=== PATIENT | male | born 1960 | race Caucasian/White ===

== ENCOUNTER → 2017-09-24 08:35 | Outpatient (CLI) | payer MEDICAID, SELFPAY ==
[2017-09-24 10:19] LABS: Cholesterol 121 mg/dL (200); High Density Lipoprotein 32 mg/dL; Triglycerides 304 mg/dL; Very Low Density Lipoprotein 61 mg/dL (5-40)
[2017-09-24 11:44] LABS: ALB/GLOB Ratio 1.4 RATIO (0.9-2.4); AST(SGOT) 22 U/L (15-37); Alanine Aminotransfer ALT/SGPT 34 U/L (12-78); Albumin, Serum 4.3 g/dL (3.4-5.0); Alkaline Phosphatase 63 U/L (45-117); Anion Gap 12 (5-15); BUN 17 mg/dL (7-18); BUN/Creat Ratio 15.6 RATIO (10-20); Calcium,Total 9.4 mg/dL (8.5-10.1); Chloride 105 mmol/L (98-107); Creatinine, Serum 1.09 mg/dL (0.70-1.30); EST Glomerular Filtration Rate 75 mL/min (>60); Est Glom Filt Rate - Afr Amer 90 mL/min (>60); Globulin 3.1 g/dL (2.2-4.2); Glucose 104 mg/dL (70-110); Potassium 4.3 mmol/L (3.5-5.1); Protein, Total 7.4 g/dL (6.4-8.2); Sodium Level 141 mmol/L (136-145)
== END ==
PROVIDERS: Family Provider Internal Medicine; PCP Internal Medicine; Visit Provider Nurse Practitioner Family
DX: E78.5 Hyperlipidemia, unspecified (principal); I10 Essential (primary) hypertension
CPT/HCPCS: 36415; 80053; 80061

== ENCOUNTER 2017-10-28 15:00 | Outpatient (RCR) | payer MEDICAID, SELFPAY ==
--- NOTE | 2017-10-11 15:58 | HP.PTEVAL_ITS ---
Patient's Visit Information HELEN RUDD is a 57 year old M referred to Physical Therapy by DO MADELINE Griffith with a diagnosis of Neck and LBP. Date of Evaluation: 10/11/17 Physical Therapist: Sidney Estevez PT, - Visit Plan Frequency: 1-2x /Week Duration: 4-6 Weeks Plan: Aquatic therapy consisting of core stab, scap stab, UE stretching and strengthening, and HEP - Subjective Subjective: Pt reports a chronic Hx of neck and LBP for several years. Pt reports his back is worse than his neck. Pt reports he has come to PT for several years for this and it has always made him feel better. Pt reports he recently had C/S xrays which revealed bone spurs. Pt also notes he has had injections in his LB which has helped with the pain. Pt reports he has radiculopathy in L LE which extends to below his knee. No UE T or N. Pt reports he has sleep diff secondary to pain. Able to sleep 4-5 hours at most. Pt reports he is able to do house chores, but must take several breaks due to his pain. Pt is disabled at this time. - Pain neck Pain Intensity (Out of 10): 6 Pain Intensity Range: 6 LBP Pain Intensity (Out of 10): 6 Pain Intensity Range: 10 - Objective Neuro: B LE sensation is WNL to light touch. B achilles and biceps reflex=1/3. AROM: Pt is moderately limited in all ROM with neck and LB. MMT: B UE and LE are grossly rated at 4+/5 throughout. Gait: Pt is able to ambulate 680' I with no limitation until experiencing increased L LE radiculopathy - Goals Goal 1:: Decrease neck and LBP x 25 % to aid with sleep Goal Time Frame: 4-6 Weeks Goal 2:: Pt will be able to ambulate greater than 1000 feet to aid with community ambulation Goal Time Frame: 4-6 Weeks Goal 3:: I with HEP Goal Time Frame: 4-6 Weeks - Rehabilitation Potential Physical Therapy Diagnosis: Pt has neck and LBP secondary to deg changes throughout his spine Rehabilitation Potential: Good - Anticipated Interventions Patient/Client Instruction: Educate patient on: Condition, Plan of Care For the Purpose of:: To improve self management Therapeutic Exercise to Include: Strength training, Endurance training, Postural training, In an aquatic setting, Active ROM, Dynamic Lumbar Stabilization, Scapular Strength/Stabilization For the Purpose of:: To decrease pain, To increase ROM, To improve muscle performance and motor function Thank you for the opportunity to evaluate your patient. For Medicare and Medicare HMO plans, please review the plan of care and approve it. It will need to be FAXED BACK to us at [phone] for Medicare purposes. Please let me know if there are questions or concerns regarding this plan of care. Physician Signature: Date:
--- NOTE | 2017-11-15 09:39 | HP.PT.NRP ---
HP - Discharge Summary (1) - Patient Information HELEN RUDD was seen in my office for initial evaluation on 10/11/17. The following Plan of Care was established for this patient: Initial Frequency: 1-2x /Week Initial Duration: 4-6 Weeks - Anticipated Interventions Patient/Client Instruction: Educate patient on: Condition, Plan of Care For the Purpose of:: To improve self management Therapeutic Exercise to Include: Strength training, Endurance training, Postural training, In an aquatic setting, Active ROM, Dynamic Lumbar Stabilization, Scapular Strength/Stabilization For the Purpose of:: To decrease pain, To increase ROM, To improve muscle performance and motor function This patient was last seen in our office . Pertinent comments regarding their Physical therapy will appear below: Pt phoned the clinic on the date of 11/12/17 to report he is going to have hernia surgery soon and wanted to cancel remaining appointments. At this point I will be discontinuing this patient from physical therapy. I would be happy to see this patient again in the future if found appropriate by the physician. Thank you! Sidney Estevez, PT,
== END 2017-10-28 19:00 | disposition home or self-care (01) ==
LOC: PT 15:00
PROVIDERS: Family Provider Internal Medicine; PCP Internal Medicine; Visit Provider Anesthesiology Pain Medicine
DX: M50.30 Other cervical disc degeneration, unspecified cervical region (principal); M15.9 Polyosteoarthritis, unspecified; F11.20 Opioid dependence, uncomplicated; M53.3 Sacrococcygeal disorders, not elsewhere classified; M79.1 Myalgia; M46.96 Unspecified inflammatory spondylopathy, lumbar region; M54.16 Radiculopathy, lumbar region; M51.36 Other intervertebral disc degeneration, lumbar region; G89.29 Other chronic pain
CPT/HCPCS: 97113; 97162

== ENCOUNTER → 2017-11-12 14:15 | Outpatient (CLI) | payer MEDICAID, SELFPAY ==
[2017-11-12 16:35] LABS: T4 Free Direct 0.95 ng/dL (0.76-1.46); Thyroid Stim Hormone (TSH) 2.25 uIU/mL (0.358-3.74)
== END ==
PROVIDERS: Family Provider Internal Medicine; PCP Internal Medicine; Visit Provider Internal Medicine
DX: E03.9 Hypothyroidism, unspecified (principal)
CPT/HCPCS: 36415; 84439; 84443

== ENCOUNTER 2017-11-22 11:11 | Day surgery (SDC) | payer MEDICAID, SELFPAY ==
[2017-11-22] VITALS (8 sets, daily range): BP systolic 99–135; BP diastolic 76–97; PULSE 69–96; RESP 16–18; TEMP 36.6–37.2; O2SAT 93–96; BMI 35.4
--- NOTE | 2017-11-22 11:20 | EKG12_ITS ---
Test Reason : PRE-OP Blood Pressure : / mmHG Vent. Rate : 081 BPM Atrial Rate : 081 BPM P-R Int : 176 ms QRS Dur : 086 ms QT Int : 364 ms P-R-T Axes : 018 -73 062 degrees QTc Int : 422 ms Normal sinus rhythm Left axis deviation Abnormal ECG When compared with ECG of 06-NOV-2012 13:55, No significant change was found Confirmed by MARIA VICTORIA SANDOVAL, AUSTEN ([id number]), make up editor DELON PETERS ([id number]) on 11/25/2017 4:03:52 PM Referred By: Preston Bryant Confirmed By:AUSTEN IRENE MD
[2017-11-22 12:09] LABS: Hematocrit 41.4 % (40-54); Hemoglobin 13.8 g/dl (13.0-16.5); Mean Corp Hgb Conc 33.3 g/gl (32-36); Mean Corpuscular Hgb 31.7 pg (27.0-32.0); Mean Corpuscular Volume 95.2 fL (80-94); Mean Platelet Vol. 10.9 fl (6.2-12.0); Platelet Count 242 K/mm3 (150-450); RBC Distribution Width CV 12.5 % (11.6-14.6); RBC Distribution Width SD 42.6 fl (35.1-43.9); Red Blood Count 4.35 M/mm3 (4.6-6.2); White Blood Count 5.5 K/mm3 (4.4-11.0)
[2017-11-22 12:12] LABS: Scan Indicated on CBC? Y/N NO
[2017-11-22] MEDS: Ipratropium/Albuterol Sulfate 3 ML AMPUL.NEB INHALATION (12:15)
--- NOTE | 2017-11-22 12:33 | RAD_ITS ---
STUDY: X-RAY CHEST REASON FOR EXAM: Male, 57 years old. Preop for hernia repair TECHNIQUE: PA and lateral views of the chest. COMPARISON: 2013 FINDINGS: The lungs are clear and expanded. There is no demonstrated pleural abnormality. Normal size heart. Normal mediastinum and gris. Normal visualized pulmonary arteries. Normal visualized aortic arch and descending thoracic aorta. Normal visualized thoracic spine. Normal visualized ribs, clavicles, and shoulders. There is no demonstrated abnormality of the visualized soft tissue structures of the upper abdomen. RAD/Chest PA and Lateral IMPRESSION: No acute pulmonary process Electronically Signed: Harinder Figueroa MD at 13:02 EDT , Service support ,
[2017-11-22] MEDS: Cefazolin 2 GM in 0.9% Normal Saline 100 ML IV (13:24)
[2017-11-22] MEDS: Bupiv/Epi 0.5% Mpf 30 ML Vial (13:50)
--- NOTE | 2017-11-22 14:11 | PCM.DC.HER ---
Discharge Diet: Light diet - advance as tolerated Discharge Activity: Return to Normal Activity, May Not Drive - for 2-3 days or while taking narcotic pain meds., May Shower - with the bandage in place 1-2 days after surgery. Lifting Restrictions: 20 pounds for 6 weeks. Additional Activity Instructions:: Climbing stairs is fine, walking is encouraged. Sitting in bed may be uncomfortable. Sitting up using your lateral muscles (sitting up sideways) is usually more comfortable. Do not drive, work heavy equipment of sign legal documents for 24 hours. Pain medications may cause nausea, you should typically eat light foods as you take your pain medications. Pain medications may also cause constipation. If you have difficulty with this, discuss with your doctor. Call your doctor if your incision/area has: Continuous Slow Oozing, Sudden Increased Bleeding, Increased Pain/ Swelling, Increased Redness, Foul Smelling Discharge Call your doctor if you observe: Fever of 101 or Higher Suture Line Care: Avoid Pulling/Pushing, Avoid Pinching/Bending Change Dressing in (Days):: 2 - Leave steri-strips for 1 week. May protect with a guaze bandaid. Cleanse incision/area with: Keep Dressing Clean & Dry Allergies/Adverse Reactions: Allergies venom-honey bee [bee venom (honey bee)] Allergy (Verified 11/18/17 08:43) Unknown Medications to take at Discharge Carvedilol [Coreg] 3.125 mg PO BID 06/02/13 Diazepam [Valium] 10 mg PO TID PRN PRN 06/02/13 Gabapentin [Neurontin] 400 mg PO TIDCM 06/02/13 buPROPion XL [Wellbutrin Xl] 300 mg PO DAILY 06/02/13 hydrocortisone 0.5 % topical cream 1 applic TOPICAL BID-QID PRN 08/05/17 levothyroxine 150 mcg capsule 150 mcg PO QDAY cap 08/05/17 nitroglycerin 0.4 mg sublingual tablet 0.4 mg SUBLINGUAL Q5M PRN 08/05/17 pravastatin 40 mg tablet 40 mg PO QHS 08/05/17 multivitamin,rt-xmjw-gvlgbyyw tablet 1 tab PO QDAY #100 ea 08/06/17 aspirin 81 mg tablet,delayed release 81 mg PO QDAY 09/06/17 lisinopril 20 mg tablet 20 mg PO QDAY 09/06/17 naproxen 500 mg tablet 500 mg PO BID PRN tab 09/06/17 oxycodone ER 15 mg tablet,crush resistant,extended release 12 hr 15 mg PO Q6H PRN tab 09/06/17 coal tar 0.5 % shampoo 1 applic TOPICAL QDAY #250 ml 09/28/17 Fenofibrate,Micronized [Fenofibrate] 67 mg PO QHS 11/18/17 Oxycodone HCl/Acetaminophen [Percocet 5/325] 1 - 2 tablet PO Q4H PRN PRN 7 Days #20 tablet 11/22/17 The following prescriptions were given: Oxycodone HCl/Acetaminophen [Percocet 5/325] 1 - 2 tablet PO Q4H PRN PRN 7 Days #20 tablet PRN Reason: Pain Primary Care Physician: Britni Hutchinson MD [Primary Care Provider] - Please Follow Up With: Preston Bryant MD When: call tomorrow to make 2 week follow up appt [phone]
--- NOTE | 2017-11-22 14:17 | OP.PCM_ITS ---
Problem List (1) Umbilical hernia without mention of obstruction or gangrene Status: Acute Qualifiers: Obstruction and gangrene presence: without obstruction or gangrene Report of Operation Date of Procedure: 11/22/17 Pre-Operative Diagnosis: Umbilical hernia Post-Operative Diagnosis: Umbilical hernia without gangrene or obstruction 1 cm Surgery/Procedure Performed:: Umbilical hernia repair Description of Surgical Findings:: Patient had a hernia which is approximately 1 cm possibly a little bit smaller. Hernia was closed with 3 interrupted Prolene sutures no mesh was used. Specimen's removed: None Description of Procedure: Patient was brought back to the operating room and general LMA anesthesia was induced. Next the umbilical area was prepped and draped in usual sterile fashion. A curvilinear incision was marked superior to the umbilicus and anesthetized with Marcaine. Next a scalpel was used to make an incision at the proposed incision site and this was deepened to the umbilicus. The umbilicus was dissected free circumferential and then elevated and dissected off of the abdominal wall using electrocautery. The hernia defect was identified and circumferentially dissected free. It was measured to be about 8 mm. This was dissected free above and below the hernia defect and then closed with 3 interrupted 0 Prolene sutures. Next the incision was copiously irrigated and suctioned dry. Next 2 interrupted 3-0 Vicryl sutures were used to tack down the umbilicus. Interrupted 3-0 Vicryl sutures were used to approximate the incision. Next a running 4-0 Monocryl suture was used to close the skin. Steri -Strips were then applied and a cottonball was placed into the abdomen and a pressure dressing was placed over this. Patient tolerated the procedure well and was brought to PACU in stable condition. - Admit VTE Documentation VTE Mechan Device Prophylaxis: SCD's
--- NOTE | 2017-11-22 14:22 | EKG12_ITS ---
Test Reason : CP IN PACU Blood Pressure : / mmHG Vent. Rate : 092 BPM Atrial Rate : 092 BPM P-R Int : 178 ms QRS Dur : 094 ms QT Int : 362 ms P-R-T Axes : 038 -61 040 degrees QTc Int : 447 ms Normal sinus rhythm Left axis deviation Abnormal ECG When compared with ECG of 22-NOV-2017 11:58, MANUAL COMPARISON REQUIRED, DATA IS UNCONFIRMED Confirmed by MARIA VICTORIA SANDOVAL, AUSTEN ([id number]), associate editor DELON PETERS ([id number]) on 11/25/2017 4:03:42 PM Referred By: Preston Bryant Confirmed By:AUSTEN IRENE MD
--- NOTE | 2017-11-22 15:57 | SUR.PHASEII ---
pt could not get prescription filled because he is with pain management and has used up the medicine he could have. pt is aware. instructed to take OTC pain med.
== END 2017-11-22 15:58 | disposition home or self-care (01) ==
LOC: SDC 11:11 → AC 11:12
PROVIDERS: Anesthesiology; Family Provider Internal Medicine; PCP Internal Medicine; Visit Provider Surgery
PROC: (CPT 49585; principal; 2017-11-22 12:45)
DX: K42.9 Umbilical hernia without obstruction or gangrene (principal); I25.10 Atherosclerotic heart disease of native coronary artery without angina pectoris; E78.00 Pure hypercholesterolemia, unspecified; E03.9 Hypothyroidism, unspecified; I10 Essential (primary) hypertension; M19.90 Unspecified osteoarthritis, unspecified site; F32.9 Major depressive disorder, single episode, unspecified; I25.2 Old myocardial infarction; F17.200 Nicotine dependence, unspecified, uncomplicated; Z98.61 Coronary angioplasty status; Z79.82 Long term (current) use of aspirin; Z79.899 Other long term (current) drug therapy
CPT/HCPCS: 49585; 71046; 84484; 85027; 93005; 94640; J7120

== ENCOUNTER → 2018-02-07 12:00 | Outpatient (CLI) | payer MEDICAID, SELFPAY ==
--- NOTE | 2018-02-07 12:00 | DT_ITS ---
This patient was seen during an EMR downtime January 31, 2018 - February 07, 2018. This patient may have a combination of paper and electronic documentation or all paper documentation. All documentation is viewable within the e-chart portion of [employer] for each patient visit.
[2018-02-07 13:57] LABS: ALB/GLOB Ratio 0.9 RATIO (0.9-2.4); AST(SGOT) 21 U/L (15-37); Alanine Aminotransfer ALT/SGPT 26 U/L (16-61); Albumin, Serum 3.5 g/dL (3.2-5.0); Alkaline Phosphatase 66 U/L (45-117); Anion Gap 6 (5-15); BUN 13 mg/dL (7-18); BUN/Creat Ratio 10.7 RATIO (10-20); Calcium,Total 9.5 mg/dL (8.5-10.1); Chloride 105 mmol/L (98-107); Creatinine, Serum 1.22 mg/dL (0.70-1.30); EST Glomerular Filtration Rate 65 mL/min (>60); Est Glom Filt Rate - Afr Amer 79 mL/min (>60); Globulin 3.8 g/dL (2.2-4.2); Glucose 110 mg/dL (74-106); Protein, Total 7.3 g/dL (6.4-8.2); Sodium Level 140 mmol/L (136-145)
[2018-02-09 12:07] LABS: Cholesterol 147 mg/dL (200); High Density Lipoprotein 22 mg/dL; Triglycerides 538 mg/dL
== END ==
PROVIDERS: Visit Provider Nurse Practitioner Family
DX: E78.5 Hyperlipidemia, unspecified (principal); I10 Essential (primary) hypertension
CPT/HCPCS: 36415; 80053; 80061

== ENCOUNTER 2018-04-05 14:30 | Outpatient (RCR) | payer MEDICAID, SELFPAY ==
--- NOTE | 2018-03-25 13:30 | HP.PTEVAL_ITS ---
Patient's Visit Information HELEN RUDD Jr. is a 57 year old M referred to Physical Therapy by Violeta Antunez DO with a diagnosis of Neck and LBP. Date of Evaluation: 03/25/18 Physical Therapist: Sidney Estevez PT, - Visit Plan Frequency: 2x /Week Duration: 4-6 Weeks Plan: Aquatic therapy consisting of UE and LE strenghtening, core stab ex's, scap stab ex's, and HEP - Subjective Subjective: Pt reports a chronic Hx of neck and LBP. Pt reports he has had PT in the past. Pt reports aquatic therapy always seemed to help the most. Pt reports he is taking pain meds and has receivved several injestions which did temporarily help. Pt reports he has numbness which extends from his LB to his R knee. Pt reports sig sleep difficulty secondary to pain. 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 Pt reports he has had multiple xrays which revealed sig degenerative changes in his spine. 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 7/10 pain in spine at rest , 10/10 at worst (trying to sleep) - Pain Neck and LBP Pain Intensity (Out of 10): 7 Pain Intensity Range: 10 - Objective Neuro: R LE is hyposensitive to light touch. All other UE and LE sensation is WNL to light touch. B patellar and bicepital reflex= 1/3. ROM: B UE/LE are WFL. MMT: B UE and LE are grossly 4/5 throughout and painful with all testing. Gait: Pt is able to ambulate 850' until feeling fatigued and needing to sit down to rest - Goals Goal 1:: Decrease neck and LBP x 50% to aid with sleep Goal Time Frame: 4-6 Weeks Goal 2:: Increase B UE and LE strength x 1 grade to aid with IADL's Goal Time Frame: 4-6 Weeks Goal 3:: Pt will be able to ambulate greater than 1000' to aid with community ambulation Goal Time Frame: 4-6 Weeks Goal 4:: I with HEP Goal Time Frame: 4-6 Weeks - Rehabilitation Potential Physical Therapy Diagnosis: Pt has neck and LBP secondary to degenerative changes in the L/S Rehabilitation Potential: Good - Anticipated Interventions Patient/Client Instruction: Educate patient on: Condition, Plan of Care For the Purpose of:: To improve self management Therapeutic Exercise to Include: Strength training, Endurance training, Body mechanics, Postural training, In an aquatic setting, Dynamic Lumbar Stabilization, Scapular Strength/Stabilization For the Purpose of:: To decrease pain, To improve muscle performance and motor function, To increase tolerance to activity/condition/position Thank you for the opportunity to evaluate your patient. For Medicare and Medicare HMO plans, please review the plan of care and approve it. It will need to be FAXED BACK to us at [phone] for Medicare purposes. Please let me know if there are questions or concerns regarding this plan of care. Physician Signature: Date:
--- NOTE | 2018-05-20 08:06 | HP.PT.NRP ---
HP - Discharge Summary (1) - Patient Information HELEN RUDD Jr. was seen in my office for initial evaluation on 03/25/18. The following Plan of Care was established for this patient: Initial Frequency: 2x /Week Initial Duration: 4-6 Weeks - Anticipated Interventions Patient/Client Instruction: Educate patient on: Condition, Plan of Care For the Purpose of:: To improve self management Therapeutic Exercise to Include: Strength training, Endurance training, Body mechanics, Postural training, In an aquatic setting, Dynamic Lumbar Stabilization, Scapular Strength/Stabilization For the Purpose of:: To decrease pain, To improve muscle performance and motor function, To increase tolerance to activity/condition/position This patient was last seen in our office . Pertinent comments regarding their Physical therapy will appear below: Pt was last treated on the date of 04/05/18 for his neck and LBP. Pt has not returned through todays date, and is therefore discontinued at this time. At this point I will be discontinuing this patient from physical therapy. I would be happy to see this patient again in the future if found appropriate by the physician. Thank you! Sidney Estevez, PT,
== END 2018-04-05 19:00 | disposition home or self-care (01) ==
LOC: PT 14:30
PROVIDERS: Family Provider Internal Medicine; PCP Internal Medicine; Visit Provider Anesthesiology Pain Medicine
DX: M50.30 Other cervical disc degeneration, unspecified cervical region (principal); M15.9 Polyosteoarthritis, unspecified; F11.20 Opioid dependence, uncomplicated; M53.3 Sacrococcygeal disorders, not elsewhere classified; M79.1 Myalgia; M46.96 Unspecified inflammatory spondylopathy, lumbar region; M54.16 Radiculopathy, lumbar region; M51.36 Other intervertebral disc degeneration, lumbar region
CPT/HCPCS: 97113; 97162

== ENCOUNTER → 2018-06-08 09:03 | Outpatient (CLI) | payer MEDICAID, SELFPAY ==
[2018-06-08 10:44] LABS: Hemoglobin A1c 5.8 % (4.2-6.3)
[2018-06-08 10:58] LABS: Cholesterol 131 mg/dL (200); High Density Lipoprotein 31 mg/dL; Triglycerides 339 mg/dL; Very Low Density Lipoprotein 68 mg/dL (5-40)
== END ==
PROVIDERS: Family Provider Internal Medicine; PCP Internal Medicine; Referring Provider Internal Medicine; Visit Provider Internal Medicine
DX: E78.5 Hyperlipidemia, unspecified (principal); E78.1 Pure hyperglyceridemia; R73.9 Hyperglycemia, unspecified
CPT/HCPCS: 36415; 80061; 83036

== ENCOUNTER → 2018-07-27 07:42 | Outpatient (CLI) | payer MEDICAID, SELFPAY ==
[2018-05-10 13:52] VITALS: BMI 31.1
--- NOTE | 2018-07-27 10:39 | NEURO ---
NCS and/or EMG Patient Report Ordering Doctor: Cynthia Swift DATE OF SERVICE: 07/27/18 This is a bilateral lower extremity nerve conduction study and a right lower extremity EMG performed on this 58-year-old male with bone spurs in his feet. He says on several occasions he has had steroid injections in his feet which has temporarily improved his symptoms significantly however the symptoms recur once the steroids wear off. So has back pain. Bilateral lower extremity sensory and motor nerve conduction studies are performed. H reflex latencies from the tibial nerves bilaterally are reduced. F-wave responses from the tibial and peroneal nerves bilaterally are symmetrically within the normal range. Sural sensory, medial plantar responses bilaterally and peroneal motor and tibial motor responses bilaterally demonstrate normal distal latencies amplitudes and conduction velocities. Right lower extremity needle electromyography is performed. Muscles evaluated included the extensor digitorum brevis, abductor hallucis, medial gastrocnemius, anterior tibialis, vastus medialis and vastus lateralis muscles. All muscles demonstrated normal insertional activity with absence of pathologic spontaneous activity area and motor unit potential recruitment pattern and amplitude was normal in all muscles tested. Impression this is a normal elective his like study of the lower extremities.
--- OUTSIDE RECORDS SUMMARY | 2018-09-21 12:06 | XMS RPT_ITS ---
:1960 Author Organization OHIP Support Name Relationship Address Phone D Unavailable Unavailable Unavailable POHALSKI, ISAC Unavailable . + [place] [address] POHALSKI, TAMELA Unavailable . + [place] [address] D Unavailable Unavailable Unavailable POHALSKI, ISAC Unavailable Unavailable + [place] [address] POHALSKI, TAMELA Unavailable Unavailable + [place] [address] ELIZAHALSKI, HELEN SR Unavailable Unavailable + D Unavailable Unavailable Unavailable POHALSKI, ISAC Unavailable Unavailable + [place] [address] POHALSKI, TAMELA Unavailable Unavailable + [place] [address] D Unavailable Unavailable Unavailable POHALSKI, ISAC Unavailable . + [place] [address] POHALSKI, TAMELA Unavailable . + [place] [address] D Unavailable Unavailable Unavailable POHALSKI, ISAC Unavailable . + [place] [address] POHALSKI, TAMELA Unavailable . + [place] [address] D Unavailable Unavailable Unavailable POHALSKI, ISAC Unavailable . + [place] [address] POHALSKI, TAMELA Unavailable . + [place] [address] POHALSKI, HELEN SR Unavailable Unavailable + D Unavailable Unavailable Unavailable POHALSKI, ISAC Unavailable Unavailable + [place] [address] POHALSKI, TAMELA Unavailable Unavailable + [place] [address] D Unavailable Unavailable Unavailable POHALSKI, ISAC Unavailable Unavailable + [place] [address] POHALSKI, TAMELA Unavailable . + [place] [address] D Unavailable Unavailable Unavailable POHALSKI, ISAC Unavailable . + [place] [address] POHALSKI, TAMELA Unavailable . + [place] [address] POHALSKI, HELEN SR Unavailable Unavailable + D Unavailable Unavailable Unavailable POHALSKI, ISAC Unavailable . + [place] [address] POHALSKI, TAMELA Unavailable . + [place] [address] D Unavailable Unavailable Unavailable POHALSKI, ISAC Unavailable . + [place] [address] POHALSKI, TAMELA Unavailable . + [place] [address] D Unavailable Unavailable Unavailable POHALSKI, ISAC Unavailable . + [place] [address] POHALSKI, TAMELA Unavailable . + [place] [address] D Unavailable Unavailable Unavailable POHALSKI, ISAC Unavailable . + [place] [address] POHALSKI, TAMELA Unavailable . + [place] [address] D Unavailable Unavailable Unavailable POHALSKI, ISAC Unavailable Unavailable + [place] [address] POHALSKI, TAMELA Unavailable Unavailable + [place] [address] D Unavailable Unavailable Unavailable POHALSKI, ISAC Unavailable . + [place] [address] POHALSKI, TAMELA Unavailable . + [place] [address] POHALSKI, HELEN SR Unavailable Unavailable + D Unavailable Unavailable Unavailable POHALSKI, ISAC Unavailable Unavailable + [place] [address] POHALSKI, TAMELA Unavailable Unavailable + [place] [address] D Unavailable Unavailable Unavailable POHALSKI, ISAC Unavailable NA + [place] [address] POHALSKI, TAMELA Unavailable NA + [place] [address] D Unavailable Unavailable Unavailable POHALSKI, ISAC Unavailable NA + [place] [address] POHALSKI, TAMELA Unavailable NA + [place] [address] D Unavailable Unavailable Unavailable POHALSKI, ISAC Unavailable NA + [place] [address] POHALSKI, TAMELA Unavailable NA + [place] [address] D Unavailable Unavailable Unavailable POHALSKI, ISAC Unavailable NA + [place], [place] POHALSKI, TAMELA Unavailable NA + [place], [place] D Unavailable Unavailable Unavailable POHALSKI, ISAC Unavailable Unavailable + [place] [address] POHALSKI, TAMELA Unavailable Unavailable + [place] [address] D Unavailable Unavailable Unavailable POHALSKI, ISAC Unavailable NA + [place], [place] POHALSKI, TAMELA Unavailable NA + [place], [place] D Unavailable Unavailable Unavailable POHALSKI, ISAC Unavailable NA + [place], [place] POHALSKI, TAMELA Unavailable NA + [place], [place] POHALSKI, HELEN SR Unavailable Unavailable + Care Team Providers Name Role Phone Oleghe, Efewongbe Attending Unavailable Oleghe, Efewongbe Referring Unavailable Steven Kwon Attending Unavailable Oleghe, Efewongbe Referring Unavailable Oleghe, Efewongbe Primary Care Unavailable Dariel KelleyC Attending Unavailable Oleghe, Efewongbe Primary Care Unavailable Violeta Fernandez Attending Unavailable Violeta Fernandez Referring Unavailable Oleghe, Efewongbe Primary Care Unavailable Dariel Kelley NP-C Attending Unavailable Oleghe, Efewongbe Referring Unavailable Oleghe, Efewongbe Primary Care Unavailable Dariel Kelley [employer]-C Attending Unavailable Dariel Kelley [employer]-C Referring Unavailable Oleghe, Efewongbe Primary Care Unavailable Preston Bryant Attending Unavailable Oleghe, Efewongbe Referring Unavailable Oleghe, Efewongbe Primary Care Unavailable Oleghe, Efewongbe Attending Unavailable Oleghe, Efewongbe Referring Unavailable Oleghe, Efewongbe Primary Care Unavailable Oleghe, Efewongbe Attending Unavailable Oleghe, Efewongbe Referring Unavailable Oleghe, Efewongbe Primary Care Unavailable Preston Bryant Attending Unavailable Preston Bryant Referring Unavailable Oleghe, Efewongbe Primary Care Unavailable Preston Bryant Attending Unavailable Preston Bryant Referring Unavailable Oleghe, Efewongbe Primary Care Unavailable Preston Bryant Consulting Unavailable Preston Bryant Attending Unavailable Oleghe, Efewongbe Referring Unavailable Oleghe, Efewongbe Primary Care Unavailable Rich Lopez Attending Unavailable Preston Bryant Referring Unavailable Darile Kelley [employer]-C Attending Unavailable Dariel Kelley [employer]-C Attending Unavailable Oleghe, Efewongbe Referring Unavailable Oleghe, Efewongbe Primary Care Unavailable Monique Tang PA-C Attending Unavailable Oleghe, Efewongbe Referring Unavailable Oleghe, Efewongbe Primary Care Unavailable Violeta Fernandez Attending Unavailable Oleghe, Efewongbe Primary Care Unavailable Violeta Fernandez Referring Unavailable Kaila Krishna Attending Unavailable Oleghe, Efewongbe Attending Unavailable Oleghe, Efewongbe Referring Unavailable Oleghe, Efewongbe Primary Care Unavailable Yu Johnson Attending Unavailable Mone Aguilar Attending Unavailable Oleghe, Efewongbe Attending Unavailable Oleghe, Efewongbe Referring Unavailable Oleghe, Efewongbe Primary Care Unavailable Cynthia Swift Attending Unavailable Cynthia Swift Referring Unavailable Oleghe, Efewongbe Primary Care Unavailable Kiersten Garcia Attending Unavailable Kiersten Garcia Attending Unavailable FakalynsKiersten L Attending Unavailable Oleghe, Efewongbe Primary Care Unavailable KarosKiersten L Attending Unavailable Oleghe, Efewongbe Primary Care Unavailable Kiersten Garcia Attending Unavailable Britni Hutchinson Primary Care Unavailable PROBLEMS PROBLEMS DATE TYPE CONDITION / CODE ATTENDING STATUS SOURCE Unknown E78.5 - Oleghe, Active [place] 8 Hyperlipidemia, Efongbe [facility] unspecified / Hospital E78.5(ICD-10) Repository Unknown R73.9 - Hyperglycemia, Oleghe, Active [place] 8 unspecified / [facility] R73.9(ICD-10) Hospital Repository Unknown E78.1 - Pure Oleghe, Active [place] 8 hyperglyceridemia / [facility] E78.1(ICD-10) Hospital Repository Unknown M50.30 - Other [place]io, Active [place] 8 [facility] / M50.30(ICD-10) Unknown K42.9 - Umbilical [place], Active [place] 8 hernia without Preston [facility] obstruction or Hospital gangrene / Repository K42.9(ICD-10) Unknown I25.10 - Jessica, Rich Active [place] 8 Atherosclerotic heart [facility] disease [facility] coronary artery Repository without angina pectoris / I25.10(ICD-10) Unknown I10 - Essential Jessica, Rose Active [place] 8 (primary) hypertension Community / I10(ICD-10) Hospital Repository Unknown I25.2 - Old myocardial Jessica, Rose Active [place] 8 infarction / Community I25.2(ICD-10) Hospital Repository Unknown R94.31 - Abnormal Jessica, Rich Active [place] 8 electrocardiogram Community [ECG] [EKG] / Hospital R94.31(ICD-10) Repository Unknown E03.9 - Oleghe, Active [place] 8 Hypothyroidism, Efewongbe Community unspecified / Hospital E03.9(ICD-10) Repository Admitting Unknown / UNK(Unknown) Maria De Jesus Garcia [facility] [place] 7 diagnosis Kiersten Wagoner [facility] Repository PROCEDURES PROCEDURES No Procedure Records FoundRESULTS RESULTS NCS AND/OR EMG Observed: 07/27/2018 Status: F Source: [place] [facility]/Neurology [address] [place] [address] MR#: [id number] Acct: [id number] Name: HELEN RUDD Jr. Rep #: [id number] : 1960 58 From: Ba Salmon MD Referring Dr: Cynthia Swift DPM Status: REG CLI Ordering Dr: Date: Location: PSN Sex: M C NCS and/or EMG Patient Report Ordering Doctor: Cynthia Swift DATE OF SERVICE: 07/27/18 This is a bilateral lower extremity nerve conduction study and a right lower extremity EMG performed on this 58-year-old male with bone spurs in his feet. He says on several occasions he has had steroid injections in his feet which has temporarily improved his symptoms significantly however the symptoms recur once the steroids wear off. So has back pain. Bilateral lower extremity sensory and motor nerve conduction studies are performed. H reflex latencies from the tibial nerves bilaterally are reduced. F-wave responses from the tibial and peroneal nerves bilaterally are symmetrically within the normal range. Sural sensory, medial plantar responses bilaterally and peroneal motor and tibial motor responses bilaterally demonstrate normal distal latencies amplitudes and conduction velocities. Right lower extremity needle electromyography is performed. Muscles evaluated included the extensor digitorum brevis, abductor hallucis, medial gastrocnemius, anterior tibialis, vastus medialis and vastus lateralis muscles. All muscles demonstrated normal insertional activity with absence of pathologic spontaneous activity area and motor unit potential recruitment pattern and amplitude was normal in all muscles tested. Impression this is a normal elective his like study of the lower extremities. 07/27/18 1637 <Electronically signed by Ba Salmon MD> Date Ba Salmon MD CC: Britni Hutchinson MD; Cynthia Swift DPM; Ba Salmon MD Date Dictated: 07/27/181038 Date Transcribed: 07/27/181038 Vp Purchasing: NF Signed HEMOGLOBIN A1C Collected: 06/08/2018 Status: F Source: [place] 9:15 AM [facility] REPOSITORY TYPE CODE TESTS RESULT OUT OF RANGE REFERENCE UNITS LAB L501.9985 4.2-6.3 % Normal HGB A1C 5.8 Performed By: #### L501.9985 #### [facility] [address] [place], [address] LIPID PROFILE Collected: 06/08/2018 Status: F Source: [place] 9:15 AM [facility] REPOSITORY TYPE CODE TESTS RESULT OUT OF RANGE REFERENCE UNITS LAB L501.4900 200 mg/dL Normal CHOL 131 Result Comment: <200 mg/dL Desirable 200-240 mg/dL Borderline >240 mg/dL High Risk LAB L501.5000 mg/dL High TRIG 339 Result Comment: The drugs N-Acetylcysteine and Metamizole may falsely depress this assay. Serum Triglycerides Reference Interval Normal <150 mg/dL Borderline high 150 - 199 mg/dL High 200 - 499 mg/dL Very High > or = 500 mg/dL LAB L501.6400 mg/dL Low HDL 31 Result Comment: The drugs N-Acetylcysteine and Metamizole may falsely depress this assay. Reference Range HDL <40 mg/dL Low HDL Cholesterol HDL >or= 60 mg/dL High HDL Cholesterol LAB L501.6500 0-130 mg/dL Normal LDL 32 LAB L501.6600 5-40 mg/dL High VLDL 68 Performed By: #### L500.4100 #### [facility] [address] [place], [address] INTERNAL MEDICINE Observed: 05/10/2018 Status: F Source: [place] OFFICE VISIT 3:57 PM [facility] REPOSITORY [facility] [address] [place] [address] [place] [address] OFFICE VISIT Date of Service: 05/10/18 MR#: [id number] Acct: [id number] Name: HELEN RUDD Jr. Rep #: [id number] : 1960 Provider: Britni Hutchinson MD Age/Sex: 57/M Location: [facility] Status: Signed Intake Vital Signs05/10/18 Height 5 ft 8 in 05/10/18 Weight: 205 lb 05/10/18 Body Mass Index (BMI) 31.1 09/11/18 Blood Pressure 105/71 Intake Visit Reasons: 3 MO FU Chief Complaint: 3 mo fu. Is patient in pain?: Yes (back ) Pain scale (1-10): 6 Allergies venom-honey bee [bee venom (honey bee)] Allergy (Verified 05/10/18 13:54) Unknown Medications Diazepam [Valium] 10 mg PO TID PRN PRN 06/02/13 [History Confirmed 05/10/18] Gabapentin [Neurontin] 400 mg PO TIDCM 06/02/13 [History Confirmed 05/10/18] buPROPion XL [Wellbutrin Xl] 300 mg PO DAILY 06/02/13 [History Confirmed 05/10/18] hydrocortisone 0.5 % topical cream 1 applic TOPICAL BID-QID PRN 08/05/17 [History Confirmed 05/10/18] levothyroxine 150 mcg capsule 150 mcg PO QDAY cap 08/05/17 [History Confirmed 05/10/18] multivitamin,ov-abqn-lgkyyhcr tablet 1 tab PO QDAY #100 ea 08/06/17 [Rx Confirmed 05/10/18] naproxen 500 mg tablet 500 mg PO BID PRN tab 09/06/17 [History Confirmed 05/10/18] oxycodone ER 15 mg tablet,crush resistant,extended release 12 hr 15 mg PO Q6H PRN tab 09/06/17 [History Confirmed 05/10/18] coal tar 0.5 % shampoo 1 applic TOPICAL QDAY #250 ml 09/28/17 [Rx Confirmed 05/10/18] Oxycodone HCl/Acetaminophen [Percocet 5/325] 1 - 2 tab PO Q4H PRN PRN 7 Days #20 tab 11/22/17 [Rx Confirmed 05/10/18] rosuvastatin 40 mg tablet 40 mg PO QDAY #90 tab 01/25/18 [Rx Confirmed 05/10/18] carvedilol 3.125 mg tablet 3.125 mg PO BID #180 tab 01/26/18 [Rx Confirmed 05/10/18] lisinopril 20 mg tablet 20 mg PO QDAY #90 tab 01/26/18 [Rx Confirmed 05/10/18] epinephrine 0.3 mg/0.3 mL injection, auto-injector 0.3 mg IM ONCE 03/23/18 [History Confirmed 05/10/18] nitroglycerin 0.4 mg sublingual tablet 0.4 mg SUBLINGUAL Q5M PRN #25 tab 04/22/18 [Rx Confirmed 05/10/18] albuterol sulfate HFA 90 mcg/actuation aerosol inhaler 2 puff INHALATION Q6H PRN #8.5 g 05/10/18 [Rx Confirmed 05/10/18] fenofibrate micronized 67 mg capsule 134 mg PO QHS cap 05/10/18 [History Confirmed 05/10/18] PFSH Medical History Degenerative disc disease (Chronic) Chronic back pain (Chronic) Arthritis (Chronic) Gout (Acute) Heel spur (Acute) Spontaneous ecchymosis (Acute) Bloody ejaculation (Acute) Tobacco abuse (Chronic) Atherosclerotic heart disease of [place] coronary artery without angina pectoris (Chronic) Old myocardial infarction (Chronic) HLD (hyperlipidemia) (Chronic) Hypertriglyceridemia (Chronic) History of coronary artery stent placement (Chronic) Hypothyroidism (Chronic) Hypertension (Chronic) Surgical History History of umbilical hernia repair (Acute) radiofrequency abation S1, S2, L6 (Chronic 02/2014) Normal colonoscopy (Chronic 2014) History of left heart catheterization (LHC) (Chronic 11/06/12) History of PTCA (Chronic 11/06/12) Family History Father Hypertension Hyperlipidemia Social History Smoking Status: Current every day smoker how long ago did patient quit smokin alcohol intake: never substance use type: does not use caffeine: No what type of physical activity do you participate in: weight training frequency: 3-4 times per week seatbelt use: always do you feel safe at home: Yes HPI HPI Chief Complaint: 3 mo fu. Details: HELEN RUDD, is a 57yo M who presents to the office today for follow-up of his chronic medical conditions. He was recently managed for an upper respiratory tract infection. He reports improvement in symptoms at this time. No fever or chills. Cough is lingering however, improving compared to prior. Lipid profile done in January with still elevated triglycerides despite being on fenofibrate. Patient reports compliance with his medications. ROS Const Constitutional: No chills, fatigue, fever(s), frequent falls, malaise, weakness, sleep problems or change in appetite Eyes Eyes: No blurry vision, change in vision, double vision, discharge or visual disturbances ENT ENT: Positive for hoarseness; no abnormal hearing, ear pain, ear pressure, tinnitus or dizziness/vertigo Resp Respiratory: Positive for cough Cough: Yes productive, shortness of breath, wheezing and chest congestion Cardio Cardiology: No chest pain at rest, chest pain with exertion, shortness of breath, dyspnea on exertion, generalized swelling, irregular heart rhythm, lightheadedness, orthopnea, fast heart rate or palpitations Gastro GI: No abdominal pain, change in bowel habits, constipation, diarrhea, nausea/dyspepsia or vomiting Genitourinary Male: No difficulty urinating, burning urination, painful urination, urinary incontinence, urinary frequency, urinary urgency, urinary hesitancy, urinary retention, blood in urine, Frequent nighttime urination/ nocturia, sexual problems, testicle lump or testicle pain Musc Musculoskeletal: Positive for back pain; no joint pain, joint swelling, limited range of motion, muscle weakness, numbness or tingling Skin Skin: No change in skin color, itching, rash or wounds Breast Breast: No breast lump or breast pain Neuro Neurology: No frequent falls, weakness, abnormal hearing, numbness, tingling, unsteady gait/balance, dizziness, loss of vision, memory loss or visual disturbances Psych Psychiatric: No memory loss, No anxiety, No change in appetite, No depression, No Thoughts of harming yourself/Others Endo Endocrine: No fatigue, heat intolerance, increased thirst/drinking, increased hunger or increased urination Aller/Imm Allergy/Immunologic: Positive for wheezing; no itchy eyes or seasonal allergy symptoms Eduin/Lymp Hematologic/Lymphatic: No easy bleeding, easy bruising or enlarged lymph nodes Exam Const General: cooperative, no acute distress Orientation: alert, awake, oriented x3 HENMT Head: atraumatic, normocephalic Ears: hearing grossly normal bilaterally Resp Effort AND Inspection: normal respiratory effort, able to speak in complete sentences Auscultation: Bilateral: Rhonchi (Bases predominantly.) Cardio Rate: regular rate Rhythm: regular rhythm Heart Sounds: S1 normal, S2 normal GI Inspection: obesity Palpation: soft, no hepatosplenomegaly Musc Musculoskeletal: No muscle weakness Neuro General: alert, awake, oriented x3, moves all extremities, CN's II-XI intact bilaterally Extrem General: pedal edema on the right Location: of the leg Severity: pitting and 1+ Psych Appearance: grossly normal Mental Status: mental status grossly normal Affect: normal affect Assessment AND Plan 1. URI (upper respiratory infection) J06.9 Plan Improving however, still lingering cough and rhonchi. He just completed a steroid taper and antibiotics. ? COPD due to chronic history of smoking however patient states that he quit in December. Albuterol inhaler as needed. Advised to call with any concerns or worsening symptoms. 2. Hypertriglyceridemia E78.1 Plan Still not well controlled. Extensive discussion on lifestyle and dietary modifications had today. Patient stated understanding. Dose of fenofibrate adjusted. Repeat lipid profile in 3 months. Orders Orders: 3. Hyperglycemia R73.9 Plan Noted during previous blood work. A1c ordered. Lifestyle and dietary modifications as above. Orders Orders: 4. Essential hypertension I10 Plan Optimally controlled. Continue current medication and lifestyle and dietary modifications. 5. Hypothyroidism E03.9 Plan Stable. Continue current medications. 6. CAD (coronary artery disease) I25.10 Plan Status post stenting. Patient is stable. Denies any history of chest pain. Also follows up with the heart group. Continue statins and daily aspirin. This note was generated with Voice[employer]em dictation software. It may contain incorrect words, spelling, and punctuation that were not noted in checking the note before signing. Plan Detail Other Orders Orders: Other Medications New: albuterol sulfate HFA 90 mcg/actuation 2 puffs Inhalation Q6H PRN shortness of breath or wheezing Changed: Coding Level of Care Code Off vis,est,level 4 Diagnoses URI (upper respiratory infection) J06.9 Hypertriglyceridemia E78.1 Hyperglycemia R73.9 Essential hypertension I10 Hypertension type: essential hypertension Hypothyroidism E03.9 CAD (coronary artery disease) I25.10 05/10/18 1367 <Electronically signed by Britni Hutchinson MD> Date Britni Hutchinson MD Cosigner Signature: Date (if applicable) CC: PROGRESS Observed: 04/08/2018 Status: COMPLETED Source: [place] 2:26 PM [facility] REPOSITORY HNO ID: [id number] Author: Vivek Lizama (Branch Mechanic) [place] Service: (none) Author Type: Nurse Practitioner Type: Progress Notes Filed: 04/08/2018 2:37 PM Note Text: Subjective HPI Patient presents with: Chest Congestion: chest congestion, cough, wheezing, sweats X 2 days HX of pneumonia, smoking, and COPD ROS All other reviewed and negative other than HPI. PAST MEDICAL HISTORY Diagnosis Date - CAD (coronary artery disease) 10/03/2014 - Cellulitis and abscess of buttock 2004 staphylococcal - Chronic low back pain - Depression 02/19/2012 - Diverticulitis - Heel spur left - HTN (hypertension) - Hyperlipemia - Hypothyroid - Lumbago 2002 recurrent musculo-tendinous sprain - IL (myocardial infarction) (HCC) CARDIAC STENT - Opioid dependence (HCC) chronic - Osteoarthritis PAST SURGICAL HISTORY Procedure Laterality Date - PAST SURGICAL HISTORY OF Surgical debridement forearm - PAST SURGICAL HISTORY OF Abscess buttock - PAST SURGICAL HISTORY OF 02/2014 lumbar injections - PERC TRANSL COR ANGIO 11/07/2012 Promus stent to R circumflex - REMOVAL OF TONSILS,<12 Y/O Tonsillectomy - REPAIR ING HERNIA,5+Y/O,REDUCIBL Hernia repair, inguinal ALLERGIES Bee Sting MEDICATIONS levothyroxine (SYNTHROID) 200 mcg tablet Take 1 tablet by mouth once daily. Take on empty stomach. For thyroid clopidogrel (PLAVIX) 75 mg tablet Take 1 tablet by mouth once daily. atorvastatin (LIPITOR) 40 mg tablet Take 1 tablet by mouth once daily. carvedilol (COREG) 3.125 mg tablet Take 1 tablet by mouth twice daily with meals. fenofibrate nanocrystallized (TRICOR) 145 mg tablet Take 1 tablet by mouth once daily. lisinopril (ZESTRIL, PRINIVIL) 20 mg tablet Take 1 tablet by mouth once daily. EPINEPHrine (EPIPEN) 0.3 mg/0.3 mL auto-injector Inject 0.3 mL subcutaneously. Give 1 injection into side of thigh. Repeat dose in 5-15 min if not improving. oxyCODONE-acetaminophen (PERCOCET) 10-325 mg tablet Take 1 tablet by mouth every 6 hours as needed for Pain. buPROPion SR (ZYBAN SR; WELLBUTRIN SR) 150 mg 12 hr tablet Take 1 tablet by mouth twice daily. Take one daily for 3 days, then one twice a day. To quit smoking. clobetasol (TEMOVATE) 0.05 % ointment Apply 1 application to affected area twice daily. No longer than 5 days in a row per week. Sparingly morphine immediate release 15 mg tablet Take 15 mg by mouth every 4 hours as needed. multivitamin tablet Take 1 tablet by mouth once daily. diazepam (VALIUM) 10 mg tablet Take 10 mg by mouth every 6 hours as needed. Take one(1) tablet two(2) times daily. ketoconazole (NIZORAL) 2 % shampoo Shampoo scalp Psoriasis area(s) qoday to qday (every other day to every day) X 2-4 weeks, and then can taper toward qwk (once per week) as able when rash is better, as tolerated and can alternate with various OTC antipsoriasis shampoos as needed (as able) for maintenance control. Clobetasol Propionate 0.05 % external solution Apply to active spots of psoriasis or seborrheic dermatitis on scalp selectively once to twice per dayuntil clear and then taper off or stop as able. AVOID face, eyes, eyelids, and deep fold areas. hydrocortisone valerate (WESTCORT) 0.2 % cream Apply selectively to Psoriasis rash on face at sides nose and around/on ears until clear and then try to taper off as able to CeraVe cream (or lotion) once per day to twice per day. AVOID direct applications to eyelids or eyes as much as possible. ZOHYDRO ER 15 mg CR12 azithromycin (ZITHROMAX Z-RODY) 250 mg tablet Take 2 tablets day one, then, 1 tablet daily until gone. predniSONE (DELTASONE) 10 mg tablet Take 4 tabs daily for 3 days, then 2 tabs daily for 3 days, then 1 tab daily for 3 days with food. benzonatate (TESSALON PERLES) 100 mg capsule Take 2 capsules by mouth three times daily as needed for up to 7 days. albuterol HFA (VENTOLIN HFA) 90 mcg/actuation inhaler Inhale 2 Puffs as instructed every 4 hours as needed for Wheezing/Shortness of Breath. HYDROcodone-Acetaminophen (NORCO) 10-325 mg per tablet Take 1 tablet by mouth every [address] Otoniel Fernandez FAMILY HISTORY Problem Relation Age of Onset - Seizures Mother epilepsy - colon polyps [OTHER] Mother - Hypertension Father - Lipids Father - colon polyps [OTHER] Father - Other [OTHER] Sister lupus Social History Substance Use Topics - Smoking status: Former Smoker Packs/day: 1.00 Years: 20.00 Types: Cigarettes - Smokeless tobacco: Never Used Comment: e cig use - Alcohol use 36.0 oz/week Comment: occasional Objective Physical Exam Constitutional: He is well-developed, well-nourished, and in no distress. HENT: Head: Normocephalic and atraumatic. Right Ear: Tympanic membrane, external ear and ear canal normal. Tympanic membrane is not injected, not erythematous, not retracted and not bulging. No middle ear effusion. Left Ear: Tympanic membrane, external ear and ear canal normal. Tympanic membrane is not injected, not erythematous, not retracted and not bulging. No middle ear effusion. Nose: Mucosal edema and rhinorrhea present. Right sinus exhibits no maxillary sinus tenderness and no frontal sinus tenderness. Left sinus exhibits no maxillary sinus tenderness and no frontal sinus tenderness. Mouth/Throat: Uvula is midline and mucous membranes are normal. Posterior oropharyngeal erythema present. No oropharyngeal exudate, posterior oropharyngeal edema or tonsillar abscesses. Eyes: Conjunctivae and EOM are normal. Pupils are equal, round, and reactive to light. Neck: Normal range of motion. Cardiovascular: Normal rate, regular rhythm and normal heart sounds. Pulmonary/Chest: Effort normal. No respiratory distress. He has wheezes. He has rhonchi in the right upper field and the left upper field. He has no rales. A rattling cough was noted during this encounter. Talking in full sentences. Handling secretions without drooling. Lips and nailbeds are pink without cyanosis. Lymphadenopathy: Head (right side): No submental, no submandibular, no tonsillar, no preauricular and no posterior auricular adenopathy present. Head (left side): No submental, no submandibular, no tonsillar, no preauricular and no posterior auricular adenopathy present. He has no cervical adenopathy. Right cervical: No posterior cervical adenopathy present. Left cervical: No posterior cervical adenopathy present. Right: No supraclavicular adenopathy present. Left: No supraclavicular adenopathy present. Skin: Skin is warm and dry. Psychiatric: Affect normal. Nursing note and vitals reviewed. ASSESSMENT/PLAN: 1. Acute bronchitis with chronic obstructive pulmonary disease (COPD) ([facility]) - ICD9: 491.22, ICD10: J44.0, J20.9 -Zpak -Prednisone -Tessalon Perles -supportive care, rest, fluids, analgesics PRN -F/u with pcp in 3-5 days or sooner if symptoms are not improving or worsening Prescription instructions reviewed with patient as applicable. Patient advised if symptoms do not improve or if symptoms worsen sooner, to contact their primary care physician. Potential red flag symptoms discussed with the patient. Reviewed appropriate action plan to take if red flag symptoms occur. Patient agreeable to treatment plan. Vivek Fernandez APRN.CNP CNOV Observed: 04/08/2018 Status: COMPLETED Source: [place] 1:45 PM [facility] REPOSITORY Office Visit ([facility]) HELEN RUDD ([id number]) 1960 M Date Time Provider Department 04/08/18 1:45 PM VIVEK FERNANDEZ ([facility]) [facility] During your visit today, we recorded the following information about you: Temperature Pulse Blood pressure Weight 98.1 degrees 80/minute 130/80 91.2 kg Vivek Fernandez APRN.CNP 04/08/2018 2:37 PM Signed Subjective HPI Patient presents with: Chest Congestion: chest congestion, cough, wheezing, sweats X 2 days HX of pneumonia, smoking, and COPD ROS All other reviewed and negative other than HPI. PAST MEDICAL HISTORY Diagnosis Date - CAD (coronary artery disease) 10/03/2014 - Cellulitis and abscess of buttock 2003 staphylococcal - Chronic low back pain - Depression 02/19/2012 - Diverticulitis - Heel spur left - HTN (hypertension) - Hyperlipemia - Hypothyroid - Lumbago 2002 recurrent musculo-tendinous sprain - IL (myocardial infarction) (HCC) CARDIAC STENT - Opioid dependence (HCC) chronic - Osteoarthritis PAST SURGICAL HISTORY Procedure Laterality Date - PAST SURGICAL HISTORY OF Surgical debridement forearm - PAST SURGICAL HISTORY OF Abscess buttock - PAST SURGICAL HISTORY OF 02/2014 lumbar injections - PERC TRANSL COR ANGIO 11/07/2012 Promus stent to R circumflex - REMOVAL OF TONSILS,<12 Y/O Tonsillectomy - REPAIR ING HERNIA,5+Y/O,REDUCIBL Hernia repair, inguinal ALLERGIES Bee Sting MEDICATIONS levothyroxine (SYNTHROID) 200 mcg tablet Take 1 tablet by mouth once daily. Take on empty stomach. For thyroid clopidogrel (PLAVIX) 75 mg tablet Take 1 tablet by mouth once daily. atorvastatin (LIPITOR) 40 mg tablet Take 1 tablet by mouth once daily. carvedilol (COREG) 3.125 mg tablet Take 1 tablet by mouth twice daily with meals. fenofibrate nanocrystallized (TRICOR) 145 mg tablet Take 1 tablet by mouth once daily. lisinopril (ZESTRIL, PRINIVIL) 20 mg tablet Take 1 tablet by mouth once daily. EPINEPHrine (EPIPEN) 0.3 mg/0.3 mL auto-injector Inject 0.3 mL subcutaneously. Give 1 injection into side of thigh. Repeat dose in 5-15 min if not improving. oxyCODONE-acetaminophen (PERCOCET) 10-325 mg tablet Take 1 tablet by mouth every 6 hours as needed for Pain. buPROPion SR (ZYBAN SR; WELLBUTRIN SR) 150 mg 12 hr tablet Take 1 tablet by mouth twice daily. Take one daily for 3 days, then one twice a day. To quit smoking. clobetasol (TEMOVATE) 0.05 % ointment Apply 1 application to affected area twice daily. No longer than 5 days in a row per week. Sparingly morphine immediate release 15 mg tablet Take 15 mg by mouth every 4 hours as needed. multivitamin tablet Take 1 tablet by mouth once daily. diazepam (VALIUM) 10 mg tablet Take 10 mg by mouth every 6 hours as needed. Take one(1) tablet two(2) times daily. ketoconazole (NIZORAL) 2 % shampoo Shampoo scalp Psoriasis area(s) qoday to qday (every other day to every day) X 2-4 weeks, and then can taper toward qwk (once per week) as able when rash is better, as tolerated and can alternate with various OTC antipsoriasis shampoos as needed (as able) for maintenance control. Clobetasol Propionate 0.05 % external solution Apply to active spots of psoriasis or seborrheic dermatitis on scalp selectively once to twice per dayuntil clear and then taper off or stop as able. AVOID face, eyes, eyelids, and deep fold areas. hydrocortisone valerate (WESTCORT) 0.2 % cream Apply selectively to Psoriasis rash on face at sides nose and around/on ears until clear and then try to taper off as able to CeraVe cream (or lotion) once per day to twice per day. AVOID direct applications to eyelids or eyes as much as possible. ZOHYDRO ER 15 mg CR12 azithromycin (ZITHROMAX Z-RODY) 250 mg tablet Take 2 tablets day one, then, 1 tablet daily until gone. predniSONE (DELTASONE) 10 mg tablet Take 4 tabs daily for 3 days, then 2 tabs daily for 3 days, then 1 tab daily for 3 days with food. benzonatate (TESSALON PERLES) 100 mg capsule Take 2 capsules by mouth three times daily as needed for up to 7 days. albuterol HFA (VENTOLIN HFA) 90 mcg/actuation inhaler Inhale 2 Puffs as instructed every 4 hours as needed for Wheezing/Shortness of Breath. HYDROcodone-Acetaminophen (NORCO) 10-325 mg per tablet Take 1 tablet by mouth every [address] Otoniel Fernandez FAMILY HISTORY Problem Relation Age of Onset - Seizures Mother epilepsy - colon polyps [OTHER] Mother - Hypertension Father - Lipids Father - colon polyps [OTHER] Father - Other [OTHER] Sister lupus Social History Substance Use Topics - Smoking status: Former Smoker Packs/day: 1.00 Years: 20.00 Types: Cigarettes - Smokeless tobacco: Never Used Comment: e cig use - Alcohol use 36.0 oz/week Comment: occasional Objective Physical Exam Constitutional: He is well-developed, well-nourished, and in no distress. HENT: Head: Normocephalic and atraumatic. Right Ear: Tympanic membrane, external ear and ear canal normal. Tympanic membrane is not injected, not erythematous, not retracted and not bulging. No middle ear effusion. Left Ear: Tympanic membrane, external ear and ear canal normal. Tympanic membrane is not injected, not erythematous, not retracted and not bulging. No middle ear effusion. Nose: Mucosal edema and rhinorrhea present. Right sinus exhibits no maxillary sinus tenderness and no frontal sinus tenderness. Left sinus exhibits no maxillary sinus tenderness and no frontal sinus tenderness. Mouth/Throat: Uvula is midline and mucous membranes are normal. Posterior oropharyngeal erythema present. No oropharyngeal exudate, posterior oropharyngeal edema or tonsillar abscesses. Eyes: Conjunctivae and EOM are normal. Pupils are equal, round, and reactive to light. Neck: Normal range of motion. Cardiovascular: Normal rate, regular rhythm and normal heart sounds. Pulmonary/Chest: Effort normal. No respiratory distress. He has wheezes. He has rhonchi in the right upper field and the left upper field. He has no rales. A rattling cough was noted during this encounter. Talking in full sentences. Handling secretions without drooling. Lips and nailbeds are pink without cyanosis. Lymphadenopathy: Head (right side): No submental, no submandibular, no tonsillar, no preauricular and no posterior auricular adenopathy present. Head (left side): No submental, no submandibular, no tonsillar, no preauricular and no posterior auricular adenopathy present. He has no cervical adenopathy. Right cervical: No posterior cervical adenopathy present. Left cervical: No posterior cervical adenopathy present. Right: No supraclavicular adenopathy present. Left: No supraclavicular adenopathy present. Skin: Skin is warm and dry. Psychiatric: Affect normal. Nursing note and vitals reviewed. ASSESSMENT/PLAN: 1. Acute bronchitis with chronic obstructive pulmonary disease (COPD) ([facility]) - ICD9: 491.22, ICD10: J44.0, J20.9 -Zpak -Prednisone -Tessalon Perles -supportive care, rest, fluids, analgesics PRN -F/u with pcp in 3-5 days or sooner if symptoms are not improving or worsening Prescription instructions reviewed with patient as applicable. Patient advised if symptoms do not improve or if symptoms worsen sooner, to contact their primary care physician. Potential red flag symptoms discussed with the patient. Reviewed appropriate action plan to take if red flag symptoms occur. Patient agreeable to treatment plan. Vivek Fernandez APRN.NURSING PROGRAM DIRECTOR Referring Provider: SELF [200] Allergies As of Date: 04/08/2018 Noted Allergy Reaction BEE STING 12/28/2011 7 - Swelling Date Reviewed: 04/08/2018 Reviewed by: Meredith Kim Ma - Fully Assessed Reason for Visit: Chest Congestion [236] Cmt: chest congestion, cough, wheezing, sweats X 2 days Primary Visit Diagnosis:Acute bronchitis with chronic obstructive pulmonary disease (COPD) ([facility]) [J44.0, J20.9] Order(s):azithromycin (ZITHROMAX Z-RODY) 250 mg tabletTake 2 tablets day one, then, 1 tablet daily until gone.Disp: 1 PackageRfl: 0 predniSONE (DELTASONE) 10 mg tabletTake 4 tabs daily for 3 days, then 2 tabs daily for 3 days, then 1 tab daily for 3 days with food.Disp: 21 tabletRfl: 0 benzonatate (TESSALON PERLES) 100 mg capsuleTake 2 capsules by mouth three times daily as needed for up to 7 days.Disp: 42 capsuleRfl: 0 Prescriptions as of 04/08/2018 Sig: LEVOTHYROXINE 200 MCG TABLET Take 1 tablet by mouth once d* CLOPIDOGREL 75 MG TABLET Take 1 tablet by mouth once d* ATORVASTATIN 40 MG TABLET Take 1 tablet by mouth once d* CARVEDILOL 3.125 MG TABLET Take 1 tablet by mouth twice * FENOFIBRATE NANOCRYSTALLIZED * Take 1 tablet by mouth once d* LISINOPRIL 20 MG TABLET Take 1 tablet by mouth once d* EPINEPHRINE 0.3 MG/0.3 ML INJ* Inject 0.3 mL subcutaneously.* OXYCODONE-ACETAMINOPHEN 10 MG* Take 1 tablet by mouth every * BUPROPION HCL SR 150 MG TABLE* Take 1 tablet by mouth twice * CLOBETASOL 0.05 % TOPICAL OIN* Apply 1 application to affect* MORPHINE 15 MG IMMEDIATE RELE* Take 15 mg by mouth every 4 h* MULTIVITAMIN TABLET Take 1 tablet by mouth once d* DIAZEPAM 10 MG TABLET Take 10 mg by mouth every 6 h* KETOCONAZOLE 2 % SHAMPOO Shampoo scalp Psoriasis area(* CLOBETASOL 0.05 % SCALP SOLUT* Apply to active spots of psor* HYDROCORTISONE VALERATE 0.2 %* Apply selectively to Psoriasi* ZOHYDRO ER 15 MG CAPSULE, ORA* AZITHROMYCIN 250 MG TABLET Take 2 tablets day one, then,* PREDNISONE 10 MG TABLET Take 4 tabs daily for 3 days,* BENZONATATE 100 MG CAPSULE Take 2 capsules by mouth thre* ALBUTEROL SULFATE HFA 90 MCG/* Inhale 2 Puffs as instructed * Patient not taking: Reported on 04/08/2018 HYDROCODONE 10 MG-ACETAMINOPH* Take 1 tablet by mouth every * Medication notes this encounter HYDROCODONE 10 MG-ACETAMINOPHEN 325 MG TABLET >> Meredith Kim Ma 04/08/2018 1:41 PM >> MEREDITH KIM MA Apr 08, 2018 1:41 PM Problem List As Of Date 04/08/2018 Noted Resolved Lumbosacral neuritis [M54.17] INVALID FOR* More... More... Hypertension [I10] INVALID FOR* More... Hypothyroid [E03.9] INVALID FOR* More... Hyperlipidemia [E78.5] INVALID FOR* More... More... Heel spur [M77.30] More... Closed fracture of metatarsal bone(s) [S92.309A]INVALID FOR* Dermatophytosis of nail [B35.1] INVALID FOR* Depression [F32.9] INVALID FOR* More... Xerosis cutis [L85.3] INVALID FOR* Pruritus [L29.9] INVALID FOR* Partial lipoatrophy: L mid forearm from brown r*INVALID FOR* Scar condition and fibrosis of skin: L mid fore*INVALID FOR*10/03/2014 Thoracic or lumbosacral neuritis or radiculitis*INVALID FOR* Bee sting-induced anaphylaxis [T63.441A] INVALID FOR* Myalgia and myositis, unspecified [[id number]] INVALID FOR* Abscess [L02.91] INVALID FOR*09/10/2015 Degeneration of lumbar or lumbosacral intervert*INVALID FOR* More... Hypertriglyceridemia [E78.1] INVALID FOR* More... CAD (coronary artery disease) [I25.10] INVALID FOR* More... Psoriasis [L40.9] INVALID FOR* More... Obesity (BMI 30-39.9) [E66.9] INVALID FOR* More... Prescriptions ordered this encounter Disp Refills Start End AZITHROMYCIN 250 MG TABLET 1 Pa* 0 04/08/2018 04/13/2018 Sig: Take 2 tablets day one, then, 1 tablet daily until gone. PREDNISONE 10 MG TABLET 21 t* 0 04/08/2018 04/17/2018 Sig: Take 4 tabs daily for 3 days, then 2 tabs daily for 3 days, then 1 tab daily for 3 days with food. BENZONATATE 100 MG CAPSULE 42 c* 0 04/08/2018 04/15/2018 Route: ORAL Sig: Take 2 capsules by mouth three times daily as needed for up to 7 days. Medications Discontinued During This Encounter benzonatate (TESSALON PERLE) 100 mg * 30 c* 0 06/13/2017 04/08/2018 Route: ORAL Sig: Take 1 capsule by mouth three times daily as needed. Patient not taking: Reported on 04/08/2018 Disc: Reason for discontinue is not on file. predniSONE (DELTASONE) 20 mg tablet 10 t* 0 06/13/2017 04/08/2018 Sig: Prednisone 40 mg (2-20mg tablets) po QD for 5 days Patient not taking: Reported on 04/08/2018 Disc: Reason for discontinue is not on file. Disposition: Return if symptoms worsen or fail to improve. Follow-up and Disposition History Recorded Encounter Status:Closed by VIVEK FERNANDEZ on 04/08/18 INITAL EVALUATION (1) Observed: 03/25/2018 Status: F Source: RU - PT 1:30 PM [facility] REPOSITORY [facility] Physical Therapy [facility] [facility] [place], [place] [address] Fax REHABILITATION SERVICES INITIAL EVALUATION MR#: [id number] Acct: [id number] Name: JONESDARNELLJamesHELENMAI Wagoner Jr. Rep #: [id number] : 1960 57 From: Sidney Estevez PT, ATC Referring Dr.: Violeta Fernandez Status: REG R Insurance: [facility] SELF PAY INSURANCE Patient's Visit Information HELEN RUDD Jr. is a 57 year old M referred to Physical Therapy by Violeta Fernandez DO with a diagnosis of Neck and LBP. Date of Evaluation: 03/25/18 Physical Therapist: Sidney Estevez PT, - Visit Plan Frequency: 2x /Week Duration: 4-6 Weeks Plan: Aquatic therapy consisting of UE and LE strenghtening, core stab ex's, scap stab ex's, and HEP - Subjective Subjective: Pt reports a chronic Hx of neck and LBP. Pt reports he has had PT in the past. Pt reports aquatic therapy always seemed to help the most. Pt reports he is taking pain meds and has receivved several injestions which did temporarily help. Pt reports he has numbness which extends from his LB to his R knee. Pt reports sig sleep difficulty secondary to pain. 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 Pt reports he has had multiple xrays which revealed sig degenerative changes in his spine. Pt reports he is able to pick and shovel worker sticks and wash dishes but pays a great garza for it by the end of the day. 7/10 pain in spine at rest, 10/10 at worst (trying to sleep) - Pain Neck and LBP Pain Intensity (Out of 10): 7 Pain Intensity Range: 10 - Objective Neuro: R LE is hyposensitive to light touch. All other UE and LE sensation is WNL to light touch. B patellar and bicepital reflex= 1/3. ROM: B UE/LE are WFL. MMT: B UE and LE are grossly 4/5 throughout and painful with all testing. Gait: Pt is able to ambulate 850' until feeling fatigued and needing to sit down to rest - Goals Goal 1:: Decrease neck and LBP x 50% to aid with sleep Goal Time Frame: 4-6 Weeks Goal 2:: Increase B UE and LE strength x 1 grade to aid with IADL's Goal Time Frame: 4-6 Weeks Goal 3:: Pt will be able to ambulate greater than 1000' to aid with community ambulation Goal Time Frame: 4-6 Weeks Goal 4:: I with HEP Goal Time Frame: 4-6 Weeks - Rehabilitation Potential Physical Therapy Diagnosis: Pt has neck and LBP secondary to degenerative changes in the L/S Rehabilitation Potential: Good - Anticipated Interventions Patient/Client Instruction: Educate patient on: Condition, Plan of Care For the Purpose of:: To improve self management Therapeutic Exercise to Include: Strength training, Endurance training, Body mechanics, Postural training, In an aquatic setting, Dynamic Lumbar Stabilization, Scapular Strength/Stabilization For the Purpose of:: To decrease pain, To improve muscle performance and motor function, To increase tolerance to activity/condition/position Thank you for the opportunity to evaluate your patient. For Medicare and Medicare HMO plans, please review the plan of care and approve it. It will need to be FAXED BACK to us at [phone] for Medicare purposes. Please let me know if there are questions or concerns regarding this plan of care. Physician Signature: Date: <Electronically signed by Sidney Estevez PT, ATC> 03/25/18 1330 CC: Violeta Fernandez; Britni Hutchinson MD [facility] Signed For Medicare only, by signing this I certify the plan of care. Physicians Signature Date DOWNTIME REPORT Observed: 02/17/2018 Status: F Source: RU 2:26 PM [facility] REPOSITORY [facility] Medical Records Department [address] [facility] [place] [address] Downtime Report MR#: [id number] Acct: [id number] Name: HELEN RUDD Jr. Rep #: [id number] : 1960 57 From: Fernando Peters PCP: Status: REG CLI This patient was seen during an EMR downtime January 31, 2018 - February 07, 2018. This patient may have a combination of paper and electronic documentation or all paper documentation. All documentation is viewable within the e-chart portion of [employer] for each patient visit. SURGERY VISIT REPORT Observed: 02/10/2018 Status: F Source: RU 3:30 PM [facility] REPOSITORY [facility] [address] [place] [address] OFFICE VISIT Date of Service: 02/10/18 MR#: [id number] Acct: [id number] Name: HELEN RUDD JrAlex Rep #: [id number] : 1960 Provider: Monique Tang PA-C Age/Sex: 57/M Location: [facility] Status: Signed Intake Intake Visit Reasons: F/U UMBILICAL SURGERY 11/22/17 AC, HAVING PAIN Chief Complaint: abdominal pain Emergency Veterinary Assistant Required: No Is patient in pain?: No Allergies venom-honey bee [bee venom (honey bee)] Allergy (Verified 02/10/18 10:04) Unknown Medications Diazepam [Valium] 10 mg PO TID PRN PRN 06/02/13 [History Confirmed 02/10/18] Gabapentin [Neurontin] 400 mg PO TIDCM 06/02/13 [History Confirmed 02/10/18] buPROPion XL [Wellbutrin Xl] 300 mg PO DAILY 06/02/13 [History Confirmed 02/10/18] hydrocortisone 0.5 % topical cream 1 applic TOPICAL BID-QID PRN 08/05/17 [History Confirmed 02/10/18] levothyroxine 150 mcg capsule 150 mcg PO QDAY cap 08/05/17 [History Confirmed 02/10/18] nitroglycerin 0.4 mg sublingual tablet 0.4 mg SUBLINGUAL Q5M PRN 08/05/17 [History Confirmed 02/10/18] multivitamin,kv-znma-htyeiobx tablet 1 tab PO QDAY #100 ea 08/06/17 [Rx Confirmed 02/10/18] naproxen 500 mg tablet 500 mg PO BID PRN tab 09/06/17 [History Confirmed 02/10/18] oxycodone ER 15 mg tablet,crush resistant,extended release 12 hr 15 mg PO Q6H PRN tab 09/06/17 [History Confirmed 02/10/18] coal tar 0.5 % shampoo 1 applic TOPICAL QDAY #250 ml 09/28/17 [Rx Confirmed 02/10/18] Fenofibrate,Micronized [Fenofibrate] 67 mg PO QHS 11/18/17 [History Confirmed 02/10/18] Oxycodone HCl/Acetaminophen [Percocet 5/325] 1 - 2 tab PO Q4H PRN PRN 7 Days #20 tab 11/22/17 [Rx Confirmed 02/10/18] rosuvastatin 40 mg tablet 40 mg PO QDAY #90 tab 01/25/18 [Rx Confirmed 02/10/18] carvedilol 3.125 mg tablet 3.125 mg PO BID #180 tab 01/26/18 [Rx Confirmed 02/10/18] lisinopril 20 mg tablet 20 mg PO QDAY #90 tab 01/26/18 [Rx Confirmed 02/10/18] PFSH Medical History Degenerative disc disease (Chronic) Chronic back pain (Chronic) Arthritis (Chronic) Gout (Acute) Heel spur (Acute) Spontaneous ecchymosis (Acute) Bloody ejaculation (Acute) Tobacco abuse (Chronic) Atherosclerotic heart disease of [place] coronary artery without angina pectoris (Chronic) Old myocardial infarction (Chronic) HLD (hyperlipidemia) (Chronic) Hypertriglyceridemia (Chronic) History of coronary artery stent placement (Chronic) Hypothyroidism (Chronic) Hypertension (Chronic) Surgical History History of umbilical hernia repair (Acute) radiofrequency abation S1, S2, L6 (Chronic 02/2014) Normal colonoscopy (Chronic 2014) History of left heart catheterization (LHC) (Chronic 11/06/12) History of PTCA (Chronic 11/06/12) Family History Father Hypertension Hyperlipidemia Social History Smoking Status: Current every day smoker how long ago did patient quit smokin alcohol intake: never substance use type: does not use caffeine: No what type of physical activity do you participate in: weight training frequency: 3-4 times per week seatbelt use: always do you feel safe at home: Yes HPI HPI HPI: HELEN RUDD, is a 57 M I am following s/p umbilical hernia repair. Dr. Bryant performed an open umbilical hernia repair with sutures on 11/22/17. Patient tolerated the procedure well. He noted more recently he had been picking up sticks and performing physical therapy exercises at home for his back. He noted a pulling sensation in the RLQ adjacent to the umbilicus one day. He stopped his exercise and then restarted without any discomfort. the following day he noted soreness in the RLQ with exercises and coughing. Patient noted he had also went fishing with his dad and helped him pull up a fish on the end of the line and noted a pulling sensation at that time also. Exam GI Inspection: normal to inspection, incision (very nicely healed. ), large pannus, obesity Palpation: soft, tender (RLQ; with deep palpation), no hernias Auscultation: normal bowel sounds Assessment AND Plan Problems 1. History of umbilical hernia repair Z98.890; Z87.19 11/22/2017 2. Strain of abdominal muscle, initial encounter S39.011A Plan - Recommend rest and no strenuous activities with the abdomen for at least 1 week - Continue to do water exercises - Recommend asking physical therapy recommendations of exercises. - Umbilical hernia site with no recurrent hernia noted - Numbness of right lateral leg. recommend follow-up with pain management or back surgeon. - Follow-up as needed Coding Level of Care Code Global Post Op Diagnoses History of umbilical hernia repair Z98.890; Z87.19 Strain of abdominal muscle, initial encounter S39.011A Encounter type: initial encounter 02/10/18 1530 <Electronically signed by Monique Tang PA-C> Date Monique Tang PA-C Cosigner Signature: Date (if applicable) CC: Britni Hutchinson MD; Dariel Kelley NP INTERNAL MEDICINE Observed: 02/09/2018 Status: F Source: RU OFFICE VISIT 3:24 PM [facility] Internal Medicine [address] [place] [address] [address] [place] [address] OFFICE VISIT Date of Service: 02/09/18 MR#: [id number] Acct: [id number] Name: HELEN RUDD Jr. Rep #: [id number] : 1960 Provider: Dariel Kelley NP Age/Sex: 57/M Location: [facility] Status: Signed Intake Vital Signs02/09/18 Height 5 ft 8 in Intake Visit Reasons: 3 MO F/U Chief Complaint: abdominal pain Is patient in pain?: No Allergies venom-honey bee [bee venom (honey bee)] Allergy (Verified 12/07/17 12:59) Unknown Medications Diazepam [Valium] 10 mg PO TID PRN PRN 06/02/13 [History Confirmed 02/09/18] Gabapentin [Neurontin] 400 mg PO TIDCM 06/02/13 [History Confirmed 02/09/18] buPROPion XL [Wellbutrin Xl] 300 mg PO DAILY 06/02/13 [History Confirmed 02/09/18] hydrocortisone 0.5 % topical cream 1 applic TOPICAL BID-QID PRN 08/05/17 [History Confirmed 02/09/18] levothyroxine 150 mcg capsule 150 mcg PO QDAY cap 08/05/17 [History Confirmed 02/09/18] nitroglycerin 0.4 mg sublingual tablet 0.4 mg SUBLINGUAL Q5M PRN 08/05/17 [History Confirmed 02/09/18] multivitamin,vo-hcgx-cvzpysqp tablet 1 tab PO QDAY #100 ea 08/06/17 [Rx Confirmed 02/09/18] naproxen 500 mg tablet 500 mg PO BID PRN tab 09/06/17 [History Confirmed 02/09/18] oxycodone ER 15 mg tablet,crush resistant,extended release 12 hr 15 mg PO Q6H PRN tab 09/06/17 [History Confirmed 02/09/18] coal tar 0.5 % shampoo 1 applic TOPICAL QDAY #250 ml 09/28/17 [Rx Confirmed 02/09/18] Fenofibrate,Micronized [Fenofibrate] 67 mg PO QHS 11/18/17 [History Confirmed 02/09/18] Oxycodone HCl/Acetaminophen [Percocet 5/325] 1 - 2 tab PO Q4H PRN PRN 7 Days #20 tab 11/22/17 [Rx Confirmed 02/09/18] rosuvastatin 40 mg tablet 40 mg PO QDAY #90 tab 01/25/18 [Rx Confirmed 02/09/18] carvedilol 3.125 mg tablet 3.125 mg PO BID #180 tab 01/26/18 [Rx Confirmed 02/09/18] lisinopril 20 mg tablet 20 mg PO QDAY #90 tab 01/26/18 [Rx Confirmed 02/09/18] PFSH Medical History Degenerative disc disease (Chronic) Chronic back pain (Chronic) Arthritis (Chronic) Gout (Acute) Heel spur (Acute) Spontaneous ecchymosis (Acute) Bloody ejaculation (Acute) Tobacco abuse (Chronic) Atherosclerotic heart disease of [place] coronary artery without angina pectoris (Chronic) Old myocardial infarction (Chronic) HLD (hyperlipidemia) (Chronic) Hypertriglyceridemia (Chronic) History of coronary artery stent placement (Chronic) Hypothyroidism (Chronic) Hypertension (Chronic) Surgical History History of umbilical hernia repair (Acute) radiofrequency abation S1, S2, L6 (Chronic 02/2014) Normal colonoscopy (Chronic 2014) History of left heart catheterization (LHC) (Chronic 11/06/12) History of PTCA (Chronic 11/06/12) Family History Father Hypertension Hyperlipidemia Social History Smoking Status: Current every day smoker how long ago did patient quit smokin alcohol intake: never substance use type: does not use caffeine: No what type of physical activity do you participate in: weight training frequency: 3-4 times per week seatbelt use: always do you feel safe at home: Yes HPI HPI Chief Complaint: abdominal pain Details: HELEN RUDD, is a 57 M who presents to the office today for complaints of abdominal pain. Patient has a past medical history of umbilical hernia with repair, degenerative disc disease, arthritis and chronic back pain. Patient states the pain began shortly after hernia repair surgery on November 22, [address] Yanez. The patient notes that he was picking up sticks outside and felt a pulling sensation in his abdomen and this is what initially started the pain. Pain is in the right lower quadrant and near the umbilicus and is described as a pulling aching feeling, occurring 2-3 times a day, lasting about 10 minutes at times. Activity and stretching aggravate the pain. Rest relieves the pain. Patient also notes numbness to lateral right thigh, denies weakness to right leg. He is routinely seen pain management for his chronic low back pain and does have a history of degenerative disc disease. He denies problems with bowel or bladder. Denies numbness, tingling or weakness anywhere else. The patient otherwise denies any fever, chills, nausea, vomiting, shortness of breath, chest pain or pressure, palpitations, orthopnea, lower extremity edema, syncope or presyncopal episodes. ROS Const Constitutional: No weight change, body ache, chills, fatigue, sleep problems, fever(s), change in appetite, snoring, weakness, frequent falls, headache(s) or excessive sweating Eyes Eyes: No change in vision, eye pain, light sensitivity or blurry vision ENT ENT: No headache(s), abnormal hearing, ear pain, tinnitus, nasal congestion, sore throat or neck pain Resp Respiratory: No snoring, cough, shortness of breath or wheezing Cardio Cardiology: No excessive sweating, chest pain at rest, chest pain with exertion, shortness of breath, dyspnea on exertion, palpitations, orthopnea or lightheadedness Gastro GI: Positive for abdominal pain (Rt side by naval, when he stretches. ); no change in bowel habits, constipation, diarrhea, vomiting, nausea/dyspepsia or cramping Genitourinary Male: No painful urination, urinary incontinence, urinary frequency, urinary urgency, blood in urine, testicle pain or other Musc Musculoskeletal: Positive for numbness and tingling (right thigh); no neck pain, abnormal walking, joint pain, back pain, limited range of motion or muscle weakness Skin Skin: No redness, dry skin, itching, lesions, wounds or rash Neuro Neurology: Positive for numbness and tingling (right thigh); no weakness, frequent falls, headache(s), abnormal hearing, abnormal walking, abnormal speech, dizziness or memory loss Psych Psychiatric: No change in appetite, No memory loss, No anxiety, No depression, No Thoughts of harming yourself/Others Endo Endocrine: No fatigue, excessive sweating, cold intolerance, increased thirst/drinking, heat intolerance, flushing or increased hunger Aller/Imm Allergy/Immunologic: Positive for seasonal allergy symptoms; no wheezing, itchy eyes or hives Eduin/Lymp Hematologic/Lymphatic: No easy bleeding, easy bruising or enlarged lymph nodes Exam Const General: cooperative, comfortable, no acute distress Nutritional Appearance: average body habitus, well nourished Orientation: alert, oriented x3 Limitations: mental status not altered Resp Effort AND Inspection: normal respiratory effort, able to speak in complete sentences, normal respiratory pattern, symmetric chest movement, no audible wheezes, no cough Auscultation: Bilateral: Clear to Auscultation Cardio Palpation: normal PMI Rate: regular rate Heart Sounds: S1 normal, S2 normal, normal S1 and S2, no click, no gallops, no murmurs, no rubs GI Inspection: normal to inspection Auscultation: normal bowel sounds, no hyperactive bowel sounds, no hypoactive bowel sounds Palpation: soft, no hepatosplenomegaly, tender in the RLQ and periumbilically Musc Musculoskeletal: No joint tenderness, decreased ROM or muscle weakness Skin General: no rashes or lesions noted, elasticity normal, turgor normal Lesions: no lesions Rashes: no rashes Neuro General: alert, awake, oriented x3, CN's II-XI intact bilaterally Speech: speech normal Gait: normal gait Motor: muscle tone normal throughout Extrem General: normal to inspection, normal gait, no edema, no pedal edema Psych Appearance: grossly normal Mental Status: mental status grossly normal Affect: normal affect Attitude: cooperative Thought Process: normal Assessment AND Plan Problems 1. Abdominal pain R10.9 2. Degenerative disc disease 3. Numbness of right anterior thigh R20.8 Plan Patient complaining of right lower quadrant quadrant abdominal pain beginning after recent surgery for hernia repair with Dr. Yanez. See HPI. Will have patient make follow-up appointment with Dr. Yanez. Discussed red flag symptoms that require urgent medical attention. Patient does have some complaints of numbness and tingling to the right lateral thigh, suspect that this is due to his spinal issues of degenerative disc disease which he is seeing pain management for and receiving injections and narcotic analgesia. He does state he had a recent MRI of the low back done which is at [facility]. He is following up with pain management later today. Did instruct him to notify his pain management doctor of this complaint. This note was generated with Voice[employer] dictation software. It may contain incorrect words, spelling, and punctuation that were not noted in checking the note before signing. Orders Orders: Plan Detail Follow Up 3 months or sooner if needed Coding Level of Care Code Off vis,est,level 3 Diagnoses Abdominal pain R10.9 Degenerative disc disease Numbness of right anterior thigh R20.8 02/09/18 1524 <Electronically signed by Dariel MONTELONGO> Date Dariel MONTELONGO Cosigner Signature: Date (if applicable) CC: COMPREHENSIVE METABOLIC Collected: 02/07/2018 Status: F Source: RU [place] 12:02 PM [facility] REPOSITORY Order Comment: LIPID ADDED 02/09/18 TYPE CODE TESTS RESULT OUT OF RANGE REFERENCE UNITS LAB L501.0100 74-106 mg/dL High GLU 110 Result Comment: Fasting Glucose result from 100 to 125 mg/dL suggests IMPAIRED HOMEOSTASIS per A.D.A. criteria. Please note revised GLUCOSE reference range effective 2017. LAB L501.1000 7-18 mg/dL Normal BUN 13 LAB L501.1100 0.70-1.30 mg/dL Normal CREAT,SERUM 1.22 Result Comment: The validity of the calculated GFR AND GFRAA in patients over 70 years has not been determined. Clinical correlation is essential. LAB L501.1110 >60 mL/min Normal EST GFR 65 Result Comment: Non- GFR Calc LAB L501.1115 >60 mL/min Normal EST GFR - AA 79 Result Comment: GFR Calc LAB L501.1300 10-20 RATIO Normal BUN/CRE 10.7 LAB L501.1500 6.4-8.2 g/dL T Normal PROT 7.3 LAB L501.1800 3.2-5.0 g/dL Normal ALB 3.5 LAB L501.1950 2.2-4.2 g/dL Normal GLOB 3.8 LAB L501.2000 0.9-2.4 RATIO Normal A/G 0.9 LAB L501.2200 8.5-10.1 mg/dL CA Normal 9.5 LAB L501.4100 15-37 U/L Normal AST 21 LAB L501.4305 45-117 U/L Normal ALK P 66 LAB L501.4405 16-61 U/L Normal ALT 26 LAB L501.4600 0.20-1.00 mg/dL T Normal BILI 0.20 LAB L501.5300 136-145 mmol/L NA Normal 140 LAB L501.5600 3.5-5.1 mmol/L K Normal 5.0 LAB L501.5900 98-107 mmol/L CL Normal 105 LAB L501.6100 21.0-32.0 mmol/L Normal CO2 29.0 LAB L501.6200 5-15 Normal GAP 6 Performed By: #### L500.4050, L500.4100 #### [facility] [address] [place], [address] LIPID PROFILE Collected: 02/07/2018 Status: F Source: [place] 12:02 PM [facility] REPOSITORY Order Comment: LIPID ADDED 02/09/18 TYPE CODE TESTS RESULT OUT OF RANGE REFERENCE UNITS LAB L501.4900 200 mg/dL Normal CHOL 147 Result Comment: <200 mg/dL Desirable 200-240 mg/dL Borderline >240 mg/dL High Risk LAB L501.5000 mg/dL High TRIG 538 Result Comment: The drugs N-Acetylcysteine and Metamizole may falsely depress this assay. TRIGLYCERIDE IS GREATER THAN 400 mg/dL. LDL RESULT IS INVALID AND WILL NOT BE REPORTED. Serum Triglycerides Reference Interval Normal <150 mg/dL Borderline high 150 - 199 mg/dL High 200 - 499 mg/dL Very High > or = 500 mg/dL LAB L501.6400 mg/dL Low HDL 22 Result Comment: The drugs N-Acetylcysteine and Metamizole may falsely depress this assay. Reference Range HDL <40 mg/dL Low HDL Cholesterol HDL >or= 60 mg/dL High HDL Cholesterol LAB L501.6500 0-130 mg/dL Test Normal not performed LDL LAB L501.6600 5-40 mg/dL Test Normal not performed VLDL Performed By: #### L500.4050, L500.4100 #### [facility] [address] [place], [address] SURGERY VISIT REPORT Observed: 12/07/2017 Status: F Source: [place] 2:01 PM [facility] REPOSITORY [facility] [address] [place] [address] OFFICE VISIT Date of Service: 12/07/17 MR#: [id number] Acct: [id number] Name: HELEN RUDD Rizwana Avery Rep #: [id number] : 1960 Provider: Preston Bryant MD Age/Sex: 57/M Location: [facility] Status: Signed Intake Intake Visit Reasons: Hernia Surgery 11/22 TC Chief Complaint: follow-up visit Emergency Veterinary Assistant Required: No Is patient in pain?: No Allergies venom-honey bee [bee venom (honey bee)] Allergy (Verified 12/07/17 12:59) Unknown Medications Carvedilol [Coreg] 3.125 mg PO BID 06/02/13 [History Confirmed 12/07/17] Diazepam [Valium] 10 mg PO TID PRN PRN 06/02/13 [History Confirmed 12/07/17] Gabapentin [Neurontin] 400 mg PO TIDCM 06/02/13 [History Confirmed 12/07/17] buPROPion XL [Wellbutrin Xl] 300 mg PO DAILY 06/02/13 [History Confirmed 12/07/17] hydrocortisone 0.5 % topical cream 1 applic TOPICAL BID-QID PRN 08/05/17 [History Confirmed 12/07/17] levothyroxine 150 mcg capsule 150 mcg PO QDAY cap 08/05/17 [History Confirmed 12/07/17] nitroglycerin 0.4 mg sublingual tablet 0.4 mg SUBLINGUAL Q5M PRN 08/05/17 [History Confirmed 12/07/17] pravastatin 40 mg tablet 40 mg PO QHS 08/05/17 [History Confirmed 12/07/17] multivitamin,wx-xytn-wozmgnbq tablet 1 tab PO QDAY #100 ea 08/06/17 [Rx Confirmed 12/07/17] aspirin 81 mg tablet,delayed release 81 mg PO QDAY 09/06/17 [History Confirmed 12/07/17] lisinopril 20 mg tablet 20 mg PO QDAY 09/06/17 [History Confirmed 12/07/17] naproxen 500 mg tablet 500 mg PO BID PRN tab 09/06/17 [History Confirmed 12/07/17] oxycodone ER 15 mg tablet,crush resistant,extended release 12 hr 15 mg PO Q6H PRN tab 09/06/17 [History Confirmed 12/07/17] coal tar 0.5 % shampoo 1 applic TOPICAL QDAY #250 ml 09/28/17 [Rx Confirmed 12/07/17] Fenofibrate,Micronized [Fenofibrate] 67 mg PO QHS 11/18/17 [History Confirmed 12/07/17] Oxycodone HCl/Acetaminophen [Percocet 5/325] 1 - 2 tab PO Q4H PRN PRN 7 Days #20 tab 11/22/17 [Rx Confirmed 12/07/17] PFSH Medical History Degenerative disc disease (Chronic) Chronic back pain (Chronic) Arthritis (Chronic) Gout (Acute) Heel spur (Acute) Spontaneous ecchymosis (Acute) Bloody ejaculation (Acute) Tobacco abuse (Chronic) Atherosclerotic heart disease of [place] coronary artery without angina pectoris (Chronic) Old myocardial infarction (Chronic) HLD (hyperlipidemia) (Chronic) Hypertriglyceridemia (Chronic) History of coronary artery stent placement (Chronic) Hypothyroidism (Chronic) Hypertension (Chronic) Surgical History History of umbilical hernia repair (Acute) radiofrequency abation S1, S2, L6 (Chronic 02/2014) Normal colonoscopy (Chronic 2014) History of left heart catheterization (LHC) (Chronic 11/06/12) History of PTCA (Chronic 11/06/12) Family History Father Hypertension Hyperlipidemia Social History Smoking Status: Current every day smoker how long ago did patient quit smokin alcohol intake: never substance use type: does not use caffeine: No what type of physical activity do you participate in: weight training frequency: 3-4 times per week seatbelt use: always do you feel safe at home: Yes HPI HPI HPI: HELEN RUDD, is a 57 M who presents to the office today for follow-up after umbilical hernia repair. The patient reports he is doing very well and having no issues. Exam GI Other: The patient's incision is healing well with no erythema or ecchymosis. Assessment AND Plan Problems 1. Umbilical hernia without obstruction and without gangrene K42.9 Plan 1. Patient is doing well after his umbilical hernia repair. I advised the patient to continue not lifting over 20 pounds for the next 2 weeks that he may return to pool therapy and physical therapy. After 2 weeks or where he may return to activity as tolerated. 2. Follow-up as needed. Preston Bryant MD Pager: [facility] [address] [place] [address] Office: Coding Level of Care Code Global Post Op Diagnoses Umbilical hernia without obstruction and without gangrene K42.9 Obstruction and gangrene presence: without obstruction or gangrene 12/07/17 1401 <Electronically signed by Preston Bryant MD> Date Preston Bryant MD Cosigner Signature: Date (if applicable) CC: Britni Hutchinson MD 12 LEAD ELECTROCARDIOGRAM Observed: 11/25/2017 Status: F Source: RU 4:04 PM [facility] REPOSITORY [facility] Cardiovascular Services [address] [place] [address] 12 Lead EKG 11/22/17 1158 MR#: [id number] Acct: [id number] Name: HELEN RUDD Rizwana Martin. Rep #: [id number] : 1960 57 From: Rich Lopez MD Attending Dr: Preston Bryant MD Status: [facility] [place]: Preston Bryant MD Date: 11/22/17 [place] [facility] Sex: M C Admitted: Test Reason : PRE-OP Blood Pressure : / mmHG Vent. Rate : 081 BPM Atrial Rate : 081 BPM P-R Int : 176 ms QRS Dur : 086 ms QT Int : 364 ms P-R-T Axes : 018 -73 062 degrees QTc Int : 422 ms Normal sinus rhythm Left axis deviation Abnormal ECG When compared with ECG of 06-NOV-2012 13:55, No significant change was found Confirmed by RICH LOPEZ MD ([id number]), technical writer and editor DELON PETERS ([id number]) on 11/25/2017 4:03:52 PM Referred By: Preston Bryant Confirmed By:RICH LOPEZ MD 11/25/17 1603 Date Rich Lopez MD CC: Preston Bryant MD; Britni Hutchinson MD Signed 12 LEAD ELECTROCARDIOGRAM Observed: 11/25/2017 Status: F Source: [place] 4:03 PM [facility] Cardiovascular Services [address] [place] [address] 12 Lead EKG 11/22/17 1428 MR#: [id number] Acct: [id number] Name: HELEN RUDD Jr. Rep #: [id number] : 1960 57 From: Rich Lopez MD Attending Dr: Preston Bryant MD Status: [facility] [place]: Mac Crow MD Date: 11/22/17 [place] [facility] Sex: M C Admitted: Test Reason : CP IN PACU Blood Pressure : / mmHG Vent. Rate : 092 BPM Atrial Rate : 092 BPM P-R Int : 178 ms QRS Dur : 094 ms QT Int : 362 ms P-R-T Axes : 038 -61 040 degrees QTc Int : 447 ms Normal sinus rhythm Left axis deviation Abnormal ECG When compared with ECG of 22-NOV-2017 11:58, MANUAL COMPARISON REQUIRED, DATA IS UNCONFIRMED Confirmed by JESSICA SANDOVAL, RICH ([id number]), technical writer and editor DELON PETERS ([id number]) on 11/25/2017 4:03:42 PM Referred By: Preston Bryant Confirmed By:RICH LOPEZ MD 11/25/17 1603 Date Rich Lopez MD CC: Mac Crow MD; Preston Bryant MD; Britni Hutchinson MD Signed TROPONIN-I Collected: 11/22/2017 Status: F Source: [place] 2:37 PM [facility] REPOSITORY Order Comment: 'TROP' Serial specimen #1, #2, #3, or #4: 1 TYPE CODE TESTS RESULT OUT OF RANGE REFERENCE UNITS LAB L501.4010 <0.06 ng/mL Normal < 0.02 TROPONIN-I Result Comment: TROPONIN-I EXPECTED VALUES <0.05 NEGATIVE 0.06 - 0.59 AT RISK OF [place] > OR = 0.60 SUGGEST IL Performed By: #### L501.4010 #### [facility] [address] [place], [address] OPERATIVE REPORT Observed: 11/22/2017 Status: F Source: [place] 2:17 PM [facility] REPOSITORY [facility] Medical Records Department [address] [place] [address] Operative Report 11/22/17 1413 MR#: [id number] Acct: [id number] Name: ELIZAJOÃOHELEN Rizwana Martin. Rep #: [id number] : 1960 57 From: Preston Bryant MD PCP: Britni Hutchinson MD Status: [facility] [place] Location: [place] [address] Problem List (1) Umbilical hernia without mention of obstruction or gangrene Status: Acute Qualifiers: Obstruction and gangrene presence: without obstruction or gangrene Report of Operation Date of Procedure: 11/22/17 Pre-Operative Diagnosis: Umbilical hernia Post-Operative Diagnosis: Umbilical hernia without gangrene or obstruction 1 cm Surgery/Procedure Performed:: Umbilical hernia repair Description of Surgical Findings:: Patient had a hernia which is approximately 1 cm possibly a little bit smaller. Hernia was closed with 3 interrupted Prolene sutures no mesh was used. Specimen's removed: None Description of Procedure: Patient was brought back to the operating room and general LMA anesthesia was induced. Next the umbilical area was prepped and draped in usual sterile fashion. A curvilinear incision was marked superior to the umbilicus and anesthetized with Marcaine. Next a scalpel was used to make an incision at the proposed incision site and this was deepened to the umbilicus. The umbilicus was dissected free circumferential and then elevated and dissected off of the abdominal wall using electrocautery. The hernia defect was identified and circumferentially dissected free. It was measured to be about 8 mm. This was dissected free above and below the hernia defect and then closed with 3 interrupted 0 Prolene sutures. Next the incision was copiously irrigated and suctioned dry. Next 2 interrupted 3-0 Vicryl sutures were used to tack down the umbilicus. Interrupted 3-0 Vicryl sutures were used to approximate the incision. Next a running 4-0 Monocryl suture was used to close the skin. Steri-Strips were then applied and a cottonball was placed into the abdomen and a pressure dressing was placed over this. Patient tolerated the procedure well and was brought to PACU in stable condition. - Admit VTE Documentation VTE Mechan Device Prophylaxis: SCD's 11/22/17 1417 <Electronically signed by Preston Bryant MD> Date Preston Bryant MD CC: Preston Bryant MD; Britni Hutchinson MD Signed DISCHARGE INSTRUCTION Observed: 11/22/2017 Status: F Source: RU 2:13 PM [facility] REPOSITORY [facility] Medical Records Department [address] [place] [address] Instructions for Home/Discharge Instructions 11/22/17 1411 MR#: [id number] Acct: [id number] Name: HELEN RUDD Jr. Rep #: [id number] : 1960 57 From: Preston Bryant MD PCP: Britni Hutchinson MD Status: REG SDC Discharge Diet: Light diet - advance as tolerated Discharge Activity: Return to Normal Activity, May Not Drive - for 2-3 days or while taking narcotic pain meds., May Shower - with the bandage in place 1-2 days after surgery. Lifting Restrictions: 20 pounds for 6 weeks. Additional Activity Instructions:: Climbing stairs is fine, walking is encouraged. Sitting in bed may be uncomfortable. Sitting up using your lateral muscles (sitting up sideways) is usually more comfortable. Do not drive, work heavy equipment of sign legal documents for 24 hours. Pain medications may cause nausea, you should typically eat light foods as you take your pain medications. Pain medications may also cause constipation. If you have difficulty with this, discuss with your doctor. Call your doctor if your incision/area has: Continuous Slow Oozing, Sudden Increased Bleeding, Increased Pain/ Swelling, Increased Redness, Foul Smelling Discharge Call your doctor if you observe: Fever of 101 or Higher Suture Line Care: Avoid Pulling/Pushing, Avoid Pinching/Bending Change Dressing in (Days):: 2 - Leave steri-strips for 1 week. May protect with a guaze bandaid. Cleanse incision/area with: Keep Dressing Clean AND Dry Allergies/Adverse Reactions: Allergies venom-honey bee [bee venom (honey bee)] Allergy (Verified 11/18/17 08:43) Unknown Medications to take at Discharge Carvedilol [Coreg] 3.125 mg PO BID 06/02/13 Diazepam [Valium] 10 mg PO TID PRN PRN 06/02/13 Gabapentin [Neurontin] 400 mg PO TIDCM 06/02/13 buPROPion XL [Wellbutrin Xl] 300 mg PO DAILY 06/02/13 hydrocortisone 0.5 % topical cream 1 applic TOPICAL BID-QID PRN 08/05/17 levothyroxine 150 mcg capsule 150 mcg PO QDAY cap 08/05/17 nitroglycerin 0.4 mg sublingual tablet 0.4 mg SUBLINGUAL Q5M PRN 08/05/17 pravastatin 40 mg tablet 40 mg PO QHS 08/05/17 multivitamin,yx-ahmk-aguzswfb tablet 1 tab PO QDAY #100 ea 08/06/17 aspirin 81 mg tablet,delayed release 81 mg PO QDAY 09/06/17 lisinopril 20 mg tablet 20 mg PO QDAY 09/06/17 naproxen 500 mg tablet 500 mg PO BID PRN tab 09/06/17 oxycodone ER 15 mg tablet,crush resistant,extended release 12 hr 15 mg PO Q6H PRN tab 09/06/17 coal tar 0.5 % shampoo 1 applic TOPICAL QDAY #250 ml 09/28/17 Fenofibrate,Micronized [Fenofibrate] 67 mg PO QHS 11/18/17 Oxycodone HCl/Acetaminophen [Percocet 5/325] 1 - 2 tablet PO Q4H PRN PRN 7 Days #20 tablet 11/22/17 The following prescriptions were given: Oxycodone HCl/Acetaminophen [Percocet 5/325] 1 - 2 tablet PO Q4H PRN PRN 7 Days #20 tablet PRN Reason: Pain Primary Care Physician: Britni Hutchinson MD [Primary Care Provider] - Please Follow Up With: Preston Bryant MD When: call tomorrow to make 2 week follow up appt [phone] 11/22/17 1413 <Electronically signed by Preston Bryant MD> Date Preston Bryant MD CC: Britni Hutchinson MD CHEST PA AND LATERAL Observed: 11/22/2017 Status: F Source: [place] 12:33 PM [facility] REPOSITORY [facility] Imaging Services [address] [place] [id number] Chest PA and Lateral MR#: [id number] Acct: [id number] Name: HELEN RUDD Jr. Rep #: [id number] : 1960 M 57 From: Derrell Figueroa MD PCP: Britni Hutchinson MD [place] [facility]: Chest PA and Lateral Date of Exam: 11/22/17 Exam# [id number] Ordering Dr: Jeffery Rivera MD STUDY: X-RAY CHEST REASON FOR EXAM: Male, 57 years old. Preop for hernia repair TECHNIQUE: PA and lateral views of the chest. COMPARISON: 2013 FINDINGS: The lungs are clear and expanded. There is no demonstrated pleural abnormality. Normal size heart. Normal mediastinum and gris. Normal visualized pulmonary arteries. Normal visualized aortic arch and descending thoracic aorta. Normal visualized thoracic spine. Normal visualized ribs, clavicles, and shoulders. There is no demonstrated abnormality of the visualized soft tissue structures of the upper abdomen. RAD/Chest PA and Lateral IMPRESSION: No acute pulmonary process Electronically Signed: Harinder Figueroa MD at 13:02 EDT , Service support , CC: Jeffery Rivera MD; Britni Hutchinson MD Vp Purchasing: Signed CBC-COMPLETE BLOOD CNT Collected: 11/22/2017 Status: F Source: RU NO DIFF 11:50 AM [facility] REPOSITORY TYPE CODE TESTS RESULT OUT OF RANGE REFERENCE UNITS LAB L100.1000 4.4-11.0 K/mm3 Normal WBC 5.5 LAB L100.1200 4.6-6.2 M/mm3 Low RBC 4.35 LAB L100.1300 13.0-16.5 g/dl Normal HGB 13.8 LAB L100.1400 40-54 % Normal HCT 41.4 LAB L100.1500 80-94 fL High MCV 95.2 LAB L100.1600 27.0-32.0 pg Normal MCH 31.7 LAB L100.1700 32-36 g/gl Normal MCHC 33.3 LAB L100.1810 11.6-14.6 % Normal RDW CV 12.5 LAB L100.1820 35.1-43.9 fl Normal RDW SD 42.6 LAB L100.1900 150-450 K/mm3 Normal PLT 242 LAB L100.2000 6.2-12.0 fl Normal MPV 10.9 Performed By: #### L100.0500 #### [facility] [address] [place], [address] INTERNAL MEDICINE Observed: 11/17/2017 Status: F Source: RU OFFICE VISIT 1:47 PM [facility] REPOSITORY [facility] [address] [place] [address] [place] [address] OFFICE VISIT Date of Service: 11/12/17 MR#: [id number] Acct: [id number] Name: HELEN RUDD Rep #: [id number] : 1960 Provider: Britni Hutchinson MD Age/Sex: 57/M Location: [facility] Status: Signed Intake Vital Signs11/12/17 Height 5 ft 8 in Intake Visit Reasons: 3 M FU Chief Complaint: follow-up visit Allergies venom-honey bee [bee venom (honey bee)] Allergy (Verified 11/10/17 09:29) Unknown Medications Carvedilol [Coreg] 3.125 mg PO BID 06/02/13 [History Confirmed 11/10/17] Diazepam [Valium] 10 mg PO TID PRN PRN 06/02/13 [History Confirmed 11/10/17] Gabapentin [Neurontin] 400 mg PO TIDCM 06/02/13 [History Confirmed 11/10/17] buPROPion XL [Wellbutrin Xl] 300 mg PO DAILY 06/02/13 [History Confirmed 11/10/17] hydrocortisone 0.5 % topical cream 1 applic TOPICAL BID-QID PRN 08/05/17 [History Confirmed 11/10/17] levothyroxine 150 mcg capsule 150 mcg PO QDAY cap 08/05/17 [History Confirmed 11/10/17] nitroglycerin 0.4 mg sublingual tablet 0.4 mg SUBLINGUAL Q5M PRN 08/05/17 [History Confirmed 11/10/17] pravastatin 40 mg tablet 40 mg PO QHS 08/05/17 [History Confirmed 11/10/17] multivitamin,fh-xcac-ohxevxdx tablet 1 tab PO QDAY #100 ea 08/06/17 [Rx Confirmed 11/10/17] permanent handicap placard #1 ea 08/06/17 [Rx Confirmed 11/10/17] aspirin 81 mg tablet,delayed release 81 mg PO QDAY 09/06/17 [History Confirmed 11/10/17] lisinopril 20 mg tablet 20 mg PO QDAY 09/06/17 [History Confirmed 11/10/17] naproxen 500 mg tablet 500 mg PO BID PRN tab 09/06/17 [History Confirmed 11/10/17] oxycodone ER 15 mg tablet,crush resistant,extended release 12 hr 15 mg PO Q6H PRN tab 09/06/17 [History Confirmed 11/10/17] saw palmetto 500 mg capsule 500 mg PO .COMPLEX 09/06/17 [History Confirmed 11/10/17] coal tar 0.5 % shampoo 1 applic TOPICAL QDAY #250 ml 09/28/17 [Rx Confirmed 11/10/17] fenofibrate micronized 67 mg capsule 67 mg PO QPM #90 cap 09/28/17 [Rx Confirmed 11/10/17] coal tar 0.5 % shampoo 1 applic TOPICAL QDAY #473 ml 10/01/17 [Rx Confirmed 11/10/17] PFSH Medical History Atherosclerotic heart disease of [place] coronary artery without angina pectoris (Chronic) Old myocardial infarction (Chronic) HLD (hyperlipidemia) (Chronic) Hypertriglyceridemia (Chronic) History of coronary artery stent placement (Chronic) Hypothyroidism (Chronic) Hypertension (Chronic) Bloody ejaculation (Acute) Gout (Acute) Heel spur (Acute) Spontaneous ecchymosis (Acute) Arthritis (Chronic) Chronic back pain (Chronic) Degenerative disc disease (Chronic) Tobacco abuse (Chronic) Surgical History History of PTCA (Chronic 11/06/12) History of left heart catheterization (LHC) (Chronic 11/06/12) Normal colonoscopy (Chronic 2014) radiofrequency abation S1, S2, L6 (Chronic 02/2014) Family History Father Hypertension Hyperlipidemia Social History Smoking Status: Light Smoker (<10/day) how long ago did patient quit smokin alcohol intake: never substance use type: does not use caffeine: No what type of physical activity do you participate in: weight training frequency: 3-4 times per week seatbelt use: always do you feel safe at home: Yes HPI HPI Chief Complaint: follow-up visit Details: HELEN RUDD, is a 57yo M who presents to the office today for follow up. He has no acute complaints. He is scheduled to have an abdominal hernia repair surgery soon. ROS Const Constitutional: Positive for fatigue; no weight change, body ache, chills, sleep problems, fever(s), change in appetite, snoring, weakness, frequent falls, headache(s) or excessive sweating Eyes Eyes: No change in vision, eye pain, light sensitivity or blurry vision ENT ENT: Positive for nasal congestion; no headache(s), abnormal hearing, ear pain, tinnitus or neck pain Resp Respiratory: Positive for wheezing; no snoring, cough or shortness of breath Cardio Cardiology: No excessive sweating, chest pain at rest, chest pain with exertion, shortness of breath, dyspnea on exertion, palpitations, orthopnea or lightheadedness Gastro GI: Positive for abdominal pain (hernia, pending surgery 11/22/17); no change in bowel habits, constipation, diarrhea, vomiting, nausea/dyspepsia or cramping Musc Musculoskeletal: Positive for back pain; no neck pain, abnormal walking, joint pain, limited range of motion, numbness or tingling Skin Skin: No redness, dry skin, itching, lesions, wounds or rash Neuro Neurology: No weakness, frequent falls, headache(s), abnormal hearing, abnormal walking, numbness, tingling, abnormal speech, dizziness or memory loss Psych Psychiatric: No change in appetite, No memory loss, No anxiety, No depression, No Thoughts of harming yourself/Others Endo Endocrine: Positive for fatigue; no excessive sweating, cold intolerance, increased thirst/drinking, heat intolerance, flushing or increased hunger Aller/Imm Allergy/Immunologic: Positive for wheezing; no itchy eyes, hives or seasonal allergy symptoms Eduin/Lymp Hematologic/Lymphatic: No easy bleeding, easy bruising or enlarged lymph nodes Exam Const General: well developed, no acute distress Orientation: alert, awake, oriented x3 [facility] Head: atraumatic, normocephalic Ears: hearing grossly normal bilaterally Resp Effort AND Inspection: normal respiratory effort, able to speak in complete sentences Auscultation: Bilateral: Clear to Auscultation Cardio Rate: regular rate Rhythm: regular rhythm Heart Sounds: S1 normal, S2 normal GI Inspection: obesity Other: Mild tenderness around the oliver umbilical area. Small umbilical hernia appreciated Neuro General: alert, awake, oriented x3, moves all extremities, CN's II-XI intact bilaterally Extrem General: no pedal edema Psych Appearance: grossly normal Affect: normal affect Attitude: cooperative Assessment AND Plan 1. Umbilical hernia without obstruction and without gangrene K42.9 Plan Stable. Scheduled for surgery on 11/22. Will follow. 2. Hypothyroidism E03.9 Plan Last Thyroid function check with slightly low TSH in May. Not currently symptomatic. Will recheck. Follow up with results. Orders Orders: 3. Essential hypertension I10 Plan Optimally controlled. Continue current medication. Continue life style modifications. 4. Mixed hyperlipidemia E78.2 Plan Last Lipid profile with elevated triglycerides. Life style modifications discussed. Continue Pravastatin. This note was generated with TalkSessionation software. It may contain incorrect words, spelling, and punctuation that were not noted in checking the note before signing. Plan Detail Follow Up 3 Months Coding Level of Care Code Off vis,est,level 3 Diagnoses Umbilical hernia without obstruction and without gangrene K42.9 Obstruction and gangrene presence: without obstruction or gangrene Hypothyroidism E03.9 Essential hypertension I10 Hypertension type: essential hypertension Mixed hyperlipidemia E78.2 Hyperlipidemia type: mixed hyperlipidemia 11/17/17 1347 <Electronically signed by Britni Hutchinson MD> Date Britni Hutchinson MD Cosigner Signature: Date (if applicable) CC: THYROID STIM HORMONE Collected: 11/12/2017 Status: F Source: RU (TSH) 2:19 PM [facility] REPOSITORY TYPE CODE TESTS RESULT OUT OF RANGE REFERENCE UNITS LAB L501.9520 0.358-3.74 uIU/mL Normal TSH 2.25 Performed By: #### L501.9520, L506.0400 #### [facility] [address] [place], [address] T4 FREE DIRECT Collected: 11/12/2017 Status: F Source: RU 2:19 PM [facility] REPOSITORY TYPE CODE TESTS RESULT OUT OF RANGE REFERENCE UNITS LAB L506.0400 0.76-1.46 ng/dL Normal T4 FREE 0.95 DIRECT Performed By: #### L501.9520, L506.0400 #### [facility] [address] [place], [address] SURGERY VISIT REPORT Observed: 11/10/2017 Status: F Source: [place] 10:41 AM [facility] REPOSITORY [facility] [address] [place] [address] OFFICE VISIT Date of Service: 11/10/17 MR#: [id number] Acct: [id number] Name: HELEN RUDD Rep #: [id number] : 1960 Provider: Preston Bryant MD Age/Sex: 57/M Location: [facility] Status: Signed Intake Vital Signs11/10/17 Height 5 ft 8 in 11/10/17 Weight: 213 lb 1 oz 11/10/17 Body Mass Index (BMI) 32.3 11/10/17 Blood Pressure 115/80 Intake Visit Reasons: UMBILICAL HERNIA/ABDOMINAL PAIN Chief Complaint: possible umbilical hernia Emergency Veterinary Assistant Required: No Is patient in pain?: No Allergies venom-honey bee [bee venom (honey bee)] Allergy (Verified 11/10/17 09:29) Unknown Medications BuPROPion (XL) [Wellbutrin Xl] 300 mg PO DAILY 06/02/13 [History Confirmed 11/10/17] Carvedilol [Coreg] 3.125 mg PO BID 06/02/13 [History Confirmed 11/10/17] Diazepam [Valium] 10 mg PO TID PRN PRN 06/02/13 [History Confirmed 11/10/17] Gabapentin [Neurontin] 400 mg PO TIDCM 06/02/13 [History Confirmed 11/10/17] hydrocortisone 0.5 % topical cream 1 applic TOPICAL BID-QID PRN 08/05/17 [History Confirmed 11/10/17] levothyroxine 150 mcg capsule 150 mcg PO QDAY cap 08/05/17 [History Confirmed 11/10/17] nitroglycerin 0.4 mg sublingual tablet 0.4 mg SUBLINGUAL Q5M PRN 08/05/17 [History Confirmed 11/10/17] pravastatin 40 mg tablet 40 mg PO QHS 08/05/17 [History Confirmed 11/10/17] multivitamin,cb-xpxf-yvgvktba tablet 1 tab PO QDAY #100 ea 08/06/17 [Rx Confirmed 11/10/17] permanent handicap placard #1 ea 08/06/17 [Rx Confirmed 11/10/17] aspirin 81 mg tablet,delayed release 81 mg PO QDAY 09/06/17 [History Confirmed 11/10/17] lisinopril 20 mg tablet 20 mg PO QDAY 09/06/17 [History Confirmed 11/10/17] naproxen 500 mg tablet 500 mg PO BID PRN tab 09/06/17 [History Confirmed 11/10/17] oxycodone ER 15 mg tablet,crush resistant,extended release 12 hr 15 mg PO Q6H PRN tab 09/06/17 [History Confirmed 11/10/17] saw palmetto 500 mg capsule 500 mg PO .COMPLEX 09/06/17 [History Confirmed 11/10/17] coal tar 0.5 % shampoo 1 applic TOPICAL QDAY #250 ml 09/28/17 [Rx Confirmed 11/10/17] fenofibrate micronized 67 mg capsule 67 mg PO QPM #90 cap 09/28/17 [Rx Confirmed 11/10/17] coal tar 0.5 % shampoo 1 applic TOPICAL QDAY #473 ml 10/01/17 [Rx Confirmed 11/10/17] PFSH Medical History Atherosclerotic heart disease of [place] coronary artery without angina pectoris (Chronic) Old myocardial infarction (Chronic) HLD (hyperlipidemia) (Chronic) Hypertriglyceridemia (Chronic) History of coronary artery stent placement (Chronic) Hypothyroidism (Chronic) Hypertension (Chronic) Bloody ejaculation (Acute) Gout (Acute) Heel spur (Acute) Spontaneous ecchymosis (Acute) Arthritis (Chronic) Chronic back pain (Chronic) Degenerative disc disease (Chronic) Tobacco abuse (Chronic) Surgical History History of PTCA (Chronic 11/06/12) History of left heart catheterization (LHC) (Chronic 11/06/12) Normal colonoscopy (Chronic 2014) radiofrequency abation S1, S2, L6 (Chronic 02/2014) Family History Father Hypertension Hyperlipidemia Social History Smoking Status: Light Smoker (<10/day) how long ago did patient quit smokin alcohol intake: never substance use type: does not use caffeine: No what type of physical activity do you participate in: weight training frequency: 3-4 times per week seatbelt use: always do you feel safe at home: Yes HPI HPI HPI: HELEN RUDD, is a 57 M who presents to the office today for umbilical hernia. The patient reports this is been there for about 2 weeks and it is painful and enlarging. He says that having bowel movements and eating a lot of food make it worse. He reports that he does reduce with pushing in on it. He is having no nausea or vomiting. ROS General General: No weight change, appetite, fatigue, colon cancer, breast cancer or weakness HEENT HEENT: No difficulty swallowing, eye injury, eye surgery, swollen glands or hoarseness Endo Endocrine: Yes thyroid disease; no diabetes mellitus, thyroid cancer, Hair loss, heat intolerance or cold intolerance Skin Skin: No rash or changing moles Breast Breast: No left breast lump, right breast lump, nipple discharge, breast pain, abnormal mammogram, abnormal US or breast enlargement Musc Musculoskeletal: Yes back problems, arthritis and gout; no rheumatoid arthritis or joint pain Cardio Cardiovascular: Yes heart disease, high blood pressure, heart attack and heart stent; no murmur, pacemaker, atrial fibrillation, palpitations, shortness of breat with exertion or chest pain Psych Psychiatric: Yes depression; no anxiety or hearing voices Resp Respiratory: No shortness of breath, No sleep apnea, No cough, No COPD, No asthma, No emphysema, No wheezing Gastro Gastrointestinal: No abdominal pain, No nausea or vomiting, No diarrhea, No constipation, No blood in stool, No acid reflux, No hemorrhoids, No ulcers, No gallbladder problem, No black,tarry stools Eduin Hematologic: No blood thinners, No blood disorders, No bleeding, No anemia, No blood clots Neuro Neurologic: No system reviewed and no additional complaints, except as docu, No as per HPI, No abnormal walking, No abnormal hearing, No abnormal movements, No abnormal speech, No behavioral changes, No burning sensations, No confusion, No seizure-like activity, No unsteadiness, No dizziness, No localized weakness, No frequent falls, No headache(s), No lack of coordination, No loss of vision, No memory loss, No numbness, No other visual disturbances, No radiating pain, No restless legs, No sensory deficit, No fainting, No tingling, No tremor(s), No weakness, No other Exam Const General: cooperative Orientation: alert, oriented x3 Chest Breast Palpation: No nipple discharge Resp Effort AND Inspection: normal respiratory effort Auscultation: clear to auscultation bilaterally Cardio Rate: regular rate Rhythm: regular rhythm Heart Sounds: no murmurs GI Inspection: normal to inspection Palpation: soft, nontender, hernia Other: Patient does have an umbilical hernia which is easily reducible. Assessment AND Plan Problems 1. Umbilical hernia without obstruction and without gangrene K42.9 Plan 1. The patient does have an umbilical hernia which is reducible. He says this is causing him pain and he would like it repaired. I described open repair with the patient with mesh. I described the risks including but not limited to bleeding, infection, bowel injury and recurrence. The patient understands the risks and is willing to proceed with surgery. 2. The patient has a history of heart stents and has been off his Plavix but he still takes aspirin. I will do his surgery on aspirin and I did let him know that this would be an increased risk for bleeding but I believe this is justified. I will also do this under MAC local to decrease the risk of cardiac events with repair. Preston Bryant MD Pager: [facility] [address], [address] [address] Office: Coding Level of Care Code Off vis,new,level 3 Diagnoses Umbilical hernia without obstruction and without gangrene K42.9 Obstruction and gangrene presence: without obstruction or gangrene 11/10/17 1041 <Electronically signed by Preston Bryant MD> Date Preston Bryant MD Cosigner Signature: Date (if applicable) CC: Britni Hutchinson MD INTERNAL MEDICINE Observed: 11/02/2017 Status: F Source: [place] OFFICE VISIT 11:32 AM [facility] [address] [place] [address] OFFICE VISIT Date of Service: 11/02/17 MR#: [id number] Acct: [id number] Name: HELEN RUDD Rep #: [id number] : 1960 Provider: Dariel Kelley NP Age/Sex: 57/M Location: [facility] Status: Signed Intake Vital Signs11/02/17 Height 5 ft 8 in 11/02/17 Weight: 213 lb 11/02/17 Body Mass Index (BMI) 32.3 11/02/17 Blood Pressure 108/60 Intake Visit Reasons: POSSIBLE HERNIA Chief Complaint: possible hernia Is patient in pain?: Yes (abdomen, dull achey) Pain scale (1-10): 5 Allergies venom-honey bee [bee venom (honey bee)] Allergy (Verified 08/27/17 14:53) Unknown Medications BuPROPion (XL) [Wellbutrin Xl] 300 mg PO DAILY 06/02/13 [History Confirmed 08/27/17] Carvedilol [Coreg] 3.125 mg PO BID 06/02/13 [History Confirmed 08/27/17] Diazepam [Valium] 10 mg PO TID PRN PRN 06/02/13 [History Confirmed 08/27/17] Gabapentin [Neurontin] 400 mg PO TIDCM 06/02/13 [History Confirmed 09/06/17] hydrocortisone 0.5 % topical cream 1 applic TOPICAL BID-QID PRN 08/05/17 [History Confirmed 08/27/17] levothyroxine 150 mcg capsule 150 mcg PO QDAY cap 08/05/17 [History Confirmed 08/27/17] nitroglycerin 0.4 mg sublingual tablet 0.4 mg SUBLINGUAL Q5M PRN 08/05/17 [History Confirmed 08/27/17] pravastatin 40 mg tablet 40 mg PO QHS 08/05/17 [History Confirmed 08/27/17] multivitamin,hy-fire-knogubbo tablet 1 tab PO QDAY #100 ea 08/06/17 [Rx Confirmed 09/06/17] permanent handicap placard #1 ea 08/06/17 [Rx Confirmed 09/06/17] aspirin 81 mg tablet,delayed release 81 mg PO QDAY 09/06/17 [History Confirmed 09/06/17] lisinopril 20 mg tablet 20 mg PO QDAY 09/06/17 [History Confirmed 09/06/17] naproxen 500 mg tablet 500 mg PO BID PRN tab 09/06/17 [History] oxycodone ER 15 mg tablet,crush resistant,extended release 12 hr 15 mg PO Q6H PRN tab 09/06/17 [History Confirmed 09/06/17] saw palmetto 500 mg capsule 500 mg PO .COMPLEX 09/06/17 [History Confirmed 09/06/17] coal tar 0.5 % shampoo 1 applic TOPICAL QDAY #250 ml 09/28/17 [Rx] fenofibrate micronized 67 mg capsule 67 mg PO QPM #90 cap 09/28/17 [Rx] coal tar 0.5 % shampoo 1 applic TOPICAL QDAY #473 ml 10/01/17 [Rx] PFSH Medical History Atherosclerotic heart disease of [place] coronary artery without angina pectoris (Chronic) Old myocardial infarction (Chronic) HLD (hyperlipidemia) (Chronic) Hypertriglyceridemia (Chronic) History of coronary artery stent placement (Chronic) Hypothyroidism (Chronic) Hypertension (Chronic) Bloody ejaculation (Acute) Gout (Acute) Heel spur (Acute) Spontaneous ecchymosis (Acute) Arthritis (Chronic) Chronic back pain (Chronic) Degenerative disc disease (Chronic) Tobacco abuse (Chronic) Surgical History History of PTCA (Chronic 11/06/12) History of left heart catheterization (LHC) (Chronic 11/06/12) Normal colonoscopy (Chronic 2014) radiofrequency abation S1, S2, L6 (Chronic 02/2014) Family History Father Hypertension Hyperlipidemia Social History Smoking Status: Light Smoker (<10/day) how long ago did patient quit smokin alcohol intake: never substance use type: does not use caffeine: No what type of physical activity do you participate in: weight training frequency: 3-4 times per week seatbelt use: always do you feel safe at home: Yes HPI HPI Chief Complaint: possible hernia Details: HELEN RUDD, is a 57 M who presents to the office today for an acute visit of possible umbilical hernia. He has a past medical history as listed above. The patient states that this previous he was doing physical therapy which involved weight lifting and shortly afterwards, he noticed that his belly button was bulging. Patient states that on Wednesday it was bulging a little bit more and he has been noting a dull achy abdominal pain around the navel region. He states that the bulge is reducible, however sometimes it bulges more after he eats. He has taken some his prescription narcotic analgesia which helped alleviate the pain. He denies any change in bowel function. He denies any other aggravating or alleviating symptoms. He denies any previous history of hernias. The patient otherwise denies any fever, chills, nausea, vomiting, shortness of breath, chest pain or pressure, palpitations, orthopnea, lower extremity edema, syncope or presyncopal episodes. ROS Const Constitutional: No weight change, body ache, chills, fatigue, sleep problems, fever(s), change in appetite, snoring, weakness, frequent falls, headache(s) or excessive sweating Eyes Eyes: No change in vision, eye pain, light sensitivity or blurry vision ENT ENT: No headache(s), abnormal hearing, ear pain, tinnitus, nasal congestion, sore throat or neck pain Resp Respiratory: No snoring, cough, shortness of breath or wheezing Cardio Cardiology: No excessive sweating, chest pain at rest, chest pain with exertion, shortness of breath, dyspnea on exertion, palpitations, orthopnea or lightheadedness Gastro GI: Positive for abdominal pain (possible hernia); no change in bowel habits, constipation, diarrhea, vomiting, nausea/dyspepsia or cramping Musc Musculoskeletal: Positive for numbness (right flank); no neck pain, abnormal walking, joint pain, back pain, limited range of motion or tingling Skin Skin: No redness, dry skin, itching, lesions, wounds or rash Neuro Neurology: Positive for numbness (right flank); no weakness, frequent falls, headache(s), abnormal hearing, abnormal walking, tingling, abnormal speech, dizziness or memory loss Psych Psychiatric: No change in appetite, No memory loss, No anxiety, No depression, No Thoughts of harming yourself/Others Endo Endocrine: No fatigue, excessive sweating, cold intolerance, increased thirst/drinking, heat intolerance, flushing or increased hunger Aller/Imm Allergy/Immunologic: No wheezing, itchy eyes, hives or seasonal allergy symptoms Eduin/Lymp Hematologic/Lymphatic: No easy bleeding, easy bruising or enlarged lymph nodes Exam Const General: cooperative, comfortable, no acute distress Nutritional Appearance: average body habitus, well nourished Orientation: alert, oriented x3 Limitations: mental status not altered Resp Effort AND Inspection: normal respiratory effort, able to speak in complete sentences, normal respiratory pattern, symmetric chest movement, no audible wheezes, no cough Auscultation: Bilateral: Clear to Auscultation Cardio Palpation: normal PMI Rate: regular rate Heart Sounds: S1 normal, S2 normal, normal S1 and S2, no click, no gallops, no murmurs, no rubs GI Inspection: normal to inspection Auscultation: normal bowel sounds, no hyperactive bowel sounds, no hypoactive bowel sounds Palpation: soft, no hepatosplenomegaly, hernia umbilical (Small umbilical hernia easily reducible) Neuro General: alert, awake, oriented x3, CN's II-XI intact bilaterally Speech: speech normal Gait: normal gait Motor: muscle tone normal throughout Psych Appearance: grossly normal Mental Status: mental status grossly normal Affect: normal affect Attitude: cooperative Thought Process: normal Assessment AND Plan Problems 1. Umbilical hernia without obstruction and without gangrene K42.9 Plan The patient does have a small umbilical hernia which is easily reducible, no concern for obstruction at this time. Did instruct patient that for comfort, he may utilize his abdominal binder that he has from previous medical surgeries. An abdominal ultrasound will be done to confirm the presence of the hernia and instructed patient that if it continues to bother him, a referral will be made to general surgery for evaluation. Patient verbalized understanding. Patient instructed on the red flag signs and symptoms of obstructed or strangulated hernia that require urgent medical attention. Encouraged patient to continue with his pblm-twj-dbfwigr MiraLAX for treatment of opioid-induced constipation. Patient verbalized understanding. Patient to follow-up as previously scheduled or sooner if needed. This note was generated with TalkSessionation software. It may contain incorrect words, spelling, and punctuation that were not noted in checking the note before signing. Orders Orders: Plan Detail Follow Up As previously scheduled or sooner if needed Coding Level of Care Code Off vis,est,level 3 Diagnoses Umbilical hernia without obstruction and without gangrene K42.9 Obstruction and gangrene presence: without obstruction or gangrene 11/02/17 1132 <Electronically signed by Dariel MONTELONGO> Date Dariel MONTELONGO Cosigner Signature: Date (if applicable) CC: INITAL EVALUATION (1) Observed: 10/11/2017 Status: F Source: RU Chow PT 3:58 PM [facility] REPOSITORY [facility] [address] [place] [address]. [address] [place] [address] Fax REHABILITATION SERVICES INITIAL EVALUATION MR#: [id number] Acct: [id number] Name: HELEN RUDD Rep #: [id number] : 1960 57 From: Sidney Estevez PT, ATC Referring Dr.: Violeta Fernandez Status: REG R Insurance: [facility] SELF PAY INSURANCE Patient's Visit Information HELEN RUDD is a 57 year old M referred to Physical Therapy by DO MADELINE Griffith with a diagnosis of Neck and LBP. Date of Evaluation: 10/11/17 Physical Therapist: Sidney Estevez PT, - Visit Plan Frequency: 1-2x /Week Duration: 4-6 Weeks Plan: Aquatic therapy consisting of core stab, scap stab, UE stretching and strengthening, and HEP - Subjective Subjective: Pt reports a chronic Hx of neck and LBP for several years. Pt reports his back is worse than his neck. Pt reports he has come to PT for several years for this and it has always made him feel better. Pt reports he recently had C/S xrays which revealed bone spurs. Pt also notes he has had injections in his LB which has helped with the pain. Pt reports he has radiculopathy in L LE which extends to below his knee. No UE T or N. Pt reports he has sleep diff secondary to pain. Able to sleep 4-5 hours at most. Pt reports he is able to do house chores, but must take several breaks due to his pain. Pt is disabled at this time. - Pain neck Pain Intensity (Out of 10): 6 Pain Intensity Range: 6 LBP Pain Intensity (Out of 10): 6 Pain Intensity Range: 10 - Objective Neuro: B LE sensation is WNL to light touch. B achilles and biceps reflex=1/3. AROM: Pt is moderately limited in all ROM with neck and LB. MMT: B UE and LE are grossly rated at 4+/5 throughout. Gait: Pt is able to ambulate 680' I with no limitation until experiencing increased L LE radiculopathy - Goals Goal 1:: Decrease neck and LBP x 25 % to aid with sleep Goal Time Frame: 4-6 Weeks Goal 2:: Pt will be able to ambulate greater than 1000 feet to aid with community ambulation Goal Time Frame: 4-6 Weeks Goal 3:: I with HEP Goal Time Frame: 4-6 Weeks - Rehabilitation Potential Physical Therapy Diagnosis: Pt has neck and LBP secondary to deg changes throughout his spine Rehabilitation Potential: Good - Anticipated Interventions Patient/Client Instruction: Educate patient on: Condition, Plan of Care For the Purpose of:: To improve self management Therapeutic Exercise to Include: Strength training, Endurance training, Postural training, In an aquatic setting, Active ROM, Dynamic Lumbar Stabilization, Scapular Strength/Stabilization For the Purpose of:: To decrease pain, To increase ROM, To improve muscle performance and motor function Thank you for the opportunity to evaluate your patient. For Medicare and Medicare HMO plans, please review the plan of care and approve it. It will need to be FAXED BACK to us at [phone] for Medicare purposes. Please let me know if there are questions or concerns regarding this plan of care. Physician Signature: Date: <Electronically signed by Sidney Estevez PT, ATC> 10/11/17 1558 CC: Violeta Fernandez; Britni Hutchinson MD [facility] Signed For Medicare only, by signing this I certify the plan of care. Physicians Signature Date LIPID PROFILE Collected: 09/24/2017 Status: F Source: RU 8:43 AM [facility] REPOSITORY TYPE CODE TESTS RESULT OUT OF RANGE REFERENCE UNITS LAB L501.4900 200 mg/dL Normal CHOL 121 Result Comment: <200 mg/dL Desirable 200-240 mg/dL Borderline >240 mg/dL High Risk LAB L501.5000 mg/dL High TRIG 304 Result Comment: The drugs N-Acetylcysteine and Metamizole may falsely depress this assay. Serum Triglycerides Reference Interval Normal <150 mg/dL Borderline high 150 - 199 mg/dL High 200 - 499 mg/dL Very High > or = 500 mg/dL LAB L501.6400 mg/dL Low HDL 32 Result Comment: The drugs N-Acetylcysteine and Metamizole may falsely depress this assay. Reference Range HDL <40 mg/dL Low HDL Cholesterol HDL >or= 60 mg/dL High HDL Cholesterol LAB L501.6500 0-130 mg/dL Normal LDL 28 LAB L501.6600 5-40 mg/dL High VLDL 61 Performed By: #### L500.4100, L500.4050 #### [facility] [address] [place], [address] COMPREHENSIVE METABOLIC Collected: 09/24/2017 Status: F Source: RU PROFIL 8:43 AM [facility] REPOSITORY TYPE CODE TESTS RESULT OUT OF RANGE REFERENCE UNITS LAB L501.1800 3.4-5.0 g/dL Normal ALB 4.3 Result Comment: Please note revised Albumin AND Globulin reference range effective 2017. LAB L501.0100 70-110 mg/dL Normal GLU 104 LAB L501.1000 7-18 mg/dL Normal BUN 17 LAB L501.1100 0.70-1.30 mg/dL Normal CREAT,SERU 1.09 M Result Comment: The validity of the calculated GFR AND GFRAA in patients over 70 years has not been determined. Clinical correlation is essential. LAB L501.1110 >60 mL/min Normal EST GFR 75 Result Comment: Non- GFR Calc LAB L501.1115 >60 mL/min Normal EST GFR - AA 90 Result Comment: GFR Calc LAB L501.1300 10-20 RATIO Normal BUN/CRE 15.6 LAB L501.1500 6.4-8.2 g/dL T Normal PROT 7.4 LAB L501.1950 2.2-4.2 g/dL Normal GLOB 3.1 LAB L501.2000 0.9-2.4 RATIO Normal A/G 1.4 LAB L501.2200 8.5-10.1 mg/dL CA Normal 9.4 LAB L501.4100 15-37 U/L Normal AST 22 LAB L501.4305 45-117 U/L Normal ALK P 63 LAB L501.4405 12-78 U/L Normal ALT 34 LAB L501.4600 0.20-1.00 mg/dL T Normal BILI 0.50 LAB L501.5300 136-145 mmol/L NA Normal 141 LAB L501.5600 3.5-5.1 mmol/L K Normal 4.3 LAB L501.5900 98-107 mmol/L CL Normal 105 LAB L501.6100 21.0-32.0 mmol/L Normal CO2 24.0 LAB L501.6200 5-15 Normal GAP 12 Performed By: #### L500.4100, L500.4050 #### [facility] [address] [place], [id number] CARDIOLOGY VISIT Observed: 09/08/2017 Status: F Source: RU REPORT 5:38 PM [facility] REPOSITORY [facility] [address] [place] [address] OFFICE VISIT Date of Service: 09/06/17 MR#: [id number] Acct: [id number] Name: HELEN RUDD Rep #: [id number] : 1960 Provider: FANTA Kwon Age/Sex: 57/M Location: [facility] Status: Signed HPI 6 M FU: Chief Complaint: Routine follow-up Details: HELEN RUDD, is a 57 M who presents to the office today for a cardiovascular outpatient follow-up. He has a history of coronary artery disease status post previous angioplasty and stenting of the left circumflex artery, hypertension, hyperlipidemia. Pt. denies chest, arm, jaw, or neck discomfort. His exercise tolerance is stable. Pt. denies symptoms of CHF, palpitations, lightheadedness, dizziness, near syncope, or syncopal episodes. Pt. denies edema or claudication issues. Pt. denies orthopnea, PND, fever, chills, blood in urine, blood in stool, myalgia, or unexplainable fatigue. He has started water therapy, which has helped his back pain. He has stopped smoking, which has resulted in an increase in weight. He continues to attempt to improve his diet. Heart catheterization from May 2013 showed a left ventriculogram ejection fraction of 60%, widely patent previous left circumflex artery stent, RCA with minimal disease, normal left main coronary artery, and LAD with no high-grade stenosis. Medical management was recommended. Intake Vital Signs09/06/17 Height 5 ft 8 in 09/06/17 Weight: 211 lb 09/06/17 Body Mass Index (BMI) 32.1 09/06/17 Blood Pressure 120/82 09/06/17 Blood Pressure Location Lt brachial Intake Visit Reasons: 6 M FU Emergency Veterinary Assistant Required: No Accompanied by: None Is patient in pain?: No Allergies venom-honey bee [bee venom (honey bee)] Allergy (Verified 08/27/17 14:53) Unknown Medications BuPROPion (XL) [Wellbutrin Xl] 300 mg PO DAILY 06/02/13 [History Confirmed 08/27/17] Carvedilol [Coreg] 3.125 mg PO BID 06/02/13 [History Confirmed 08/27/17] Diazepam [Valium] 10 mg PO TID PRN PRN 06/02/13 [History Confirmed 08/27/17] Gabapentin [Neurontin] 400 mg PO TIDCM 06/02/13 [History Confirmed 09/06/17] Fenofibrate [Tricor] 48 mg PO DAILY 02/14/17 [History Confirmed 08/27/17] hydrocortisone 0.5 % topical cream 1 applic TOPICAL BID-QID PRN 08/05/17 [History Confirmed 08/27/17] levothyroxine 150 mcg capsule 150 mcg PO QDAY cap 08/05/17 [History Confirmed 08/27/17] nitroglycerin 0.4 mg sublingual tablet 0.4 mg SUBLINGUAL Q5M PRN 08/05/17 [History Confirmed 08/27/17] pravastatin 40 mg tablet 40 mg PO QHS 08/05/17 [History Confirmed 08/27/17] multivitamin,wq-ccmh-ukkpytxy tablet 1 tab PO QDAY #100 ea 08/06/17 [Rx Confirmed 09/06/17] permanent handicap placard #1 ea 08/06/17 [Rx Confirmed 09/06/17] aspirin 81 mg tablet,delayed release 81 mg PO QDAY 09/06/17 [History Confirmed 09/06/17] lisinopril 20 mg tablet 20 mg PO QDAY 09/06/17 [History Confirmed 09/06/17] naproxen 500 mg tablet 500 mg PO BID PRN tab 09/06/17 [History] nicotine 7 mg/24 hr daily transdermal patch 1 patch TRANSDERMAL Q24H PRN 09/06/17 [History Confirmed 08/27/17] oxycodone ER 15 mg tablet,crush resistant,extended release 12 hr 15 mg PO Q6H PRN tab 09/06/17 [History Confirmed 09/06/17] saw palmetto 500 mg capsule 500 mg PO .COMPLEX 09/06/17 [History Confirmed 09/06/17] Ejection fraction %: 55 to 59 PFSH Medical History Atherosclerotic heart disease of [place] coronary artery without angina pectoris (Chronic) Old myocardial infarction (Chronic) HLD (hyperlipidemia) (Chronic) Hypertriglyceridemia (Chronic) History of coronary artery stent placement (Chronic) Hypothyroidism (Chronic) Hypertension (Chronic) Benign essential hypertension (Chronic) Hyperlipidemia (Chronic) Obesity (Chronic) Tobacco use (Chronic) Bloody ejaculation (Acute) Gout (Acute) Heel spur (Acute) Spontaneous ecchymosis (Acute) Arthritis (Chronic) Chronic back pain (Chronic) Degenerative disc disease (Chronic) Tobacco abuse (Chronic) Surgical History History of PTCA (Chronic 11/06/12) History of left heart catheterization (LHC) (Chronic 11/06/12) Normal colonoscopy (Chronic 2014) radiofrequency abation S1, S2, L6 (Chronic 02/2014) Family History Father Hypertension Hyperlipidemia Social History Smoking Status: Light Smoker (<10/day) alcohol intake: never substance use type: does not use caffeine: No what type of physical activity do you participate in: weight training frequency: 3-4 times per week seatbelt use: always do you feel safe at home: Yes ROS Const Const: Negative for body ache, fever(s), chills, fatigue or weakness ENT ENT: Negative for dizziness Cardio Chest Pain: No Palpitations: Positive for No Edema: None Muscle aches with walking: None Resp Respiratory: Negative for SOB with activity, SOB at rest, SOB orthopnea\SOB lying down or paroxysmal nocturnal dyspnea GI GI: Negative nausea, black,tarry stools, bright, red blood in stools or vomiting blood/hematemesis : Negative for hematuria or frequent nighttime urination/ nocturia Musc Musc: Negative for muscle aches/ myalgia Neuro Neuro: Negative for weakness, Negative for dizziness, Negative for lightheadedness, Negative for near syncope, Negative for syncope, Negative for orthostatic symptoms Endo Endo: Negative for fatigue Cardiology Exam Const Appearance: cooperative, healthy appearing, comfortable and no acute distress Orientation: alert, awake and oriented x3 Head Head: normal to inspection Mouth: oral mucosae normal Neck Neck: no JVD and normal visual inspection Carotids: normal carotid upstroke Chest Chest inspection: normal inspection of the chest and normal respiratory effort Auscultation: Bilateral: Clear to Auscultation Cardio Rate: regular rate Rhythm: regular rhythm Heart sounds: S1 normal and S2 normal; negative rub or gallop GI GI: normal to inspection Neuro General: alert, awake, oriented x3 and CN's II-XI intact bilaterally Skin Skin: no rashes or lesions noted Extremities Pulses: Normal: Right Posterior Tibial Pulse, Left Posterior Tibial Pulse, Right Radial Pulse, Left Radial Pulse Lower Extremity Edema: None: Bilateral Psych Psychological: normal affect Assessment AND Plan 1. Atherosclerosis of [place] coronary artery of [place] heart without angina pectoris I25.10; I25.10; I25.10 PCI to LCX 11/06/2012 Plan - REGINALD May Patient denies any chest pain, arm pain, jaw pain, neck pain, shortness of breath, or fatigue suggestive of angina at this time. We will continue to monitor this. We will not make any medication regimen changes and will continue risk factor modification. 2. Essential hypertension I10; I10; I10 Plan - REGINALD May Patient's blood pressure is well-controlled today in the office. We will continue to monitor this. We will not make any medication regimen changes. 3. Mixed hyperlipidemia E78.2 Plan - REGINALD May This is being followed by primary care physician/provider. Patient states his most recent laboratory work were satisfactory. We will continue current cholesterol-lowering medication. 4. Tobacco use Z72.0 Plan - REGINALD May Patient states that he has completely stopped smoking. He occasionally has to use a nicotine patch during breakthrough urges. We will continue to support and some promote smoking cessation. Plan Detail Additional Comments - REGINALD May Discussed the above patient with Dr. Lopez, he agrees with the plan of care. Thank you for allowing us to participate in the patients plan of care, if you have any questions please do not hesitate to call. This note was generated using a voice recognition system and there may be incorrect words, spelling or punctuation that were not noted when reviewing the office note prior to saving. Follow Up 6 Months (ASSISTANT MEDIA BUYER) 09/06/17 0291 <Electronically signed by Steven MONTELONGO> Date Steven MONTELONGO 09/08/17 0305<Electronically signed by Rich Lopez MD> Cosigner Signature: Date (if applicable) Rich Lopez MD CC: Britni Hutchinson MD ALLERGIES ALLERGIES DATE TYPE / CODE NAME / CODE REACTION SEVERITY SOURCE 05/10/2018 Drug venom-honey Unknown Unknown [facility] Allergy/4160 bee/[id number] Hospital 36313(SNOMED 8(RXNORM) Repository CT) 12/28/2011 Environ/4201 BEE STING SWELLING [facility] 76293(SNOMED [facility] [place] [facility]) Repository ENCOUNTERS ENCOUNTERS ADMIT/DISCHARGE ACCOUNT ADMITTING ENCOUNTER LOCATION SOURCE NUMBER CLASS 08/15/2018/08/15/20 [id number] Ambulatory BMSBuilding:Maritza Vences 18 MS.[facility] Repository 07/27/2018 [id number] Ambulatory [facility] ing:PSN Repository 07/07/2018 [id number] Ambulatory [facility] [place] g:H.PM Repository 06/08/2018 [id number] Ambulatory [facility] Hospital ing:MTLAB Repository 05/26/2018 [id number] Ambulatory BMSBuilding:B Ru MS.[facility] Repository 05/13/2018 [id number] Ambulatory BMSBuilding:B Ru MS.[facility] Repository 05/10/2018/05/10/20 [id number] Ambulatory BMSBuilding:[place] 18 MS.[facility] Repository 05/03/2018 [id number] Ambulatory [facility] g:H.PM Repository 04/08/2018/04/11/20 [id number] Ambulatory [address] Repository 04/05/2018/04/05/20 [id number] Ambulatory [address] Hospital ing:PT Repository 03/23/2018 [id number] Ambulatory BMSBuilding:[place].[facility] Repository 02/10/2018/02/11/20 [id number] Ambulatory BMSBuilding:B Ru 18 MS.[facility] Repository 02/09/2018 [id number] [facility] [place] g:H.PM Repository 02/09/2018/02/10/20 [id number] Ambulatory BMSBuilding:B [place] 18 [facility] Hospital Repository 02/07/2018 [id number] Ambulatory [facility] Hospital ing:MFPLAB Repository 12/07/2017/12/08/19 [id number] Ambulatory BMSBuilding:B [place] 18 [facility] Repository 11/22/2017/11/23/19 [id number] Ambulatory [address] [facility] Hospital ing:SDC Repository 11/22/2017 [id number] Ambulatory BMSBuilding:B [place] MS.CF.[facility] Repository 11/22/2017 [id number] [facility] 11/17/2017 [id number] [facility] [place] g:H.PM Repository 11/12/2017 [id number] Ambulatory [facility] ing:LAB Repository 11/12/2017/11/13/19 [id number] Ambulatory BMSBuilding:B Ru 18 MS.[facility] access hospital Hospital Repository 11/10/2017/11/11/19 [id number] Ambulatory BMSBuilding:B [place] 18 [facility] Repository 11/05/2017 [id number] Ambulatory [facility] Hospital ing:USHP Repository 11/02/2017/11/03/19 [id number] Ambulatory BMSBuilding:B Ru 18 MS.[facility] Hospital Repository 10/28/2017/10/29/19 [id number] Ambulatory [address] HospitalBuild Hospital ing:PT Repository 09/24/2017 [id number] Ambulatory [facility] Hospital ing:MTLAB Repository 09/06/2017/09/06/19 [id number] Ambulatory BMSBuilding:B Ru 18 MS.[facility] Hospital Repository 08/19/2017 [id number] [facility] [place] g:H.PM Repository PAYERS PAYERS ENCOUNTER GUARANTOR PAYER SUBSCRIBER SOURCE 08/15/2018 HELEN L Primary HELEN L Ru POBILLYI Jr[address] Insurance:CARESOURCEP POHALSKI Jr.: [facility] Hever white Number: [id number], [place] [id number] Repository [address]Xoh: ([phone]) Date:2018-05-10P O [phone] () [address]ATTN: [place] [address]NN: 08/15/2018 Secondary NOT GIVENUNK Ru Insurance:SELF PAY [facility] Number: Effective Repository Date:2018-08-11 07/27/2018 HELEN L Primary HELEN L Ru POROXANESKI Jr[address]371 Insurance:CARESOURCEP POHALSKI Jr.: [facility] [place]IA white Number: [id number], [place] [id number] Repository [address]Tlg: ([phone]) Date:2018-04-28P O [phone] () [address]ATTN: [place] [address]PE: 07/27/2018 Secondary NOT GIVENUNK Ru Insurance:SELF PAY [facility] Number: Effective Repository Date:2018-04-28 07/07/2018 HELEN L Primary [facility] L [facility] N Insurance:CARESOURCEP [facility] SYLVIA bhardwajearnesteduardo Number: Repository [place], [place] [id number] [address]Fvl: ([phone]) Date:2013-02-27P.O. [phone] (HP) [address] [address]QQ: 06/08/2018 HELEN L Primary HELEN L [place] POROXANESKI Jr[address] Insurance:CARESOURCEP POHALSKI Jr.: [facility] Hever white Number: [id number], [place] [id number] Repository [address]Hap: ([phone]) Date:2018-06-08P O [phone] () [address]ATTN: [place] [address]UC: 06/08/2018 Secondary NOT GIVENUNK [place] Insurance:SELF PAY [facility] Number: Effective Repository Date:2018-06-08 05/26/2018 HELEN L Primary HELEN L [place] POHALSKI [address] Insurance:CARESOURCEP POHALSKI Jr.: [facility] Hever white Number: [id number], [place] [id number] Repository [address]Pfg: ([phone]) Date:2018-05-26P O [phone] () [address]ATTN: [place] [address]XT: 05/26/2018 Secondary NOT GIVENUNK Ru Insurance:SELF PAY [facility] Number: Effective Repository Date:2018-05-26 05/13/2018 HELEN L Primary HELEN L [place] POHALSKI [address] Insurance:CARESOURCEP POHALSKI Jr.: [facility] Hever white Number: [id number], [place] [id number] Repository [address]Ulr: ([phone]) Date:2018-05-13P O [phone] () [address]ATTN: [place] [address]SP: 05/13/2018 Secondary NOT GIVENUNK Ru Insurance:SELF PAY [facility] Number: Effective Repository Date:2018-05-13 05/10/2018 HELEN L Primary HELEN L [place] POHALSKI [address] Insurance:CARESOURCEP POHALSKI Jr.: [facility] Hever white Number: [id number], [place] [id number] Repository [address]Uhm: ([phone]) Date:2018-02-09P O [phone] (HP) [address]ATTN: [place] [address]MO: 05/10/2018 Secondary NOT GIVENUNK Ru Insurance:SELF PAY [facility] Number: Effective Repository Date:2018-05-03 05/03/2018 HELEN L Primary HELEN L [facility] N Insurance:CARESOURCEP POHALSKIUNK [facility] [place] white Number: Repository [place], [place] [id number] [id number]: [phone]) Date:2013-02-27P.O. [phone] () [address] [place] [address]PC: 04/05/2018 HELEN L Primary HELEN L [place] POHALSKI [address] Insurance:CARESOURCEP POHALSKI Jr.: [facility] [place]IA au Number: [id number], [place] [id number] Repository [address]Wvb: ([phone]) Date:2013-02-27P O [phone] () [address]ATTN: [place] [address]UK: 04/05/2018 Secondary NOT GIVENUNK Ru Insurance:SELF PAY [facility] Number: Effective Repository Date:2018-03-18 03/23/2018 HELEN L Primary HELEN L [place] POHALSKI [address] Insurance:CARESOURCEP POHALSKI Jr.: [facility] SYLVIA au Number: [id number], [place] [id number] Repository [address]Acz: ([phone]) Date:2018-03-23P O [phone] () [address]ATTN: [place] [address]OI: 03/23/2018 Secondary NOT GIVENUNK Ru Insurance:SELF PAY [facility] Number: Effective Repository Date:2018-03-23 02/10/2018 HELEN L Primary HELEN L [place] POHALSKI [address] Insurance:CARESOURCEP POHALSKI Jr.: [facility] SYLVIA [facility] Number: [id number], [place] [id number] Repository [address]Wde: ([phone]) Date:2018-02-09P O [phone] () [address]ATTN: [place] [address]LU: 02/10/2018 Secondary NOT GIVENUNK [place] Insurance:SELF PAY [facility] Number: Effective Repository Date:2018-02-10 02/09/2018 HELEN L Primary HELEN [facility]371 N Insurance[facility]P [facility] [place] au Number: Repository [place] [id number] [address]Sfo: (330) Date:2013-02-27P.O. [phone] () [address], [place] [address]WQ: 02/09/2018 HELEN L Primary HELEN L Ru POHALSKI Jr.371 Insurance:CARESOURCEP POHALSKI Jr.: [facility] N [place] au Number: [id number], [place] [id number] Repository [address]Ifp: (330) Date:2017-11-12P O [phone] () [address]ATTN: [place] [address]UJ: 02/09/2018 Secondary NOT GIVENUNK [place] Insurance:SELF PAY [facility] Number: Effective Repository Date:2018-02-09 02/07/2018 HELEN L Primary HELEN L [place] POHALSKI Jr.371 Insurance:CARESOURCEP POHALSKI Jr.: [facility] N [facility] Number: [id number], [place] [id number] Repository [address]Hlx: (330) Date:2018-02-07P O [phone] () [address]ATTN: [place] [address]MZ: 02/07/2018 Secondary NOT GIVENUNK Ru Insurance:SELF PAY [facility] Number: Effective Repository Date:2018-02-07 12/07/2017 HELEN L Primary HELEN L Ru POHALSKI Jr.371 Insurance:CARESOURCEP POHALSKI Jr.: [facility] Hever white Number: [id number], [place] [id number] Repository [address]Wel: (330) Date:2017-11-23P O [phone] () [address]ATTN: [place] [address]QK: 12/07/2017 Secondary NOT GIVENUNK Ru Insurance:SELF PAY [facility] Number: Effective Repository Date:2017-12-07 11/22/2017 HELEN L Primary HELEN L Ru POHALSKI Jr.371 Insurance:CARESOURCEP POHALSKI Jr.: [facility] [place] Number: [id number], [place] [id number] Repository [address]Ftj: (330) Date:2017-11-12P O [phone] () [address]ATTN: [place] [address]CU: 11/22/2017 Secondary NOT GIVENUNK Ru Insurance:SELF PAY [facility] Number: Effective Repository Date:2017-11-12 11/22/2017 HELEN L Primary HELEN L [place] POHALSKI Jr.371 Insurance:CARESOURCEP POHALSKI Jr.: [facility] [place] white Number: [id number], [place] [id number] Repository [address]Esh: (330) Date:2017-11-22P O [phone] () [address]ATTN: [place] [address]UU: 11/22/2017 Secondary NOT GIVENUNK [place] Insurance:SELF PAY [facility] Number: Effective Repository Date:2017-11-22 11/22/2017 HELEN L Primary HELEN L Ru POHALSKI Jr.371 Insurance:CARESOURCEP POHALSKI Jr.: [facility] [place] white Number: [id number], [place] [id number] Repository [address]Tiy: (330) Date:2017-11-12P O [phone] () [address]ATTN: [place] [address]YJ: 11/22/2017 Secondary NOT GIVENUNK Ru Insurance:SELF PAY [facility] Number: Effective Repository Date:2017-11-22 11/17/2017 HELEN L [facility]EN [id number]CARESOURCEP [facility] [place] white Number: Repository [place], [place] [id number] [address]Vra: (330) Date:2013-02-27P.O. [phone] () [address] [place] [address]YS: 11/12/2017 HELEN L Primary HELEN L Ur POJOÃO Jr.371 Insurance:CARESOURCEP POHALSKI Jr.: [facility] N [place] white Number: [id number], [place] [id number] Repository [address]Lud: (330) Date:2017-11-12P O [phone] () [address]ATTN: [place] [address]IV: 11/12/2017 Secondary NOT GIVENUNK Ru Insurance:SELF PAY [facility] Number: Effective Repository Date:2017-11-12 11/12/2017 HELEN L Primary [id number] N Insurance:CARESOURCEP [facility]: [facility] SYLVIA white Number: [id number], [place] [id number] Repository [address]Scf: (330) Date:2017-08-06P O [phone] () [address]ATTN: [place] [address]GX: 11/12/2017 Secondary NOT GIVENUNK Ru Insurance:SELF PAY [facility] Number: Effective Repository Date:2017-08-06 11/10/2017 HELEN L Primary HELEN L [place] [id number] N Insurance:CARESOURCEP POHALSKIDOB: [facility] Number: [id number], [place] [id number] Repository [address]Pwt: (330) Date:2017-11-09P O [phone] () [address]ATTN: [place] [address]IY: 11/10/2017 Secondary NOT GIVENUNK [place] Insurance:SELF PAY [facility] Number: Effective Repository Date:2017-11-09 11/05/2017 HELEN L Primary HELEN L Ru [id number] N Insurance:CARESOURCEP POHALSKIDOB: [facility] Number: [id number], [place] [id number] Repository [address]Cyu: (330) Date:2017-11-02P O [phone] () [address]ATTN: [place] [address]JZ: 11/05/2017 Secondary NOT GIVENUNK [place] Insurance:SELF PAY [facility] Number: Effective Repository Date:2017-11-02 11/02/2017 HELEN L Primary HELEN L [place] [id number] N Insurance:CARESOURCEP POHALSKIDOB: [facility] Number: [id number], [place] [id number] Repository [address]Bbt: (330) Date:2017-11-01P O [phone] () [address]ATTN: [place] [address]QD: 11/02/2017 Secondary NOT GIVENUNK [place] Insurance:SELF PAY [facility] Number: Effective Repository Date:2017-11-01 10/28/2017 HELEN L Primary HELEN L Ru [id number] N Insurance:CARESOURCEP POHALSKIDOB: [facility] Number: [id number], [place] [id number] Repository [address]Qpc: (330) Date:2013-02-27P O [phone] () [address]ATTN: [place] [address]OA: 10/28/2017 Secondary NOT GIVENUNK [place] Insurance:SELF PAY [facility] Number: Effective Repository Date:2017-10-04 09/24/2017 HELEN L Primary HELEN L Ru [id number] N Insurance:CARESOURCEP POHALSKIDOB: [facility] Number: [id number], [place] [id number] Repository [address]Bms: (330) Date:2017-09-24P O [phone] () [address]ATTN: [place] [address]ZW: 09/24/2017 Secondary NOT GIVENUNK Ru Insurance:SELF PAY [facility] Number: Effective Repository Date:2017-09-24 09/06/2017 HELEN L Primary HELEN L [place] [id number] N Insurance:CARESOURCEP [facility] Number: [id number], [place] [id number] Repository [address]Cnj: (330) Date:2017-08-01P O [phone] () [address]ATTN: [place] [address]DK: 09/06/2017 Secondary NOT GIVENUNK [place] Insurance:SELF PAY [facility] Number: Effective Repository Date:2017-09-06 08/19/2017 HELEN L Primary HELEN L [facility] [id number] N Insurance:CARESOURCEP [facility] Number: Repository [place], [place] [id number] [address]Zez: (330) Date:2013-02-27P.O. [phone] (HP) [address] [place] [address]UG:
== END ==
PROVIDERS: Family Provider Internal Medicine; PCP Internal Medicine; Referring Provider Podiatrist; Visit Provider Podiatrist
DX: M54.10 Radiculopathy, site unspecified (principal); M72.2 Plantar fascial fibromatosis; G57.50 Tarsal tunnel syndrome, unspecified lower limb
CPT/HCPCS: 95886; 95911

== ENCOUNTER 2018-11-28 08:06 | Emergency (ER) | payer MEDICAID, SELFPAY ==
[2018-11-15 14:18] VITALS: BMI 32.3
[2018-11-28 08:07] VITALS: BP 151/74; PULSE 124; RESP 25; TEMP 36.9; O2SAT 94; BMI 34.2
--- NOTE | 2018-11-28 08:21 | CT_ITS ---
STUDY: CT ABDOMEN AND PELVIS WITHOUT CONTRAST REASON FOR EXAM: Male, 58 years old. Right flank pain and right lower quadrant pain. Diaphoresis and hypertension. RADIATION DOSAGE (If Supplied By Facility): CTDIvol = ( 22.77 ) mGy, DLP = ( 1154.88 ) mGycm TECHNIQUE: Transaxial images were obtained from the dome of the diaphragm to the symphysis pubis without oral contrast, and without intravenous contrast. Sagittal and coronal images were reconstructed. Individualized dose optimization techniques were used for this CT. COMPARISON: None. FINDINGS: Minimal degree of increased linear markings at the right lung base suggestive of linear atelectasis. The visualized portions of the heart are within normal limits. There is decreased attenuation of the liver consistent with steatosis. Hepatomegaly Normal gallbladder and extrahepatic biliary system. Normal spleen. Normal pancreas. Normal bilateral adrenal glands. Normal right kidney. Normal left kidney. Normal visualized stomach. There is a 1.6 cm x 1 cm lymph node in the peripancreatic fat. Increased markings and thickening of the terminal ileum. There is diffuse circumferential wall thickening with increased markings in the surrounding peritoneal fat involving the ascending colon up to the region of the hepatic flexure.. There is evidence of small lymph nodes in the mesentery in the right lower quadrant. The appendix is visualized and appears normal. There is scattered atherosclerotic calcification of the abdominal aorta, without a demonstrated aneurysm. Normal inferior vena cava. There is borderline retroperitoneal lymphadenopathy with enlarged nodes no greater than 10mm in the short axis diameter. Normal urinary bladder. There are prostatic calcifications. There is a small umbilical hernia containing fat. Small right inguinal hernia containing fat. Small benign-appearing bilateral inguinal lymph nodes. There are mild degenerative changes of the visualized lumbar spine. CT/Abdomen/Pelvis without Cont IMPRESSION: Diffuse circumferential wall thickening of the ascending colon to the level of the hepatic flexure with small lymph nodes in the mesentery. There is also evidence of involvement of the terminal ileum. The appendix is unremarkable. Hepatomegaly and fatty infiltration of the liver. Electronically Signed: Pineda Green, at 9:29 EDT , Service support ,
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
[2018-11-28] MEDS: Morphine 4 MG/ML Syringe IV ×2 (08:32→09:12)
[2018-11-28] MEDS: Ondansetron 4 MG/2 ML Vial IV (08:32)
[2018-11-28 08:39] LABS: Bacteria 0 SEEN /hpf (None Seen); Mucous, Urine 0 SEEN /hpf (<or=2+); Red Blood Cells-Urine 0 SEEN /hpf (0-5); Squamous Epithelial Cells - UA 0 SEEN /hpf (0-5); White Blood Cells 0 SEEN /hpf (0-5)
[2018-11-28 08:40] LABS: Absolute Lymphocyte Count 1.74 X10^3/ul (0.83-4.51); Absolute Neutrophil Count 13.2 X10^3/uL (2.0-7.7); Basophil# 0.02 X10^3/uL; Basophil% 0.1 % (0-1); Eosinophil# 0.03 X10^3/uL; Eosinophils% 0.2 % (0-5); Hematocrit 39.2 % (40-54); Hemoglobin 12.7 g/dl (13.0-16.5); Lymphocyte # 1.74 X10^3/ul (4.0); Lymphocyte % 10.1 % (19-41); Mean Corp Hgb Conc 32.4 g/gl (32-36); Mean Corpuscular Hgb 32.2 pg (27.0-32.0); Mean Corpuscular Volume 99.5 fL (80-94); Mean Platelet Vol. 10.6 fl (6.2-12.0); Monocyte# 2.24 X10^3/uL; Neutrophil % 76.3 % (47-70); Platelet Count 206 K/mm3 (150-450); RBC Distribution Width SD 45.7 fl (35.1-43.9); Red Blood Count 3.94 M/mm3 (4.6-6.2); White Blood Count 17.3 K/mm3 (4.4-11.0)
[2018-11-28 08:44] LABS: Differential Indicated SCAN CRITERIA MET; POSITIVE COUNT NO; POSITIVE DIFFERENTIAL YES; POSITIVE MORPHOLOGY YES
[2018-11-28 08:48] LABS: AST(SGOT) 34 U/L (15-37); Alanine Aminotransfer ALT/SGPT 56 U/L (16-61); Albumin, Serum 3.5 g/dL (3.2-5.0); Alkaline Phosphatase 62 U/L (45-117); Anion Gap 7 (5-15); BUN 25 mg/dL (7-18); BUN/Creat Ratio 13.5 RATIO (10-20); Calcium,Total 8.9 mg/dL (8.5-10.1); Chloride 106 mmol/L (98-107); Creatinine, Serum 1.85 mg/dL (0.70-1.30); EST Glomerular Filtration Rate 40 mL/min (>60); Est Glom Filt Rate - Afr Amer 49 mL/min (>60); Estimated Creatinine Clearance 43.14 ml/min; Globulin 3.5 g/dL (2.2-4.2); Glucose 137 mg/dL (74-106); Lipase 86 U/L (73-393); Potassium 4.3 mmol/L (3.5-5.1); Sodium Level 138 mmol/L (136-145)
[2018-11-28 08:48] LABS: Color, Urine Yellow (Yellow); Glucose, Dipstick 50 mg/dl (Normal); Ketone-Dipstick Negative (Negative); Leukocyte Esterase-Dipstick Negative /ul (Negative); Nitrite-Dipstick Negative (Negative); Occult Blood-Urine 25 /ul (Negative); Protein-Dipstick 30 mg/dl (Negative); Urine Bilirubin Dipstick Negative (Negative); Urine Clarity Sl. Cloudy (Clear); Urine Urobilinogen Normal (Normal)
--- NOTE | 2018-11-28 09:57 | ED.RN ---
pt refused his norco perscription stating he is on pain management. prescription was placed in the shredder after informing the
[2018-11-28 10:01] VITALS: BP 132/57; PULSE 71; RESP 15; O2SAT 98
[2018-11-29 12:24] LABS: Pathologist Review Reviewed
== END 2018-11-28 10:01 | disposition home or self-care (01) ==
PROVIDERS: Emergency Provider Emergency Medicine; Family Provider Internal Medicine; PCP Internal Medicine
DX: K52.9 Noninfective gastroenteritis and colitis, unspecified (principal); I25.10 Atherosclerotic heart disease of native coronary artery without angina pectoris; R06.82 Tachypnea, not elsewhere classified; R00.0 Tachycardia, unspecified; Z72.0 Tobacco use; Z79.1 Long term (current) use of non-steroidal anti-inflammatories (NSAID); Z79.899 Other long term (current) drug therapy; I25.2 Old myocardial infarction; Z95.5 Presence of coronary angioplasty implant and graft
CPT/HCPCS: 74176; 80053; 81001; 83690; 85025; 96374; 96375; 96376; 99283; A4216; J2405

== ENCOUNTER → 2018-12-13 10:16 | Outpatient (CLI) | payer MEDICAID, SELFPAY ==
[2018-11-28 08:07] VITALS: BMI 34.2
[2018-12-13 12:30] LABS: Absolute Lymphocyte Count 1.62 X10^3/ul (0.83-4.51); Basophil# 0.03 X10^3/uL; Basophil% 0.5 % (0-1); Eosinophil# 0.12 X10^3/uL; Eosinophils% 1.8 % (0-5); Hematocrit 40.5 % (40-54); Hemoglobin 12.8 g/dl (13.0-16.5); Lymphocyte # 1.62 X10^3/ul (4.0); Lymphocyte % 24.4 % (19-41); Mean Corp Hgb Conc 31.6 g/gl (32-36); Mean Corpuscular Hgb 31.4 pg (27.0-32.0); Mean Corpuscular Volume 99.5 fL (80-94); Monocyte% 12.1 % (0-10); Neutrophil # 4.03 X10^3/uL (2.7-7.7); Neutrophil % 60.7 % (47-70); Platelet Count 442 K/mm3 (150-450); RBC Distribution Width CV 13.2 % (11.6-14.6); RBC Distribution Width SD 46.3 fl (35.1-43.9); Red Blood Count 4.07 M/mm3 (4.6-6.2); White Blood Count 6.6 K/mm3 (4.4-11.0)
[2018-12-13 12:36] LABS: POSITIVE COUNT NO; POSITIVE DIFFERENTIAL NO; POSITIVE MORPHOLOGY NO
[2018-12-13 13:31] LABS: Anion Gap 5 (5-15); BUN 11 mg/dL (7-18); Calcium,Total 8.9 mg/dL (8.5-10.1); Chloride 108 mmol/L (98-107); EST Glomerular Filtration Rate 74 mL/min (>60); Est Glom Filt Rate - Afr Amer 89 mL/min (>60); Glucose 110 mg/dL (74-106); Potassium 4.4 mmol/L (3.5-5.1); Sodium Level 138 mmol/L (136-145); T4 Free Direct 1.12 ng/dL (0.76-1.46); Thyroid Stim Hormone (TSH) 2.55 uIU/mL (0.358-3.74)
== END ==
PROVIDERS: Family Provider Internal Medicine; PCP Internal Medicine; Visit Provider Internal Medicine
DX: I10 Essential (primary) hypertension (principal); E03.9 Hypothyroidism, unspecified
CPT/HCPCS: 36415; 80048; 84439; 84443; 85025

== ENCOUNTER → 2019-07-06 16:08 | Outpatient (CLI) | payer MEDICAID, SELFPAY ==
[2019-06-15 15:05] VITALS: BMI 34.2
[2019-07-06 18:01] LABS: Absolute Lymphocyte Count 1.52 X10^3/uL (0.83-4.51); Absolute Neutrophil Count 3.6 X10^3/uL (2.0-7.7); Basophil# 0.04 X10^3/uL; Basophil% 0.7 % (0-1); Eosinophil# 0.14 X10^3/uL; Eosinophils% 2.4 % (0-5); Hematocrit 42.5 % (40-54); Lymphocyte # 1.52 X10^3/ul (4.0); Mean Corp Hgb Conc 32.9 g/dL (32-36); Mean Corpuscular Hgb 31.8 pg (27.0-32.0); Mean Corpuscular Volume 96.6 fL (80-94); Mean Platelet Vol. 10.7 fl (6.2-12.0); Monocyte# 0.57 X10^3/uL; Monocyte% 9.8 % (0-10); NRBC Flagged by Analyzer 0 % (0-5); Neutrophil # 3.55 X10^3/uL (2.7-7.7); Neutrophil % 60.8 % (47-70); Platelet Count 254 K/mm3 (150-450); RBC Distribution Width CV 12.9 % (11.6-14.6); RBC Distribution Width SD 45.4 fl (35.1-43.9); White Blood Count 5.8 K/mm3 (4.4-11.0)
[2019-07-06 18:13] LABS: AST(SGOT) 54 U/L (15-37); Alanine Aminotransfer ALT/SGPT 74 U/L (16-61); Albumin, Serum 3.6 g/dL (3.2-5.0); Alkaline Phosphatase 82 U/L (45-117); Anion Gap 10 (5-15); BUN 10 mg/dL (7-18); BUN/Creat Ratio 10.3 RATIO (10-20); Chloride 106 mmol/L (98-107); Creatinine, Serum 0.97 mg/dL (0.70-1.30); EST Glomerular Filtration Rate 85 mL/min (>60); Est Glom Filt Rate - Afr Amer 103 mL/min (>60); Globulin 3.4 g/dL (2.2-4.2); Glucose 108 mg/dL (74-106); Potassium 4.3 mmol/L (3.5-5.1); Sodium Level 141 mmol/L (136-145)
[2019-07-07 10:07] LABS: Hepatitis B Surface Antibody Non-Reactive; Hepatitis B Surface Antigen Non-Reactive (Nonreactive); Hepatitis C Antibody Non-Reactive (Nonreactive)
[2019-07-09 03:06] LABS: QNTFERON TB Mitogen Value > 10.00 IU/mL (.); QNTFERON TB Nil Value 0.05 IU/mL (.); QNTFERON TB1+ Ag Value 0.05 IU/mL (.); QNTFERON TB2+ Ag Value 0.06 IU/mL (.)
[2019-07-10 12:44] LABS: Hepatitis B Core Ab Total Negative (Negative); QNTIFERON TB Positive Criteria Negative (Negative)
== END ==
PROVIDERS: Family Provider Internal Medicine; PCP Internal Medicine; Referring Provider Dermatology; Visit Provider Dermatology
DX: L57.0 Actinic keratosis (principal); L81.7 Pigmented purpuric dermatosis; L40.0 Psoriasis vulgaris; L40.59 Other psoriatic arthropathy
CPT/HCPCS: 36415; 80048; 80076; 85025; 86480; 86704; 86706; 86803; 87340

== ENCOUNTER → 2019-07-12 12:36 | Outpatient (CLI) | payer MEDICAID, SELFPAY ==
[2019-06-15 15:05] VITALS: BMI 34.2
--- NOTE | 2019-07-12 12:38 | EKG12_ITS ---
Test Reason : ROUTINE Blood Pressure : / mmHG Vent. Rate : 082 BPM Atrial Rate : 082 BPM P-R Int : 166 ms QRS Dur : 080 ms QT Int : 356 ms P-R-T Axes : -22 -82 054 degrees QTc Int : 415 ms Normal sinus rhythm Left axis deviation Abnormal ECG Confirmed by NÉSTOR SANDOVAL, TIFFANY ([id number]), assignment desk editor DELON PETERS ([id number]) on 07/18/2019 1:15:47 PM Referred By: Britni Hutchinson Confirmed By:ALEN PALM MD
== END ==
PROVIDERS: Family Provider Internal Medicine; PCP Internal Medicine; Referring Provider Internal Medicine; Visit Provider Internal Medicine
DX: I10 Essential (primary) hypertension (principal)
CPT/HCPCS: 93005

== ENCOUNTER 2019-08-11 14:00 | Outpatient (RCR) | payer MEDICAID, SELFPAY ==
[2018-12-15 14:20] VITALS: BMI 34.2
--- NOTE | 2019-03-09 16:41 | HP.PTEVAL_ITS ---
Patient's Visit Information HELEN RUDD Jr. is a 58 year old M referred to Physical Therapy by Violeta Antunez DO with a diagnosis of R foot and LBP. Date of Evaluation: 03/09/19 Physical Therapist: Sidney Estevez PT, ATC - Visit Plan Frequency: 2x /Week Duration: 6 Weeks Plan: Aquatic therapy consisting of core stabilization ex's, R LE stretching and strengthening - Subjective Findings: Pt reports he has had a chronic Hx of LBP for 15 years. Pt now reports he has develped R foot pain for over three years. Pt reports he has had cortizone injections and wearing a cast for approximately 6 months which has helped to eliminate all of his foot pain. Pt reports his goal is to come for some aquatic therapy in order to strengthen his R foot and LB. Pt reports he has neuropathy in his R LE from the knee down to his foot. Sleep difficulty secondary to pain. Pt reports he is on several med that help, but he remains in severe pain. Pt reports he has significant difficulty with stair negotiation and with walking secondary to pain. - Pain LBP Pain Intensity (Out of 10): 8 Pain Intensity Range: 10 R foot pain Pain Intensity (Out of 10): 0 Pain Intensity Range: 10 - Objective Neuro: R LE from the knee downward is hyposensitive throughout. All other LE sensation is WNL to light touch. MMT: R knee flex and ext, and R ankle is grossly 4-/5 throughout. All other B LE MMT is 5/5 throughout. ROM: B LE's are WNL compared bilaterally. Pt is severely limited in all planes with L/S ROM and painful in all directions. Gait:Pt ambulates with a limp of the R LE. Pt is able to ambulate 680 feet untill having to rest ssecondary to pain and weakness. - Goals Goal 1:: Decrease R foot and LBP x 25 % to aid with sleep Goal Time Frame: 6-8 Weeks Goal 2:: Pt will be able to ambulate greater than 1000' in order to aid with community ambulation Goal Time Frame: 6-8 Weeks Goal 3:: Increase R LE strength x 1 grade to aid with stairs Goal Time Frame: 6-8 Weeks Goal 4:: I with HEP Goal Time Frame: 6-8 Weeks - Rehabilitation Potential Physical Therapy Diagnosis: Pt has R foot and LBP at this time secondary to degenerative changes in both regions Rehabilitation Potential: Good - Anticipated Interventions Patient/Client Instruction: Educate patient on: Condition, Plan of Care For the Purpose of:: To improve self management Therapeutic Exercise to Include: Strength training, Body mechanics, Postural training, Flexibilty training, In an aquatic setting, Dynamic Lumbar Stabilization For the Purpose of:: To decrease pain, To increase ROM, To improve muscle performance and motor function Thank you for the opportunity to evaluate your patient. For Medicare and Medicare HMO plans, please review the plan of care and approve it. It will need to be FAXED BACK to us at [phone] for Medicare purposes. For Medicare only, by signing this I certify the plan of care. Please let me know if there are questions or concerns regarding this plan of care. Physician Signature: Date:
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
--- NOTE | 2019-08-11 15:50 | HP.PTDCSUM ---
HP - PT D/C Summary It has been my pleasure to treat HELEN RUDD Jr. under orders from Violeta Antunez DO, for the diagnosis of R foot and LBP for a total of 13 visit(s). Discharge Date: Please see the following information for a summary of their discharge status. - Subjective Subjective: Pt is sore today - Pain LBP Pain Intensity (Out of 10): 7 R foot pain Pain Intensity (Out of 10): 7 - Overall Improvement % Improvement: 35 - Objective Objective/Function: LBP and LE pain still 03/08. Pt is I with HEP. B LE strength grossly 4+/5. Pt is much better than when he started - Goals Goal 1:: Decrease R foot and LBP x 25 % to aid with sleep Goal Progress: Progressing Goal 2:: Pt will be able to ambulate greater than 1000' in order to aid with community ambulation Goal Progress: Goal Met Goal 3:: Increase R LE strength x 1 grade to aid with stairs Goal Progress: Goal Met Goal 4:: I with HEP Goal Progress: Goal Met - Plan Plan: Discontinue - D/C Information If there are questions or concerns regarding this patient's physical therapy, please feel free to call me at [phone]. Thank you for the referral of this patient. Sincerely, Sidney Estevez, PT, ATC
== END 2019-08-11 19:00 | disposition home or self-care (01) ==
LOC: PT 14:00
PROVIDERS: Family Provider Internal Medicine; PCP Internal Medicine; Referring Provider Anesthesiology Pain Medicine; Visit Provider Anesthesiology Pain Medicine
DX: M79.671 Pain in right foot (principal); G89.4 Chronic pain syndrome; M50.30 Other cervical disc degeneration, unspecified cervical region; M15.9 Polyosteoarthritis, unspecified; F11.20 Opioid dependence, uncomplicated; M53.3 Sacrococcygeal disorders, not elsewhere classified; M79.10 Myalgia, unspecified site; M46.96 Unspecified inflammatory spondylopathy, lumbar region; M54.16 Radiculopathy, lumbar region; M51.36 Other intervertebral disc degeneration, lumbar region; M89.29 Other disorders of bone development and growth, multiple sites; Z79.899 Other long term (current) drug therapy
CPT/HCPCS: 97113; 97161; 97530

== ENCOUNTER → 2019-10-10 12:14 | Outpatient (CLI) | payer MEDICAID, SELFPAY ==
[2019-06-15 15:05] VITALS: BMI 34.2
[2019-10-10 11:45] VITALS: BMI 33.3
--- NOTE | 2019-10-10 12:15 | CT_ITS ---
STUDY: LOW DOSE CT LUNG CANCER SCREENING REASON FOR EXAM: Male, 59 years old. LUNG CANCER SCREENING. 1 PPD X 43 YEARS RADIATION DOSAGE (If Supplied By Facility): CTDIvol = ( 4.02 ) mGy, DLP = ( 128.38 ) mGycm TECHNIQUE: No contrast was administered. Low dose technique was utilized (average mAS-38 and kVp 120). 1.25 mm axial source images with a slice interval of 1.25-mm were reconstructed in lung windows. 2.5 mm axial source images with a slice interval of 2.5-mm were reconstructed in lung windows. 5.0 mm axial source images with a slice interval of 5.0-mm were reconstructed in soft tissue windows. Nodule measured using lung windows on PACS and/or independent workstation with automated measurement of minimum and maximum diameter. Nodule measurement reported as average diameter rounded to the nearest whole number. Growth is defined as an increase ins size of greater than 1.5 mm. COMPARISON: Comparison is made with prior examination dated November 06, 2012. NODULES: There is a 6 mm well-defined noncalcified nodule in the lateral aspect of the right lower lobe as seen on axial image #126. This is stable as compared to prior study. Stable 4 mm calcified granuloma in the right upper lobe. Emphysema: Mild degree of emphysematous changes. Aorta: Unremarkable. Mediastinal nodes: No significant mediastinal lymph nodes are seen. Other chest and abdominal findings: Mild degree of degenerative changes of the thoracic spine. CT/Low Dose CT Lung Screening IMPRESSION: Lung-RADS category 2 - Continue annual screening with LDCT in 12 months. IMPORTANT NOTES FOR USE: ACR Lung-RADS Version 1.0 Assessment Categories Release Date: December 25, 2013 Category: Coded 0-4 bases on nodule(s) with highest degree of suspicion. Negative screen is defined as categories 1 and 2; a positive screen is defined as categories 3 and 4. Category 3 and 4A nodules that are unchanged on interval CT should be coded as category 2, and individuals returned to screening in 12 months. Category 4X: Category 3 or 4 nodules with additional imaging findings that increase the suspicion of lung cancer, such as spiculation, GGN that doubles in size in 1 year, enlarged lymph notes, etc. Category Modifiers: S (significant finding unrelated to lung cancer) and C (prior history of treated lung cancer) may be added to the 0-4 Lung-RADS Electronically Signed: Pineda Green, at 13:10 EST , Service support ,
== END ==
LOC: CT 12:15
PROVIDERS: PCP Internal Medicine; Referring Provider Nurse Practitioner Family; Visit Provider Nurse Practitioner Family
DX: Z12.2 Encounter for screening for malignant neoplasm of respiratory organs (principal); F17.209 Nicotine dependence, unspecified, with unspecified nicotine-induced disorders
CPT/HCPCS: G0297

== ENCOUNTER 2019-10-31 15:00 | Outpatient (RCR) | payer MEDICAID, SELFPAY ==
[2019-06-15 15:05] VITALS: BMI 34.2
[2019-10-10 11:45] VITALS: BMI 33.3
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
--- NOTE | 2019-12-20 09:55 | HP.PT.NRP ---
HELEN RUDD JrAlex was seen in my office for initial evaluation on 10/10/19. The following Plan of Care was established for this patient: Initial Frequency: 2x /Week Initial Duration: 4 Weeks Patient/Client Instruction: Educate patient on: Condition, Plan of Care For the Purpose of:: To decrease pain, To increase ROM, To improve muscle performance and motor function, To improve ability to perform ADL's, To increase tolerance to activity/condition/position, To improve performance and independence with ADL's, To improve ability of physical actions for home/community/work/leisure, To improve health of tissue, To decrease soft tissue restriction, To improve endurance, To assume or resume ADL's, To improve tolerance to ADL's Therapeutic Exercise to Include: Strength training, Postural training, Flexibilty training, In an aquatic setting, Passive ROM, Active ROM, Dynamic Lumbar Stabilization For the Purpose of:: To decrease pain, To increase ROM, To improve muscle performance and motor function, To improve ability to perform ADL's, To increase tolerance to activity/condition/position, To improve ability of physical actions for home/community/work/leisure, To improve health of tissue, To decrease soft tissue restriction, To increase flexibility/ROM, To improve ability to perform tasks related to life management This patient was last seen in our office 10/31/19. Pertinent comments regarding their Physical therapy will appear below: This patient seen PT for Aquatic therapy with lumbar radiculoathy focusing on ROM,strengthening and DLS thus is d/c. At this point I will be discontinuing this patient from physical therapy. I would be happy to see this patient again in the future if found appropriate by the physician. Thank you! Carlos Dailey, PT, Cert MDT, OCS
== END 2019-10-31 19:00 | disposition home or self-care (01) ==
LOC: PT 15:00
PROVIDERS: PCP Internal Medicine
DX: M15.9 Polyosteoarthritis, unspecified (principal); M46.96 Unspecified inflammatory spondylopathy, lumbar region; M54.16 Radiculopathy, lumbar region; M51.36 Other intervertebral disc degeneration, lumbar region
CPT/HCPCS: 97113; 97162

== ENCOUNTER → 2020-01-18 15:08 | Outpatient (CLI) | payer MEDICAID, SELFPAY ==
[2019-12-12 15:35] VITALS: BMI 33.3
[2020-01-18 17:59] LABS: Cholesterol 157 mg/dL (200); High Density Lipoprotein 31 mg/dL; Thyroid Stim Hormone (TSH) 2.98 uIU/mL (0.358-3.74); Triglycerides 1048 mg/dL
[2020-01-18 18:42] LABS: Hemoglobin A1c 5.7 % (3.8-5.6)
== END ==
PROVIDERS: PCP Internal Medicine; Referring Provider Internal Medicine; Visit Provider Internal Medicine
DX: R73.03 Prediabetes (principal); E03.9 Hypothyroidism, unspecified; E78.5 Hyperlipidemia, unspecified
CPT/HCPCS: 36415; 80061; 83036; 84443

== ENCOUNTER 2020-02-29 14:50 | Emergency (ER) | payer MEDICAID, SELFPAY ==
[2020-02-21 17:27] VITALS: BMI 33.3
[2020-02-29 14:50] VITALS: BP 147/89; PULSE 126; RESP 18; TEMP 36.4; O2SAT 92; BMI 31.2
--- NOTE | 2020-02-29 15:07 | CT_ITS ---
STUDY: CT ABDOMEN AND PELVIS WITHOUT CONTRAST REASON FOR EXAM: Male, 59 years old. RECTAL BLEEDING, EPIGASTRIC PAIN RADIATION DOSAGE (If Supplied By Facility): CTDIvol = ( 14.8 ) mGy, DLP = ( 1091.47 ) mGycm TECHNIQUE: Transaxial images were obtained from the dome of the diaphragm to the symphysis pubis without oral contrast, and without intravenous contrast. Sagittal and coronal images were reconstructed. Individualized dose optimization techniques were used for this CT. COMPARISON: 11/28/2018 FINDINGS: The visualized lung bases are unremarkable. The visualized portions of the heart are within normal limits. Normal liver. Mild intrahepatic biliary ductal dilatation. Normal spleen. Normal pancreas. Normal bilateral adrenal glands. Normal right kidney. Normal left kidney. Normal visualized stomach. Small diverticulum of the second portion the duodenum. There is diverticulosis, with thickening of the colon wall, and pericolonic inflammation changes consistent with acute diverticulitis. No loculated fluid collection to suggest abscess. No pneumoperitoneum to suggest macro perforation. There is also wall thickening of virtually the entire colon which can be seen in pseudomembranous colitis. Clinical correlation is recommended. The appendix is visualized and appears normal. Normal abdominal aorta. Normal inferior vena cava. Normal retroperitoneum. Normal urinary bladder. Normal abdominal wall. Normal osseous structures. CT/Abdomen/Pelvis W IV Cont ONLY IMPRESSION: Sigmoid diverticulitis without abscess or perforation. Possible pseudomembranous colitis as well. Clinical correlation is recommended. Electronically Signed: Keyon Moreno MD at 17:17 EDT Tel , Service support ,
--- NOTE | 2020-02-29 15:07 | EKG12_ITS ---
Test Reason : BLEEDING Blood Pressure : / mmHG Vent. Rate : 117 BPM Atrial Rate : 117 BPM P-R Int : 168 ms QRS Dur : 076 ms QT Int : 306 ms P-R-T Axes : 023 256 057 degrees QTc Int : 426 ms Sinus tachycardia Right superior axis deviation Right ventricular hypertrophy Inferior infarct , age undetermined Abnormal ECG Confirmed by TOM YU ([id number]), movie editor SHANELLE DIANA ([id number]) on 03/04/2020 2:21:30 PM Referred By: SWATI Confirmed By:TOM YU
--- NOTE | 2020-02-29 15:08 | ED.VIS.GEN ---
History of Present Illness Chief Complaint: GI Bleed Informant: Patient Narrative: 59-year-old male with past medical history of hypertension, hyperlipidemia, CAD, asthma, chronic back pain presents with abdominal pain. States it has been intermittent for the past 2 days. States that beginning last night he started passing bright red blood per rectum. States it was approximately 1 cup. States that his pain is more epigastric but does have bilateral lower abdominal pain as well. Describes it as aching. States that cool water seems to help with the pain. Denies any worsening factors. Denies any fever, chills, cough, vomiting, diarrhea, constipation, urinary symptoms. Past Medical History - Allergies and Home Meds Allergies/Adverse Reactions: Allergies venom-honey bee [bee venom (honey bee)] Allergy (Verified 02/29/20 14:52) Unknown Primary Care Physician: Britni Hutchinson MD [Primary Care Provider] - Prior records reviewed: Yes Past Medical History: - - HTN, HLD, Asthma, Chronic back pain, CAD Surgical History: - - PCI Lives: Alone Smoking Status: Current every day smoker Alcohol: None Drugs: None Review of Systems General: Denies: Chills, Fever, Sweats Eyes: Denies: Visual changes - bilaterally, Diplopia ENT: Denies: Rhinorrhea, Sore throat Cardiovascular: Denies: Chest pain, Palpitations Respiratory: Denies: Dyspnea, Cough, Dyspnea on exertion Gastrointestinal: Reports: Abdominal pain, Nausea, Hematochezia. Denies: Vomiting, Diarrhea, Melena Genitourinary: Denies: Dysuria, Hematuria, Frequency Musculoskeletal: Denies: Back pain, Extremity Pain Skin: Denies: Rash, Wounds Neurological: Denies: Headache, Weakness, Numbness Physical Exam Vital Signs/Narrative: Vital Signs Temp Pulse Resp BP Pulse Ox 02/29/20 14:50 97.5 F L 126 H 18 147/89 H 92 Inital Vital Signs reviewed: Yes General: Well nourished, Well developed, No Acute Distress Head: Normocephalic, Atraumatic Eyes: Perrl, EOMI ENT: Moist mucous membranes, No rhinorrhea Neck: Supple, Nontender Cardiovascular: Regular rate, Regular rhythm, No murmurs Respiratory: No distress, CTA bilaterally, Chest nontender Abdomen: Soft, Nondistended, Normal bowel sounds, - - TTP of the abdomen diffusely. No rebound or rigidity. Back: Nontender, Normal Inspection Extremities: Nontender, No edema Skin: Normal color, No rash Neurological: Alert, Oriented x3, Cranial nerves II-XII grossly intact, Normal Strength, Normal Sensation Psychological: Normal affect, Normal Mood Diagnostic/Tx/Re-eval Clinical Impression(s) from Imaging Studies Abdomen/Pelvis CT 02/29/20 15:07 IMPRESSION: Sigmoid diverticulitis without abscess or perforation. Possible pseudomembranous colitis as well. Clinical correlation is recommended. Electronically Signed: Keyon Moreno MD at 17:17 EDT Tel , Service support , Laboratory Data 02/29/20 02/29/20 02/29/20 15:23 15:23 15:23 WBC 8.1 RBC 4.63 Hgb 15.0 Hct 46.5 MCV 100.4 H MCH 32.4 H MCHC 32.3 RDW Std Deviation 48.2 H RDW Coeff of Deshawn 13.1 Plt Count 239 MPV 10.9 Immature Gran % (Auto) 0.200 Neut % (Auto) 79.1 H Lymph % (Auto) 8.3 L Johnson % (Auto) 11.4 H Eos % (Auto) 0.6 Baso % (Auto) 0.4 Absolute Neuts (auto) 6.4 Absolute Lymphs (auto) 0.67 L Nucleated RBC % 0 Sodium 134 L Potassium 4.1 Chloride 103 Carbon Dioxide 25.0 Anion Gap 6 BUN 12 Creatinine 1.20 Estim Creat Clear Calc 63.50 Est GFR (MDRD) Af Amer 80 Est GFR (MDRD) Non-Af 66 BUN/Creatinine Ratio 10.0 Glucose 166 H Lactic Acid 1.2 Calcium 9.1 Total Bilirubin 1.30 H AST 37 ALT 74 H Alkaline Phosphatase 101 Troponin I < 0.015 Total Protein 7.7 Albumin 3.8 Globulin 3.9 Albumin/Globulin Ratio 1.0 Lipase 38 L - Rhythm Strip Rhythm Strip: Sinus Tach Rate: 117 - EKG Initial EKG Interpretation: Sinus Tachycardia - Sinus tachycardia to 117 bpm. IA interval of 168 ms. QTC of 426 ms. Left axis deviation. No evidence of significant ischemia. - Medical Decision Making Patient in moderate amount of pain upon arrival in his upper epigastrium as well as bilateral lower abdomen. EKG shows no significant ischemia. Troponin negative. No leukocytosis. Lactic acid negative. Patient was given 2 separate doses of Dilaudid. Patient was also given fluid bolus. Other lab work fairly normal. CT of the abdomen pelvis shows concern for sigmoid diverticulitis as well as a randall pseudomembranous colitis. On reevaluation of the patient he is feeling much improved. His pain is under control. Patient has opioid pain medication at home which he takes chronically. I will give him antiemetics as well as Augmentin for the next 10 days. I encouraged him to follow-up with gastroenterology. Asked to return for new or worsening symptoms. Patient agreeable and discharged home in stable condition. ED Disposition - Plan for ED Patient: [facility] Diagnosis: Diverticulitis, Pseudomembranous colitis, Rectal bleeding Instructions: ED Diverticulitis, ED Colitis Ulcerative Prescriptions: Amoxicillin/Potassium Clav [Augmentin 875-125 Tablet] 1 ea PO TID 10 Days #30 tab Transmission Status: Pending to [facility] Ondansetron [Zofran Odt] 4 mg PO Q8H PRN PRN #12 tab PRN Reason: Vomiting Transmission Status: Pending to [facility] Referrals: Britni Hutchinson MD [Primary Care Provider] -
[2020-02-29 15:15] VITALS: BP 142/91; PULSE 120; RESP 16; O2SAT 96
[2020-02-29] MEDS: Ondansetron 4 MG/2 ML Vial IV (15:37)
[2020-02-29] MEDS: 0.9% Normal Saline 1,000 ML 1000 ML IV (15:37)
[2020-02-29] MEDS: HYDROmorphone 0.5 MG/0.5 ML SYRINGE IV ×2 (15:37→16:23)
[2020-02-29 16:06] LABS: Absolute Lymphocyte Count 0.67 X10^3/uL (0.83-4.51); Absolute Neutrophil Count 6.4 X10^3/uL (2.0-7.7); Basophil# 0.03 X10^3/uL; Basophil% 0.4 % (0-1); Eosinophil# 0.05 X10^3/uL; Eosinophils% 0.6 % (0-5); Hematocrit 46.5 % (40-54); Lymphocyte # 0.67 X10^3/ul (4.0); Lymphocyte % 8.3 % (19-41); Mean Corp Hgb Conc 32.3 g/dL (32-36); Mean Corpuscular Hgb 32.4 pg (27.0-32.0); Mean Corpuscular Volume 100.4 fL (80-94); Mean Platelet Vol. 10.9 fl (6.2-12.0); Monocyte# 0.92 X10^3/uL; Monocyte% 11.4 % (0-10); NRBC Flagged by Analyzer 0 % (0-5); Neutrophil # 6.36 X10^3/uL (2.7-7.7); Neutrophil % 79.1 % (47-70); Platelet Count 239 K/mm3 (150-450); RBC Distribution Width CV 13.1 % (11.6-14.6); RBC Distribution Width SD 48.2 fl (35.1-43.9); Red Blood Count 4.63 M/mm3 (4.6-6.2); White Blood Count 8.1 K/mm3 (4.4-11.0)
[2020-02-29 16:12] LABS: Lactic Acid 1.2 mmol/L (0.4-1.9)
[2020-02-29 16:19] LABS: AST(SGOT) 37 U/L (15-37); Alanine Aminotransfer ALT/SGPT 74 U/L (16-61); Albumin, Serum 3.8 g/dL (3.2-5.0); Alkaline Phosphatase 101 U/L (45-117); Anion Gap 6 (5-15); BUN 12 mg/dL (7-18); Calcium,Total 9.1 mg/dL (8.5-10.1); Chloride 103 mmol/L (98-107); EST Glomerular Filtration Rate 66 mL/min (>60); Est Glom Filt Rate - Afr Amer 80 mL/min (>60); Globulin 3.9 g/dL (2.2-4.2); Glucose 166 mg/dL (74-106); Lipase 38 U/L (73-393); Potassium 4.1 mmol/L (3.5-5.1); Protein, Total 7.7 g/dL (6.4-8.2); Sodium Level 134 mmol/L (136-145)
[2020-02-29 17:47] VITALS: BP 123/98; PULSE 105; RESP 14; O2SAT 96
== END 2020-02-29 17:49 | disposition designated cancer center or children's hospital (05) ==
PROVIDERS: Emergency Provider Emergency Medicine; PCP Internal Medicine
DX: A04.72 Enterocolitis due to Clostridium difficile, not specified as recurrent (principal); K57.33 Diverticulitis of large intestine without perforation or abscess with bleeding; I25.10 Atherosclerotic heart disease of native coronary artery without angina pectoris; I10 Essential (primary) hypertension; E78.5 Hyperlipidemia, unspecified; J45.909 Unspecified asthma, uncomplicated; M54.9 Dorsalgia, unspecified; G89.29 Other chronic pain; R00.0 Tachycardia, unspecified; F17.200 Nicotine dependence, unspecified, uncomplicated; Z79.899 Other long term (current) drug therapy
CPT/HCPCS: 74177; 80053; 82274; 83605; 83690; 84484; 85025; 93005; 96361; 96374; 96375; 96376; 99284; J7030; Q9967; A4216; J2405

== ENCOUNTER → 2020-03-04 12:07 | Outpatient (CLI) | payer MEDICAID, SELFPAY ==
[2020-02-29 14:50] VITALS: BMI 31.2
[2020-03-04 16:04] LABS: Hematocrit 41.8 % (40-54); Hemoglobin 13.1 g/dL (13.0-16.5); Mean Corp Hgb Conc 31.3 g/dL (32-36); Mean Corpuscular Hgb 32.2 pg (27.0-32.0); Mean Corpuscular Volume 102.7 fL (80-94); Mean Platelet Vol. 11.2 fl (6.2-12.0); POSITIVE COUNT YES; POSITIVE MORPHOLOGY YES; Platelet Count 258 K/mm3 (150-450); RBC Distribution Width CV 12.8 % (11.6-14.6); Red Blood Count 4.07 M/mm3 (4.6-6.2); White Blood Count 6.7 K/mm3 (4.4-11.0)
[2020-03-04 16:22] LABS: ALB/GLOB Ratio 0.9 RATIO (0.9-2.4); AST(SGOT) 33 U/L (15-37); Alanine Aminotransfer ALT/SGPT 45 U/L (16-61); Albumin, Serum 3.2 g/dL (3.2-5.0); Alkaline Phosphatase 78 U/L (45-117); Anion Gap 7 (5-15); BUN 16 mg/dL (7-18); BUN/Creat Ratio 15.4 RATIO (10-20); Calcium,Total 9.2 mg/dL (8.5-10.1); Chloride 102 mmol/L (98-107); Creatinine, Serum 1.04 mg/dL (0.70-1.30); EST Glomerular Filtration Rate 78 mL/min (>60); Est Glom Filt Rate - Afr Amer 94 mL/min (>60); Globulin 3.6 g/dL (2.2-4.2); Glucose 97 mg/dL (74-106); Potassium 4.3 mmol/L (3.5-5.1); Protein, Total 6.8 g/dL (6.4-8.2); Sodium Level 137 mmol/L (136-145)
[2020-03-04 16:26] LABS: Differential Indicated MANUAL DIFF
[2020-03-04 18:25] LABS: Eosinophil 1 % (0-5); Lymphocyte 29 % (19-41); Metamyelocyte 9 % (0-1); Monocyte 5 % (0-10); Myelocyte 2 (0-0); Neutrophil-Band 9 % (0-5); Neutrophil-Segmented 45 % (47-70); Total Cells Counted 100 (MANUAL DIFF)
[2020-03-04 18:27] LABS: Absolute Neutrophil Count 3.6 X10^3/uL (2.0-7.7); Neutrophil # 3.62 X10^3/uL (2.7-7.7)
[2020-03-04 18:28] LABS: Absolute Lymphocyte Count 1.94 X10^3/uL (0.83-4.51); Lymphocyte # 1.94 X10^3/ul (4.0); Platelet Estimate ADEQUATE (ADEQ)
[2020-03-04 18:29] LABS: Macrocytosis 1+
[2020-03-05 12:03] LABS: Pathologist Review Reviewed
== END ==
PROVIDERS: PCP Internal Medicine; Referring Provider Internal Medicine; Visit Provider Internal Medicine
DX: E78.5 Hyperlipidemia, unspecified (principal); E78.1 Pure hyperglyceridemia
CPT/HCPCS: 36415; 80053; 85025

== ENCOUNTER 2020-04-08 05:23 | Day surgery (SDC) | payer MEDICAID, SELFPAY ==
[2020-03-29 14:07] VITALS: BMI 29.6
[2020-04-01 15:49] VITALS: BMI 32.5
[2020-04-08 05:49] VITALS: BP 106/77; PULSE 78; RESP 16; TEMP 36.2; O2SAT 96; BMI 30.1
--- NOTE | 2020-04-08 05:59 | HP.PCM_ITS ---
Problem List (1) Diverticulitis Status: Acute History and Physical Date of Admission: 04/08/20 Intake Visit Reasons: C-Scope/GI Bleed [facility] Chief Complaint: colonoscopy/ EGD Personal Security Specialist Required: No Is patient in pain?: Yes (back) Pain scale (1-10): 6 Allergies venom-honey bee [bee venom (honey bee)] Allergy (Severe, Verified 03/29/20 14:09) Anaphylaxis Medications bupropion HCl 100 mg tablet,12 hr sustained-release 150 mg PO DAILY 06/15/19 [History Confirmed 03/29/20] zolpidem 10 mg tablet 10 mg PO QHS 06/15/19 [History Confirmed 03/21/20] albuterol sulfate 90 mcg/actuation aerosol inhaler 2 puff INHALATION Q6H PRN #8.5 g 09/14/19 [Rx Confirmed 03/29/20] secukinumab 150 mg/mL subcutaneous syringe 150 mg SC QWEEK ml 09/14/19 [History Confirmed 03/21/20] multivitamin,ie-sqnz-gikigllz 1 tab PO DAILY #90 tab 09/25/19 [Rx Confirmed 03/29/20] lisinopril 20 mg tablet 20 mg PO QDAY #90 tab 11/28/19 [Rx Confirmed 03/29/20] levothyroxine 125 mcg tablet 125 mcg PO DAILY #90 tab 12/15/19 [Rx Confirmed 03/21/20] icosapent ethyl 1 gram capsule 2 g PO BID 90 Days #360 cap 02/21/20 [Rx Confirmed 03/29/20] Ondansetron [Zofran Odt] 4 mg PO Q8H PRN PRN #12 tab 02/29/20 [Rx Confirmed 03/29/20] Aspirin [Adult Low Dose Aspirin EC] 81 mg PO DAILY 03/21/20 [History Confirmed 03/29/20] Atorvastatin Calcium [Lipitor] 40 mg PO QHS 03/21/20 [History Confirmed 03/29/20] Diazepam [Valium] 10 mg PO Q6H PRN 03/21/20 [History Confirmed 03/29/20] Gabapentin [Neurontin] 400 mg PO TIDCM 03/21/20 [History Confirmed 03/29/20] Hydrocortisone Valerate 15 gm TP UD 03/21/20 [History Confirmed 03/29/20] Morphine Sulfate [Morphine Sulfate ER] 30 mg PO Q12H PRN 03/21/20 [History Confirmed 03/29/20] Oxycodone HCl/Acetaminophen [Percocet 10-325 mg Tablet] 1 tab PO Q6H PRN 03/21/20 [History Confirmed 03/29/20] Polyethylene Glycol 3350 [Purelax] 17 gm PO BID 03/21/20 [History Confirmed 03/29/20] rosuvastatin 20 mg tablet 20 mg PO DAILY #90 tab 03/22/20 [Rx Confirmed 03/29/20] epinephrine 0.3 mg/0.3 mL injection, auto-injector 0.3 mg SC UD PRN #2 ea 03/26/20 [Rx Confirmed 03/29/20] hydrocodone bitartrate 20 mg capsule, oral only, extended rel 12 hr 20 mg PO Q12H 03/29/20 [History Confirmed 03/29/20] Nurse's Note: pt denies any dizzines, chest pain, weakness, or trouble breathing. Pt stated he feels totally fine and that he had taken both of his narcotics prior to the appointment and had his father drive him and feels this may be while his vitals are so low. PFSH Family History Father Hypertension Hyperlipidemia Mother Lung cancer Social History (Updated 03/29/20 @ 15:[address] Alber Otero MD) Smoking Status: Former smoker Tobacco: How many years used: 41 Electronic Cigarette Use: not used second hand exposure: Yes (both parents smoked in the home) quit status: has quit before counseling given: provider counseling alcohol intake: never substance use type: does not use caffeine: No what type of physical activity do you participate in: weight training frequency: 3-4 times per week seatbelt use: always do you feel safe at home: Yes HPI HPI HPI: HELEN RUDD, is a 59 M who presents to the office today for surgical consultation regarding rectal bleeding and possible diverticulitis or pseudomembranous colitis. The patient is referred by and a written copy of my surgical consult recommendations will be returned to her. It is of note that on January 26, 2014 I assisted this patient with a colonoscopy because of left lower quadrant abdominal pain and CT scan findings of acute diverticulitis. The colonoscopy was performed in the sigmoid colon had multiple small mouth diverticula.. Diverticulosis was identified. No findings that would suggest malignancy. The patient now on February 29, 2020 presented to the emergency room with rectal bleeding constipation. A CT scan was obtained. This suggested findings of acute sigmoid diverticulitis but there was wall thickening throughout the colon suggesting pseudomembranous colitis. By report the patient was initiated on antibiotic therapy per the ER and within 3 days he was improved. In the interim he has been referred to [facility] to a band cutting machine operator for a colonoscopy. The patient requested to stay locally due to the amount of effort that it would take to get a COVID test and the procedure out of town. He now is on chronic disability he is on chronic narcotic use. He was a long- term cigarette smoker of a pack per day but quit 5 years ago. He claims alcohol is intermittent. He states he is not currently having abdominal pain. States he does not currently have any bright red blood per rectum or melena. He denies any family history of colon cancer. [facility] Imaging Services [address] [place] [address] Abdomen/Pelvis W IV Cont ONLY MR#: [id number] Name: HELEN RUDD Rizwana AveryRep #:[id number] : 1960M 59 From: Keyon Moreno MD PCP:Dr. Britni Hutchinson MD Status:[facility] ER Study:Abdomen/Pelvis W IV Cont ONLY Date of Exam:02/29/20 Exam#[id number] Ordering Dr: Andrew Shankar DO STUDY: CT ABDOMEN AND PELVIS WITHOUT CONTRAST REASON FOR EXAM: Male, 59 years old. RECTAL BLEEDING, EPIGASTRIC PAIN RADIATION DOSAGE (If Supplied By Facility): CTDIvol = ( 14.8 ) mGy, DLP = ( 1091.47 ) mGycm TECHNIQUE: Transaxial images were obtained from the dome of the diaphragm to the symphysis pubis without oral contrast, and without intravenous contrast. Sagittal and coronal images were reconstructed. Individualized dose optimization techniques were used for this CT. COMPARISON: 11/28/2018 FINDINGS: The visualized lung bases are unremarkable. The visualized portions of the heart are within normal limits. Normal liver. Mild intrahepatic biliary ductal dilatation. Normal spleen. Normal pancreas. Normal bilateral adrenal glands. Normal right kidney. Normal left kidney. Normal visualized stomach. Small diverticulum of the second portion the duodenum. There is diverticulosis, with thickening of the colon wall, and pericolonic inflammation changes consistent with acute diverticulitis. No loculated fluid collection to suggest abscess. No pneumoperitoneum to suggest macro perforation. There is also wall thickening of virtually the entire colon which can be seen in pseudomembranous colitis. Clinical correlation is recommended. The appendix is visualized and appears normal. Normal abdominal aorta. Normal inferior vena cava. Normal retroperitoneum. Normal urinary bladder. Normal abdominal wall. Normal osseous structures. CT/Abdomen/Pelvis W IV Cont ONLY IMPRESSION: Sigmoid diverticulitis without abscess or perforation. Possible pseudomembranous colitis as well. Clinical correlation is recommended. Electronically Signed: Keyon Moreno MD at 17:17 EDT Tel , Service support , HPI HPI HPI: HELEN KAYROXANEJACKLYN, is a 59 M who presents to the office today for ROS General General: Yes fatigue; no weight change, appetite, colon cancer, breast cancer or weakness HEENT HEENT: No difficulty swallowing, eye injury, eye surgery, swollen glands or hoarseness Endo Endocrine: Yes thyroid disease; no diabetes mellitus, thyroid cancer, Hair loss, heat intolerance or cold intolerance Skin Skin: Yes rash; no changing moles Musc Musculoskeletal: Yes back problems, arthritis and rheumatoid arthritis; no gout or joint pain Cardio Cardiovascular: Yes atrial fibrillation, high blood pressure, heart attack and heart stent; no murmur, pacemaker, heart disease, palpitations, shortness of breat with exertion or chest pain Psych Psychiatric: Yes depression and anxiety; no hearing voices Resp Respiratory: Yes shortness of breath, No sleep apnea, No cough, No COPD, No asthma, No emphysema, No wheezing Gastro Gastrointestinal: No abdominal pain, No nausea or vomiting, No diarrhea, No constipation, Yes blood in stool, Yes acid reflux, No hemorrhoids, No ulcers, No gallbladder problem, No black,tarry stools Eduin Hematologic: No blood thinners, No blood disorders, No bleeding, No anemia, No blood clots Neuro Neurologic: No weakness Exam Const General: cooperative, comfortable, no acute distress Nutritional Appearance: average body habitus Orientation: alert, awake HENMI Head: normal to inspection Chest Other: Increased anterior posterior diameter Resp Effort & Inspection: normal respiratory effort Auscultation: clear to auscultation bilaterally Cardio Rate: regular rate Rhythm: regular rhythm Heart Sounds: no murmurs GI Other: Soft, slightly distended, nontender, unremarkable bowel sounds Musc Cervical Spine: normal cervical lordosis Skin General: no rashes or lesions noted Neuro Cognition: normal cognition Extrem General: no calf tenderness Psych Affect: normal affect Assessment & Plan Problems 1. Diverticulitis K57.92 Plan 59-year-old gentleman who presented to the emergency room February 29, 2020 with findings suspicious for diverticulitis possible pseudomembranous colitis. His complaint was rectal bleeding. He was treated with oral antibiotics and appears to have cleared. He is in need however of a colonoscopy to exclude malignancy. He would like to stay locally if feasible and as I previously assisted him December 2013 I think that is very reasonable. I have discussed with him technique, benefit, risk, alternatives of a colonoscopy with possible biopsy or polypectomy as indicated. Now the patient does have some COPD. He had relatively low oxygen saturation on his arrival. He claims that his breathing is aggravated by allergies. I advised him to try to stay indoors 3 to 4 days prior to his colonoscopy. I advised him to take his inhalers on a routine basis at that time and not just as needed. He states he already has bowel prep instructions from the band cutting machine operator and we can work with that. Because of his increased risk we will utilize monitored anesthesia care. Apparently he runs a relatively hypotensive state. He has had an opportunity to ask and have questions answered. He is aware that we are present during a Covid-19 pandemic. He is aware that the [facility] is currently reporting a low local incidence. We will schedule and proceed at his discretion Copy: Dr.Efewongbe Evangelina Otero M.D., F.A.C.S. Coding Level of Care Code 81411 Diagnoses Diverticulitis K57.92 I have re-examined the patient. There are no clinical changes since date of exam. Procedure Criteria Procedure Type: Elective COVID Risk Discussion: The surgeon/proceduralist and patient have discussed in detail the risk of exposure to and/or potential harm posed by the COVID-19 virus with having a surgery/procedure at this time versus the risk of delaying the surgery/procedure. It is not possible to know either the risk of delaying the surgery or procedure or chance of getting an infection with perfect accuracy, but a joint decision was made between the patient and the surgeon/proceduralist to proceed at this time with the scheduled surgery/procedure as indicated on the consent form.
[2020-04-08] MEDS: Lactated Ringers 1,000 ML 100 ML IV (06:04)
--- NOTE | 2020-04-08 06:30 | COLBX_PTH ---
PATIENT: HELEN RUDD Jr. LOC: EN U#:[id number] AGE/SX: 59/M ROOM: RE04/08/[address]: Dr. Alber Otero MD : 1960 BED: DIS: 04/08/2020 SPEC #: [id number] RECD: 04/08/20 10:24 STATUS: MATI RAMILA #: [id number] AMIRAH: 04/08/20 06:[address]: Alber Otero DEPT: SURGICAL PATHOLOGY RECD BY: Israel Rojas ENTERED: 04/08/20 11:05 SP TYPE: COLON BX OT DR: Dr. Britni Hutchinson MD Tissues: A - COLON BIOPSY B - Descending colon Procedures: Surgery Specimen Level IV HEADER OPERATION: Colonoscopy (MAC) PRE-OP DIAGNOSIS: Diverticulitis TISSUE SUBMITTED: A - Random colonic biopsy, B - Descending polyp MICROSCOPIC DIAGNOSIS A. Colon, random biopsy: No pathologic change. B. Descending colon polyp, biopsy: Tubular adenoma. AM:kalen 04/09/20 MICROSCOPIC DESCRIPTION Slides are reviewed. GROSS DESCRIPTION A - Received in fixative is one container labeled with the patient's name and designated random colon biopsy. The specimen consists of multiple irregular fragments of light guerra soft tissue that in aggregate measure 0.7 x 0.7 x 0.1 cm. The specimen is totally submitted in one cassette. B - Received in fixative is one container labeled with the patient's name and designated descending polyp. The specimen consists of multiple irregular fragments of light guerra soft tissue mixed with fecal material that in aggregate measure 0.5 x 0.5 x 0.3 cm. The specimen is totally submitted in one cassette. / SJ:kalen 04/08/20 TC:3 CPT: 99671 x2
--- NOTE | 2020-04-08 06:54 | OP.CCLET_ITS ---
04/08/2020 Britni Hutchinson MD [address] [place] [address] [place] [address] Re : Colonoscopy procedure for Juan Pablo Erazo Dear Dr. Hutchinson This procedure was performed on Wednesday, April 08, 2020. My impressions and recommendations are as follows: Impressions : - Hemorrhoids found on perianal exam. - One 6 mm polyp in the descending colon, removed with a hot snare. Resected and retrieved. - Diverticulosis in the entire examined colon. - Biopsies were taken with a cold forceps from the entire colon for evaluation of microscopic colitis. Recommendations : - Discharge patient to home. - Resume previous diet. - Continue present medications. - Repeat colonoscopy in 5 years for surveillance based on pathology results. - Telephone my office for pathology results in 1 week. My findings are described in the full procedure note, which is enclosed. If I can be of further assistance, please feel free to contact me at Doctor phone number(s): Work: . Sincerely, Alber Otero MD 04/08/2020 6:53:48 AM This report has been signed electronically.
--- NOTE | 2020-04-08 06:54 | OP.COLON_ITS ---
Patient Name: Juan Pablo Erazo Procedure Date: 04/08/2020 6:09 AM Date of : 1960 Age: 59 Procedure: Colonoscopy Indications: Abnormal CT of the GI tract Providers: Alber Otero MD Referring MD: Britni Hutchinson MD Medicines: See the Anesthesia note for documentation of the administered medications Patient Profile: Last Colonoscopy: 2013. Complications: No immediate complications. Procedure: Pre-Anesthesia Assessment: - Prior to the procedure, a History and Physical was performed, and patient medications and allergies were reviewed. The patient's tolerance of previous anesthesia was also reviewed. The risks and benefits of the procedure and the sedation options and risks were discussed with the patient. All questions were answered, and informed consent was obtained. Prior Anticoagulants: The patient has taken no previous anticoagulant or antiplatelet agents. ASA Grade Assessment: II - A patient with mild systemic disease. After reviewing the risks and benefits, the patient was deemed in satisfactory condition to undergo the procedure. After I obtained informed consent, the scope was passed under direct vision. Throughout the procedure, the patient's blood pressure, pulse, and oxygen saturations were monitored continuously. The Colonoscope was introduced through the anus and advanced to the cecum, identified by appendiceal orifice and ileocecal valve. The colonoscopy was performed without difficulty. The patient tolerated the procedure well. The quality of the bowel preparation was adequate to identify polyps. The ileocecal valve and the appendiceal orifice were photographed. Scope In: 6:26:26 AM Scope Withdrawal Time 0 hours 16 minutes 1 second Scope Out: 6:47:10 AM Total Procedure Duration Time 0 hours 20 minutes 44 seconds Findings: Hemorrhoids were found on perianal exam. The digital rectal exam was normal. Pertinent negatives include normal prostate (size, shape, and consistency). A 6 mm polyp was found in the descending colon. The polyp was sessile. The polyp was removed with a hot snare. Resection and retrieval were complete. Multiple diverticula were found in the entire colon. Biopsies for histology were taken with a cold forceps from the entire colon for evaluation of microscopic colitis. Impression: - Hemorrhoids found on perianal exam. - One 6 mm polyp in the descending colon, removed with a hot snare. Resected and retrieved. - Diverticulosis in the entire examined colon. - Biopsies were taken with a cold forceps from the entire colon for evaluation of microscopic colitis. Recommendation: - Discharge patient to home. - Resume previous diet. - Continue present medications. - Repeat colonoscopy in 5 years for surveillance based on pathology results. - Telephone my office for pathology results in 1 week. Procedure Code(s): --- Professional --- 57883, Colonoscopy, flexible; with removal of tumor(s), polyp(s), or other lesion(s) by snare technique 67738, 59, Colonoscopy, flexible; with biopsy, single or multiple Diagnosis Code(s): --- Professional --- K64.9, Unspecified hemorrhoids D12.4, Benign neoplasm of descending colon K57.30, Diverticulosis of large intestine without perforation or abscess without bleeding R93.3, Abnormal findings on diagnostic imaging of other parts of digestive tract CPT copyright 2017 [employer]. All rights reserved. The codes documented in this report are preliminary and upon mainspring former brace end review may be revised to meet current compliance requirements. Alber Otero MD 04/08/2020 6:53:48 AM This report has been signed electronically. Number of Addenda: 0 Note Initiated On: 04/08/2020 6:09 AM
[2020-04-08 06:55] VITALS: BP 106/77; BP 91/67; PULSE 74; RESP 16; TEMP 36.4; O2SAT 97
[2020-04-08 07:00] VITALS: BP 106/77; BP 84/42; PULSE 67; RESP 16; O2SAT 96
[2020-04-08 07:05] VITALS: BP 106/69; BP 106/77; PULSE 68; RESP 16; O2SAT 97
[2020-04-08 07:09] VITALS: BP 102/67; BP 106/77; PULSE 68; RESP 16; TEMP 36.2; O2SAT 98
[2020-04-08 07:20] VITALS: BP 106/77
== END 2020-04-08 07:33 | disposition home or self-care (01) ==
LOC: EN 05:24 → AC 05:25
PROVIDERS: Anesthesiology; PCP Internal Medicine; Referring Provider Internal Medicine; Visit Provider Surgery
PROC: 0DJD8ZZ Inspection of Lower Intestinal Tract, Via Natural or Artificial Opening Endoscopic (ICD-10-PCS; CPT 45378; principal; 2020-04-08 06:25)
DX: D12.4 Benign neoplasm of descending colon (principal); K57.31 Diverticulosis of large intestine without perforation or abscess with bleeding; K64.9 Unspecified hemorrhoids; Z11.59 Encounter for screening for other viral diseases; I48.91 Unspecified atrial fibrillation; J44.9 Chronic obstructive pulmonary disease, unspecified; I10 Essential (primary) hypertension; E07.9 Disorder of thyroid, unspecified; G89.29 Other chronic pain; F32.9 Major depressive disorder, single episode, unspecified; F41.9 Anxiety disorder, unspecified; Z79.82 Long term (current) use of aspirin; Z79.891 Long term (current) use of opiate analgesic; Z79.899 Other long term (current) drug therapy; I25.2 Old myocardial infarction; Z87.891 Personal history of nicotine dependence; Z95.5 Presence of coronary angioplasty implant and graft
CPT/HCPCS: 45380; 45385; 87635; 88305; 94799; J7120; J2405; U0003

== ENCOUNTER 2020-04-27 10:16 | Emergency (ER) | payer MEDICAID, SELFPAY ==
[2020-04-27 10:16] VITALS: BP 107/59; PULSE 118; RESP 17; TEMP 36.4; O2SAT 90; BMI 28.5
--- NOTE | 2020-04-27 10:31 | RAD_ITS ---
STUDY: X-RAY - RIGHT KNEE REASON FOR EXAM: Male, 59 years old. FALL LAST NIGHT, PAIN TECHNIQUE: 4 view(s) of the knee. COMPARISON: None. FINDINGS: Normal visualized distal femur. Normal visualized proximal tibia and fibula. Normal proximal tibiofibular articulation. There is no demonstrated fracture. Normal medial femorotibial compartment. Normal lateral femorotibial compartment. Normal patellofemoral articulation. There is no demonstrated joint effusion. The soft tissue structures are unremarkable. RAD/Knee 4 or More Views IMPRESSION: Normal x-ray examination of the knee. Electronically Signed: Tommy Hilton MD at 11:07 EDT Tel , Service support ,
--- NOTE | 2020-04-27 10:31 | RAD_ITS ---
STUDY: X-RAY - RIGHT TIBIA AND FIBULA REASON FOR EXAM: Male, 59 years old. FALL LAST NIGHT, PAIN TECHNIQUE: AP and lateral view(s) of the tibia and fibula were obtained. COMPARISON: None. FINDINGS: Normal visualized tibia. Normal visualized fibula. There is no demonstrated acute fracture. The soft tissue structures are unremarkable. RAD/Tibia & Fibula 2 Views IMPRESSION: Normal x-ray examination of the tibia and fibula. Electronically Signed: Tommy Hilton MD at 11:07 EDT Tel , Service support ,
--- NOTE | 2020-04-27 10:32 | ED.VISSUMM ---
- ER Visit Summary Date of Service: 04/27/20 Chief Complaint: Fall, right knee pain History of Present Illness: The patient is a 59 M who presents with a fall and right knee pain. He states last night he was walking up concrete steps when he fell and landed directly on his right knee. He has having pain in the inferior portion of the knee. Pain is worse with movement and walking. He tried Tylenol PM at home without relief yesterday. He has a history of a tendon injury in that knee back in high school. He is in pain management for chronic back pain. Physical Examination: Vital signs are reviewed. Right knee exam shows tenderness in the inferior lateral portion of the knee. Pain is worse with movement. He has decreased range of motion secondary to pain. The pain extends down to the proximal tibial area. He has a 2+ DP pulse. Skin is normal without abrasions. Test Results: X-rays of the right knee and right tib-fib are negative for fracture Emergency Department Course and Treatment: Patient was given 1 oxycodone here for pain control. X-rays are negative for fracture. Patient will have an Massimo wrap. He will use his home medications as well as ice. He will follow-up with his PCP Treatment Plan: [] Disposition: Discharge Impression: Right knee contusion This note was generated with [employer] dictation software. It may contain incorrect words, spelling, and punctuation that were not noted in review of the chart prior to signing ED Disposition - Plan for ED Patient: Disposition: Home or Assisted Living Instructions: ED Knee Pain [facility] Referrals: Britni Hutchinson MD [Primary Care Provider] -
[2020-04-27] MEDS: oxyCODONE 5 MG Tablet PO (10:48)
[2020-04-27 11:18] VITALS: RESP 16
== END 2020-04-27 11:22 | disposition home or self-care (01) ==
PROVIDERS: Emergency Provider Emergency Medicine; PCP Internal Medicine
DX: S80.01XA Contusion of right knee, initial encounter (principal); I25.10 Atherosclerotic heart disease of native coronary artery without angina pectoris; F17.200 Nicotine dependence, unspecified, uncomplicated; J44.9 Chronic obstructive pulmonary disease, unspecified; I10 Essential (primary) hypertension; W19.XXXA Unspecified fall, initial encounter; Y93.01 Activity, walking, marching and hiking
CPT/HCPCS: 73564; 73590; 99282

== ENCOUNTER 2020-05-16 08:30 | Emergency (ER) | payer MEDICAID, SELFPAY ==
[2020-05-16 08:30] VITALS: BP 111/68; PULSE 84; RESP 16; TEMP 35.7; O2SAT 100; BMI 28.1
--- NOTE | 2020-05-16 08:37 | CT_ITS ---
STUDY: CT ABDOMEN AND PELVIS WITH CONTRAST REASON FOR EXAM: Male, 59 years old. RUQ PAIN X 2 DAYS, COLONOSCOPY W/POLYP BX 1 MONTH AGO,CONSTIPATION, PT ON NARCOTICS FOR BACK PAIN RADIATION DOSAGE (If Supplied By Facility): CTDIvol = ( 17.79 ) mGy, DLP = ( 979.75 ) mGycm TECHNIQUE: Transaxial images were obtained from the dome of the diaphragm to the symphysis pubis without oral contrast. IV 100mL Isovue-300 was administered. Sagittal and coronal images were reconstructed. Individualized dose optimization techniques were used for this CT. COMPARISON: Comparison is made with prior study dated 02/29/2020. FINDINGS: There is a 5.7 mm noncalcified nodule in the posterior medial segment of the right lower lobe. This was not seen on prior examination due to the fact that this area was not examined at that time. Coronary artery calcification. Minimal degree of dilated intrahepatic biliary ducts. This is unchanged. Normal gallbladder and extrahepatic biliary system. Normal spleen. Normal pancreas. Normal bilateral adrenal glands. Normal right kidney. Normal left kidney. Normal visualized stomach. Normal small intestine. There are scattered colonic diverticula consistent with diverticulosis. The appendix is visualized and appears normal. Normal abdominal aorta. Normal inferior vena cava. Normal retroperitoneum. Normal urinary bladder. There are prostatic calcifications. Normal abdominal wall. Disc space narrowing and disc degeneration at the L5-S1 level mild degree of spondylolisthesis. CT/Abdomen/Pelvis W IV Cont ONLY IMPRESSION: Stable minimal dilatation of the central intrahepatic biliary ducts. Scattered sigmoid diverticula. Electronically Signed: Pineda Green, at 10:27 EDT , Service support ,
--- NOTE | 2020-05-16 08:38 | ED.VIS.GEN ---
History of Present Illness Chief Complaint: Abd Pain Informant: Patient Onset: Days Context: Gradual Onset Timing: Continuous Current Severity: Moderate Maximum Severity: Moderate Narrative: The patient is a 59-year-old male medical history significant for coronary vascular disease, chronic pain, and recent colonoscopy with biopsy that presents to the emergency department with upper abdominal pain. The patient states his been going on for 3 days. He states that he is not been able to move his bowels for about 2 days. He states one time to time, this will happen because of his medications. He states he is had a decreased appetite. He denies any fevers or chills. He has had prior umbilical hernia repair and colonoscopy. He states he will feel nauseated but has not had vomiting. He denies chest pain or shortness of breath. Prior similar symptoms: Yes Recent Illness/Hospitalization: No Past Medical History - Allergies and Home Meds Allergies/Adverse Reactions: Allergies venom-honey bee [bee venom (honey bee)] Allergy (Severe, Verified 05/16/20 08:30) Anaphylaxis fenofibrate [From Tricor] Allergy (Verified 05/16/20 08:30) Swelling Primary Care Physician: Britni Hutchinson MD [Primary Care Provider] - Prior records reviewed: Yes Past Medical History: - - Hypertension, hyperlipidemia, smoking history, coronary vascular disease Surgical History: herniorrhaphy, - - PCI Smoking Status: Current some day smoker Review of Systems General: Denies: Chills, Fever, Sweats Eyes: Denies: Visual changes - bilaterally, Diplopia ENT: Denies: Rhinorrhea, Sore throat Cardiovascular: Denies: Chest pain, Palpitations Respiratory: Denies: Dyspnea, Cough, Dyspnea on exertion Gastrointestinal: Reports: Abdominal pain, Nausea, Constipation. Denies: Vomiting, Diarrhea, Melena, Hematochezia Genitourinary: Denies: Dysuria, Hematuria, Frequency Musculoskeletal: Denies: Back pain, Extremity Pain Skin: Denies: Rash, Wounds Neurological: Denies: Headache, Weakness, Numbness Physical Exam Vital Signs/Narrative: Vital Signs Temp Pulse Resp BP Pulse Ox 05/16/20 08:30 96.2 F L 84 16 111/68 100 Inital Vital Signs reviewed: Yes General: Well nourished, Well developed, No Acute Distress Head: Normocephalic, Atraumatic Eyes: Perrl, EOMI ENT: Moist mucous membranes, No rhinorrhea Neck: Supple, Nontender Cardiovascular: Regular rate, Regular rhythm, No murmurs Respiratory: No distress, CTA bilaterally, Chest nontender Abdomen: Soft, Normal bowel sounds, Tender. Negative for: Guarding Back: Nontender, Normal Inspection Extremities: Nontender, No edema Skin: Normal color, No rash Neurological: Alert, Oriented x3, Cranial nerves II-XII grossly intact, Normal Strength, Normal Sensation Psychological: Normal affect, Normal Mood Diagnostic/Tx/Re-eval Clinical Impression(s) from Imaging Studies Abdomen/Pelvis CT 05/16/20 08:37 IMPRESSION: Stable minimal dilatation of the central intrahepatic biliary ducts. Scattered sigmoid diverticula. Electronically Signed: Pineda Peter, at 10:27 EDT , Service support , Abnormal Lab Results 05/16/20 05/16/20 08:57 08:57 WBC 6.9 RBC 4.35 L Hgb 13.7 Hct 42.1 MCV 96.8 H MCH 31.5 MCHC 32.5 RDW Std Deviation 43.4 RDW Coeff of Deshawn 12.1 Plt Count 295 MPV 10.9 Immature Gran % (Auto) 0.100 Neut % (Auto) 57.4 Lymph % (Auto) 30.2 Waller % (Auto) 9.6 Eos % (Auto) 2.0 Baso % (Auto) 0.7 Absolute Neuts (auto) 3.9 Absolute Lymphs (auto) 2.07 Nucleated RBC % 0 Sodium 142 Potassium 4.1 Chloride 108 H Carbon Dioxide 26.0 Anion Gap 8 BUN 13 Creatinine 1.12 Estim Creat Clear Calc 68.03 Est GFR (MDRD) Af Amer 87 Est GFR (MDRD) Non-Af 72 BUN/Creatinine Ratio 11.6 Glucose 112 H Calcium 8.9 Total Bilirubin 0.40 AST 10 L ALT 21 Alkaline Phosphatase 82 Total Protein 6.9 Albumin 3.6 Globulin 3.3 Albumin/Globulin Ratio 1.1 Lipase 204 - Medical Decision Making Patient presents with reproducible midepigastric pain. It does not radiate into his chest. Is not been short of breath. Is had it for about 2 days and will wax and wane but never fully go away. Metabolic work-up was pursued. Screening labs were obtained and are unremarkable. With the patient's history of diverticulitis and recent colonoscopy, CT imaging was obtained. There is no evidence of acute intra-abdominal process. It is basically unchanged from prior. On reevaluation, the patient's pain is markedly improved. His repeat exam is soft and nontender. At this time, I do not have a great explanation for the patient's pain, but do feel that he is safe for outpatient follow-up. I will prescribe Bentyl to help with the spasm. He will continue his oral pain medication as needed. He will be discharged home. Impression 1. Epigastric abdominal pain ED Disposition - Plan for ED Patient: Instructions: ED Unknown Causes of Abdominal Pain Male Prescriptions: Dicyclomine HCl [Bentyl] 20 mg PO TIDAC #20 cap Prescription Printed Referrals: Britni Hutchinson MD [Primary Care Provider] -
[2020-05-16 09:03] LABS: Absolute Lymphocyte Count 2.07 X10^3/uL (0.83-4.51); Absolute Neutrophil Count 3.9 X10^3/uL (2.0-7.7); Basophil# 0.05 X10^3/uL; Basophil% 0.7 % (0-1); Eosinophil# 0.14 X10^3/uL; Hematocrit 42.1 % (40-54); Hemoglobin 13.7 g/dL (13.0-16.5); Lymphocyte # 2.07 X10^3/ul (4.0); Lymphocyte % 30.2 % (19-41); Mean Corp Hgb Conc 32.5 g/dL (32-36); Mean Corpuscular Hgb 31.5 pg (27.0-32.0); Mean Corpuscular Volume 96.8 fL (80-94); Mean Platelet Vol. 10.9 fl (6.2-12.0); Monocyte# 0.66 X10^3/uL; Monocyte% 9.6 % (0-10); NRBC Flagged by Analyzer 0 % (0-5); Neutrophil # 3.92 X10^3/uL (2.7-7.7); Neutrophil % 57.4 % (47-70); Platelet Count 295 K/mm3 (150-450); RBC Distribution Width CV 12.1 % (11.6-14.6); RBC Distribution Width SD 43.4 fl (35.1-43.9); Red Blood Count 4.35 M/mm3 (4.6-6.2); White Blood Count 6.9 K/mm3 (4.4-11.0)
[2020-05-16] MEDS: HYDROmorphone 1 MG/ML Syringe IV (09:19)
[2020-05-16] MEDS: 0.9% Normal Saline 1,000 ML 1000 ML IV (09:19)
[2020-05-16] MEDS: Ondansetron 4 MG/2 ML Vial IV (09:19)
[2020-05-16 09:30] LABS: ALB/GLOB Ratio 1.1 RATIO (0.9-2.4); AST(SGOT) 10 U/L (15-37); Alanine Aminotransfer ALT/SGPT 21 U/L (16-61); Albumin, Serum 3.6 g/dL (3.2-5.0); Alkaline Phosphatase 82 U/L (45-117); Anion Gap 8 (5-15); BUN 13 mg/dL (7-18); BUN/Creat Ratio 11.6 RATIO (10-20); Calcium,Total 8.9 mg/dL (8.5-10.1); Chloride 108 mmol/L (98-107); Creatinine, Serum 1.12 mg/dL (0.70-1.30); EST Glomerular Filtration Rate 72 mL/min (>60); Est Glom Filt Rate - Afr Amer 87 mL/min (>60); Estimated Creatinine Clearance 68.03 ml/min; Globulin 3.3 g/dL (2.2-4.2); Glucose 112 mg/dL (74-106); Lipase 204 U/L (73-393); Potassium 4.1 mmol/L (3.5-5.1); Protein, Total 6.9 g/dL (6.4-8.2); Sodium Level 142 mmol/L (136-145)
[2020-05-16 10:40] VITALS: BP 130/4; PULSE 62; RESP 14; O2SAT 98
== END 2020-05-16 10:41 | disposition home or self-care (01) ==
LOC: ED 08:50
PROVIDERS: Emergency Provider Emergency Medicine; PCP Internal Medicine
DX: R10.13 Epigastric pain (principal); G89.29 Other chronic pain; R11.0 Nausea; I25.10 Atherosclerotic heart disease of native coronary artery without angina pectoris; I10 Essential (primary) hypertension; E78.5 Hyperlipidemia, unspecified; Z79.82 Long term (current) use of aspirin; Z79.899 Other long term (current) drug therapy; Z87.891 Personal history of nicotine dependence
CPT/HCPCS: 74177; 80053; 83690; 85025; 96361; 96374; 96375; 99283; J7030; Q9967; A4216; J2405

== ENCOUNTER → 2020-07-10 11:02 | Outpatient (CLI) | payer MEDICAID, SELFPAY ==
[2020-06-11 14:37] VITALS: BMI 29.4
[2020-07-10 12:35] LABS: Cholesterol 144 mg/dL (200); High Density Lipoprotein 36 mg/dL; Triglycerides 186 mg/dL; Very Low Density Lipoprotein 37 mg/dL (5-40)
== END ==
PROVIDERS: PCP Internal Medicine; Referring Provider Internal Medicine; Visit Provider Internal Medicine
DX: E78.5 Hyperlipidemia, unspecified (principal); E78.1 Pure hyperglyceridemia
CPT/HCPCS: 36415; 80061

== ENCOUNTER → 2020-09-06 13:28 | Outpatient (CLI) | payer MEDICAID, SELFPAY ==
[2020-06-11 14:37] VITALS: BMI 29.4
[2020-09-06 15:45] LABS: Anion Gap 6 (5-15); BUN 10 mg/dL (7-18); BUN/Creat Ratio 9.1 RATIO (10-20); Calcium,Total 8.9 mg/dL (8.5-10.1); Chloride 107 mmol/L (98-107); EST Glomerular Filtration Rate 73 mL/min (>60); Est Glom Filt Rate - Afr Amer 88 mL/min (>60); Glucose 93 mg/dL (74-106); Potassium 4.8 mmol/L (3.5-5.1); Sodium Level 141 mmol/L (136-145)
== END ==
PROVIDERS: PCP Internal Medicine; Referring Provider Internal Medicine; Visit Provider Internal Medicine
DX: I10 Essential (primary) hypertension (principal)
CPT/HCPCS: 36415; 80048

== ENCOUNTER → 2020-09-11 11:17 | Outpatient (CLI) | payer MEDICAID, SELFPAY ==
[2020-06-11 14:37] VITALS: BMI 29.4
--- NOTE | 2020-09-11 11:18 | RAD_ITS ---
STUDY: X-RAY - RIGHT KNEE REASON FOR EXAM: Anterior right knee pain, no specific injury. TECHNIQUE: 3 view(s) of the knee. COMPARISON: Radiographs 04/27/2020. FINDINGS: Normal visualized distal femur. Normal visualized proximal tibia and fibula. Normal proximal tibiofibular articulation. Normal medial femorotibial compartment. Normal lateral femorotibial compartment. Normal patellofemoral articulation. The soft tissue structures are unremarkable. RAD/Knee 3 Views IMPRESSION: Normal x-ray examination of the right knee. Electronically Signed: Paul Cavanaugh MD at 11:45 EST Tel , Service support ,
== END ==
PROVIDERS: PCP Internal Medicine; Referring Provider Internal Medicine; Visit Provider Internal Medicine
DX: M25.561 Pain in right knee (principal)
CPT/HCPCS: 73562

== ENCOUNTER → 2020-09-17 08:57 | Outpatient (CLI) | payer MEDICAID, SELFPAY ==
[2020-06-11 14:37] VITALS: BMI 29.4
[2020-09-17 13:15] LABS: Uric Acid 9.7 mg/dL (3.5-7.2)
== END ==
PROVIDERS: PCP Internal Medicine; Referring Provider Orthopaedic Surgery; Visit Provider Orthopaedic Surgery
DX: M10.9 Gout, unspecified (principal)
CPT/HCPCS: 36415; 84550

== ENCOUNTER → 2020-09-25 10:30 | Outpatient (CLI) | payer MEDICAID, SELFPAY ==
[2020-06-11 14:37] VITALS: BMI 29.4
[2020-09-25 12:27] LABS: Absolute Lymphocyte Count 1.98 X10^3/uL (0.83-4.51); Absolute Neutrophil Count 3.6 X10^3/uL (2.0-7.7); Basophil# 0.04 X10^3/uL; Basophil% 0.6 % (0-1); Eosinophil# 0.24 X10^3/uL; Eosinophils% 3.5 % (0-5); Hematocrit 42.4 % (40-54); Hemoglobin 13.3 g/dL (13.0-16.5); Lymphocyte # 1.98 X10^3/ul (4.0); Mean Corp Hgb Conc 31.4 g/dL (32-36); Mean Corpuscular Volume 98.8 fL (80-94); Mean Platelet Vol. 10.9 fl (6.2-12.0); Monocyte# 0.88 X10^3/uL; Monocyte% 12.9 % (0-10); NRBC Flagged by Analyzer 0 % (0-5); Neutrophil # 3.63 X10^3/uL (2.7-7.7); Neutrophil % 53.3 % (47-70); Platelet Count 209 K/mm3 (150-450); RBC Distribution Width CV 14.8 % (11.6-14.6); Red Blood Count 4.29 M/mm3 (4.6-6.2); White Blood Count 6.8 K/mm3 (4.4-11.0)
[2020-09-25 13:44] LABS: ALB/GLOB Ratio 1.2 RATIO (0.9-2.4); AST(SGOT) 22 U/L (15-37); Alanine Aminotransfer ALT/SGPT 36 U/L (16-61); Albumin, Serum 3.7 g/dL (3.2-5.0); Alkaline Phosphatase 105 U/L (45-117); Anion Gap 5 (5-15); BUN 20 mg/dL (7-18); BUN/Creat Ratio 16.7 RATIO (10-20); Calcium,Total 8.3 mg/dL (8.5-10.1); Chloride 101 mmol/L (98-107); EST Glomerular Filtration Rate 66 mL/min (>60); Est Glom Filt Rate - Afr Amer 80 mL/min (>60); Globulin 3.1 g/dL (2.2-4.2); Glucose 118 mg/dL (74-106); Potassium 4.3 mmol/L (3.5-5.1); Protein, Total 6.8 g/dL (6.4-8.2); Sodium Level 137 mmol/L (136-145)
== END ==
PROVIDERS: PCP Internal Medicine; Referring Provider Dermatology; Visit Provider Dermatology
DX: L40.0 Psoriasis vulgaris (principal); L40.59 Other psoriatic arthropathy; Z79.899 Other long term (current) drug therapy
CPT/HCPCS: 36415; 80053; 85025; 86480

== ENCOUNTER → 2020-10-22 14:22 | Outpatient (CLI) | payer MEDICAID, SELFPAY ==
[2020-06-11 14:37] VITALS: BMI 29.4
[2020-10-22 13:30] VITALS: BMI 30.5
--- NOTE | 2020-10-22 14:30 | CT_ITS ---
STUDY: LOW DOSE CT LUNG CANCER SCREENING REASON FOR EXAM: Male, 60 years old. Lung cancer screening RADIATION DOSAGE (If Supplied By Facility): CTDIvol = ( 3.02 ) mGy, DLP = ( 121.16 ) mGycm TECHNIQUE: No contrast was administered. Low dose technique was utilized (average mAS-38 and kVp 120). 1.25 mm axial source images with a slice interval of 1.25-mm were reconstructed in lung windows. 2.5 mm axial source images with a slice interval of 2.5-mm were reconstructed in lung windows. 5.0 mm axial source images with a slice interval of 5.0-mm were reconstructed in soft tissue windows. Nodule measured using lung windows on PACS and/or independent workstation with automated measurement of minimum and maximum diameter. Nodule measurement reported as average diameter rounded to the nearest whole number. Growth is defined as an increase ins size of greater than 1.5 mm. COMPARISON: Comparison is made with prior examination dated 10/10/2019. NODULES: Stable 6.2 mm well-defined noncalcified nodule in the lateral aspect of the right lower lobe as seen on axial image #167. Stable 4 mm calcified granuloma in the right upper lobe. Emphysema: Stable mild degree of emphysematous changes. Endobronchial lesion: Unremarkable. Aorta: Unremarkable. Coronary arteries: Coronary artery calcification. Other chest and abdominal findings: Degenerative changes of the thoracic spine. CT/Low Dose CT Lung Screening IMPRESSION: Lung-RADS category 2 - Continue annual screening with LDCT in 12 months. IMPORTANT NOTES FOR USE: ACR Lung-RADS Version 1.0 Assessment Categories Release Date: December 25, 2013 Category: Coded 0-4 bases on nodule(s) with highest degree of suspicion. Negative screen is defined as categories 1 and 2; a positive screen is defined as categories 3 and 4. Category 3 and 4A nodules that are unchanged on interval CT should be coded as category 2, and individuals returned to screening in 12 months. Category 4X: Category 3 or 4 nodules with additional imaging findings that increase the suspicion of lung cancer, such as spiculation, GGN that doubles in size in 1 year, enlarged lymph notes, etc. Category Modifiers: S (significant finding unrelated to lung cancer) and C (prior history of treated lung cancer) may be added to the 0-4 Lung-RADS Electronically Signed: Pineda Green MD at 15:13 EST , Service support ,
== END ==
PROVIDERS: PCP Internal Medicine; Referring Provider Nurse Practitioner Family; Visit Provider Nurse Practitioner Family
DX: Z12.2 Encounter for screening for malignant neoplasm of respiratory organs (principal); F17.209 Nicotine dependence, unspecified, with unspecified nicotine-induced disorders
CPT/HCPCS: 71271

== ENCOUNTER → 2020-12-11 15:39 | Outpatient (CLI) | payer MEDICAID, SELFPAY ==
[2020-12-11 15:01] VITALS: BMI 30.7
[2020-12-11 16:51] LABS: Uric Acid 5.2 mg/dL (3.5-7.2)
== END ==
PROVIDERS: PCP Internal Medicine; Referring Provider Internal Medicine; Visit Provider Internal Medicine
DX: M10.9 Gout, unspecified (principal)
CPT/HCPCS: 36415; 84550

== ENCOUNTER 2021-02-25 15:00 | Outpatient (RCR) | payer MEDICAID, SELFPAY ==
[2020-12-11 15:01] VITALS: BMI 30.7
--- NOTE | 2021-01-09 14:04 | HP.PTEVAL_ITS ---
Patient's Visit Information HELEN RUDD Jr. is a 60 year old M referred to Physical Therapy by Dr. Britni Hutchinson MD with a diagnosis of Back pain, pain in R knee. Date of Evaluation: 01/09/21 Physical Therapist: SIMI Ramirez - Visit Plan Frequency: 2x /Week Duration: 2 Months Plan: 2X/ week for 4 weeks for AT for core stability, LE strengthening( focus on the R LE), gait training, functional activities with HEP - Subjective Pt is here for back and R knee pain. Pt has numbness in R leg from nerve damage. Pt has LBP and neck pain from DDD. He was going to pain management in [place] and now he has Dr Lopez as his MD. He has been in PT several times before and it has always helped form him. Back pain is L4-L5 and S1 bone to bone and protrusion to R side. Pt has pain on the L side of his head from time to time. He is on narcotics for his pain and tries not to be on meds before his PT session. Back pain....his pain is across his LB and pain shoots into his L leg to the knee cap and on the R side the bottom of his R foot is from nerve damage from pinched nerve. He has had nerve cauterizations in the past. His core is weak. He trips up the steps sometimes getting up into his buck and struggles with lifting his R leg up. His R leg goes numb. R knee pain.... He struggles with issues in his legs due to the back pain. He has nerve damage from the knee to the bottom of the foot. He has an AFO that he wears to shop or for long walks. Pt sometimes walks with a cane. - Pain back pain Pain Intensity (Out of 10): 7 Pain Intensity Range: 10 R knee pain Pain Intensity (Out of 10): 0 - Objective Gait: walks with decreased stance time on the R LE and decreased heel to toe gait pattern. He drags his R leg with him with gait and not smooth gait pattern. He has SOB after walking short distances. Trunk AROM: flexion 75%, ext 50%, SB B 50%. Rot B 24%. LE MMT: R hip flex 4-/5 and L 4/5, R knee ext 3- /4 and L 4/5, B knee flex 4/5, R hip abd 4-/5 and L hip and 4/5. Pt struggles to heel raise on the R. Patellar DTR's 2+/3 B. +SLUMP test on the R and L is negative. + SLR on the B (worse on the R compared to the L). Pt is able to do a 3/4 ROM bridge but has increase pain. Pt has tight B HS and gastroc complex B. Pt would rather not try the stairs today cause he is afraid that his leg will give out. - Goals Goal 1:: I HEP Goal Time Frame: 6-8 Weeks Goal 2:: Increase R LE strength by 1/2 muscle grade (at the time of the eval: LE MMT: R hip flex 4-/5 and L 4/5, R knee ext 3-/4 and L 4/5, B knee flex 4/5, R hip abd 4-/5 and L hip and 4/5). Goal Time Frame: 4-6 Weeks Goal 3:: Be able to go up and down the stairs with 1-2 handrails recip without any signs of weakness. Goal Time Frame: 4-6 Weeks Goal 4:: Decrease back pain to 4/10 with ADL's ( down from 7/10 at the eval). Goal Time Frame: 4-6 Weeks Goal 5:: Walk more of a smoother gait pattern and not dragging his R LE so much Goal Time Frame: 2 Weeks Goal Time Frame: 6-8 Weeks - Rehabilitation Potential Rehabilitation Potential: Excellent - Anticipated Interventions Patient/Client Instruction: Educate patient on: Condition, Plan of Care For the Purpose of:: To decrease pain, To increase ROM, To improve nutrient delivery to tissue, To improve muscle performance and motor function, To improve ability to perform ADL's, To increase tolerance to activity/condition/position, To improve performance and independence with ADL's, To decrease level of supervision to perform tasks, To improve ability of physical actions for home/community/work/leisure, To improve gait and locomotor functions, To improve health of tissue, To increase flexibility/ROM, To improve balance, To improve safety with gait Therapeutic Exercise to Include: Strength training, Endurance training, Body mechanics, Postural training, Flexibilty training, Gait and locomotor training, Neuromotor development, In an aquatic setting, Active ROM, Dynamic Lumbar Stabilization For the Purpose of:: To decrease pain, To increase ROM, To improve nutrient delivery to tissue, To improve muscle performance and motor function, To improve ability to perform ADL's, To increase tolerance to activity/condition/position, To improve performance and independence with ADL's, To decrease level of supervision to perform tasks, To improve gait and locomotor functions, To improve health of tissue, To decrease soft tissue restriction, To increase flexibility/ROM Functional Training to Include: Gait training For the Purpose of:: To improve gait and locomotor functions, To improve safety with gait Thank you for the opportunity to evaluate your patient. For Medicare and Medicare HMO plans, please review the plan of care and approve it. It will need to be FAXED BACK to us at [phone] for Medicare purposes. For Medicare only, by signing this I certify the plan of care. Please let me know if there are questions or concerns regarding this plan of care. Physician Signature: Date:
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
--- NOTE | 2021-02-25 15:40 | HP.PTREVAL ---
Dr. Britni Hutchinson MD, It has been my pleasure to treat HELEN RUDD Jr. over the last 11 visits for Back pain, pain in R knee. Please see the progress note below for an update on the physical therapy plan of care! Subjective: Pt reports he feels like he is improving, but has hit a plateau and needs more aggressive therapy. Objective/Function: LBP is 8/10. R LE MMT is grossly 4-/5. Pt can ascent stairs with 2 hand rails slowly. Pt continues to drag his R LE during ambulation. Pt would benefit from further skilled PT to aid with functional mobility Plan Plan: 2X/ week for 4 weeks for AT for core stability, LE strengthening( focus on the R LE), gait training, functional activities with HEP Goals Goal 1:: I HEP Goal Time Frame: 6-8 Weeks Goal Progress: Goal Met Goal 2:: Increase R LE strength by 1/2 muscle grade (at the time of the eval: LE MMT: R hip flex 4-/5 and L 4/5, R knee ext 3-/4 and L 4/5, B knee flex 4/5, R hip abd 4-/5 and L hip and 4/5). Goal Time Frame: 4-6 Weeks Goal Progress: Progressing Goal 3:: Be able to go up and down the stairs with 1-2 handrails recip without any signs of weakness. Goal Time Frame: 4-6 Weeks Goal Progress: Progressing Goal 4:: Decrease back pain to 4/10 with ADL's ( down from 7/10 at the eval). Goal Time Frame: 4-6 Weeks Goal Progress: Progressing Goal 5:: Walk more of a smoother gait pattern and not dragging his R LE so much Goal Time Frame: 2 Weeks Goal Progress: Progressing Goal Time Frame: 6-8 Weeks Anticipated Interventions Patient/Client Instruction: Educate patient on: Condition, Plan of Care For the Purpose of:: To decrease pain, To increase ROM, To improve nutrient delivery to tissue, To improve muscle performance and motor function, To improve ability to perform ADL's, To increase tolerance to activity/condition/position, To improve performance and independence with ADL's, To decrease level of supervision to perform tasks, To improve ability of physical actions for home/community/work/leisure, To improve gait and locomotor functions, To improve health of tissue, To increase flexibility/ROM, To improve balance, To improve safety with gait Therapeutic Exercise to Include: Strength training, Endurance training, Body mechanics, Postural training, Flexibilty training, Gait and locomotor training, Neuromotor development, In an aquatic setting, Active ROM, Dynamic Lumbar Stabilization For the Purpose of:: To decrease pain, To increase ROM, To improve nutrient delivery to tissue, To improve muscle performance and motor function, To improve ability to perform ADL's, To increase tolerance to activity/condition/position, To improve performance and independence with ADL's, To decrease level of supervision to perform tasks, To improve gait and locomotor functions, To improve health of tissue, To decrease soft tissue restriction, To increase flexibility/ROM Functional Training to Include: Gait training For the Purpose of:: To improve gait and locomotor functions, To improve safety with gait Please do not hesitate to contact me at [phone] by phone or if you have questions or concerns regarding this new plan of care! Sincerely, Sidney Estevez, PT, ATC
--- NOTE | 2021-03-31 08:55 | HP.PT.NRP ---
HELEN Wagoner BLAIRE Avery was seen in my office for initial evaluation on 01/09/21. The following Plan of Care was established for this patient: Initial Frequency: 2x /Week Initial Duration: 2 Months Patient/Client Instruction: Educate patient on: Condition, Plan of Care For the Purpose of:: To decrease pain, To increase ROM, To improve nutrient delivery to tissue, To improve muscle performance and motor function, To improve ability to perform ADL's, To increase tolerance to activity/condition/position, To improve performance and independence with ADL's, To decrease level of supervision to perform tasks, To improve ability of physical actions for home/community/work/leisure, To improve gait and locomotor functions, To improve health of tissue, To increase flexibility/ROM, To improve balance, To improve safety with gait Therapeutic Exercise to Include: Strength training, Endurance training, Body mechanics, Postural training, Flexibilty training, Gait and locomotor training, Neuromotor development, In an aquatic setting, Active ROM, Dynamic Lumbar Stabilization For the Purpose of:: To decrease pain, To increase ROM, To improve nutrient delivery to tissue, To improve muscle performance and motor function, To improve ability to perform ADL's, To increase tolerance to activity/condition/position, To improve performance and independence with ADL's, To decrease level of supervision to perform tasks, To improve gait and locomotor functions, To improve health of tissue, To decrease soft tissue restriction, To increase flexibility/ROM Functional Training to Include: Gait training For the Purpose of:: To improve gait and locomotor functions, To improve safety with gait This patient was last seen in our office 02/25/21. Pertinent comments regarding their Physical therapy will appear below: Pt needed to be discharged due to other health issues. DC PT At this point I will be discontinuing this patient from physical therapy. I would be happy to see this patient again in the future if found appropriate by the physician. Thank you! Mabel Rodríguez, SIMI Balance/Gait/Functional tests - Balance/Special Test Scores Oswestry Low Back Score: 28 Lower Extremity Functional Score: 44
== END 2021-02-25 19:00 | disposition home or self-care (01) ==
LOC: PT 15:00
PROVIDERS: PCP Internal Medicine; Referring Provider Internal Medicine; Visit Provider Internal Medicine
DX: M54.9 Dorsalgia, unspecified (principal); G89.29 Other chronic pain; M25.561 Pain in right knee
CPT/HCPCS: 97113; 97161; 97164; 97530

== ENCOUNTER → 2021-03-10 11:22 | Outpatient (CLI) | payer MEDICAID, SELFPAY ==
[2020-12-11 15:01] VITALS: BMI 30.7
[2021-03-10 12:50] LABS: Absolute Lymphocyte Count 2.01 X10^3/uL (0.83-4.51); Absolute Neutrophil Count 4.1 X10^3/uL (2.0-7.7); Basophil# 0.06 X10^3/uL; Basophil% 0.8 % (0-1); Eosinophil# 0.16 X10^3/uL; Eosinophils% 2.3 % (0-5); Hemoglobin 14.4 g/dL (13.0-16.5); Lymphocyte # 2.01 X10^3/ul (0.83-4.51); Lymphocyte % 28.4 % (19-41); Mean Corp Hgb Conc 32.7 g/dL (32-36); Mean Corpuscular Hgb 31.7 pg (27.0-32.0); Mean Corpuscular Volume 96.9 fL (80-94); Mean Platelet Vol. 10.5 fl (6.2-12.0); Monocyte# 0.69 X10^3/uL; Monocyte% 9.7 % (0-10); NRBC Flagged by Analyzer 0 % (0-5); Neutrophil # 4.13 X10^3/uL (2.7-7.7); Neutrophil % 58.4 % (47-70); Platelet Count 322 K/mm3 (150-450); RBC Distribution Width CV 13.2 % (11.6-14.6); RBC Distribution Width SD 47.5 fl (35.1-43.9); Red Blood Count 4.54 M/mm3 (4.6-6.2); White Blood Count 7.1 K/mm3 (4.4-11.0)
[2021-03-10 13:27] LABS: Hemoglobin A1c 5.8 % (3.8-5.6)
[2021-03-10 13:30] LABS: ALB/GLOB Ratio 1.2 RATIO (0.9-2.4); AST(SGOT) 21 U/L (15-37); Alanine Aminotransfer ALT/SGPT 30 U/L (16-61); Albumin, Serum 3.7 g/dL (3.2-5.0); Alkaline Phosphatase 86 U/L (45-117); Anion Gap 9 (5-15); BUN 14 mg/dL (7-18); BUN/Creat Ratio 13.2 RATIO (10-20); Chloride 105 mmol/L (98-107); Cholesterol 173 mg/dL (200); Creatinine, Serum 1.06 mg/dL (0.70-1.30); EST Glomerular Filtration Rate 76 mL/min (>60); Est Glom Filt Rate - Afr Amer 92 mL/min (>60); Globulin 3.2 g/dL (2.2-4.2); Glucose 103 mg/dL (74-106); High Density Lipoprotein 36 mg/dL; Potassium 4.2 mmol/L (3.5-5.1); Protein, Total 6.9 g/dL (6.4-8.2); Sodium Level 137 mmol/L (136-145); Thyroid Stim Hormone (TSH) 6.79 uIU/mL (0.358-3.74); Triglycerides 536 mg/dL; Uric Acid 5.8 mg/dL (3.5-7.2)
== END ==
PROVIDERS: PCP Family Medicine; Referring Provider Family Medicine; Visit Provider Family Medicine
DX: I25.10 Atherosclerotic heart disease of native coronary artery without angina pectoris (principal); M10.9 Gout, unspecified; R73.03 Prediabetes; R73.09 Other abnormal glucose; I10 Essential (primary) hypertension; E03.9 Hypothyroidism, unspecified; E78.5 Hyperlipidemia, unspecified; Z01.83 Encounter for blood typing
CPT/HCPCS: 36415; 80053; 80061; 83036; 84443; 84550; 85025; 86900; 86901

== ENCOUNTER → 2021-07-10 13:56 | Outpatient (CLI) | payer MEDICAID, SELFPAY ==
[2021-07-10 15:52] LABS: Cholesterol 277 mg/dL (200); High Density Lipoprotein 34 mg/dL; T4 Free Direct 0.92 ng/dL (0.76-1.46); Thyroid Stim Hormone (TSH) 5.59 uIU/mL (0.358-3.74); Triglycerides 865 mg/dL
== END ==
PROVIDERS: PCP Family Medicine; Referring Provider Family Medicine; Visit Provider Family Medicine
DX: E03.9 Hypothyroidism, unspecified (principal); E78.5 Hyperlipidemia, unspecified
CPT/HCPCS: 36415; 80061; 84439; 84443

== ENCOUNTER → 2021-12-18 | Outpatient (CLI) | payer MEDICAID, SELFPAY ==
[2021-12-18 12:45] LABS: Hemoglobin A1c 6.2 % (3.8-5.6)
[2021-12-18 12:50] LABS: Cholesterol 152 mg/dL (200); High Density Lipoprotein 39 mg/dL; T4 Free Direct 1.66 ng/dL (0.76-1.46); Thyroid Stim Hormone (TSH) < 0.01 uIU/mL (0.358-3.74); Triglycerides 350 mg/dL; Very Low Density Lipoprotein 70 mg/dL (5-40)
== END | disposition home or self-care (01) ==
LOC: BIMLAB 09:32
PROVIDERS: PCP Family Medicine; Referring Provider Family Medicine; Visit Provider Family Medicine
DX: E03.9 Hypothyroidism, unspecified (principal); E78.5 Hyperlipidemia, unspecified; R73.01 Impaired fasting glucose
CPT/HCPCS: 36415; 80061; 83036; 84439; 84443

== ENCOUNTER 2022-02-05 14:00 | Outpatient (RCR) | payer MEDICAID, SELFPAY ==
--- NOTE | 2021-12-29 12:16 | HP.PTEVAL_ITS ---
Patient's Visit Information HELEN RUDD Jr. is a 61 year old M referred to Physical Therapy by Dr. Dariel Lopez DO with a diagnosis of CERVICAL DDD. Date of Evaluation: 12/29/21 Physical Therapist: Denisse Garibay, PT, Cert MDT - Visit Plan Frequency: 2-3x /Week Duration: 4-6 Weeks Plan: US, E-STIM WITH CP OR MH, POSTURE CORRECTION/STRENGTHENING, INSTRUCTION IN APPROPRIATE BODY MECHANICS AND ACTIVITY MODIFICATIONS. STM. TAMERA UE ROM, STRETCHING AND STRENGTHENING. HEP INSTRUCTION - Subjective Diagnosis: CERVICAL DDD. Work/Leisure: UNEMPLOYEED. Disability: YES - LOW BACK PROBLEMS. Present symptoms: RIGHT NECK. RIGHT ARM, FOREARM AND HAND PAIN, NUMBNESS AND TINGLING. Present since: ABOUT 2 MONTHS AGO. Pain Scale: Worst - 9/10 Least - 5/10. Currently: 03/08. Commenced as a result of: NO APPARENT REASON. Symptoms at onset: TINGLING DOWN RIGHT UE FOLLOWED BY HEADACHE. Worse: SLEEPING ON RIGHT SIDE, LIFTING HEAVY OBJECTS WITH RIGHT ARM, SOMETIMES EX'S FOR LOW BACK, SOMETIMES DRIVING CAN'T LOOK RIGHT (HAS TO USE MIRRORS A LOT). Better: STEROIDS (CURRENTLY TAKING AND STARTED LAST WEEK), PAIN RELIEVERS. Disturbed sleep: YES. Previous history/Previous treatment: UNREMARKABLE. This episode: STEROIDS, PT CONSULT. NO CHIROPRACTOR. NO MASSAGE. NO INJECTIONS. NO NECK SURGERY. Dizziness: YES - OCCASSIONALLY. Tinnitis: YES. Nausea: NO. Shortness of Breath: NO. Difficulty Swollowing: NO. Gait: NOT CURRENTLY USING ANY ASSISTIVE DEVICES. NO FALLS. Accidents: N0. Unexplained weight loss: NO. Imaging: NONE. PMH/Recent major surgery: LOW BACK PROBLEMS - PAIN MGMT PROCEEDURES. HEART STENT PLACEMENT 2002. HTN. HIGH CHOLESTEROL. OTHER: PATIENT REPORTS HIS NECK AND ARM ARE CURRENTLY NOT GETTING BETTER. - Objective Sitting Posture/Standing Posture: POOR. FH. RSH'S. Active Correction of posture: WORSE. ONLY ABLE TO PARTIALLY CORRECT. Other Observations: INDEP GAIT INTO PT WITHOUT ANY ASSISTIVE DEVICES OR LOB. Sensory deficit: TAMERA UE LIGHT TOUCH SENSATION IS GROSSLY INTACT AND SYMMETRICAL. ROM deficit: RIGHT SHLD ACTIVE ELEVATION IN SITTING TO 135 DEG, LEFT SHLD 162 DEG. PATIENT C/O RIGHT NECK PAIN WITH RIGHT SHLD ELEVATION BUT NO C/O PAIN WITH L SHLD ELEVATION. 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 RIGHT UE: SHLD 3+ TO 4-/5, ELBOW 5/5. LEFT UE GROSSLY 5/5 WITH MMT'ING EXCEPT SHLD 4/5. Reflexes: UNABLE TO ELICIT TAMERA UE DTR'S. Dural Signs: POSITIVE RIGHT UE. Cervical Mvmt Loss: Flex: NIL. Pro: NIL. Ext: MOD. Ret: DEBRA. RSB: MOD. LSB: MIN. R Rot: MOD. L Rot: MIN. Postural strength: POOR. Palpation: TENDERNESS WITH PALPATION OF THE RIGHT UPPER TRAP REGION. TREATMENT: NEUROMUSCULAR REEDUCATION - RETRAINING OF MVMT AND POSTURE FOR SITTING, LYING AND STANDING ACTIVITIES. - Balance/Special Test Scores Oswestry Neck Score: 22 - Goals Goal 1:: DECREASE C/O NECK AND RIGHT UE SX'S. Goal Time Frame: 4-6 Weeks Goal 2:: IMPROVE PERSONAL CARE, LIFTING, READING, SLEEP, WORK, DRIVING, AND RECREATIONAL FUNCTION. Goal Time Frame: 4-6 Weeks Goal 3:: INSTRUCT IN PROPHYLAXIS Goal Time Frame: 4-6 Weeks - Anticipated Interventions Patient/Client Instruction: Educate patient on: Condition, Plan of Care, Risk Factors For the Purpose of:: To improve self management Therapeutic Exercise to Include: Strength training, Body mechanics, Postural training, Flexibilty training, Neuromotor development, Scapular Strength/Stabilization For the Purpose of:: To decrease pain, To increase ROM, To improve muscle performance and motor function, To increase tolerance to activity/condition/position, To improve ability of physical actions for home/community/work/leisure Manual Therapy Techniques to Include: Soft tissue mobilization For the Purpose of:: To decrease pain, To improve nutrient delivery to tissue TENS: Yes IF ES: Yes Cryotherapy (ice pack, ice massage): Yes Thermo therapy (hot pack): Yes Ultrasound (thermal/non thermal): Yes For the Purpose of:: To decrease pain, To improve nutrient delivery to tissue Thank you for the opportunity to evaluate your patient. For Medicare and Medicare HMO plans, please review the plan of care and approve it. It will need to be FAXED BACK to us at [phone] for Medicare purposes. For Medicare only, by signing this I certify the plan of care. Please let me know if there are questions or concerns regarding this plan of care. Physician Signature: Date:
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
== END 2022-02-05 19:00 | disposition home or self-care (01) ==
LOC: PT 14:00
PROVIDERS: PCP Family Medicine; Referring Provider Family Medicine; Visit Provider Family Medicine
DX: M51.36 Other intervertebral disc degeneration, lumbar region (principal); M50.30 Other cervical disc degeneration, unspecified cervical region
CPT/HCPCS: 97035; 97112; 97140; 97162; 97530

== ENCOUNTER 2022-06-07 07:55 | Emergency (ER) | payer MEDICAID, SELFPAY ==
[2022-06-07] VITALS (9 sets, daily range): BP systolic 103–114; BP diastolic 65–78; PULSE 92–110; RESP 12–25; TEMP 36.6–37.3; O2SAT 91–95; BMI 30.4
--- NOTE | 2022-06-07 08:20 | EKG12_ITS ---
Test Reason : SOB Blood Pressure : / mmHG Vent. Rate : 105 BPM Atrial Rate : 105 BPM P-R Int : 152 ms QRS Dur : 116 ms QT Int : 364 ms P-R-T Axes : 051 [id number] 037 degrees QTc Int : 481 ms Sinus tachycardia Right bundle branch block Abnormal ECG Confirmed by MARIA VICTORIA SANDOVAL, AUSTEN ([id number]), story editor SHANELLE DIANA ([id number]) on 06/08/2022 9:34:46 AM Referred By: Confirmed By:AUSTEN IRENE MD
--- NOTE | 2022-06-07 08:20 | RAD_ITS ---
EXAM: XR CHEST, 2 VIEWS CLINICAL INDICATION: Shortness of Breath TECHNIQUE: Frontal and lateral views of the chest. This report was created using [employer] report generation technology. COMPARISON: 11/22/2017. FINDINGS: LUNGS AND PLEURAL SPACES: Unremarkable. No consolidation or edema. No pneumothorax. No effusion. HEART: Unremarkable. Cardiac silhouette not enlarged. MEDIASTINUM: Central airways and mediastinal contour are unremarkable. BONES/JOINTS: Unremarkable. SOFT TISSUES: Unremarkable. RAD/Chest PA and Lateral IMPRESSION: No radiographic evidence of acute cardiopulmonary disease and no significant interval change when compared to 11/22/2017. Electronically Signed: Franck Obrien MD at 8:58 EDT ,
--- NOTE | 2022-06-07 08:21 | EDS_ITS ---
HPI History of Present Illness Chief Complaint: Shortness of Breath Narrative Narrative: 61-year-old male, smoker, presents with shortness of breath for the last few days. He states his symptoms began maybe evening and have progressed. He has shortness of breath, mild dyspnea on exertion, and a cough that is sometimes productive of clear to white sputum. He denies any fevers or chills. No body aches. No sore throat or runny nose. He states is mainly just the cough, and the shortness of breath. No chest pain or leg swelling. He states that he was smoking 2 packs a day, but now is down to half a pack a day. [facility] Medical History (Updated 06/07/22 @ 11:22 by Franck Williamson MD) Acute bronchitis Arthritis Asthma Atherosclerotic heart disease of [place] coronary artery without angina pectoris Bee sting-induced anaphylaxis Bloody ejaculation CAD (coronary artery disease) Chronic back pain Closed fracture of metatarsal bone Colitis Degenerative disc disease Depression Dermatophytosis of nail Diverticular disease Diverticulitis Essential (primary) hypertension Gout Heel spur HLD (hyperlipidemia) Hypertriglyceridemia Hypothyroidism Macrocytosis Obesity Old myocardial infarction Prediabetes Psoriasis Psoriasis Seasonal allergies Spontaneous ecchymosis Tendinitis of right foot Tobacco abuse Umbilical hernia without mention of obstruction or gangrene URI (upper respiratory infection) Home Medications zolpidem 10 mg tablet (Ambien) 10 mg PO QHS PRN Sleep 06/15/19 [History Last Taken 05/15/20] aspirin 81 mg tablet,delayed release 81 mg PO DAILY 03/21/20 [History Last Taken 04/04/20] diazepam 10 mg tablet 10 mg PO Q6H PRN Anxiety 03/21/20 [History Last Taken 05/15/20] gabapentin 400 mg capsule 400 mg PO TIDCM 03/21/20 [History Last Taken Unknown] hydrocortisone valerate 0.2 % topical cream 15 gm TP UD 03/21/20 [History Last Taken Unknown] morphine 30 mg tablet,extended release 30 mg PO Q12H 03/21/20 [History Last Take n 05/15/20] polyethylene glycol 3350 17 gram oral powder packet 17 gm PO BID 03/21/20 [History Last Taken Unknown] epinephrine 0.3 mg/0.3 mL injection, auto-injector 0.3 mg (0.3 mL) subcut UD PRN Anaphylaxis #2 ea 03/26/20 [Rx Last Taken Unknown] oxycodone 10 mg tablet,crush resistant,extended release 12 hr 10 mg PO Q6H PRN Pain Or Fever 04/02/20 [History Last Taken 05/15/20] nitroglycerin 0.4 mg sublingual tablet 0.4 mg sublingual Q5-15M PRN chest pain #21 tabs 04/18/20 [Rx Last Taken Unknown] albuterol sulfate 90 mcg/actuation aerosol inhaler 2 puff inhalation Q6H PRN shortness of breath or wheezing #8.5 grams 05/16/20 [Rx Last Taken Unknown] dicyclomine 10 mg capsule 20 mg PO TIDAC #20 caps 05/16/20 [Rx Last Taken Unknown] carvedilol 3.125 mg tablet 3.125 mg PO BID #180 tabs 07/08/20 [Rx Last Taken Unknown] multivitamin,[id number]-trebrkzl (Complete Multivitamin tablet) 1 tab PO DAILY #90 tabs 09/06/20 [Rx Last Taken Unknown] icosapent ethyl 1 gram capsule (Vascepa) 2 g PO DAILY 10/22/20 [History Last Taken Unknown] secukinumab 150 mg/mL subcutaneous syringe (Cosentyx) 150 mg subcut Q4W 10/22/20 [History Last Taken Unknown] meloxicam 15 mg tablet 15 mg PO DAILY 12/11/20 [History Last Taken Unknown] levothyroxine 125 mcg tablet 125 mcg PO DAILY #90 tabs 12/17/20 [Rx Last Taken Unknown] lisinopril 20 mg tablet 20 mg PO QDAY #90 tabs 12/17/20 [Rx Last Taken Unknown] allopurinol 100 mg tablet 200 mg PO DAILY 3 months #180 tabs 01/21/21 [Rx Last Taken Unknown] Allergy/AdvReac Type Severity Reaction Status Date / Time venom-honey bee Allergy Severe Anaphylaxis Verified 06/07/22 07:58 [bee venom (honey bee)] fenofibrate [From [employer]] Allergy Swelling Verified 06/07/22 07:58 Family History Father Hypertension Hyperlipidemia Mother Lung cancer Surgical History H/O prior ablation treatment (~02/2014) History of coronary artery stent placement (~11/06/12) History of left heart catheterization (06/02/13) History of umbilical hernia repair Normal colonoscopy (~2014) Social History Smoking Status: Current every day smoker tobacco type: cigarettes Tobacco: How many years used: 42 Electronic Cigarette Use: not used second hand exposure: Yes (both parents smoked in the home) quit status: has quit before counseling given: provider counseling alcohol intake: never substance use type: does not use caffeine: No what type of physical activity do you participate in: weight training frequency: 3-4 times per week seatbelt use: always do you feel safe at home: Yes ROS ROS ED ROS Narrative Constitutional: No fever, no chills. HEENT: No sore throat. No neck pain. No loss of vision. No rhinorrhea. Cardiovascular: No chest pain. No palpitations. No pedal edema. Respiratory: Positive cough occasionally productive of clear to white sputum, positive shortness of breath with mild dyspnea on exertion for the last few days. Abdominal: No abdominal pain. No nausea. No vomiting. Genitourinary: No dysuria. No hematuria. Musculoskeletal: No myalgias. No arthralgias. Neurologic: No headaches. No dizziness. No lightheadedness. Skin: No rash. No change in color. Psychiatric: No depression. No anxiety. EXAM Physical Exam Narrative Exam Narrative: Afebrile. Vital signs noted. HEENT: Normocephalic. Atraumatic. PERRL, EOMI. Neck soft and supple. No point tenderness or step off. Cardiovascular: Regular rate and rhythm. No murmurs, rubs, or gallops appreciated. Respiratory: No tachypnea. Decreased air movement bilateral bases with occasional expiratory wheeze, right greater than left. Gastrointestinal: Abdomen soft, nontender, with normoactive bowel sounds. No rebound or guarding. Neurological: Awake. Alert. Nonfocal, nonlateralizing. Skin: No rash. Normal color. No pallor. Musculoskeletal: No pedal edema. Full range of motion extremities. Const Vital Signs: 06/07/22 07:56 06/07/22 08:09 06/07/22 08:11 Temperature 99.1 F 99.1 F Temperature Source Temporal Temporal Pulse Rate 110 H 107 H Respiratory Rate 22 H 12 Respiratory Effort Short of Breath Respiratory Depth Deep Respiratory Pattern Tachypnea Blood Pressure 114/65 111/78 Blood Pressure Mean 81 89 Pulse Ox 91 91 Oxygen Delivery Method Room Air Room Air Room Air 06/07/22 08:33 06/07/22 09:27 06/07/22 10:37 Temperature 98.8 F 97.9 F Temperature Source Temporal Oral Pulse Rate 106 H 99 93 Respiratory Rate 18 17 25 H Respiratory Effort Respiratory Depth Respiratory Pattern Blood Pressure 108/68 103/67 Blood Pressure Mean 81 79 Pulse Ox 92 93 Oxygen Delivery Method Room Air Room Air 06/07/22 10:37 06/07/22 11:13 Temperature 98.1 F Temperature Source Oral Pulse Rate 93 92 Respiratory Rate 25 H 20 H Respiratory Effort Respiratory Depth Respiratory Pattern Blood Pressure 103/67 114/68 Blood Pressure Mean 79 83 Pulse Ox 93 94 Oxygen Delivery Method Room Air Room Air MDM MDM MDM Narrative Medical decision making narrative: I do feel that the patient may have underlying COPD from his smoking history. In review of his chart, one of his problems is listed as asthma. His pulse ox is 91% on room air which is borderline hypoxia. Comprehensive work-up was pursued. I will swab him for COVID and influenza and obtain a two-view chest x- ray along with basic laboratory work and an EKG. He will be administered an ipratropium-albuterol aerosolized treatment. He was additionally given methylprednisolone intravenously. Chest x-ray interpreted by myself shows no evidence of an infiltrate. He has a leukocytosis of 20.2 with a hemoglobin slightly low at 11.2, hematocrit 34.3. Platelet count elevated at 510 which may be more of an acute phase reactant. Sodium slightly low at 134, BUN of 40 with a creatinine of 2.04 which is an acute kidney injury. He may be mildly dehydrated. Glucose elevated at 130 appropriately with a normal anion gap of 10. Given his creatinine above 2.0, and leukocytosis, I do feel that the source may be an upper respiratory infection/pneumonia. Blood cultures were obtained along with administration of Rocephin and azithromycin. His COVID and influenza swabs are negative. I obtained a lactic acid which is normal at 1.4. While the patient was able to ambulate with pulse ox as low as 91, even at rest I did witness to dip down of his pulse ox into the high 80s at 88% with good waveform. At this point in time, patient will be discussed with the hospitalist. I discussed patient with Dr. Mcintosh who will admit the patient to the medical surgical floor. Patient is in stable condition. Lab Data Attestation: I reviewed the patient's lab results. Labs: Laboratory Results - last 24 hr 06/07/22 06/07/22 06/07/22 08:25 08:25 10:20 WBC 20.2 H RBC 3.45 L Hgb 11.2 L Hct 34.3 L MCV 99.4 H MCH 32.5 H MCHC 32.7 RDW Std Deviation 50.2 H RDW Coeff of Deshawn 13.6 Plt Count 510 H MPV 10.0 Immature Gran % (Auto) 1.600 H Neut % (Auto) 80.7 H Lymph % (Auto) 7.3 L Wake % (Auto) 9.0 Eos % (Auto) 1.1 Baso % (Auto) 0.3 Absolute Neuts (auto) 16.3 H Absolute Lymphs (auto) 1.47 Nucleated RBC % 0 Differential Comment SCANNED Diff Path Review May foll Sodium 134 L Potassium 4.6 Chloride 100 Carbon Dioxide 24.0 Anion Gap 10 BUN 40 H Creatinine 2.04 H Estim Creat Clear Calc 37.72 Est GFR (MDRD) Af Amer 43 L Est GFR (MDRD) Non-Af 36 L BUN/Creatinine Ratio 19.6 Glucose 130 H Lactic Acid 1.4 Calcium 9.3 Radiography Diagnostic Testing: Clinical Impression(s) from Imaging Studies Chest X-Ray 06/07/22 08:20 IMPRESSION: No radiographic evidence of acute cardiopulmonary disease and no significant interval change when compared to 11/22/2017. Electronically Signed: Franck Obrien MD at 8:58 EDT , Discharge Plan Triage Chief Complaint: Shortness of Breath ED Provider: Franck Williamson Dx/Rx/DC Orders Clinical Impression: SIRS (systemic inflammatory response syndrome), Leukocytosis, Acute kidney injury, Hypoxia, Bronchitis with bronchospasm Prescriptions: No Action zolpidem [Ambien] 10 mg tablet 10 mg PO QHS PRN (Reason: Sleep) meloxicam 15 mg tablet 15 mg PO DAILY Cosentyx 150 mg/mL syringe 150 mg SC Q4W Rx Instructions: start 4 weeks after last weekly dose icosapent ethyl [Vascepa] 1 gram capsule 2 g PO DAILY aspirin 81 MG tablet,delayed release (DR/EC) 81 mg PO DAILY hydrocortisone valerate 15 GM cream 15 gm TP UD Rx Instructions: apply to psoriasis rash on face, side of nose and around ears gabapentin 400 MG capsule 400 mg PO TIDCM diazepam 10 MG tablet 10 mg PO Q6H PRN (Reason: Anxiety) polyethylene glycol 3350 17 GM powder in packet 17 gm PO BID morphine 30 MG tablet extended release 30 mg PO Q12H oxycodone 10 MG tablet 10 mg PO Q6H PRN (Reason: Pain Or Fever) dicyclomine 10 MG capsule 20 mg PO TIDAC Qty: 20 0RF epinephrine 0.3 mg/0.3 mL auto-injector 0.3 mg SC UD PRN (Reason: Anaphylaxis) Qty: 2 1RF Rx Instructions: bee stings give 1 injection into thigh repeat dose in 5-15 minutes if not improving nitroglycerin 0.4 mg tablet, sublingual 0.4 mg SUBLINGUAL Q5-15M PRN (Reason: chest pain) Qty: 21 1RF Rx Instructions: do not exceed 3 doses per episode albuterol sulfate 90 mcg/actuation HFA aerosol inhaler 2 puff INHALATION Q6H PRN (Reason: shortness of breath or wheezing) Qty: 8.5 2RF carvedilol 3.125 mg tablet 3.125 mg PO BID Qty: 180 1RF multivitamin,wo-bxqz-zpgwgarb tablet 1 tab PO DAILY Qty: 90 3RF levothyroxine 125 mcg tablet 125 mcg PO DAILY Qty: 90 3RF lisinopril 20 mg tablet 20 mg PO QDAY Qty: 90 3RF allopurinol 100 mg tablet 200 mg PO DAILY 90 Days Qty: 180 2RF Primary Care Provider: Dariel Lopez Referrals: Dariel Lopez DO [Primary Care Provider] -
[2022-06-07] MEDS: Ipratropium/Albuterol Sulfate 3 ML AMPUL.NEB INHALATION (08:32)
[2022-06-07] MEDS: MethylPREDNISolone 125 MG/2 ML Vial IV (08:34)
[2022-06-07 08:38] LABS: Absolute Lymphocyte Count 1.47 X10^3/uL (0.83-4.51); Absolute Neutrophil Count 16.3 X10^3/uL (2.0-7.7); Basophil# 0.07 X10^3/uL; Basophil% 0.3 % (0-1); Eosinophil# 0.22 X10^3/uL; Eosinophils% 1.1 % (0-5); Hematocrit 34.3 % (40-54); Hemoglobin 11.2 g/dL (13.0-16.5); Lymphocyte # 1.47 X10^3/ul (0.83-4.51); Lymphocyte % 7.3 % (19-41); Mean Corp Hgb Conc 32.7 g/dL (32-36); Mean Corpuscular Hgb 32.5 pg (27.0-32.0); Mean Corpuscular Volume 99.4 fL (80-94); Monocyte# 1.81 X10^3/uL; NRBC Flagged by Analyzer 0 % (0-5); Neutrophil # 16.28 X10^3/uL (2.7-7.7); Neutrophil % 80.7 % (47-70); POSITIVE DIFFERENTIAL YES; Platelet Count 510 K/mm3 (150-450); RBC Distribution Width CV 13.6 % (11.6-14.6); RBC Distribution Width SD 50.2 fl (35.1-43.9); Red Blood Count 3.45 M/mm3 (4.6-6.2); White Blood Count 20.2 K/mm3 (4.4-11.0)
[2022-06-07 08:39] LABS: Differential Indicated SCAN CRITERIA MET
[2022-06-07 08:49] LABS: Anion Gap 10 (5-15); BUN 40 mg/dL (7-18); BUN/Creat Ratio 19.6 RATIO (10-20); Calcium,Total 9.3 mg/dL (8.5-10.1); Chloride 100 mmol/L (98-107); Creatinine, Serum 2.04 mg/dL (0.70-1.30); EST Glomerular Filtration Rate 36 mL/min (>60); Est Glom Filt Rate - Afr Amer 43 mL/min (>60); Estimated Creatinine Clearance 37.72 ml/min; Glucose 130 mg/dL (74-106); Potassium 4.6 mmol/L (3.5-5.1); Sodium Level 134 mmol/L (136-145)
[2022-06-07 09:16] LABS: Differential Comment SCANNED
[2022-06-07] MEDS: Ceftriaxone 1 GM/50 ML BAG IV (10:35)
[2022-06-07] MEDS: 0.9% Normal Saline 1,000 ML 999 ML IV (10:35)
[2022-06-07 10:57] LABS: Lactic Acid 1.4 mmol/L (0.4-1.9)
--- NOTE | 2022-06-07 11:45 | ED.RN ---
PT WILL NOT STAY FOR ADMISSION. AGREED TO FINISH ANTIBIOTICS AND SIGNED AMA PAPERWORK. DR HWANG MADE AWARE
--- NOTE | 2022-06-07 12:24 | ED.RN ---
patient signed ama form and has copy
[2022-06-07 17:05] LABS: Probe Check PASS
[2022-06-08 13:58] LABS: Pathologist Review Reviewed
== END 2022-06-07 12:33 | disposition left against medical advice (07) ==
PROVIDERS: Internal Medicine; Emergency Provider Emergency Medicine; PCP Family Medicine; Visit Provider Emergency Medicine
DX: J40 Bronchitis, not specified as acute or chronic (principal); N17.9 Acute kidney failure, unspecified; R65.11 Systemic inflammatory response syndrome (SIRS) of non-infectious origin with acute organ dysfunction; R09.02 Hypoxemia; D72.829 Elevated white blood cell count, unspecified; Z20.822 Contact with and (suspected) exposure to COVID-19; E78.5 Hyperlipidemia, unspecified; M54.9 Dorsalgia, unspecified; I25.10 Atherosclerotic heart disease of native coronary artery without angina pectoris; I10 Essential (primary) hypertension; M19.90 Unspecified osteoarthritis, unspecified site; E03.9 Hypothyroidism, unspecified; E66.9 Obesity, unspecified; E78.1 Pure hyperglyceridemia; I25.2 Old myocardial infarction; R73.03 Prediabetes; F17.210 Nicotine dependence, cigarettes, uncomplicated; Z79.82 Long term (current) use of aspirin; Z79.1 Long term (current) use of non-steroidal anti-inflammatories (NSAID); Z79.890 Hormone replacement therapy; Z79.899 Other long term (current) drug therapy; Z95.5 Presence of coronary angioplasty implant and graft
CPT/HCPCS: 71046; 80048; 83605; 85025; 87040; 87428; 87635; 93005; 94640; 96365; 96367; 96375; 99285; J7030; J7050; A4216; U0003; U0005

== ENCOUNTER 2022-07-30 15:00 | Outpatient (RCR) | payer MEDICAID, SELFPAY ==
--- NOTE | 2022-03-17 15:54 | HP.PTEVAL_ITS ---
Patient's Visit Information HELEN RUDD Jr. is a 61 year old M referred to Physical Therapy by Dr. Dariel Lopez DO with a diagnosis of Chronic LBP. Date of Evaluation: 03/17/22 Physical Therapist: Sidney Estevez, PT, ATC - Visit Plan Frequency: 3x /Week Duration: 4 Weeks Plan: Aquatic therapy consisting of core and LE strengthening, postural education - Subjective Pt reports he has had LBP for several years. Pt reports this episode began several months ago and has not improved. Pt reports he has had PT in the past and notes the water therapy tends to help him the best. Pt reports he is not able to walk or stand for a long period of time secondary to pain. Pt reports he is not amble to perform standing or walking position for greater than 10 min without excessive pain. Pt reports he is also unable to wash dishes at night s econdary to LBP. Pt reports tingling and numbness in his LE's, especially when he attempt to go to sleep at night time. Pt reports he has been told he needs to have surgery, but is not interested at this time due to being told he only has a 50% chance of walking afterwards. Pt reports his pain is currently 7/10, but notes it elevates to 10/10 at worst - Pain LBP Pain Intensity (Out of 10): 7 Pain Intensity Range: 10 - Objective Neuro: B LE sensation is WNL to light touch. B patellar reflex= 2/3. ROM: B LE's are WFL when compared bilaterally. Core strength: Pt displays valgus in knees with forward lunging indicating a weak core. MMT: L LE is grossly 4-/5 throughout, R LE is grossly 5/5. Gait: Pt is able to ambulate greater than 1000 feet without difficulty - Balance/Special Test Scores Oswestry Low Back Score: 23 - Goals Goal 1:: Decrease LBP x 50% to aid with sleep Goal Time Frame: 4-6 Weeks Goal 2:: Increase core stability x 1 grade to aid with decreasing LBP Goal Time Frame: 4-6 Weeks Goal 3:: I with HEP Goal Time Frame: 4-6 Weeks - Rehabilitation Potential Physical Therapy Diagnosis: Pt has LBP, L LE weakness, and core weakness secondary to deg changes in the L/S Rehabilitation Potential: Good - Anticipated Interventions Patient/Client Instruction: Educate patient on: Condition, Plan of Care For the Purpose of:: To improve self management Therapeutic Exercise to Include: Strength training, Endurance training, Body mechanics, Postural training, Flexibilty training, In an aquatic setting, Dynamic Lumbar Stabilization For the Purpose of:: To decrease pain, To increase ROM, To improve muscle performance and motor function Thank you for the opportunity to evaluate your patient. For Medicare and Medicare HMO plans, please review the plan of care and approve it. It will need to be FAXED BACK to us at [phone] for Medicare purposes. For Medicare only, by signing this I certify the plan of care. Please let me know if there are questions or concerns regarding this plan of care. Physician Signature: Date:
--- NOTE | 2022-05-28 15:29 | HP.PTREVAL ---
Dr. Dariel Lopez, DO, It has been my pleasure to treat HELEN RUDD Jr. over the last 11 visits for Chronic LBP. Please see the progress note below for an update on the physical therapy plan of care! Subjective: Pt reports he is getting better through the use of aquatic therapy. Was feeling much better until after this weekend which aggrivated his pain Objective/Function: LBP ranges from 5-7/10. Pt reports he has become 50% improved through the use of aquatic therapy but is still limited with most of his IADL's secondary to pain. Pt is progressing well with increased tolerance for activity and increased core strength. Pt would benefit from further aquatic therapy for core strengthening Plan Plan: Attempt to get 12 more visits approved for core strengthening in an aquatic setting Balance/Gait/Functional tests - Balance/Special Test Scores Oswestry Low Back Score: 20 Goals Goal 1:: Decrease LBP x 50% to aid with sleep Goal Time Frame: 4-6 Weeks Goal Progress: Progressing Goal 2:: Increase core stability x 1 grade to aid with decreasing LBP Goal Time Frame: 4-6 Weeks Goal Progress: Progressing Goal 3:: I with HEP Goal Time Frame: 4-6 Weeks Goal Progress: Progressing Anticipated Interventions Patient/Client Instruction: Educate patient on: Condition, Plan of Care For the Purpose of:: To improve self management Therapeutic Exercise to Include: Strength training, Endurance training, Body mechanics, Postural training, Flexibilty training, In an aquatic setting, Dynamic Lumbar Stabilization For the Purpose of:: To decrease pain, To increase ROM, To improve muscle performance and motor function Please do not hesitate to contact me at [phone] by phone or if you have questions or concerns regarding this new plan of care! Sincerely, Sidney Estevez, PT, ATC
== END 2022-07-30 19:00 | disposition home or self-care (01) ==
LOC: PT 15:00
PROVIDERS: PCP Family Medicine; Referring Provider Family Medicine; Visit Provider Family Medicine
DX: M51.36 Other intervertebral disc degeneration, lumbar region (principal)
CPT/HCPCS: 97113; 97161; 97164

== ENCOUNTER → 2022-12-26 | Outpatient (CLI) | payer MEDICAID, SELFPAY ==
--- NOTE | 2022-12-26 10:15 | MRI_ITS ---
HISTORY: LBP TECHNIQUE: Multiplanar and multisequence MR images of the lumbar spine were obtained without intravenous contrast. 107 images. COMPARISON: 06/18/2010. FINDINGS: VERTEBRAE: Vertebral body heights maintained. Mild degenerative bone marrow endplate changes at L4-5 and L5-S1. ALIGNMENT: No anterior or posterior subluxation. CONUS: Normal morphology and position of the conus medullaris at L1-2. INTERVERTEBRAL DISCS: T12-L1: No significant posterior disc protrusion, central canal stenosis, or foraminal narrowing. L1-2: Mild posterior disc bulge osteophyte complex with facet arthropathy resulting in minimal narrowing of the thecal sac and increased mild bilateral foraminal narrowing. L2-3: Mild disc bulge with facet arthropathy superimposed on a developmentally narrow spinal canal resulting in mild central canal stenosis and bilateral foraminal narrowing, slightly progressed from prior. L3-4: Mild posterior disc bulge osteophyte complex with facet arthropathy superimposed on a developmentally narrow spinal canal resulting in moderate central canal stenosis and bilateral foraminal narrowing, similar to prior. L4-5: Increased size of posterior disc protrusion with annular fissure and facet arthropathy superimposed on a developmentally narrow spinal canal resulting in increased moderate central canal stenosis and bilateral foraminal narrowing with abutment of the bilateral L4 nerve roots. L5-S1: Increase intervertebral disc space narrowing. Central disc protrusion superimposed on a posterior disc bulge osteophyte complex with facet arthropathy resulting in mild central canal stenosis and mild-moderate bilateral foraminal narrowing, similar to prior. SOFT TISSUES: Mild posterior subcutaneous edema. Small bilateral renal cysts. MRI/Spine Lumbar (Routine) IMPRESSION: Mild interval progression of multilevel degenerative disc disease resulting in moderate spinal canal stenosis, bilateral foraminal narrowing, and nerve root abutment as above. Electronically Signed: Tanna Charles MD at 10:38 EDT ,
== END | disposition home or self-care (01) ==
LOC: MRI 09:16
PROVIDERS: PCP Family Medicine; Referring Provider Family Medicine; Visit Provider Family Medicine
DX: M54.16 Radiculopathy, lumbar region (principal); M51.36 Other intervertebral disc degeneration, lumbar region
CPT/HCPCS: 72148

== ENCOUNTER → 2023-03-23 | Outpatient (CLI) | payer MEDICAID, SELFPAY ==
[2023-03-23 18:56] LABS: T4 Free Direct 0.99 ng/dL (0.76-1.46); Thyroid Stim Hormone (TSH) 0.35 uIU/mL (0.358-3.74)
== END | disposition home or self-care (01) ==
LOC: BFHLAB 14:40
PROVIDERS: PCP Family Medicine; Referring Provider Family Medicine; Visit Provider Family Medicine
DX: E03.9 Hypothyroidism, unspecified (principal)
CPT/HCPCS: 36415; 84439; 84443

== ENCOUNTER → 2023-06-15 | Outpatient (CLI) | payer MEDICAID, SELFPAY ==
[2023-06-15 17:36] LABS: Absolute Lymphocyte Count 2.03 X10^3/uL (0.83-4.51); Absolute Neutrophil Count 5.8 X10^3/uL (2.0-7.7); Basophil# 0.06 X10^3/uL; Basophil% 0.7 % (0-1); Eosinophil# 0.16 X10^3/uL; Eosinophils% 1.8 % (0-5); Hemoglobin 14.4 g/dL (13.0-16.5); Lymphocyte # 2.03 X10^3/ul (0.83-4.51); Lymphocyte % 22.9 % (19-41); Mean Corp Hgb Conc 35.1 g/dL (32-36); Mean Corpuscular Hgb 35.6 pg (27.0-32.0); Mean Corpuscular Volume 101.2 fL (80-94); Mean Platelet Vol. 11.4 fl (6.2-12.0); Monocyte# 0.73 X10^3/uL; Monocyte% 8.2 % (0-10); NRBC Flagged by Analyzer 0 % (0-5); Neutrophil # 5.82 X10^3/uL (2.7-7.7); Neutrophil % 65.5 % (47-70); Platelet Count 283 K/mm3 (150-450); RBC Distribution Width CV 13.6 % (11.6-14.6); RBC Distribution Width SD 47.3 fl (35.1-43.9); Red Blood Count 4.05 M/mm3 (4.6-6.2); White Blood Count 8.9 K/mm3 (4.4-11.0)
[2023-06-15 18:14] LABS: ALB/GLOB Ratio 1.1 RATIO (0.9-2.4); AST(SGOT) 30 U/L (15-37); Alanine Aminotransfer ALT/SGPT 42 U/L (16-61); Albumin, Serum 4.2 g/dL (3.2-5.0); Alkaline Phosphatase 117 U/L (45-117); Anion Gap 8 (5-15); BUN 32 mg/dL (7-18); BUN/Creat Ratio 17.7 RATIO (10-20); Calcium,Total 10.2 mg/dL (8.5-10.1); Chloride 97 mmol/L (98-107); Creatinine, Serum 1.81 mg/dL (0.70-1.30); EST Glomerular Filtration Rate 41 mL/min (>60); Est Glom Filt Rate - Afr Amer 49 mL/min (>60); Globulin 3.9 g/dL (2.2-4.2); Glucose 127 mg/dL (74-106); PSA,Total - Annual Screen 0.37 ng/mL (0.00-4.00); Protein, Total 8.1 g/dL (6.4-8.2); Sodium Level 134 mmol/L (136-145); T4 Free Direct 1.31 ng/dL (0.76-1.46); Thyroid Stim Hormone (TSH) 1.17 uIU/mL (0.358-3.74); Uric Acid 7.4 mg/dL (3.5-7.2)
[2023-06-17 10:48] LABS: Cholesterol 164 mg/dL (200); High Density Lipoprotein 43 mg/dL; Triglycerides 730 mg/dL
== END | disposition home or self-care (01) ==
LOC: BFHLAB 15:10
PROVIDERS: PCP Family Medicine; Visit Provider Family Medicine
DX: Z00.00 Encounter for general adult medical examination without abnormal findings (principal); Z12.5 Encounter for screening for malignant neoplasm of prostate; I10 Essential (primary) hypertension; E03.9 Hypothyroidism, unspecified
CPT/HCPCS: 84153; 36415; 80053; 80061; 83036; 84439; 84443; 84550; 85025; G0103

== ENCOUNTER → 2023-06-21 | Outpatient (CLI) | payer MEDICAID, SELFPAY ==
--- NOTE | 2023-06-21 13:38 | RAD_ITS ---
STUDY: X-RAY CHEST REASON FOR EXAM: Male, 62 years old. Cough with rales. TECHNIQUE: Frontal and lateral views of the chest. COMPARISON: June 07, 2022 FINDINGS: Stable mild cardiomegaly, aortic tortuosity, mild hyperinflation and patchy linear opacities at both bases representing scarring. No active or acute cardiopulmonary disease. No abnormality of the visualized soft tissue structures of the upper abdomen. RAD/Chest PA and Lateral IMPRESSION: Stable chest with no acute or active cardiopulmonary disease. Electronically Signed: Michael Tracy MD at 14:52 EDT ,
== END | disposition home or self-care (01) ==
LOC: RAD 13:28
PROVIDERS: PCP Family Medicine; Referring Provider Family Medicine; Visit Provider Family Medicine
DX: U07.1 COVID-19 (principal)
CPT/HCPCS: 71046

== ENCOUNTER 2023-07-09 11:43 | Emergency (ER) | payer MEDICAID, SELFPAY ==
[2023-07-09 11:43] VITALS: BP 137/94; PULSE 86; RESP 18; TEMP 35.5; O2SAT 97
--- NOTE | 2023-07-09 12:08 | ED.VIS.BACK ---
HPI History of Present Illness Chief Complaint: Back Informant: patient Narrative Narrative: Patient has history of chronic back pain, he started seeing Dr. Varela with pain management and is scheduled for an epidural injection in July, not under contract for pain management, sees his PCP for pain medications which she is currently out of. He lifted a bag of charcoal couple days ago that suddenly exacerbated his chronic symptoms without any new ones. Pain is across his low back, he is naming levels such as L5 and S1. It radiates into his left posterior thigh but not to or below the knee. He states he has had trouble making a good stream of urine lately but he denies any incontinence, retention, or problems having bowel movements. Denies any acute numbness or weakness in his legs. Prior similar symptoms: Yes and With Prior Back Pain [facility] Medical History Acute bronchitis Acute maxillary sinusitis, unspecified Arthritis Asthma Atherosclerotic heart disease of [place] coronary artery without angina pectoris Bee sting-induced anaphylaxis Bloody ejaculation CAD (coronary artery disease) Chronic back pain Closed fracture of metatarsal bone Colitis Degenerative disc disease Depression Dermatophytosis of nail Diverticular disease Diverticulitis Essential (primary) hypertension Gout Heel spur HLD (hyperlipidemia) Hypertriglyceridemia Hypothyroidism Macrocytosis Obesity Old myocardial infarction Prediabetes Psoriasis Psoriasis Seasonal allergies Spontaneous ecchymosis Tendinitis of right foot Tobacco abuse Umbilical hernia without mention of obstruction or gangrene URI (upper respiratory infection) Home Medications aspirin 81 mg tablet,delayed release 81 mg PO DAILY 03/21/20 [History Last Taken 04/04/20] diazepam 10 mg tablet 10 mg PO Q6H PRN Anxiety 03/21/20 [History Last Taken 05/15/20] oxycodone 10 mg tablet,crush resistant,extended release 12 hr 10 mg PO Q6H PRN Pain Or Fever 04/02/20 [History Last Taken 05/15/20] albuterol sulfate 90 mcg/actuation aerosol inhaler 2 puff inhalation Q6H PRN shortness of breath or wheezing #8.5 grams 05/16/20 [Rx Last Taken Unknown] carvedilol 3.125 mg tablet 3.125 mg PO BID #180 tabs 07/08/20 [Rx Last Taken Unknown] icosapent ethyl 1 gram capsule (Vascepa) 2 g PO DAILY 10/22/20 [History Last Taken Unknown] levothyroxine 125 mcg tablet 125 mcg PO DAILY #90 tabs 12/17/20 [Rx Last Taken Unknown] lisinopril 20 mg tablet 20 mg PO QDAY #90 tabs 12/17/20 [Rx Last Taken Unknown] albuterol sulfate 90 mcg/actuation aerosol inhaler (Ventolin HFA) 1 - 2 puff inhalation Q4H PRN PRN Wheezing #6.7 grams 06/07/22 [Rx Last Taken Unknown] bupropion HCl 150 mg 24 hr tablet, extended release 150 mg PO 01/07/23 [History Last Taken Unknown] rosuvastatin 5 mg tablet 20 mg PO DAILY 01/07/23 [History Last Taken Unknown] amoxicillin 875 mg-potassium clavulanate 125 mg tablet 1 tab PO BID #20 tabs 04/12/23 [Rx Last Taken Unknown] Allergy/AdvReac Type Severity Reaction Status Date / Time venom-honey bee Allergy Severe Anaphylaxis Verified 04/12/23 15:59 [bee venom (honey bee)] fenofibrate [From [employer]] Allergy Swelling Verified 04/12/23 15:59 Family History Father Hypertension Hyperlipidemia Mother Lung cancer Surgical History H/O prior ablation treatment (~02/2014) History of coronary artery stent placement (~11/06/12) History of left heart catheterization (06/02/13) History of umbilical hernia repair Normal colonoscopy (~2014) Social History Smoking Status: Current every day smoker tobacco type: cigarettes Tobacco: How many years used: 42 Electronic Cigarette Use: not used second hand exposure: Yes (both parents smoked in the home) quit status: has quit before counseling given: provider counseling alcohol intake: never substance use type: does not use caffeine: No what type of physical activity do you participate in: weight training frequency: 3-4 times per week seatbelt use: always do you feel safe at home: Yes ROS ROS ED Constitutional Constitutional ED: Denies chills or fever(s) Gastrointestinal Gastrointestinal: Denies abdominal pain, constipation, fecal incontinence, nausea or vomiting Genitourinary Genitourinary ED: Reports other Details: no urinary retention ; Denies abdominal discomfort or urinary incontinence Musculoskeletal Musculoskeletal: Reports as per HPI and back pain; Denies neck pain Integumentary Denies rash or wounds Neurologic Neurologic: Denies headache(s), paresthesias or weakness EXAM Physical Exam Const Vital Signs: 07/09/23 11:43 Temperature 95.9 F L Temperature Source Temporal Pulse Rate 86 Respiratory Rate 18 Blood Pressure 137/94 H Blood Pressure Mean 108 Pulse Ox 97 Oxygen Delivery Method Room Air Positive well nourished and well developed General Appearance ED: well developed and NAD HEENT Negative for trauma or tenderness Eyes PERRL and EOMs intact bilaterally Neck full ROM and supple GI normal to inspection, nondistended, normoactive bowel sounds, soft to palpation and non-tender Back/Spine normal to inspection Back/Spine Narrative: Component of muscular spasm. Lumbar Spine / Lower Back: ROM limited, paraspinal muscle tenderness and straight leg raise negative bilaterally; Negative for lumbar spinal tenderness Extremity normal to inspection, full ROM and no pedal edema Neuro oriented x3 and no sensory deficits noted Sensorium / Orientation: alert Motor Exam: strength 5/5 throughout and clonus absent Deep Tendon Reflexes: Rt Patellar (L4): 2+, Lt Patellar (L4): 2+, Rt Ankle (S1): 2+ and Lt Ankle (S1): 2+ Deep Tendon Reflexes Back: Rt Patellar (L4): 2+, Lt Patellar (L4): 2+, Rt Ankle (S1): 2+ and Lt Ankle (S1): 2+ Plantar Reflex: Downgoing: bilateral Psych mental status grossly normal and thought process normal Psych Narrative: Anxious in pain Skin no rashes or lesions noted and no wounds MDM MDM MDM Narrative Medical decision making narrative: Patient is not having signs or symptoms of acute cauda equina syndrome at this time. We will treat his pain with IM pain and muscle relaxer medications, advised and follow-up. I reviewed his OARRS report. He had a 30-day supply of oxycodone that was prescribed around 25 days ago so not able to prescribe him a new course. Discharge Plan Triage Chief Complaint: Back ED Provider: John Larose Dx/Rx/DC Orders Clinical Impression: Acute exacerbation of chronic low back pain Instructions: ED Back Pain (Acute or Chronic) Prescriptions: No Action icosapent ethyl [Vascepa] 1 gram capsule 2 g PO DAILY rosuvastatin 5 mg tablet 20 mg PO DAILY bupropion HCl 150 mg tablet extended release 24 hr 150 mg PO amoxicillin-pot clavulanate 875-125 mg tablet 1 tab PO BID Qty: 20 0RF aspirin 81 MG tablet,delayed release (DR/EC) 81 mg PO DAILY diazepam 10 MG tablet 10 mg PO Q6H PRN (Reason: Anxiety) oxycodone 10 MG tablet 10 mg PO Q6H PRN (Reason: Pain Or Fever) albuterol sulfate [Ventolin HFA] 90 mcg/actuation HFA aerosol inhaler 1 - 2 puff inhalation Q4H PRN PRN (Reason: Wheezing) Qty: 6.7 0RF albuterol sulfate 90 mcg/actuation HFA aerosol inhaler 2 puff INHALATION Q6H PRN (Reason: shortness of breath or wheezing) Qty: 8.5 2RF carvedilol 3.125 mg tablet 3.125 mg PO BID Qty: 180 1RF levothyroxine 125 mcg tablet 125 mcg PO DAILY Qty: 90 3RF lisinopril 20 mg tablet 20 mg PO QDAY Qty: 90 3RF Primary Care Provider: Dariel Lopez Referrals: Dariel Lopez DO [Primary Care Provider] - 3-5 Days if not improving (Or Dr. Varela) Disposition Disposition: Home, Self Care
[2023-07-09] MEDS: HYDROmorphone 1 MG/ML Syringe IM (12:28)
[2023-07-09] MEDS: Orphenadrine 60 MG/2 ML Ampul IM (12:29)
[2023-07-09 12:33] VITALS: BMI 28.1
[2023-07-09 13:13] VITALS: BP 128/58; PULSE 74; RESP 18; O2SAT 99
== END 2023-07-09 13:14 | disposition home or self-care (01) ==
PROVIDERS: Emergency Provider Emergency Medicine; PCP Family Medicine; Visit Provider Emergency Medicine
DX: M54.50 Low back pain, unspecified (principal); G89.29 Other chronic pain; I25.10 Atherosclerotic heart disease of native coronary artery without angina pectoris; I10 Essential (primary) hypertension; E78.5 Hyperlipidemia, unspecified; F17.210 Nicotine dependence, cigarettes, uncomplicated; J45.909 Unspecified asthma, uncomplicated
CPT/HCPCS: 96372; 99282

== ENCOUNTER → 2023-09-14 | Outpatient (CLI) | payer MEDICAID, SELFPAY ==
[2023-09-14 16:01] LABS: Color, Urine Yellow (Yellow); Glucose, Dipstick Normal (Normal); Ketone-Dipstick Negative (Negative); Leukocyte Esterase-Dipstick Negative /ul (Negative); Nitrite-Dipstick Negative (Negative); Occult Blood-Urine Negative /ul (Negative); Protein-Dipstick Negative (Negative); Specific Gravity, Urine 1.015 (1.002-1.030); Urine Bilirubin Dipstick Negative (Negative); Urine Clarity Clear (Clear); Urine Urobilinogen Normal (Normal)
[2023-09-14 16:27] LABS: Amphetamine Urine VISTA NEGATIVE (<1000 ng/mL); Barbiturate Urine VISTA NEGATIVE (< 200 ng/mL); Benzodiazepine Urine VISTA NEGATIVE (< 200 ng/mL); Cocaine Urine VISTA NEGATIVE (< 300 ng/mL); Ecstacy Urine VISTA POSITIVE (< 500 ng/mL); Methadone Urine VISTA NEGATIVE (< 300 ng/mL); PCP Urine VISTA NEGATIVE (< 25 ng/mL); THC Urine VISTA NEGATIVE (< 50 ng/mL); Vista UDS pH Range 6
[2023-09-14 16:33] LABS: OXY Internal Control LINE = VALID (VALID); Oxycodone Drug Screen Positive (<100 ng/mL)
[2023-09-14 16:42] LABS: Anion Gap 5 (5-15); BUN 7 mg/dL (7-18); BUN/Creat Ratio 6.8 RATIO (10-20); Calcium,Total 9.9 mg/dL (8.5-10.1); Chloride 107 mmol/L (98-107); Cholesterol 163 mg/dL (200); Creatinine, Serum 1.03 mg/dL (0.70-1.30); EST Glomerular Filtration Rate 78 mL/min (>60); Est Glom Filt Rate - Afr Amer 94 mL/min (>60); Glucose 90 mg/dL (74-106); High Density Lipoprotein 37 mg/dL; Potassium 4.1 mmol/L (3.5-5.1); Sodium Level 141 mmol/L (136-145); T4 Free Direct 1.09 ng/dL (0.76-1.46); Thyroid Stim Hormone (TSH) 0.64 uIU/mL (0.358-3.74); Triglycerides 407 mg/dL
[2023-09-16 08:11] LABS: LDL, Direct 120295 61 mg/dL (0-99)
== END | disposition home or self-care (01) ==
LOC: BFHLAB 13:34
PROVIDERS: PCP Family Medicine; Visit Provider Family Medicine
DX: I25.10 Atherosclerotic heart disease of native coronary artery without angina pectoris (principal); E03.9 Hypothyroidism, unspecified; I10 Essential (primary) hypertension; Z79.899 Other long term (current) drug therapy
CPT/HCPCS: 80365; 36415; 80048; 80061; 80307; 81002; 83721; 84439; 84443; G0480

== ENCOUNTER 2024-01-31 15:00 | Outpatient (RCR) | payer MEDICAID, SELFPAY ==
--- NOTE | 2024-01-10 15:38 | HP.PTEVAL ---
Patient's Visit Information Visit Information Visit Information: HELEN RUDD Jr. is a 63 year old M referred to Physical Therapy by Dr. Dariel Lopez DO with a diagnosis of DDD Lumbar. Date of Evaluation: 01/10/24 Physical Therapist: Soto Nix, DPT, OCS, CSCS Visit Plan Frequency: 2x /Week Duration: 4-6 Weeks Plan: 2x/week for 4-6 weeks for aqiatc therapy for: 1. lumbaar ROM 2. HS, quad, ITb stretching 3. core and LE strength 4. general calorie burning and teach for progression to relatives pool at home with pics/list. Subjective Subjective: Chronic back pain since 2005, was hanging drywall and fell off bench and down steps. Has pain management and PT and water therapy sometimes help when he builds core. bending over sink to do dishes is painful. HEp, bands and exercises for leg strength and core strength. Has done some hotel pool exercises at [facility] but got out of habit when mom . pain has worsened. Pain now is 7+/10. it wakes him up in middle of night. Wants to avoid pain meds if he can (oxycodone) Not employed , on SSI from back. Hobbies: [place] and fish and they are not too bad, he can lightly walk. Basic ADLS, getting done but socks on hurts Spends day: planting garden as much as he can if he kneels. Has leg symptoms L leg to toes at times without pattern. Pain LBP: Pain Intensity (Out of 10): 3 Pain Intensity Range: 3 and 7 Objective Objective: Walks hunched over and hesitant to move quickly. painful to transtion but can do so I bed and chair. has catches of pain every now and then with random movements. LB AROM ext is max limited and painful, flexion is max limited and painful, SB are max limited and painful mostly centrally. No leg symptoms today. + slump and + SLR B core strength 3/5 hip strength 3/5 hip abd. ext and 3+ flexion with pain. knee ext strength 3+ and painful B, HSC 4- and some pain in back B. ankle strength 4/5 without pain. reflexes 1/3 patella and achilles B. Sensation LE WNL to gross light touch. HS adn quad max tight, ITB mod tight B Balance/Special Test Scores Oswestry Low Back Score: 14 Goals Goal 1:: Transition bed and chair without visual evidence of pain Goal Time Frame: 4-6 Weeks Goal 2:: I appropriate aquatic exercise to minimize future problems Goal Time Frame: 4-6 Weeks Goal 3:: Pain 2/10 at worst and 50% better in overall pain Goal Time Frame: 4-6 Weeks Goal 4:: Walk without wincing into PT Goal Time Frame: 4-6 Weeks Goal 5:: 8 ior better on oswestry Goal Time Frame: 4-6 Weeks Rehabilitation Potential Physical Therapy Diagnosis: stiffness and pain and limited mobility in spine limtiing funciton comfort. Rehabilitation Potential: Fair Anticipated Interventions Patient/Client Instruction: Educate patient on: Condition For the Purpose of:: To decrease pain, To increase ROM, To improve nutrient delivery to tissue, To improve muscle performance and motor function, To increase tolerance to activity/condition/position and To improve gait and locomotor functions Therapeutic Exercise to Include: Strength training, Postural training, Flexibilty training, In an aquatic setting, Passive ROM, Active ROM and Dynamic Lumbar Stabilization For the Purpose of:: To decrease pain, To increase ROM, To improve nutrient delivery to tissue, To improve muscle performance and motor function, To increase tolerance to activity/condition/position, To improve ability of physical actions for home/community/work/leisure and To improve gait and locomotor functions Text: Thank you for the opportunity to evaluate your patient. For Medicare and Medicare HMO plans, please review the plan of care and approve it. It will need to be FAXED BACK to us at [phone] for Medicare purposes. For Medicare only, by signing this I certify the plan of care. Please let me know if there are questions or concerns regarding this plan of care. Physician Signature: Date:
--- NOTE | 2024-04-05 08:01 | HP.PT.NRP ---
Patient Information Patient Information: HELEN RUDD Jr. was seen in my office for initial evaluation on 01/10/24. The following Plan of Care was established for this patient: POC Established Initial Frequency: 2x /Week Initial Duration: 4-6 Weeks Anticipated Interventions Patient/Client Instruction: Educate patient on: Condition For the Purpose of:: To decrease pain, To increase ROM, To improve nutrient delivery to tissue, To improve muscle performance and motor function, To increase tolerance to activity/condition/position and To improve gait and locomotor functions Therapeutic Exercise to Include: Strength training, Postural training, Flexibilty training, In an aquatic setting, Passive ROM, Active ROM and Dynamic Lumbar Stabilization For the Purpose of:: To decrease pain, To increase ROM, To improve nutrient delivery to tissue, To improve muscle performance and motor function, To increase tolerance to activity/condition/position, To improve ability of physical actions for home/community/work/leisure and To improve gait and locomotor functions Last Seen Last Seen: This patient was last seen in our office 01/31/24. Pertinent comments regarding their Physical therapy will appear below: Pt seen for 4 visits in [place] but did not attend any further of his POC cancelling the last 4. At this point it has been over 2 months and I will discontinue due to nonattendance. At this point I will be discontinuing this patient from physical therapy. I would be happy to see this patient again in the future if found appropriate by the physician. Thank you! Soto Nix, DPT, OCS, CSCS Balance/Gait/Functional tests Balance/Special Test Scores Oswestry Low Back Score: 14
== END 2024-01-31 19:00 | disposition home or self-care (01) ==
LOC: PT 15:00
PROVIDERS: PCP Family Medicine; Referring Provider Family Medicine; Visit Provider Family Medicine
DX: M51.36 Other intervertebral disc degeneration, lumbar region (principal)
CPT/HCPCS: 97113; 97161

== ENCOUNTER → 2024-03-17 | Outpatient (CLI) | payer MEDICAID, SELFPAY ==
[2024-03-17 12:22] LABS: Absolute Lymphocyte Count 1.86 X10^3/uL (0.83-4.51); Basophil# 0.07 X10^3/uL; Eosinophil# 0.13 X10^3/uL; Eosinophils% 1.9 % (0-5); Hematocrit 49.8 % (40-54); Hemoglobin 15.9 g/dL (13.0-16.5); Lymphocyte # 1.86 X10^3/ul (0.83-4.51); Lymphocyte % 26.6 % (19-41); Mean Corp Hgb Conc 31.9 g/dL (32-36); Mean Corpuscular Hgb 30.8 pg (27.0-32.0); Mean Corpuscular Volume 96.5 fL (80-94); Mean Platelet Vol. 10.4 fl (6.2-12.0); Monocyte# 0.92 X10^3/uL; Monocyte% 13.1 % (0-10); NRBC Flagged by Analyzer 0 % (0-5); Neutrophil # 3.98 X10^3/uL (2.7-7.7); Neutrophil % 56.8 % (47-70); Platelet Count 401 K/mm3 (150-450); RBC Distribution Width CV 13.2 % (11.6-14.6); RBC Distribution Width SD 47.2 fl (35.1-43.9); Red Blood Count 5.16 M/mm3 (4.6-6.2)
[2024-03-17 12:35] LABS: Hepatitis B Surface Antibody Non-Reactive
[2024-03-17 12:38] LABS: AST(SGOT) 21 U/L (15-37); Alanine Aminotransfer ALT/SGPT 33 U/L (16-61); Albumin, Serum 4.1 g/dL (3.2-5.0); Alkaline Phosphatase 103 U/L (45-117); Anion Gap 6 (5-15); BUN 20 mg/dL (7-18); BUN/Creat Ratio 14.9 RATIO (10-20); Calcium,Total 10.2 mg/dL (8.5-10.1); Chloride 105 mmol/L (98-107); Creatinine, Serum 1.34 mg/dL (0.70-1.30); EST Glomerular Filtration Rate 58 mL/min (>60); Est Glom Filt Rate - Afr Amer 70 mL/min (>60); Glucose 99 mg/dL (74-106); Potassium 4.6 mmol/L (3.5-5.1); Protein, Total 8.1 g/dL (6.4-8.2); Sodium Level 138 mmol/L (136-145)
[2024-03-21 19:08] LABS: HEPATITIS B SURFACE AG Negative (Negative); Hep C Antibodies Non Reactive (Non Reactive); Hepatitis A AB, Total Negative (Negative); Hepatitis A IgM Antibody Negative (Negative); Hepatitis B Core AB IgM Negative (Negative); QNTFERON TB Mitogen Value > 10.00 IU/mL (.); QNTFERON TB Nil Value 0.18 IU/mL (.); QNTFERON TB1+ Ag Value 0.13 IU/mL (.); QNTFERON TB2+ Ag Value 0.18 IU/mL (.); QNTIFERON TB Positive Criteria Negative (Negative)
== END | disposition home or self-care (01) ==
LOC: BIMLAB 08:44
PROVIDERS: PCP Family Medicine; Visit Provider Physician Assistant
DX: L40.0 Psoriasis vulgaris (principal); Z79.899 Other long term (current) drug therapy
CPT/HCPCS: 36415; 80053; 80074; 85025; 86480; 86706; 86708

== ENCOUNTER → 2024-08-15 | Outpatient (CLI) | payer MEDICAID, SELFPAY ==
[2024-08-15 18:19] LABS: Cholesterol 167 mg/dL (200); High Density Lipoprotein 42 mg/dL; PSA,Total - Annual Screen 0.42 ng/mL (0.00-4.00); Triglycerides 395 mg/dL; Very Low Density Lipoprotein 79 mg/dL (5-40)
[2024-08-15 19:27] LABS: Hemoglobin A1c 5.6 % (3.8-5.6)
[2024-08-17 08:10] LABS: LDL, Direct 120295 63 mg/dL (0-99)
== END | disposition home or self-care (01) ==
LOC: BFHLAB 14:20
PROVIDERS: PCP Family Medicine; Referring Provider Family Medicine; Visit Provider Family Medicine
DX: Z12.5 Encounter for screening for malignant neoplasm of prostate (principal); I25.10 Atherosclerotic heart disease of native coronary artery without angina pectoris; E03.9 Hypothyroidism, unspecified; R73.03 Prediabetes; Z79.899 Other long term (current) drug therapy
CPT/HCPCS: 84153; 36415; 80061; 83036; 83721; 84443; G0103

== ENCOUNTER → 2024-08-17 | Outpatient (CLI) | payer MEDICAID, SELFPAY | END | disposition home or self-care (01) | PROVIDERS: PCP Family Medicine; Visit Provider Family Medicine | DX: Z51.81 Encounter for therapeutic drug level monitoring (principal); Z79.899 Other long term (current) drug therapy | CPT/HCPCS: 36415 ==

== ENCOUNTER 2024-09-18 08:56 | Observation (INO) | payer MEDICAID, SELFPAY ==
[2024-09-18] VITALS (15 sets, daily range): BP systolic 120–153; BP diastolic 81–109; PULSE 79–100; RESP 12–25; TEMP 36.4–36.9; O2SAT 95–99; BMI 29.8; BMI 29.0
--- NOTE | 2024-09-18 09:23 | RAD_ITS ---
STUDY: X-RAY - RIGHT SHOULDER REASON FOR EXAM: Male, 64 years old. Fall, pain TECHNIQUE: 4 view(s) of the shoulder. COMPARISON: None. FINDINGS: Normal glenohumeral articulation. There is hypertrophic osteoarthrosis of the acromioclavicular joint with inferior osseous spur formation. Normal acromion. Normal humeral head and visualized proximal humerus. The soft tissue structures are unremarkable. Normal visualized pulmonary apex. RAD/Shoulder min 2 Views IMPRESSION: Degenerative changes. Electronically Signed: Pineda Green MD at 10:28 EST ,
--- NOTE | 2024-09-18 09:23 | CT_ITS ---
STUDY: CT BRAIN WITHOUT CONTRAST REASON FOR EXAM: Male, 64 years old. Trauma RADIATION DOSAGE (If Supplied By Facility): CTDIvol = ( 44.99 ) mGy, DLP = ( 829.85 ) mGycm TECHNIQUE: Transaxial CT imaging of the brain was performed without administration of intravenous contrast material. Individualized dose optimization techniques were used for this CT. COMPARISON: Comparison is made with prior study dated February 14, 2017. FINDINGS: Normal soft tissue structures. Normal calvarium. There is mild cerebral atrophy with widening of the extra-axial spaces and ventricular dilatation. Normal white matter tracts of the cerebral hemispheres. Normal basal ganglia and thalami. Normal brainstem. Normal cerebellum. There is no intracranial hemorrhage. There are no findings of an acute ischemic infarction. Normal visualized paranasal sinuses. CT/Brain/Head without Contrast IMPRESSION: Chronic involutional changes of the brain. Electronically Signed: Pineda Green MD at 10:45 EST ,
--- NOTE | 2024-09-18 09:24 | EKG12_ITS ---
Test Reason : SOB Blood Pressure : */* mmHG Vent. Rate : 80 BPM Atrial Rate : 80 BPM P-R Int : 180 ms QRS Dur : 140 ms QT Int : 404 ms P-R-T Axes : 31 -87 64 degrees QTcB Int : 465 ms Normal sinus rhythm Left axis deviation Right bundle branch block Abnormal ECG Confirmed by NÉSTOR SANDOVAL, TIFFANY ([id number]), senior technical editor SHANELLE DIANA ([id number]) on 09/26/2024 6:47:41 AM Referred By: JERMAIN/DENI Confirmed By: TIFFANY PALM MD
--- NOTE | 2024-09-18 09:27 | EX.ED.DYSGE1 ---
HPI History of Present Illness Chief Complaint: Shortness of Breath Narrative Narrative: Patient is a 64-year-old male with past medical history of CAD, depression, asthma, prediabetic, hyperlipidemia, hypothyroidism, degenerative disc disease who presents to the Emergency Department chief complaint of generalized weakness, shortness of breath and not feeling well. Patient states that last week he was diagnosed with pneumonia and was put on steroids. Patient states that he is unsure what antibiotic he was on but one of the strongest ones that you can be on patient states that he had several falls recently and is unsure why he is falling. States that he is very weak overall. Patient states that he was also recently diagnosed with RSV. [facility] Medical History Acute maxillary sinusitis, unspecified Diverticulitis Closed fracture of metatarsal bone Psoriasis CAD (coronary artery disease) Bee sting-induced anaphylaxis Dermatophytosis of nail Diverticular disease Macrocytosis Depression Seasonal allergies Acute bronchitis Asthma Psoriasis Colitis Prediabetes Tendinitis of right foot Essential (primary) hypertension URI (upper respiratory infection) Umbilical hernia without mention of obstruction or gangrene Atherosclerotic heart disease of [place] coronary artery without angina pectoris Old myocardial infarction HLD (hyperlipidemia) Hypertriglyceridemia Hypothyroidism Tobacco abuse Bloody ejaculation Spontaneous ecchymosis Heel spur Gout Arthritis Chronic back pain Degenerative disc disease Obesity Home Medications ?Medication ?Instructions ?Recorded ?Last Taken ?Type diazepam 10 mg tablet 10 mg PO Q6H PRN Anxiety 03/21/20 05/15/20 History oxycodone 10 mg tablet,crush 10 mg PO Q6H PRN Pain Or Fever 04/02/20 05/15/20 History resistant,extended release 12 hr albuterol sulfate 90 mcg/actuation 2 puff inhalation Q6H PRN 05/16/20 Unknown Rx aerosol inhaler shortness of breath or wheezing #8.5 grams carvedilol 3.125 mg tablet 3.125 mg PO BID #180 tabs 07/08/20 Unknown Rx icosapent ethyl 1 gram capsule 2 g PO DAILY 10/22/20 Unknown History (Vascepa) levothyroxine 125 mcg tablet 125 mcg PO DAILY #90 tabs 12/17/20 Unknown Rx lisinopril 20 mg tablet 20 mg PO QDAY #90 tabs 12/17/20 Unknown Rx bupropion HCl 150 mg 24 hr tablet, 150 mg PO DAILY 01/07/23 Unknown History extended release benzonatate 100 mg capsule 200 mg (2 x 100 mg) PO TID PRN 12/08/23 Unknown Rx cough #30 caps rosuvastatin 20 mg tablet 20 mg PO QHS 09/18/24 Unknown History Allergy/AdvReac Type Severity Reaction Status Date / Time venom-honey bee (bee venom Allergy Severe Anaphylaxis Verified 12/08/23 08:44 (honey bee)) fenofibrate (From Tricor) Allergy Swelling Verified 12/08/23 08:44 Family History Father Hypertension Hyperlipidemia Mother Lung cancer Surgical History H/O prior ablation treatment (~02/2014) History of umbilical hernia repair History of left heart catheterization (06/02/13) History of coronary artery stent placement (~11/06/12) Normal colonoscopy (~2014) Social History Smoking Status: Former smoker Tobacco: How many years used: 42 Electronic Cigarette Use: not used second hand exposure: Yes (both parents smoked in the home) quit status: has quit before alcohol intake: never substance use type: does not use caffeine: No what type of physical activity do you participate in: weight training frequency: 3-4 times per week seatbelt use: always do you feel safe at home: Yes ROS ROS ED ROS Narrative Constitutional: Complains of chills and back pain denies any lightheadedness or dizziness Eyes: Denies change in vision double vision blurry vision Cardiovascular: Denies chest pain or palpitations Respiratory: Complains of shortness of breath and wheezing as well as cough Abdomen: Denies abdominal pain nausea vomit diarrhea : Denies any urinary symptoms Neurological: Complains of generalized weakness denies numbness, tingling Musculoskeletal: Complains of back pain as noted above Skin: Denies rashes or lesions EXAM Physical Exam Narrative Exam Narrative: General: Patient lying in bed did appear to be uncomfortable not feeling well Head: Atraumatic, normocephalic Eyes: PERRL bilaterally, EOMI bilateral, no conjunctival injection noted Neck: Soft, supple, trachea midline Cardiovascular: Regular in rhythm no murmurs gallops rubs noted Respiratory: Patient has diffuse end expiratory wheezing noted bilaterally Abdomen: Soft, nondistended, nontender to palpation Musculoskeletal: Patient is tenderness palpation the midline of the thoracic and lumbar spine no step-offs or deformities noted. Patient has some tenderness palpation of the right shoulder. Extremities: +3/5 strength noted in the bilateral upper and lower extremities, no pedal edema on exam, radial pulses +2/4 in the bilateral per extremities Neurological: Patient following commands knew that he was at [facility] year is 2024. NIH of 0 GCS 15 Skin: Warm, dry, patient has ecchymosis noted to the posterior right shoulder from his fall that he landed on his shoulder Const Vital Signs: 09/18/24 08:57 09/18/24 09:02 09/18/24 09:03 Temperature 98.0 F Temperature Source Oral Pulse Rate 83 Respiratory Rate 25 H Respiratory Effort Short of Breath Respiratory Depth Shallow Respiratory Pattern Tachypnea Blood Pressure 136/104 H Blood Pressure Mean 114 Pulse Ox 96 Oxygen Delivery Method Room Air Room Air 09/18/24 09:24 09/18/24 09:35 09/18/24 10:00 Temperature 97.6 F L Temperature Source Temporal Pulse Rate 79 88 Respiratory Rate 16 18 Respiratory Effort Respiratory Depth Respiratory Pattern Blood Pressure 130/92 H Blood Pressure Mean 104 Pulse Ox 97 Oxygen Delivery Method Room Air Room Air 09/18/24 11:00 09/18/24 12:00 09/18/24 13:00 Temperature 97.9 F 98.3 F Temperature Source Temporal Temporal Pulse Rate 81 90 91 Respiratory Rate 16 15 12 Respiratory Effort Respiratory Depth Respiratory Pattern Blood Pressure 135/81 H 143/109 H Blood Pressure Mean 99 120 Pulse Ox 95 95 96 Oxygen Delivery Method Room Air Room Air 09/18/24 13:24 09/18/24 13:26 Temperature 98.1 F Temperature Source Pulse Rate 98 98 Respiratory Rate 16 16 Respiratory Effort Respiratory Depth Respiratory Pattern Normal Blood Pressure 143/92 H Blood Pressure Mean 109 Pulse Ox 99 Oxygen Delivery Method MDM MDM MDM Narrative Medical decision making narrative: Patient is a 64-year-old male who presented to the emergency department chief complaint of generalized weakness, multiple falls, shortness of breath. On the differential diagnose includes but not limited to ACS, pneumonia, pneumothorax, upper respiratory infection secondary viral etiology, asthma exacerbation, AAA, electrolyte abnormality. Once workup is obtained reviewed he will be reevaluated. Patient be given 30 cc/kg bolus of IV fluids 9:25 AM. Patient be given 3 DuoNebs and Solu-Medrol as well. Patient's CBC was significant for leukocytosis of 15,000, hemoglobin 15.4, plate count was noted to be 318. Patient's INR normal at 0.9, PT of 12.2. Patient's was noted be hyponatremic with a sodium of 128, creatinine was 1.22. Patient lactic acid normal at 1.1, AST and ALT were noted to be 25 and 26 respectively. Patient's troponin was noted to be 5 EKG reviewed and showed sinus rhythm with a rate of 80 bpm with evidence of right bundle branch block. Patient TSH was noted be 10.8, free T3 and T41.8 And 0.85 respectively. Patient's urinalysis reviewed showed no evidence of infection. Patient's x-ray of his shoulder reviewed by myself by radiology showed no acute fracture dislocation degenerative changes noted. Patient CT head and brain without contrast was reviewed and showed chronic involutional changes of the brain. Patient CT cervical spine reviewed and showed multilevel degenerative changes. Patient CT chest abdomen pelvis with contrast reviewed and showed findings suggestive of mild linear scarring and/or atelectasis at the lung bases. Mild degree of central intrahepatic biliary ductal dilation and mildly dilated common bile duct down to the level of the ampulla Vater no gallstones or choledocholithiasis seen. Degenerative changes at the L5-S1 level. On reevaluation the patient he is still having wheezing will order him more albuterol. Patient was ambulated here in the emergency department was very unsteady on his feet likely leading to his multiple falls. We will admit the patient to the hospital for his asthma exacerbation in the setting of RSV as well as generalized weakness and multiple falls. Discussed case with hospitalist Dr. Tavera who accept patient for admission. Patient was notified is agreeable to plan all question concerns answered bedside. Lab Data Labs: Laboratory Results - last 24 hr 09/18/24 09/18/24 09/18/24 09:37 09:39 10:34 WBC 15.6 H RBC 4.97 Hgb 15.4 Hct 45.8 MCV 92.2 MCH 31.0 MCHC 33.6 RDW Std Deviation 46.7 H RDW Coeff of Deshawn 13.8 Plt Count 318 MPV 9.7 Immature Gran % (Auto) 1.000 H Neut % (Auto) 77.2 H Lymph % (Auto) 11.1 L Bailey % (Auto) 10.1 H Eos % (Auto) 0.3 Baso % (Auto) 0.3 Absolute Neuts (auto) 12.1 H Absolute Lymphs (auto) 1.74 Nucleated RBC % 0 Differential Comment SCANNED Diff Path Review December foll PT 12.2 INR 0.9 APTT 28.4 Sodium 128 L Potassium 4.5 Chloride 95 L Carbon Dioxide 25.0 Anion Gap 8 BUN 17 Creatinine 1.22 Estim Creat Clear Calc 65.91 Est GFR (MDRD) Af Amer 77 Est GFR (MDRD) Non-Af 64 BUN/Creatinine Ratio 13.9 Glucose 84 Lactic Acid 1.1 Calcium 9.5 Total Bilirubin 1.30 H AST 25 ALT 26 Alkaline Phosphatase 92 Troponin I High Sens 5 B-Natriuretic Peptide 19.3 Total Protein 7.7 Albumin 4.0 Globulin 3.7 Albumin/Globulin Ratio 1.1 TSH 10.800 H Free T4 0.85 Free T3 pg/dL 1.8 L Urine Color Yellow Urine Clarity Sl. Cloudy Urine pH 7.0 Ur Specific [place] 1.010 Urine Protein 15 H Urine Glucose (UA) Normal Urine Ketones Negative Urine Occult Blood Negative Urine Nitrite Negative Urine Bilirubin Negative Urine Urobilinogen Normal Ur Leukocyte Esterase Negative Urine RBC 0 SEEN Urine WBC 0 SEEN Ur Squamous Epith Cells 0 SEEN Urine Bacteria 0 SEEN Urine Mucus 0 SEEN Radiography Diagnostic Testing: Clinical Impression(s) from Imaging Studies Brain CT 09/18/24 09:23 IMPRESSION: Chronic involutional changes of the brain. Electronically Signed: Pineda Green MD at 10:45 EST , Shoulder X-Ray 09/18/24 09:23 IMPRESSION: Degenerative changes. Electronically Signed: Pineda Green MD at 10:28 EST , Cervical Spine CT 09/18/24 10:10 IMPRESSION: Multilevel degenerative changes, as described above. Electronically Signed: Pineda Green MD at 10:42 EST , Chest/Abdomen/Pelvis CT 09/18/24 10:10 IMPRESSION: Findings suggestive of mild linear scarring and/or atelectasis at the lung bases. Mild degree of central intrahepatic biliary ductal dilatation and mildly dilated common bile duct down to the level of the ampulla of Vater. No gallstone or choledocholithiasis is seen. Degenerative changes at the L5-S1 level. Electronically Signed: Pineda Green MD at 10:52 EST , Discharge Plan Triage Chief Complaint: Shortness of Breath ED Provider: Víctor Martini Dx/Rx/DC Orders Clinical Impression: Asthma exacerbation, Respiratory syncytial virus (RSV), Generalized weakness, Multiple falls Prescriptions: No Action icosapent ethyl [Vascepa] 1 gram capsule 2 g PO DAILY bupropion HCl 150 mg tablet extended release 24 hr 150 mg PO DAILY benzonatate 100 mg capsule 200 mg PO TID PRN (Reason: cough) Qty: 30 0RF diazepam 10 MG tablet 10 mg PO Q6H PRN (Reason: Anxiety) oxycodone 10 MG tablet 10 mg PO Q6H PRN (Reason: Pain Or Fever) rosuvastatin 20 mg tablet 20 mg PO QHS albuterol sulfate 90 mcg/actuation HFA aerosol inhaler 2 puff INHALATION Q6H PRN (Reason: shortness of breath or wheezing) Qty: 8.5 2RF carvedilol 3.125 mg tablet 3.125 mg PO BID Qty: 180 1RF levothyroxine 125 mcg tablet 125 mcg PO DAILY Qty: 90 3RF lisinopril 20 mg tablet 20 mg PO QDAY Qty: 90 3RF Primary Care Provider: Dariel Lopez Referrals: Dariel Lopez, DO [Primary Care Provider] - Print Language: Yakut Disposition Disposition: Acute Care Hospital [facility]
[2024-09-18] MEDS: Ipratropium/Albuterol Sulfate 3 ML AMPUL.NEB INHALATION ×5 (09:30→20:26)
[2024-09-18] MEDS: MethylPREDNISolone 125 MG/2 ML Vial IV (09:35)
[2024-09-18] MEDS: Morphine 4 MG/ML Syringe IV (09:35)
[2024-09-18] MEDS: Ondansetron 4 MG/2 ML Vial IV (09:35)
[2024-09-18 09:49] LABS: Absolute Lymphocyte Count 1.74 X10^3/uL (0.83-4.51); Absolute Neutrophil Count 12.1 X10^3/uL (2.0-7.7); Basophil# 0.05 X10^3/uL; Basophil% 0.3 % (0-1); Eosinophil# 0.04 X10^3/uL; Eosinophils% 0.3 % (0-5); Hematocrit 45.8 % (40-54); Hemoglobin 15.4 g/dL (13.0-16.5); Lymphocyte # 1.74 X10^3/ul (0.83-4.51); Lymphocyte % 11.1 % (19-41); Mean Corp Hgb Conc 33.6 g/dL (32-36); Mean Corpuscular Volume 92.2 fL (80-94); Mean Platelet Vol. 9.7 fl (6.2-12.0); Monocyte# 1.58 X10^3/uL; Monocyte% 10.1 % (0-10); NRBC Flagged by Analyzer 0 % (0-5); Neutrophil # 12.05 X10^3/uL (2.7-7.7); Neutrophil % 77.2 % (47-70); POSITIVE DIFFERENTIAL YES; Platelet Count 318 K/mm3 (150-450); RBC Distribution Width CV 13.8 % (11.6-14.6); RBC Distribution Width SD 46.7 fl (35.1-43.9); Red Blood Count 4.97 M/mm3 (4.6-6.2); White Blood Count 15.6 K/mm3 (4.4-11.0)
[2024-09-18 09:50] LABS: Differential Indicated SCAN CRITERIA MET
[2024-09-18] MEDS: 0.9% Normal Saline (1000mL) 1,000 ML 999 ML IV ×3 (09:56→10:38)
[2024-09-18 10:02] LABS: International Normalized Ratio 0.9; Prothrombin Time (Protime)PT. 12.2 SECONDS (11.7-14.9)
[2024-09-18 10:03] LABS: Partial Thromboplast Time 28.4 Seconds (24.1-36.2)
--- NOTE | 2024-09-18 10:10 | CT_ITS ---
STUDY: CT CERVICAL SPINE WITHOUT CONTRAST REASON FOR EXAM: Male, 64 years old. Trauma RADIATION DOSAGE (If Supplied By Facility): CTDIvol = ( 30.31 ) mGy, DLP = ( 611.12 ) mGycm TECHNIQUE: High resolution transaxial imaging was performed without contrast material. Sagittal and coronal images were reconstructed. Individualized dose optimization techniques were used for this CT. COMPARISON: Comparison is made with prior study dated February 14, 2017. FINDINGS: Normal craniovertebral junction. There are degenerative changes of the anterior atlantoaxial articulation. Normal odontoid process. There is straightening of the normal cervical lordosis. Normal vertebral bodies and posterior osseous elements. C2-3: Minimal anterior spondylosis. C3-4: Moderate degree of disc space narrowing with spondylosis. Uncovertebral arthrosis. Bilateral neural foraminal stenosis worse on the right side. C4-5: Mild degree of disc space narrowing. Spondylosis. No significant stenosis seen. C5-6: Marked degree of disc space narrowing and spondylosis. Central canal stenosis as well as bilateral neural foraminal stenosis. C6-7: Moderate disc space narrowing and spondylosis. Uncovertebral arthrosis and bilateral neural foraminal stenosis. C7-T1: Normal endplates. Normal disc height and morphology. Normal central canal and intervertebral neuroforamina. Normal visualized soft tissue structures. CT/Spine Cervical without Contras IMPRESSION: Multilevel degenerative changes, as described above. Electronically Signed: Pineda Green MD at 10:42 EST ,
--- NOTE | 2024-09-18 10:10 | CT_ITS ---
STUDY: CT CHEST, ABDOMEN T PELVIS WITH CONTRAST REASON FOR EXAM: Male, 64 years old. Fall back pain thoracic and lumbar -- TRAUMA ONLY: IV Contrast. Dont wait for creatinine RADIATION DOSAGE (If Supplied By Facility): CTDIvol = ( 20.65 ) mGy, DLP = ( 2144.02 ) mGycm TECHNIQUE: Transaxial imaging was performed following intravenous administration of 100ML ISOVUE 370. Multiplanar coronal and sagittal images were reformatted. Individualized dose optimization techniques were used for this CT. COMPARISON: Comparison is made with prior study dated October 22, 2020. FINDINGS: CHEST Minimal increased markings at the lung bases suggestive of either mild linear scarring and/or atelectasis. There is no demonstrated pleural abnormality. Normal heart and pericardium. Coronary artery calcification. Normal mediastinum. Normal hilar regions. Normal unenhanced pulmonary arteries. Normal aorta arch and descending thoracic aorta. There are degenerative changes of the thoracic spine. ABDOMEN Mild degree of central intrahepatic biliary ductal dilatation. The common bile duct measures 9.7 mm at the level of the ampulla of Vater. There is evidence of a duodenal diverticulum. Normal spleen. Normal pancreas. Normal bilateral adrenal glands. Normal right kidney. Normal left kidney. Normal visualized stomach. Normal small intestine. There are multiple colonic diverticula consistent with diverticulosis. The appendix is visualized and appears normal. There is scattered atherosclerotic calcification of the abdominal aorta, without a demonstrated aneurysm. Normal inferior vena cava. Normal retroperitoneum. There is a right-sided inguinal hernia containing adipose tissue. Disc space narrowing at the L5-S1 level. PELVIS Normal urinary bladder. Central prostatic calcification. There is no pelvic fluid. There is no pelvic lymphadenopathy or mass lesion. There is diffuse atherosclerotic calcification of the pelvic arteries. CT/CT Chest, Abd, Pel w/Contrast IMPRESSION: Findings suggestive of mild linear scarring and/or atelectasis at the lung bases. Mild degree of central intrahepatic biliary ductal dilatation and mildly dilated common bile duct down to the level of the ampulla of Vater. No gallstone or choledocholithiasis is seen. Degenerative changes at the L5-S1 level. Electronically Signed: Pineda Green MD at 10:52 EST ,
[2024-09-18 10:13] LABS: Differential Comment SCANNED
[2024-09-18 10:14] LABS: Lactic Acid 1.1 mmol/L (0.4-1.9)
[2024-09-18 10:14] LABS: BNP,B-Type NATRIURETIC PEPTIDE 19.3 pg/mL (0-100)
[2024-09-18 10:25] LABS: ALB/GLOB Ratio 1.1 RATIO (0.9-2.4); AST(SGOT) 25 U/L (15-37); Alanine Aminotransfer ALT/SGPT 26 U/L (16-61); Alkaline Phosphatase 92 U/L (45-117); Anion Gap 8 (5-15); BUN 17 mg/dL (7-18); BUN/Creat Ratio 13.9 RATIO (10-20); Calcium,Total 9.5 mg/dL (8.5-10.1); Chloride 95 mmol/L (98-107); Creatinine, Serum 1.22 mg/dL (0.70-1.30); EST Glomerular Filtration Rate 64 mL/min (>60); Est Glom Filt Rate - Afr Amer 77 mL/min (>60); Estimated Creatinine Clearance 65.91 ml/min; Globulin 3.7 g/dL (2.2-4.2); Glucose 84 mg/dL (74-106); Potassium 4.5 mmol/L (3.5-5.1); Protein, Total 7.7 g/dL (6.4-8.2); Sodium Level 128 mmol/L (136-145); Troponin-I HS 5 pg/mL (3.0-78.0)
[2024-09-18 10:39] LABS: Bacteria 0 SEEN /hpf (None Seen); Mucous, Urine 0 SEEN /hpf (<or=2+); Red Blood Cells-Urine 0 SEEN /hpf (0-5); Squamous Epithelial Cells - UA 0 SEEN /hpf (0-5); White Blood Cells 0 SEEN /hpf (0-5)
[2024-09-18 10:41] LABS: Color, Urine Yellow (Yellow); Glucose, Dipstick Normal (Normal); Ketone-Dipstick Negative (Negative); Leukocyte Esterase-Dipstick Negative /ul (Negative); Nitrite-Dipstick Negative (Negative); Occult Blood-Urine Negative /ul (Negative); Protein-Dipstick 15 mg/dl (Negative); Urine Bilirubin Dipstick Negative (Negative); Urine Clarity Sl. Cloudy (Clear); Urine Urobilinogen Normal (Normal)
[2024-09-18 11:21] LABS: Free T3 1.8 pg/mL (2.18-3.98); T4 Free Direct 0.85 ng/dL (0.76-1.46)
[2024-09-18] MEDS: Albuterol 2.5 MG/3 ML VIAL.NEB. INHALATION (13:21)
--- NOTE | 2024-09-18 13:35 | PCM.HP.STD ---
[facility] - General General Date of Service: 09/18/24 Chief Complaint: Weakness. [facility] Narrative HELEN RUDD, is a 64 M who presents with weakness and shortness of breath. This 62-year-old male who was recently diagnosed with RSV at his primary care physician's office as he was having shortness of breath, cough. He was treated with antibiotics and steroids. Stated that his sputum change color to now more clear. But over the past week, he has been weak and has been falling. He has fallen 5 times where he falls backwards he is awake and then hit his head and loses consciousness. Does not lose consciousness before he falls. Because of this weakness, the falls and the shortness of breath, you presented to the emergency room. In emergency room, patient was not hypoxic and remained 98% on room air. Patient did ambulate to the bathroom but was very weak. Patient received prophy dilators, methylprednisolone and morphine. Patient has been having some spasms in his posterior neck since these falls. He denies any diplopia. But he states that over the past week he has been having paresthesias and weakness in his right upper and lower extremities. Patient did have a CT of the cervical spine that showed no acute changes as well as a head CT that was no acute process as well. [facility] Medical History Acute maxillary sinusitis, unspecified Diverticulitis Closed fracture of metatarsal bone Psoriasis CAD (coronary artery disease) Bee sting-induced anaphylaxis Dermatophytosis of nail Diverticular disease Macrocytosis Depression Seasonal allergies Acute bronchitis Asthma Psoriasis Colitis Prediabetes Tendinitis of right foot Essential (primary) hypertension URI (upper respiratory infection) Umbilical hernia without mention of obstruction or gangrene Atherosclerotic heart disease of [place] coronary artery without angina pectoris Old myocardial infarction HLD (hyperlipidemia) Hypertriglyceridemia Hypothyroidism Tobacco abuse Bloody ejaculation Spontaneous ecchymosis Heel spur Gout Arthritis Chronic back pain Degenerative disc disease Obesity Home Medications ?Medication ?Instructions ?Recorded ?Last Taken ?Type diazepam 10 mg tablet 10 mg PO Q6H PRN Anxiety 03/21/20 05/15/20 History oxycodone 10 mg tablet,crush 10 mg PO Q6H PRN Pain Or Fever 04/02/20 05/15/20 History resistant,extended release 12 hr albuterol sulfate 90 mcg/actuation 2 puff inhalation Q6H PRN 05/16/20 Unknown Rx aerosol inhaler shortness of breath or wheezing #8.5 grams carvedilol 3.125 mg tablet 3.125 mg PO BID #180 tabs 07/08/20 Unknown Rx icosapent ethyl 1 gram capsule 2 g PO DAILY 10/22/20 Unknown History (Vascepa) levothyroxine 125 mcg tablet 125 mcg PO DAILY #90 tabs 12/17/20 Unknown Rx lisinopril 20 mg tablet 20 mg PO QDAY #90 tabs 12/17/20 Unknown Rx bupropion HCl 150 mg 24 hr tablet, 150 mg PO DAILY 01/07/23 Unknown History extended release benzonatate 100 mg capsule 200 mg (2 x 100 mg) PO TID PRN 12/08/23 Unknown Rx cough #30 caps rosuvastatin 20 mg tablet 20 mg PO QHS 09/18/24 Unknown History Allergy/AdvReac Type Severity Reaction Status Date / Time venom-honey bee (bee venom Allergy Severe Anaphylaxis Verified 12/08/23 08:44 (honey bee)) fenofibrate (From Tricor) Allergy Swelling Verified 12/08/23 08:44 Family History (Updated 09/18/24 @ 13:[address] Soto Tavera DO) Father Hypertension Hyperlipidemia Mother Lung cancer Surgical History H/O prior ablation treatment (~02/2014) History of umbilical hernia repair History of left heart catheterization (06/02/13) History of coronary artery stent placement (~11/06/12) Normal colonoscopy (~2014) Social History Smoking Status: Former smoker Tobacco: How many years used: 42 Electronic Cigarette Use: not used second hand exposure: Yes (both parents smoked in the home) quit status: has quit before alcohol intake: never substance use type: does not use caffeine: No what type of physical activity do you participate in: weight training frequency: 3-4 times per week seatbelt use: always do you feel safe at home: Yes ROS ROS Narrative No homicidal or suicidal ideation. All review of systems were negative except as mentioned above in the history of present illness and the other review of systems. Vital Signs Vital Signs Vital Signs: 09/18/24 08:57 09/18/24 09:02 09/18/24 09:03 Temperature 36.7 C Temperature Source Oral Pulse Rate 83 Respiratory Rate 25 H Respiratory Effort Short of Breath Respiratory Depth Shallow Respiratory Pattern Tachypnea Blood Pressure 136/104 H Blood Pressure Mean 114 Pulse Ox 96 Oxygen Delivery Method Room Air Room Air 09/18/24 09:24 09/18/24 09:35 09/18/24 10:00 Temperature 36.4 C L Temperature Source Temporal Pulse Rate 79 88 Respiratory Rate 16 18 Respiratory Effort Respiratory Depth Respiratory Pattern Blood Pressure 130/92 H Blood Pressure Mean 104 Pulse Ox 97 Oxygen Delivery Method Room Air Room Air 09/18/24 11:00 09/18/24 12:00 09/18/24 13:00 Temperature 36.6 C 36.8 C Temperature Source Temporal Temporal Pulse Rate 81 90 91 Respiratory Rate 16 15 12 Respiratory Effort Respiratory Depth Respiratory Pattern Blood Pressure 135/81 H 143/109 H Blood Pressure Mean 99 120 Pulse Ox 95 95 96 Oxygen Delivery Method Room Air Room Air 09/18/24 13:24 09/18/24 13:26 Temperature 36.7 C Temperature Source Pulse Rate 98 98 Respiratory Rate 16 16 Respiratory Effort Respiratory Depth Respiratory Pattern Normal Blood Pressure 143/92 H Blood Pressure Mean 109 Pulse Ox 99 Oxygen Delivery Method Weight Weight: 86.4 kg Body Mass Index (BMI) 29.8 Physical Exam Const alert and no apparent distress Constitutional Narrative: Anxious General Appearance: cooperative HEENT normocephalic, head/scalp atraumatic, hearing grossly normal bilaterally and moist oral mucous membranes HEENT Narrative: Bilateral lateral nystagmus. External ocular muscles intact however. Eyes PERRL, EOMs intact bilaterally and conjunctivae normal Neck no lymphadenopathy Neck Narrative: Tender trapezius muscle on the right. Resp normal respiratory effort and no retractions Auscultation: wheezes Cardio regular rate, regular rhythm, S1 normal heart sound and S2 normal heart sound GI normal to inspection, nondistended, normoactive bowel sounds, soft to palpation, non-tender and non-distended Extremity normal to inspection and full ROM Neuro oriented x3 and CN's II-XII intact bilaterally Neuro Narrative: Muscle strength 5-5 in the left upper and left lower extremity. Lelgrc-db-qgss intact on the left. Limited awtx-kh-ucus on the left. Muscle strength 4 out of 5 in the right upper and right lower extremity. Patient did have noted ataxia of his right [id number]-[id number]. Did not test right [id number]-[id number]. Sensorium / Orientation: awake and alert Speech: speech normal Psych Mood & Affect: anxious Results Lab / Micro Data Attestation: I reviewed the patient's lab results. 09/18/24 09:39 09/18/24 09:39 Labs: Laboratory Results - last 24 hr 09/18/24 09:37: Lactic Acid 1.1 09/18/24 09:39: WBC 15.6 H, RBC 4.97, Hgb 15.4, Hct 45.8, MCV 92.2, MCH 31.0, MCHC 33.6, RDW Std Deviation 46.7 H, RDW Coeff of Deshawn 13.8, Plt Count 318, MPV 9.7, Immature Gran % (Auto) 1.000 H, Neut % (Auto) 77.2 H, Lymph % (Auto) 11.1 L, S[place]ent % (Auto) 10.1 H, Eos % (Auto) 0.3, Baso % (Auto) 0.3, Absolute Neuts (auto) 12.1 H, Absolute Lymphs (auto) 1.74, Nucleated RBC % 0, Differential Comment SCANNED, Diff Path Review December, PT 12.2, INR 0.9, APTT 28.4, Sodium 128 L, Potassium 4.5, Chloride 95 L, Carbon Dioxide 25.0, Anion Gap 8, BUN 17, Creatinine 1.22, Estim Creat Clear Calc 65.91, Est GFR (MDRD) Af Amer 77, Est GFR (MDRD) Non-Af 64, BUN/Creatinine Ratio 13.9, Glucose 84, Calcium 9.5, Total Bilirubin 1.30 H, AST 25, ALT 26, Alkaline Phosphatase 92, Troponin I High Sens 5, B-Natriuretic Peptide 19.3, Total Protein 7.7, Albumin 4.0, Globulin 3.7, Albumin/Globulin Ratio 1.1, TSH 10.800 H, Free T4 0.85, Free T3 pg/dL 1.8 L 09/18/24 10:34: Urine Color Yellow, Urine Clarity Sl. Cloudy, Urine pH 7.0, Ur Specific [place] 1.010, Urine Protein 15 H, Urine Glucose (UA) Normal, Urine Ketones Negative, Urine Occult Blood Negative, Urine Nitrite Negative, Urine Bilirubin Negative, Urine Urobilinogen Normal, Ur Leukocyte Esterase Negative, Urine RBC 0 SEEN, Urine WBC 0 SEEN, Ur Squamous Epith Cells 0 SEEN, Urine Bacteria 0 SEEN, Urine Mucus 0 SEEN Imaging Radiology Impression Brain CT 09/18/24 09:23 IMPRESSION: Chronic involutional changes of the brain. Electronically Signed: Pineda Green MD at 10:45 EST , Shoulder X-Ray 09/18/24 09:23 IMPRESSION: Degenerative changes. Electronically Signed: Pineda Green MD at 10:28 EST , Cervical Spine CT 09/18/24 10:10 IMPRESSION: Multilevel degenerative changes, as described above. Electronically Signed: Pineda Green MD at 10:42 EST , Chest/Abdomen/Pelvis CT 09/18/24 10:10 IMPRESSION: Findings suggestive of mild linear scarring and/or atelectasis at the lung bases. Mild degree of central intrahepatic biliary ductal dilatation and mildly dilated common bile duct down to the level of the ampulla of Vater. No gallstone or choledocholithiasis is seen. Degenerative changes at the L5-S1 level. Electronically Signed: Pineda Green MD at 10:52 EST , Assessment & Plan Assessment/Plan (1) Right sided weakness: PLAN: Concern for stroke. This is a delayed presentation as he symptoms began about a week ago . Will start aspirin Head CT and CT of the neck were unremarkable Check MRI of the brain; 2D echocardiogram; physical, occupational and speech therapy. If MRI does show evidence of a stroke then we will consult neurology for further recommendations. Does not appear to be anything acutely radicular as his cervical spine was unremarkable but still has ongoing symptoms and with a negative MRI may consider doing MRI of the cervical spine to better evaluate. (2) Acute bronchitis: QUALIFIERS: Bronchitis organism: unspecified organism Qualified Code(s): J20.9 - Acute bronchitis, unspecified PLAN: Patient recently diagnosed with RSV and had completed antibiotics as well as steroids. Will reinitiate steroids with methylprednisolone as well as continue with bronchodilators. Discussed with the patient that would be advisable for him to follow-up with pulmonary to have pulmonary function test. Has been diagnosed with asthma but it is not likely has had formal testing. (3) Hyponatremia: PLAN: Unclear etiology. Will give additional fluids and monitor. (4) Debility: PLAN: PT OT evaluate and treat. Cannot rule out the need for retirement facility placement upon discharge. PLAN: Plan Chronic conditions Hypothyroidism: Continue levothyroxine. TSH was elevated but free T4 was normal. No additional workup. Hyperlipidemia: Continue with statin VTE prophylaxis with enoxaparin CODE STATUS: Addressed with the patient. Patient is full code. Charges/Coding Visit Charges Inpatient E&M: 85113 Init Hosp L3
--- NOTE | 2024-09-18 14:18 | MRI_ITS ---
STUDY: MRI BRAIN WITHOUT CONTRAST REASON FOR EXAM: Male, 64 years old patient with right sided weakness. TECHNIQUE: Standardized multiplanar fat and water weighted pulse sequences were obtained. COMPARISON: CT of the brain dated September 18, 2024. FINDINGS: Normal size of the ventricles and extra-axial spaces for the patient''s age. Normal white matter tracts of the supratentorial brain. There are questionable foci of restricted diffusion within the basal ganglia (Series 400 and 401 images #14 and #15. This is nonspecific in its appearance. Acute infarct is thought unlikely. Other etiologies for cytologic edema are possible. Normal T2* images of the brain without demonstrated susceptibility artifact. There is no demonstrated hemosiderin stain. There are prominent perivascular spaces (PVS) involving the basal ganglia. Normal thalami. There is no extra-axial fluid accumulation. Normal flow voids within the major intracranial circulation suggesting patency by spin echo criteria. Normal sella turcica, pituitary gland, infundibular stalk, optic chiasm and hypothalamus. Normal tectal plate and pineal gland. Normal midbrain, angie and medulla. Normal cerebellum. There are large basal cisterns. Normal bilateral temporal bones. Normal bilateral internal auditory canals. No demonstrated orbital abnormality, within the constraints of a routine brain study. Normal visualized paranasal sinuses. Normal calvarium and skull base. Normal visualized soft tissue structures. Normal visualized upper cervical spine. MRI/Brain without Contrast IMPRESSION: 1. Nonspecific restricted diffusion of the basal ganglia. 2. No other acute abnormalities are identified. Electronically Signed: Arielle Perez MD at 3:02 [facility] ,
--- NOTE | 2024-09-18 14:18 | ECHOD_ITS ---
Reason For Study: TIA/CVA Procedure This was a 2D Doppler, Color Flow transthoracic echocardiogram. Exam performed portable in patient room. Left Ventricle Normal LV size. The estimated ejection fraction is 65 %. No evidence for diastolic dysfunction. No regional wall motion abnormalities noted. Right Ventricle Normal RV size. Normal systolic function. Atria Normal left atrium. Normal right atrium. Bubble contrast study is positive for PFO. Mitral Valve There is no mitral valve stenosis. Trivial mitral valve insufficiency. Tricuspid Valve There is no tricuspid stenosis. Unable to estimate RV systolic pressure due to inadequate jet, pulmonary artery pressure probably normal. Aortic Valve Trisinus/trileaflet aortic valve. There is no aortic stenosis. No aortic valve insufficiency. Pulmonic Valve There is no pulmonic valvular stenosis. No pulmonic valve insufficiency. Great Vessels Normal aortic root. Pericardium/Pleural No pericardial effusion. Medication Performed a rapid injection of agitated mix of 9 cc saline and 1cc air to assess for atrial septal defect. MMode/2D Measurements & Calculations LVIDd: 4.7 cm IVSd: 1.1 cm LVOT diam: 2.0 cm LVIDs: 2.7 cm LVPWd: 1.0 cm RVDd: 3.2 cm FS: 43.0 % LVOT area: 3.2 cm2 asc Aorta Diam: 3.3 cm LAV(MOD-bp): 36.0 ml LVAd ap4: 18.4 cm2 LAV(MOD-bp) Indexed: 18.4 ml/m2 LVLd ap4: 6.7 cm LAV(MOD-sp2): 37.8 ml EDV(MOD-sp4): 41.0 ml LAV(MOD-sp4): 32.4 ml EDV(sp4-el): 43.3 ml LVAs ap4: 9.3 cm2 LVLs ap4: 5.6 cm ESV(MOD-sp4): 13.3 ml ESV(sp4-el): 13.2 ml EF(MOD-sp4): 67.5 % EF(sp4-el): 69.4 % LVAd ap2: 22.3 cm2 SV(MOD-sp4): 27.7 ml SV(MOD-sp2): 36.9 ml LVLd ap2: 7.1 cm SI(MOD-sp4): 14.2 ml/m2 SI(MOD-sp2): 18.9 ml/m2 EDV(MOD-sp2): 57.1 ml EDV(sp2-el): 59.5 ml LVAs ap2: 11.6 cm2 LVLs ap2: 5.6 cm ESV(MOD-sp2): 20.2 ml ESV(sp2-el): 20.6 ml EF(MOD-sp2): 64.6 % SV(sp4-el): 30.0 ml Ao sinus diam: 3.[address] Junction: 2.8 cm LA dimension(2D): 3.8 cm LA A4 area: 14.7 cm2 RA A4 area: 11.9 cm2 TAPSE: 2.0 cm Time Measurements MV dec time: 0.20 sec Doppler Measurements & Calculations MV E max saad: 86.6 cm/sec Lat Peak E' Saad: 9.6 cm/sec Med Peak E' Saad: 7.4 cm/sec MV A max saad: 105.2 cm/sec E/E' lat: 9.0 E/E' med: 11.6 MV E/A: 0.82 MV dec slope: 435.0 cm/sec2 Ao V2 max: 146.5 cm/sec LV V1 max: 121.7 cm/sec Ao max P.6 mmHg LV V1 max P.9 mmHg Ao V2 mean: 102.3 cm/sec LV V1 mean P.7 mmHg Ao mean P.6 mmHg LV V1 mean: 93.7 cm/sec Ao V2 VTI: 25.1 cm LV V1 VTI: 18.4 cm AV (velocity ratio): 0.73 NATALIIA(I,D): 2.3 cm2 NATALIIA(V,D): 2.6 cm2 SV(LVOT): 58.5 ml PA V2 max: 101.2 cm/sec ECHO/Echo Complete Interpretation Summary The estimated ejection fraction is 65 %. No evidence for diastolic dysfunction. Bubble contrast study is positive for PFO. Trivial mitral valve insufficiency. Ordering Physician: Soto Tavera Referring Physician: Dariel Lopez Performed By: Nancy Perea RDCS
[2024-09-18] MEDS: 0.9% Normal Saline (1000mL) 1,000 ML 150 ML IV (14:51)
[2024-09-18] MEDS: Aspirin 81 MG TAB.CHEW PO (14:51)
[2024-09-18] MEDS: 0.9% Saline Lock 10 ML Syringe IV ×3 (17:05→18:01)
[2024-09-18] MEDS: Ketorolac 15 MG/ML Vial IV (18:01)
--- NOTE | 2024-09-18 18:11 | NURSING ---
Patient's NIHSS not completed on time as patient is off floor getting MRI. NIHSS will be done when patient returns to the unit.
[2024-09-18] MEDS: Acetaminophen 500 MG Tablet 1000 MG PO (22:25)
[2024-09-18] MEDS: Atorvastatin Calcium 40 MG Tablet PO (22:25)
[2024-09-19] VITALS (8 sets, daily range): BP systolic 139–168; BP diastolic 86–96; PULSE 95–100; RESP 16–22; TEMP 36.4–37.1; O2SAT 94–96; BMI 29.0
[2024-09-19] MEDS: Calcium Carbonate 500 MG Tablet PO ×2 (01:51→10:32)
[2024-09-19] MEDS: Ibuprofen 600 MG Tablet PO (03:43)
[2024-09-19] MEDS: Ondansetron 4 MG/2 ML Vial IV (04:31)
[2024-09-19] MEDS: 0.9% Saline Lock 10 ML Syringe IV ×4 (04:58→15:33)
[2024-09-19] MEDS: Ketorolac 15 MG/ML Vial IV (04:58)
[2024-09-19] MEDS: proCHLORPERazine 10 MG/2 ML Vial 5 MG IV ×2 (06:05→12:39)
[2024-09-19] MEDS: cycloBENZAPRine HCl 5 MG TABLET PO (06:31)
[2024-09-19] MEDS: Levothyroxine 125 MCG Tablet PO (06:31)
[2024-09-19] MEDS: oxyCODONE 5 MG Tablet 15 MG PO ×3 (06:31→23:50)
[2024-09-19] MEDS: Acetaminophen 500 MG Tablet 1000 MG PO ×2 (06:31→20:59)
[2024-09-19 06:43] LABS: Absolute Lymphocyte Count 0.91 X10^3/uL (0.83-4.51); Absolute Neutrophil Count 12.2 X10^3/uL (2.0-7.7); Basophil# 0.02 X10^3/uL; Basophil% 0.1 % (0-1); Hematocrit 41.9 % (40-54); Hemoglobin 14.1 g/dL (13.0-16.5); Lymphocyte # 0.91 X10^3/ul (0.83-4.51); Lymphocyte % 6.4 % (19-41); Mean Corp Hgb Conc 33.7 g/dL (32-36); Mean Corpuscular Hgb 31.2 pg (27.0-32.0); Mean Corpuscular Volume 92.7 fL (80-94); Mean Platelet Vol. 9.6 fl (6.2-12.0); Monocyte# 0.92 X10^3/uL; Monocyte% 6.5 % (0-10); NRBC Flagged by Analyzer 0 % (0-5); Neutrophil # 12.18 X10^3/uL (2.7-7.7); Neutrophil % 86.2 % (47-70); Platelet Count 331 K/mm3 (150-450); RBC Distribution Width CV 13.7 % (11.6-14.6); Red Blood Count 4.52 M/mm3 (4.6-6.2); White Blood Count 14.2 K/mm3 (4.4-11.0)
[2024-09-19 06:50] LABS: Anion Gap 9 (5-15); BUN 23 mg/dL (7-18); BUN/Creat Ratio 18.5 RATIO (10-20); Calcium,Total 9.3 mg/dL (8.5-10.1); Chloride 101 mmol/L (98-107); Cholesterol 188 mg/dL (200); Creatinine, Serum 1.24 mg/dL (0.70-1.30); EST Glomerular Filtration Rate 63 mL/min (>60); Est Glom Filt Rate - Afr Amer 76 mL/min (>60); Glucose 145 mg/dL (74-106); High Density Lipoprotein 69 mg/dL; Potassium 4.4 mmol/L (3.5-5.1); Sodium Level 129 mmol/L (136-145); Triglycerides 135 mg/dL; Very Low Density Lipoprotein 27 mg/dL (5-40)
--- NOTE | 2024-09-19 08:48 | PN.HOSP_ITS ---
Reason for Visit Reason for Visit: Diagnoses Hypo-osmolality and hyponatremia (09/18/24) Acute bronchitis, unspecified (09/18/24) Weakness (09/18/24) Other malaise (09/18/24) Subjective Subjective Still with right sided weakness. Objective Data Objective Data Vital Signs: Vital Signs Temp Pulse Resp BP Pulse Ox O2 Del Method 36.4 C L 95 17 160/90 H 95 Room Air 09/19/24 08:32 09/19/24 08:32 09/19/24 08:32 09/19/24 08:32 09/19/24 08:32 09/19/24 08:32 Oxygen Delivery Method Room Air Weight: 84 kg Body Mass Index (BMI) 29.0 Intake & Output: Intake and Output for Last 24 Hours 09/17/24 09/18/24 09/19/24 23:59 23:59 23:59 Intake Total 2264.3 / 2264.3 555 / 555 Output Total 600 / 600 Balance 2264.3 / 1864.3 -45 / -45 Lab / Micro Data 09/19/24 05:44 09/19/24 05:44 Labs: Laboratory Results - last 24 hr 09/18/24 09:37: Lactic Acid 1.1 09/18/24 09:39: WBC 15.6 H, RBC 4.97, Hgb 15.4, Hct 45.8, MCV 92.2, MCH 31.0, MCHC 33.6, RDW Std Deviation 46.7 H, RDW Coeff of Deshawn 13.8, Plt Count 318, MPV 9.7, Immature Gran % (Auto) 1.000 H, Neut % (Auto) 77.2 H, Lymph % (Auto) 11.1 L , [place] % (Auto) 10.1 H, Eos % (Auto) 0.3, Baso % (Auto) 0.3, Absolute Neuts (auto) 12.1 H, Absolute Lymphs (auto) 1.74, Nucleated RBC % 0, Differential Comment SCANNED, Diff Path Review December, PT 12.2, INR 0.9, APTT 28.4, Sodium 128 L, Potassium 4.5, Chloride 95 L, Carbon Dioxide 25.0, Anion Gap 8, BUN 17, Creatinine 1.22, Estim Creat Clear Calc 65.91, Est GFR (MDRD) Af Amer 77, Est GFR (MDRD) Non-Af 64, BUN/Creatinine Ratio 13.9, Glucose 84, Calcium 9.5, Total Bilirubin 1.30 H, AST 25, ALT 26, Alkaline Phosphatase 92, Troponin I High Sens 5, B-Natriuretic Peptide 19.3, Total Protein 7.7, Albumin 4.0, Globulin 3.7, Albumin/Globulin Ratio 1.1, TSH 10.800 H, Free T4 0.85, Free T3 pg/dL 1.8 L 09/18/24 10:34: Urine Color Yellow, Urine Clarity Sl. Cloudy, Urine pH 7.0, Ur Specific [place] 1.010, Urine Protein 15 H, Urine Glucose (UA) Normal, Urine Ketones Negative, Urine Occult Blood Negative, Urine Nitrite Negative, Urine Bilirubin Negative, Urine Urobilinogen Normal, Ur Leukocyte Esterase Negative, Urine RBC 0 SEEN, Urine WBC 0 SEEN, Ur Squamous Epith Cells 0 SEEN, Urine Bacteria 0 SEEN, Urine Mucus 0 SEEN 09/19/24 05:44: WBC 14.2 H, RBC 4.52 L, Hgb 14.1, Hct 41.9, MCV 92.7, MCH 31.2, MCHC 33.7, RDW Std Deviation 47.0 H, RDW Coeff of Deshawn 13.7, Plt Count 331, MPV 9.6, Immature Gran % (Auto) 0.800, Neut % (Auto) 86.2 H, Lymph % (Auto) 6.4 L, [place] % (Auto) 6.5, Eos % (Auto) 0.0, Baso % (Auto) 0.1, Absolute Neuts (auto) 12.2 H, Absolute Lymphs (auto) 0.91, Nucleated RBC % 0, Sodium 129 L, Potassium 4.4, Chloride 101, Carbon Dioxide 19.0 L, Anion Gap 9, BUN 23 H, Creatinine 1.24, Estim Creat Clear Calc 64.00, Est GFR (MDRD) Af Amer 76, Est GFR (MDRD) Non-Af 63, BUN/Creatinine Ratio 18.5, Glucose 145 H, Calcium 9.3, Triglycerides 135, Cholesterol 188, LDL Cholesterol 92, VLDL Cholesterol 27, HDL Cholesterol 69 Micro: Microbiology 09/18/24 15:03 Mucosa - Nasopharyngeal Respiratory Panel (PCR) - Final 09/18/24 14:25 Nasal Secretion SARS-CoV-2 Antigen (Rapid) - Final Radiography Diagnostic Testing: Radiology Impression Brain CT 09/18/24 09:23 IMPRESSION: Chronic involutional changes of the brain. Electronically Signed: Pineda Green MD at 10:45 EST , Shoulder X-Ray 09/18/24 09:23 IMPRESSION: Degenerative changes. Electronically Signed: Pineda Green MD at 10:28 EST , Cervical Spine CT 09/18/24 10:10 IMPRESSION: Multilevel degenerative changes, as described above. Electronically Signed: Pineda Green MD at 10:42 EST , Chest/Abdomen/Pelvis CT 09/18/24 10:10 IMPRESSION: Findings suggestive of mild linear scarring and/or atelectasis at the lung bases. Mild degree of central intrahepatic biliary ductal dilatation and mildly dilated common bile duct down to the level of the ampulla of Vater. No gallstone or choledocholithiasis is seen. Degenerative changes at the L5-S1 level. Electronically Signed: Pineda Green MD at 10:52 EST , Brain MRI 09/18/24 14:18 IMPRESSION: 1. Nonspecific restricted diffusion of the basal ganglia. 2. No other acute abnormalities are identified. Electronically Signed: Arielle Perez MD at 3:02 EST , Physical Exam Const alert and no apparent distress Constitutional Narrative: appears older than stated age. HEENT head/scalp atraumatic and moist oral mucous membranes Extremity normal to inspection and no clubbing, cyanosis or edema Neuro Neuro Narrative: MS 5/5 throughout. slight ataxia of RUE. Sensorium / Orientation: awake and alert Assessment & Plan Assessment/Plan (1) Right sided weakness: PLAN: MRI brain negative for a CVA. This is a delayed presentation as he symptoms began about a week ago Continue aspirin Check MRI cervical spine (2) Acute bronchitis: QUALIFIERS: Bronchitis organism: unspecified organism Qualified Code(s): J20.9 - Acute bronchitis, unspecified PLAN: Patient recently diagnosed with RSV and had completed antibiotics as well as steroids. Will reinitiate steroids with methylprednisolone as well as continue with bronchodilators. Discussed with the patient that would be advisable for him to follow-up with pulmonary to have pulmonary function test. Has been diagnosed with asthma but it is not likely has had formal testing. (3) Hyponatremia: PLAN: Unclear etiology. Will give additional fluids and monitor. (4) Debility: PLAN: PT OT evaluate and treat. Cannot rule out the need for detention facility placement upon discharge. (5) PFO (patent foramen ovale): PLAN: Noted on echo. DW Dr. Downs. Continue ASA. No additional work up at this time. PLAN: Plan Chronic conditions * Hypothyroidism: Continue levothyroxine. TSH was elevated but free T4 was normal. No additional workup. * Hyperlipidemia: Continue with statin VTE prophylaxis with enoxaparin CODE STATUS: Addressed with the patient. Patient is full code. Charges/Coding Visit Charges Inpatient E&M: 98229 Subs Hosp L2
--- NOTE | 2024-09-19 08:59 | NURSING ---
[facility] called and requested current medication list, per pharmacy they will fax the list over at this time.
[2024-09-19] MEDS: Lisinopril 20 MG Tablet PO (09:46)
[2024-09-19] MEDS: buPROPion (XL) 150 MG TABLET.XL PO (09:46)
[2024-09-19] MEDS: Carvedilol 3.125 MG TABLET PO ×2 (09:46→16:54)
[2024-09-19] MEDS: Aspirin 81 MG TAB.CHEW PO (09:46)
[2024-09-19] MEDS: Enoxaparin 40 MG/0.4 ML Syringe SC (09:46)
[2024-09-19] MEDS: Ipratropium/Albuterol Sulfate 3 ML AMPUL.NEB INHALATION (12:00)
[2024-09-19 13:18] LABS: Pathologist Review Reviewed
--- NOTE | 2024-09-19 14:55 | CASEMGMT ---
CARIE [facility]IN Assessment Face to Face with patient for initial transition planning/care coordination assessment. RN GEOVANNA introduced self and role at [facility], pt voices understanding. Pt is A&Ox4 and is resting comfortably in bed and is calm. Care providers, pharmacy, and demographics verified. Admitting dx: Rt Sided Weakness, Bronchitis LACE Strata: 2 PCP: Dariel Lopez Specialists: Avery (PM) Preferred Pharmacy: [facility] Insurance: [employer], [email or web address] Prescription Benefit: Yes LNOK: Seth (Son) Living Arrangements: Pt lives alone in a ground level apartment with 3 steps to enter. Pt states that he has a GF that lives right next door ADLs/IADLs: Ind Transportation: Self, GF DME: FWW,Cane, toilet side rails, grab bars HHC/SNF: Denies hx or needs. Pt states that he was previously active with [facility] for aquatic therapy Pt?s goal: Return home with OP Tx Plan: Anticipate home with OP Tx once medically ready. PT is recommending [facility] for the pt. This RN CM educated the pt about this process and pt refuses the need and states that he prefers to go to OP Tx through [facility] again. Report given to [employer]ER GEOVANNA and to follow for OP Tx Rx needs. Pt denies further needs at this time. CM to follow. Maritza Perez RN, CM
--- NOTE | 2024-09-19 16:18 | MRI_ITS ---
STUDY: MRI CERVICAL SPINE WITHOUT CONTRAST REASON FOR EXAM: Male, 64 years old. Right arm weakness. TECHNIQUE: Standardized fat and water weighted pulse sequences were obtained in the sagittal and axial planes. COMPARISON: CT of the cervical spine September 18, 2024 FINDINGS: Normal foramen magnum and brainstem-cervical cord junction. Normal craniovertebral junction. Normal anterior atlantoaxial articulation. Normal odontoid process. Straightening of normal lordotic curvature which may be due to positioning artifact. Normal vertebral bodies and posterior osseous elements. C2-3: Normal endplates. Normal disc height, signal and morphology. Normal central canal and intervertebral neural foramina. C3-4: Narrowed disc space and minimal bulging disc osteophyte complex. Normal central canal. Mild left neural foraminal stenosis and moderate narrowing on the right secondary to bony hypertrophy C4-5: Grade 1 spondylolisthesis . Narrowed disc space with small left paracentral disc protrusion narrowing the spinal canal and mildly compressing the cord on the left. Normal bilateral neuroforamina. C5-6: Grade 1 retrolisthesis . Narrowed disc space and minimal endplate spurring with prominent left posterolateral/foraminal osteophyte protrusion. Mild narrowing of the spinal canal on the left and mild cord compression. Severe left neural foraminal stenosis and mild narrowing on the right secondary to bony hypertrophy C6-7: Narrowed disc space and minimal endplate spurring.. Normal central canal and mild bilateral neural foraminal encroachment secondary to bony hypertrophy C7-T1: Normal endplates. Normal disc height, signal and morphology. Normal central canal and intervertebral neural foramina. Normal cervical cord. Normal visualized soft tissue structures. MRI/Spine Cervical (Routine) IMPRESSION: No evidence for acute fracture or other significant bony pathology.. Spondylosis and multilevel spinal stenosis secondary to disc disease and bony hypertrophy most severe on the left at C4-5 and C5-6 and on the right at C3-4 Electronically Signed: Robin Frank MD at 19:44 EST ,
[2024-09-19] MEDS: Atorvastatin Calcium 40 MG Tablet PO (20:59)
[2024-09-20 03:02] VITALS: BP 114/62; PULSE 93; RESP 18; TEMP 36.6; O2SAT 96
[2024-09-20] MEDS: Calcium Carbonate 500 MG Tablet PO (03:06)
[2024-09-20] MEDS: Levothyroxine 125 MCG Tablet PO (05:34)
[2024-09-20] MEDS: Acetaminophen 500 MG Tablet 1000 MG PO (06:24)
[2024-09-20 07:20] VITALS: O2SAT 96
[2024-09-20] MEDS: oxyCODONE 5 MG Tablet 15 MG PO (08:23)
[2024-09-20] MEDS: Lisinopril 20 MG Tablet PO (08:26)
[2024-09-20] MEDS: Aspirin 81 MG TAB.CHEW PO (08:26)
[2024-09-20] MEDS: Carvedilol 3.125 MG TABLET PO (08:27)
[2024-09-20] MEDS: Enoxaparin 40 MG/0.4 ML Syringe SC (08:27)
[2024-09-20] MEDS: buPROPion (XL) 150 MG TABLET.XL PO (08:27)
[2024-09-20 09:00] VITALS: BP 136/90; PULSE 96; RESP 17; TEMP 36.8; O2SAT 97
--- NOTE | 2024-09-20 09:02 | PCM.PN.HOSP ---
Reason for Visit Reason for Visit: Diagnoses Hypo-osmolality and hyponatremia (09/18/24) Acute bronchitis, unspecified (09/18/24) Patent foramen ovale (09/18/24) Weakness (09/18/24) Other malaise (09/18/24) Subjective Subjective Feeling well. Did well with therapy today. Objective Data Objective Data Vital Signs: Vital Signs Temp Pulse Resp BP Pulse Ox O2 Del Method 36.6 C 93 18 114/62 96 Room Air 09/20/24 03:02 09/20/24 03:02 09/20/24 03:02 09/20/24 03:02 09/20/24 03:02 09/20/24 08:31 Oxygen Delivery Method Room Air Weight: 84 kg Body Mass Index (BMI) 29.0 Intake & Output: Intake and Output for Last 24 Hours 09/18/24 09/19/24 09/20/24 23:59 23:59 23:59 Intake Total 2264.3 / 2264.3 795 / 795 Output Total 1200 / 1700 950 / 950 Balance 2264.3 / 1864.3 -405 / -905 -950 / -950 Lab / Micro Data 09/19/24 05:44 09/19/24 05:44 Labs: Laboratory Results - last 24 hr 09/18/24 09:39: Diff Path Review Reviewed Micro: Microbiology 09/18/24 10:34 Urine, Clean Catch Urine Culture - Final Culture exhibits no growth. 09/18/24 15:03 Mucosa - Nasopharyngeal Respiratory Panel (PCR) - Final 09/18/24 14:25 Nasal Secretion SARS-CoV-2 Antigen (Rapid) - Final Radiography Diagnostic Testing: Radiology Impression Echocardiogram 09/18/24 14:18 Interpretation Summary The estimated ejection fraction is 65 %. No evidence for diastolic dysfunction. Bubble contrast study is positive for PFO. Trivial mitral valve insufficiency. Ordering Physician: Soto Tavera Referring Physician: Dariel Lopez Performed By: Nancy Perea RDCS Cervical Spine MRI 09/19/24 16:18 IMPRESSION: No evidence for acute fracture or other significant bony pathology.. Spondylosis and multilevel spinal stenosis secondary to disc disease and bony hypertrophy most severe on the left at C4-5 and C5-6 and on the right at C3-4 Electronically Signed: Robin Frank MD at 19:44 EST Reading Location ID and State: [facility] / [place] Tel , Service support , Physical Exam Const alert and no apparent distress Constitutional Narrative: up in bed on BDs. No respiratory distress. No conversational dyspnea. Assessment & Plan Assessment/Plan (1) Right sided weakness: PLAN: MRI brain negative for a CVA. This is a delayed presentation as he symptoms began about a week ago Continue aspirin MRI cervical spine spondylosis and multilevel spinal stenosis 2/2 disc disease and bony hypertrophy most severe on the left C4-5 and C5-6 and on the right C3-4. Start steroids. Follow up with Spine surgery. Had been seeing Dr. Rodriguez, so will need to reestablish with another physician. (2) Acute bronchitis: QUALIFIERS: Bronchitis organism: unspecified organism Qualified Code(s): J20.9 - Acute bronchitis, unspecified PLAN: Patient recently diagnosed with RSV and had completed antibiotics as well as steroids. Discussed with the patient that would be advisable for him to follow-up with pulmonary to have pulmonary function test. Has been diagnosed with asthma but it is not likely has had formal testing. Discharge with prednisone and BDs. (3) Hyponatremia: PLAN: Unclear etiology. (4) Debility: PLAN: PT OT evaluate and treat. Cannot rule out the need for jail facility placement upon discharge. (5) PFO (patent foramen ovale): PLAN: Noted on echo. DW Dr. Downs. Continue ASA. No additional work up at this time. PLAN: Plan Chronic conditions Hypothyroidism: Continue levothyroxine. TSH was elevated but free T4 was normal. No additional workup. Hyperlipidemia: Continue with statin VTE prophylaxis with enoxaparin CODE STATUS: Addressed with the patient. Patient is full code.
[2024-09-20 11:06] VITALS: PULSE 77; RESP 20
[2024-09-20] MEDS: Ipratropium/Albuterol Sulfate 3 ML AMPUL.NEB INHALATION (11:06)
[2024-09-20] MEDS: predniSONE 20 MG Tablet 40 MG PO (11:10)
--- NOTE | 2024-09-20 11:20 | CASEMGMT ---
SW saw patient as he triggered [facility] screen for food. Patient stated he recently lost his food stamps as his social security went up. Patient is aware of [employer] and has used them many times in the past. SW did provide patient with a [employer] card and information on food pantries and churches that provide meals. Patient said he has that information, but SW can leave it with him. Leidy Lin POCKET MACHINE OPERATOR TONY
--- NOTE | 2024-09-20 11:48 | DS.PCM_ITS ---
Providers Date of Admission: 09/18/24 Primary Care Physician: Dr. Dariel Lopez, DO Reason For Visit: RIGHT SIDED WEAKNESS. BRONCHITIS. Diagnosis Discharge Diagnosis (1) Right sided weakness: Status: Acute Code(s): R53.1 - Weakness Plan: MRI brain negative for a CVA. This is a delayed presentation as he symptoms began about a week ago Continue aspirin MRI cervical spine spondylosis and multilevel spinal stenosis 2/2 disc disease and bony hypertrophy most severe on the left C4-5 and C5-6 and on the right C3- 4. Start steroids. Follow up with Spine surgery. Had been seeing Dr. Rodriguez, so will need to reestablish with another physician. (2) Acute bronchitis: Status: Acute Code(s): J20.9 - Acute bronchitis, unspecified Qualifiers: Bronchitis organism: unspecified organism Qualified Code(s): J20.9 - Acute bronchitis, unspecified Plan: Patient recently diagnosed with RSV and had completed antibiotics as well as steroids. Discussed with the patient that would be advisable for him to follow-up with pulmonary to have pulmonary function test. Has been diagnosed with asthma but it is not likely has had formal testing. Discharge with prednisone and BDs. (3) Hyponatremia: Status: Acute Code(s): E87.1 - Hypo-osmolality and hyponatremia Plan: Unclear etiology. (4) Debility: Status: Acute Code(s): R53.81 - Other malaise Plan: PT OT evaluate and treat. Cannot rule out the need for prison facility placement upon discharge. (5) PFO (patent foramen ovale): Status: Acute Code(s): Q21.12 - Patent foramen ovale Plan: Noted on echo. DW Dr. Downs. Continue ASA. No additional work up at this time. Plan Chronic conditions * Hypothyroidism: Continue levothyroxine. TSH was elevated but free T4 was normal. No additional workup. * Hyperlipidemia: Continue with statin VTE prophylaxis with enoxaparin CODE STATUS: Addressed with the patient. Patient is full code. Medications at Discharge Home Medications carvedilol 3.125 mg tablet 3.125 mg PO BID heart #180 tabs 07/08/20 lisinopril 20 mg tablet 20 mg PO QDAY blood pressure #90 tabs 12/17/20 bupropion HCl 150 mg 24 hr tablet, extended release 150 mg PO DAILY depression 01/07/23 bupropion HCl 300 mg 24 hr tablet, extended release 300 mg PO DAILY depression 09/18/24 fluoxetine 40 mg capsule 40 mg PO DAILY ask pcp 09/18/24 hydroxyzine pamoate 50 mg capsule 50 mg PO BID PRN ask pcp 09/18/24 levothyroxine 150 mcg tablet 150 mcg PO DAILY thyroid 09/18/24 meloxicam 15 mg tablet 15 mg PO DAILY pain 09/18/24 oxycodone 15 mg tablet 15 mg PO TID pain 09/18/24 rosuvastatin 20 mg tablet 20 mg PO QHS cholesterol 09/18/24 citalopram 40 mg tablet 40 mg PO QHS anxiety 09/19/24 fluticasone propionate 115 mcg-salmeterol 21 mcg/actuation HFA inhaler (Advair HFA) 1 puff inhalation Q12H asthma 09/19/24 nitroglycerin 0.4 mg sublingual tablet 0.4 mg sublingual PRN chest pain 09/19/24 acetaminophen 500 mg tablet 1,000 mg (2 x 500 mg) PO Q8 #0 tabs 09/20/24 albuterol sulfate 90 mcg/actuation aerosol inhaler 1 inh inhalation Q6H PRN shortness of breath or wheezing #6.7 grams 09/20/24 aspirin 81 mg chewable tablet 81 mg PO BREAKFAST #0 tabs 09/20/24 cyclobenzaprine 5 mg tablet 5 mg PO Q8H PRN PRN spasms/musculoskeletal pain #20 tabs 09/20/24 prednisone 20 mg tablet 40 mg (2 x 20 mg) PO BREAKFAST #10 tabs 09/20/24 Hospital Course Operations None Procedures 2-D Echocardiogram Summary of Care Provided Minutes Spent on Discharge: 32 Weight / BMI Weight Weight: 84 kg Body Mass Index (BMI) 29.0 ABG / Lab / Microbiology Data 09/19/24 05:44 09/19/24 05:44 Laboratory: Laboratory Results - last 24 hr 09/18/24 09:39: Diff Path Review Reviewed Microbiology: Microbiology 09/18/24 10:34 Urine, Clean Catch Urine Culture - Final Culture exhibits no growth. 09/18/24 15:03 Mucosa - Nasopharyngeal Respiratory Panel (PCR) - Final 09/18/24 14:25 Nasal Secretion SARS-CoV-2 Antigen (Rapid) - Final Radiography Diagnostic Testing: Radiology Impression Cervical Spine MRI 09/19/24 16:18 IMPRESSION: No evidence for acute fracture or other significant bony pathology.. Spondylosis and multilevel spinal stenosis secondary to disc disease and bony hypertrophy most severe on the left at C4-5 and C5-6 and on the right at C3-4 Electronically Signed: Robin Frank MD at 19:44 EST Reading Location ID and State: [address] [place] [address] Tel , Service support , D/C Instructions Discharge Diet: No restrictions DC O2, CPAP, BIPAP Needs Home O2 Discharge instructions: No Meaningful Use Info Meaningful Use Meaningful Use Diagnoses (Choose all that apply): None applicable Ischemic Stroke Statin Dosing Therapy Reference: STATIN DOSE THERAPY REFERENCE: * Patients > 75 years receive moderate or high dose statin therapy. * Patients 75 years or YOUNGER should receive HIGH intensity statin dose unless contraindicated. You will be required to document reason for non-treatment if statin daily dose does not meet guidelines. HIGH DOSE STATIN THERAPY DAILY Atorvastatin > than or = to 40 mg Rosuvastatin > than or = to 20 mg Amlodipine + Atorvastatin > than or = to 2.5/40 mg Ezetimibe + Simvastatin 10/80 mg Simvastatin 80mg Discharge Plan Admission Admit Date/Time: 09/18/24 13:24 Primary Reason for Your Visit: Falls. Attending Provider: Soto Tavera Primary Care Provider: Dariel Lopez Instructions Additional Instructions / Restrictions: You presented with right sided weakness. The MRI of the brain was negative for stroke. The MRI of you cervical spine showed spondylosis (shift of vertebral on top of each other). Please follow up with Spine surgery for outpt recommendations. We did an echocardiogram of your heart and it showed a PFO (patent foramen ovale) this is a small defect in the heart that only requires taking aspirin and cardiology follow up. Discharge Orders/Prescriptions Prescriptions: New prednisone 20 mg Tablet 40 mg PO BREAKFAST Qty: 10 0RF acetaminophen 500 mg Tablet 1,000 mg PO Q8 Qty: 0 0RF aspirin 81 mg Tablet,Chewable 81 mg PO BREAKFAST Qty: 0 0RF cyclobenzaprine 5 mg Tablet 5 mg PO Q8H PRN PRN (Reason: spasms/musculoskeletal pain) Qty: 20 0RF albuterol sulfate 90 mcg/actuation HFA aerosol inhaler 1 inh inhalation Q6H PRN (Reason: shortness of breath or wheezing) Qty: 6.7 0RF Continued bupropion HCl 150 mg tablet extended release 24 hr 150 mg PO DAILY rosuvastatin 20 mg tablet 20 mg PO QHS bupropion HCl 300 mg tablet extended release 24 hr 300 mg PO DAILY Patient Comments: takes in addition to the 150mg tablet levothyroxine 150 mcg tablet 150 mcg PO DAILY meloxicam 15 mg tablet 15 mg PO DAILY fluoxetine 40 mg capsule 40 mg PO DAILY hydroxyzine pamoate 50 mg capsule 50 mg PO BID PRN citalopram 40 mg tablet 40 mg PO QHS fluticasone propion-salmeterol [Advair HFA] 115-21 mcg/actuation HFA aerosol inhaler 1 puff INHALATION Q12H nitroglycerin 0.4 mg tablet, sublingual 0.4 mg sublingual PRN (Reason: chest pain) carvedilol 3.125 mg tablet 3.125 mg PO BID Qty: 180 1RF lisinopril 20 mg tablet 20 mg PO QDAY Qty: 90 3RF Discontinued zolpidem 10 mg tablet 10 mg PO QHS No Action oxycodone 15 mg tablet 15 mg PO TID Referrals / Follow Up: [facility] [Provider Group] - Within 1 Month Radames Louise MD [Med Staff - Active Staff] - Within 1 Month Dariel Lopez DO [Primary Care Provider] - Within 2 Weeks Disposition Disposition (needs filled in before D/C Order can be placed): Home, Self Care Charges/Coding Visit Charges Inpatient E&M: 86373 Disch Hosp >30min
--- NOTE | 2024-09-20 12:37 | CASEMGMT ---
Patient has order for discharge. Per RN CM assessment patient would like outpatient therapy at discharge, script received. RN CM in to discuss needs at discharge. Patient states he would like outpatient therapy at [facility]. Patient prefers to have RN CM send referral to [facility] and have them call the patient. Patient denies further needs or concerns at discharge. Patient had no further questions or concerns. RN CM sent referral to [facility] with request to call patient to schedule. Copy of outpatient therapy script provided in discharge packet.
--- NOTE | 2024-09-20 13:03 | CHAPLAIN ---
Type of Pastoral Visit _x__ Initial Visit ___ Follow-up Visit ___ On-call Visit ___ General Patient Visit ___ Spiritual Assessment ___ Family Conference ___ Bereavement ___ Rapid Response ___ Code Blue ___ Other (describe below) Pastoral Care Referral From _x__ Patient ___ Family ___ Nurse ___ Physician ___ Mixing Engineer ___ Poultry Farm Laborer ___ Other (describe below) Sacrament/Intervention _x__ Active listening ___ Anointing ___ Episcopalian ___ Bereavement ___ Communion _x__ Justine exploration ___ _x__ Life review _x__ Prayer ___ Reconciliation ___ Sacrament of Sick _x__ Supportive presence ___ Wedding ___ Other (describe below) Pastoral Comments patient is eager to talk and describe his physical situation, his grief at of his mother, his care for his elderly father, his disability, and his justine background; pt seeks time to talk about his life and to consider what support he could gain in the future If I come back here again; prayer given
[2024-09-20 13:50] VITALS: BMI 29.0
[2024-09-20 14:14] VITALS: BMI 29.0
[2024-09-20 14:30] VITALS: BP 135/86; PULSE 88; RESP 17; TEMP 36.6; O2SAT 98
== END 2024-09-20 15:00 | disposition home or self-care (01) | DRG 57 ==
LOC: ED 13:34 → PCU 09-19 08:46
PROVIDERS: Emergency Provider Emergency Medicine; PCP Family Medicine
DX: R53.1 Weakness (principal); E87.1 Hypo-osmolality and hyponatremia; Q21.12 Patent foramen ovale; E03.9 Hypothyroidism, unspecified; I10 Essential (primary) hypertension; J20.9 Acute bronchitis, unspecified; I25.10 Atherosclerotic heart disease of native coronary artery without angina pectoris; E78.5 Hyperlipidemia, unspecified; M48.02 Spinal stenosis, cervical region; M47.812 Spondylosis without myelopathy or radiculopathy, cervical region; I25.2 Old myocardial infarction; M50.31 Other cervical disc degeneration, high cervical region; R53.81 Other malaise; R29.6 Repeated falls; Z95.5 Presence of coronary angioplasty implant and graft; Z79.82 Long term (current) use of aspirin; Z79.890 Hormone replacement therapy; Z79.899 Other long term (current) drug therapy; Z87.891 Personal history of nicotine dependence; R73.03 Prediabetes; R06.02 Shortness of breath
CPT/HCPCS: 36415; 70450; 70551; 71260; 72125; 72141; 73030; 74177; 80048; 80053; 80061; 81001; 83605; 83880; 84439; 84443; 84481; 84484; 85025; 85610; 85730; 87040; 87086; 87426; 87633; 93005; 93306; 94640; 94762; 96361; 96372; 96374; 96375; 96376; 97162; 97166; 99221; 99285; Q9967; A4216; G0378; J2405

== ENCOUNTER 2024-10-12 15:00 | Outpatient (RCR) | payer MEDICAID, SELFPAY ==
--- NOTE | 2024-09-29 15:02 | HP.PTEVAL_ITS ---
Patient's Visit Information Visit Information Visit Information: HELEN RUDD Jr. is a 64 year old M referred to Physical Therapy by Dr. Soto Tavera DO with a diagnosis of WEAKNESS ,MALAISE, LBP. Date of Evaluation: 09/29/24 Physical Therapist: Carlos Dailey, PT, Cert MDT, OCS Visit Plan Frequency: 2x /Week Duration: 4 Weeks Plan: PT INTERVENTIONS DLS ,POSTURAL EX'S ,BEL STRENGTHENING ,FUNCTIONAL STRENGTHENING AND BALANCE TRAINING Subjective Subjective: This 64 y/o male presents to physical therapy with weakness and LBP. Patient was admitted to [facility] on 09/18 with SOB ,found to have RSV and multiple falls and right side weakness. Patient MRI neck showed No evidence for acute fracture or other significant bony pathology..Spondylosis and multilevel spinal stenosis secondary to disc disease and bony hypertrophy most severe on the left at C4-5 and C5-6 and on the right at C3-4,CT SCAN and brain MRI negative, Patient hospitalized for 3 days D/C to home. Patient plan to see pain management for back.Patient has had multiple falls . Patient stated falling today ice. Pain in back is symmetrical. Aggravating factors walking ,standing ,bending and lifting. Patient uses cane for gait . Alleviating factors rest. medication oxycodone 3 xday.Patient has had MRI back 2 years ago stenosis and protruding discs. Bowel/bladder -. Cough ing.sneezing -. Patient pain affects sleeping. Patient denies paresthesia/tingling. Patient lives alone but girlfriend lives close by.Patient lives in 1 story home level. Walk in shower . Patient condition affects aQOL and function. SOCIAL: single VOCATION:retired disability Pain Bilateral Back: Pain Intensity (Out of 10): 7 Objective Objective: POSTURE: mild forward posture GAIT: reciprocal pattern unsteady ataxia type gait pattern NEURO: denies paresthesia/tingling ,reflexes L3-4,L4-5 ,L5-S1 2/3,slight ataxia MMT: quads/hams 4/5 ,hip flexion 4/5 hip abduction 4-/5 ,ankle 4/5 LUMBAR ROM: flexion mod loss ,extension mod/severe loss ,side slides mod loss FLEXABILITY: hamstrings miod tight Balance/Special Test Scores Functional Gait Assessment Score: 11 % Disability: 63.3400 CATSIB Score (Max score 120 seconds): 42 Lower Extremity Functional Score: 35 30 Second Chair Rise Test Seconds: 7 Goals Goal 1:: Patient to be I with HEP strength and balance Goal Time Frame: 4-6 Weeks Goal 2:: Patient to improve CATSIB by 5-10# to improve function and decrease risk of falls Goal Time Frame: 4-6 Weeks Goal 3:: Patient improve functional gait assessment score by 5 -10 points to i mprove gait and decrease risk of falls Goal Time Frame: 4-6 Weeks Goal 4:: Patient to improve 30sec sit-stand by 3-5 reps to improve functional strength Goal Time Frame: 4-6 Weeks Goal 5:: Patient to improve LFES score by 5 points to improve QOL and function Goal Time Frame: 4-6 Weeks Goal 6:: Patient to improve lumbar ROM for function of recovery to put on shoes Goal Time Frame: 4-6 Weeks Rehabilitation Potential Physical Therapy Diagnosis: Patient has weakness ,decrease balance impaired gait along with back pain thus benefit from skilled PT. Rehabilitation Potential: Good Anticipated Interventions Patient/Client Instruction: Educate patient on: Condition and Plan of Care For the Purpose of:: To decrease pain, To increase ROM, To improve muscle performance and motor function, To improve ability to perform ADL's, To increase tolerance to activity/condition/position, To improve health of tissue, To decrease soft tissue restriction, To increase flexibility/ROM, To improve endurance, To improve balance and To improve tolerance to ADL's Therapeutic Exercise to Include: Strength training, Endurance training, Balance training, Postural training, Flexibilty training and Dynamic Lumbar Stabilization Comment: BLE For the Purpose of:: To decrease pain, To increase ROM, To improve muscle performance and motor function, To improve ability to perform ADL's, To increase tolerance to activity/condition/position, To improve ability of physical actions for home/community/work/leisure, To improve health of tissue, To decrease soft tissue restriction, To increase flexibility/ROM, To improve endurance, To improve balance and To improve tolerance to ADL's Text: Thank you for the opportunity to evaluate your patient. For Medicare and Medicare HMO plans, please review the plan of care and approve it. It will need to be FAXED BACK to us at [phone] for Medicare purposes. For Medicare only, by signing this I certify the plan of care. Please let me know if there are questions or concerns regarding this plan of care. Physician Signature: Date:
--- NOTE | 2025-01-04 11:38 | HP.PT.NRP ---
Patient Information Patient Information: HELEN RUDD Jr. was seen in my office for initial evaluation on 09/29/24. The following Plan of Care was established for this patient: POC Established Initial Frequency: 2x /Week Initial Duration: 4 Weeks Anticipated Interventions Patient/Client Instruction: Educate patient on: Condition and Plan of Care For the Purpose of:: To decrease pain, To increase ROM, To improve muscle performance and motor function, To improve ability to perform ADL's, To increase tolerance to activity/condition/position, To improve health of tissue, To decrease soft tissue restriction, To increase flexibility/ROM, To improve endurance, To improve balance and To improve tolerance to ADL's Therapeutic Exercise to Include: Strength training, Endurance training, Balance training, Postural training, Flexibilty training and Dynamic Lumbar Stabilization For the Purpose of:: To decrease pain, To increase ROM, To improve muscle performance and motor function, To improve ability to perform ADL's, To increase tolerance to activity/condition/position, To improve ability of physical actions for home/community/work/leisure, To improve health of tissue, To decrease soft tissue restriction, To increase flexibility/ROM, To improve endurance, To improve balance and To improve tolerance to ADL's Last Seen Last Seen: This patient was last seen in our office . Pertinent comments regarding their Physical therapy will appear below: Patient was seen for PT for weakness and LBP thus is d/c to HEP At this point I will be discontinuing this patient from physical therapy. I would be happy to see this patient again in the future if found appropriate by the physician. Thank you! Carlos Dailey, PT, Cert MDT, OCS Balance/Gait/Functional tests Balance/Special Test Scores Functional Gait Assessment Score: 11 % Disability: 63.3400 CATSIB Score (Max score 120 seconds): 42 Lower Extremity Functional Score: 35 30 Second Chair Rise Test Seconds: 7
== END 2024-10-12 19:00 | disposition home or self-care (01) ==
LOC: PT 15:00
PROVIDERS: PCP Family Medicine
DX: M54.50 Low back pain, unspecified (principal); R53.81 Other malaise; R53.1 Weakness
CPT/HCPCS: 97110; 97162

== ENCOUNTER 2024-11-23 19:21 | Observation (INO) | payer MEDICAID, SELFPAY ==
[2024-11-23] VITALS (8 sets, daily range): BP systolic 135–146; BP diastolic 80–107; PULSE 76–92; RESP 14–23; TEMP 36.6–36.8; O2SAT 96–99; BMI 29.9; BMI 29.4
--- NOTE | 2024-11-23 19:34 | EKG12_ITS ---
Test Reason : STROKE ALERT Blood Pressure : */* mmHG Vent. Rate : 82 BPM Atrial Rate : 82 BPM P-R Int : 176 ms QRS Dur : 138 ms QT Int : 414 ms P-R-T Axes : * -80 48 degrees QTcB Int : 483 ms Normal sinus rhythm Left axis deviation Right bundle branch block Abnormal ECG Confirmed by MARIA VICTORIA SANDOVAL, AUSTEN ([id number]), index editor JIM GARCÍA ([id number]) on 11/24/2024 8:23:17 AM Referred By: [facility] Confirmed By: AUSTEN IRENE MD
--- NOTE | 2024-11-23 19:34 | CT_ITS ---
PROCEDURE: STROKE BRAIN/HEAD WITHOUT CONT 11/23/2024 REASON FOR EXAM: NEURO DEFICIT, ACUTE, STROKE SUSPECTED TECHNIQUE: Head CT without intravenous contrast. Coronal and Sagittal reconstruction series were provided. One or more dose reduction techniques were used (e.g., Automated exposure control, adjustment of the mA and/or kV according to patient size, use of iterative reconstruction technique. RADIATION DOSE SUMMARY: CTDlvol: 44.99 mGy DLP: 812.98 mGycm COMPARISON: 09/18/2024 FINDINGS: The head is tilted to the left. No intracranial hemorrhage, mass effect or CT evidence of large vascular territory acute infarct. The levin-white differentiation appears preserved. Ventricles are unchanged in size and remain midline. Mild appearing convexity volume loss again noted. Deformity of the left maxillary sinus may be sequela of previous remote traumatic injury. The paranasal sinuses, mastoids and orbits otherwise appear within limits. Possible cerumen partially filling the left external auditory canal for example sagittal 60 and [address]/STROKE Brain/Head without Cont IMPRESSION: The head is tilted to the left. No intracranial hemorrhage, mass effect or CT e vidence of large vascular territory acute infarct. Results communicated verbally by phone by myself to Dr. Campos at 7:58 p.m. Reading Location: [id number]
--- NOTE | 2024-11-23 19:35 | CT_ITS ---
PROCEDURE: STROKE CTA HEAD AND NECK W/CON 11/23/2024 REASON FOR EXAM: 64-year-old male, NEURO DEFICIT, ACUTE, STROKE SUSPECTED TECHNIQUE: CTA imaging of the head and neck from the aortic arch to the skull vertex with intravenous contrast. Coronal and Sagittal reconstruction series were provided. 3D, 3D post processing, 3D reconstructions, Maximum intensity projection (MIPs) Volume rendering and Shaded surface rendering was provided. CONTRAST: Isovue-300 VOLUME: 100ML One or more dose reduction techniques were used (e.g., Automated exposure control, adjustment of the mA and/or kV according to patient size, use of iterative reconstruction technique). RADIATION DOSE SUMMARY: Not recorded COMPARISON: Same-day CT head. FINDINGS: Four-vessel aortic arch without calcification or stenosis. The origins of the bilateral vertebral arteries are widely patent. Calcific plaque of the bilateral cervical carotid arteries resulting in 50% stenosis of the right ICA by NASCET criteria. No significant stenosis of the left ICA. Mild calcific plaque of the bilateral carotid siphons. The bilateral anterior, middle and posterior cerebral arteries are widely patent. No aneurysm or arteriovenous malformation. Major venous structures: Unremarkable. Other findings: Cervical spondylosis. Prominent bilateral cervical chain nodes. CT/STROKE CTA Head AND Neck W/Con IMPRESSION: 1. No large vessel occlusion, AVM or aneurysm. 2. 50% stenosis of the right ICA by NASCET criteria. Reading [facility]
--- NOTE | 2024-11-23 19:36 | EDS_ITS ---
HPI History of Present Illness Chief Complaint: Stroke Alert [facility] Medical History PFO (patent foramen ovale) Anxiety Congestive heart failure (CHF) Myocardial infarct Hypertension Acute maxillary sinusitis, unspecified Diverticulitis Closed fracture of metatarsal bone Psoriasis CAD (coronary artery disease) Bee sting-induced anaphylaxis Dermatophytosis of nail Diverticular disease Macrocytosis Depression Seasonal allergies Acute bronchitis Asthma Psoriasis Colitis Prediabetes Tendinitis of right foot Essential (primary) hypertension URI (upper respiratory infection) Umbilical hernia without mention of obstruction or gangrene Atherosclerotic heart disease of [place] coronary artery without angina pectoris Old myocardial infarction HLD (hyperlipidemia) Hypertriglyceridemia Hypothyroidism Tobacco abuse Bloody ejaculation Spontaneous ecchymosis Heel spur Gout Arthritis Chronic back pain Degenerative disc disease Obesity Home Medications ?Medication ?Instructions ?Recorded ?Last Taken ?Type carvedilol 3.125 mg tablet 3.125 mg PO BID heart #180 tabs 07/08/20 09/17/24 Rx lisinopril 20 mg tablet 20 mg PO QDAY blood pressure #90 12/17/20 Unknown Rx tabs bupropion HCl 150 mg 24 hr tablet, 150 mg PO DAILY dep ression 01/07/23 09/17/24 History extended release bupropion HCl 300 mg 24 hr tablet, 300 mg PO DAILY dep ression 09/18/24 09/17/24 History extended release fluoxetine 40 mg capsule 40 mg PO DAILY ask pcp 09/18 Unknown History hydroxyzine pamoate 50 mg capsule 50 mg PO BID PRN ask pcp 09/18/24 Unknown History levothyroxine 150 mcg tablet 150 mcg PO DAILY thyroid 09/18/24 09/17/24 History meloxicam 15 mg tablet 15 mg PO DAILY pain 09/18/24 09/17/24 History oxycodone 15 mg tablet 15 mg PO TID pain 09/18/24 U nknown History rosuvastatin 20 mg tablet 20 mg PO QHS cholesterol Unknown History citalopram 40 mg tablet 40 mg PO QHS anxiety 5 Unknown History fluticasone propionate 115 1 puff inhalation Q12H asth ma 09/19/24 Unknown History mcg-salmeterol 21 mcg/actuation HFA inhaler (Advair HFA) nitroglycerin 0.4 mg sublingual 0.4 mg sublingual PRN chest pain 09/19/24 Unknown History tablet acetaminophen 500 mg tablet 1,000 mg (2 x 500 mg) PO Q 8 #0 tabs 09/20/24 Unknown Rx albuterol sulfate 90 mcg/actuation 1 inh inhalation Q6 H PRN shortness 09/20/24 Unknown Rx aerosol inhaler of breath or wheezing #6.7 g jonathan aspirin 81 mg chewable tablet 81 mg PO BREAKFAST #0 ta bs 09/20/24 Unknown Rx cyclobenzaprine 5 mg tablet 5 mg PO Q8H PRN PRN Unknown Rx spasms/musculoskeletal pain #20 tabs prednisone 20 mg tablet 40 mg (2 x 20 mg) PO BREAKFA ST #10 09/20/24 Unknown Rx tabs Allergy/AdvReac Type Severity Reaction Status Date / Time venom-honey bee (bee venom Allergy Severe Anaphylaxis Verified 11/23/24 19:30 (honey bee)) fenofibrate (From Tricor) Allergy Swelling Verified 11/23/24 19:30 Family History Father Hypertension Hyperlipidemia Mother Lung cancer Surgical History H/O prior ablation treatment (~02/2014) History of umbilical hernia repair History of left heart catheterization (06/02/13) History of coronary artery stent placement (~11/06/12) Normal colonoscopy (~2014) Social History (Updated 11/23/24 @ 19:34 by [email or web address]) housing: other Smoking Status: Former smoker Tobacco: How many years used: 42 Electronic Cigarette Use: not used second hand exposure: Yes (both parents smoked in the home) quit status: has quit before alcohol intake: never substance use type: does not use caffeine: No what type of physical activity do you participate in: weight training frequency: 3-4 times per week seatbelt use: always do you feel safe at home: Yes EXAM Physical Exam Const Vital Signs: 11/23/24 19:24 11/23/24 19:34 11/23/24 19:44 Temperature 98 F Temperature Source Oral Pulse Rate 89 78 78 Respiratory Rate 14 18 20 H Blood Pressure 146/81 H 143/89 H 146/81 H Blood Pressure Mean 102 107 102 Pulse Ox 99 98 98 Oxygen Delivery Method 11/23/24 19:45 11/23/24 20:04 11/23/24 20:31 Temperature Temperature Source Pulse Rate 85 92 Respiratory Rate 19 H 23 H Blood Pressure 137/100 H 145/107 H Blood Pressure Mean 112 119 Pulse Ox 96 98 98 Oxygen Delivery Method Room Air 11/23/24 22:31 Temperature Temperature Source Pulse Rate 76 Respiratory Rate 16 Blood Pressure 135/80 H Blood Pressure Mean 98 Pulse Ox 96 Oxygen Delivery Method MDM MDM MDM Narrative Medical decision making narrative: HISTORY OF PRESENT ILLNESS: 64-year-old male history of obesity, degenerative disc disease, chronic back pain, tobacco abuse, hypothyroidism, hyperlipidemia, CAD status post [place] status post stent, hypertension, asthma, CHF, PFO, currently incarcerated presents with change in mental status. Unclear precipitating cause. Unclear the patient for seizure. [facility] at [facility]. EMS was called secondary to being confused and concerned that he has a seizure. Upon arrival nursing noted patient had left-sided decreased sensation and left-sided weakness and so a [facility] team was called. After the patient returned from CT scanner he noted he noted chronic neck pain, dizziness for last several days. REVIEW OF SYSTEMS: Pertinent positives: Dizziness, decree sensation, chronic back pain Pertinent negatives: Chest pain PHYSICAL EXAM: Nursing triage notes reviewed, Vital signs reviewed Constitutional: please see mdm HENT: MMM Eyes: Pupils equal round and reactive to light, Extraocular muscles intact Neck: No stridor, no JVD, full neck ROM Lungs: Clear to auscultation, No wheezing or rales. No increased work of breathing, no conversational dyspnea, no accessory muscle use, no nasal flaring. No respiratory distress noted Heart: Regular rate and rhythm, No murmurs, No rubs and No gallops, 2+ distal pulses (radial, femoral, posterior tibial) in all extremities Abdomen: Soft, there is no tenderness, rigidity, rebound or guarding, no obvious peritoneal signs, no palpable pulsatile abdominal masses, no auscultated abdominal bruit : No CVAT Extremities: No edema Neuro: Decree sensation left upper and lower extremity, weakness noted in left upper and lower extremity and slurred speech noted. NIH of 5. Skin: No rash or lesions noted MEDICAL DECISION MAKING: Chief Complaint: As per HPI External records reviewed: Reviewed prior cardiovascular testing: Reviewed echocardiogram from August 2024 which showed EF of 65%. Reviewed brain MRI f 2024 which showed no acute abnormalities Factors affecting care: As per HPI Social determinants of health: Incarcerated, tobacco abuse History obtained from others: EMS Consults: Stroke neurology, stroke radiology, internal medicine (Dr. Glover) MDM Narrative: Patient was initially hemodynamically stable, afebrile and nontoxic-appearing. Initial NIH of 5 concerning for acute CVA. Given unknown last known well the patient is not a candidate for TNK. Will continue to assess for his candidacy for large vessel occlusion. I considered the following differential diagnosis: ICH, CVA, TIA, seizure, Timbo's paralysis, intoxication, metabolic or infection cephalopathy amongst others ALL IMAGES (IF OBTAINED) HAVE BEEN PERSONALLY REVIEWED AND INTERPRETED BY MYSELF. CT scan of the brain showed no evidence of ICH or mass. CTA of the head neck showed no evidence of a large vessel occlusion (no occasion for thrombectomy at this time) High-sensitivity troponin is negative, no evidence of myocardial ischemia EKG with normal sinus rhythm rate 82, left axis deviation, prolonged QT interval at 43, no STEMI. Similar morphology to prior EKG from August 2024 CBC with no leukocytosis, mild anemia but no thrombocytopenia No coagulopathy noted VBG without evidence of CO2 retention BMP without evidence of significant electrolyte abnormalities, no anion gap, no acute kidney injury. Urinalysis shows no evidence of urinary inflammation suggestive of UTI Urine tox cream negative Serum alcohol negative Given focal neurologic findings, NIH of 5 patient to be admitted for further evaluation for acute CVA including risk factor modification, MRI. Will discuss with hospitalist. The patient and/or family, caregivers express understanding. The patient and/or family, caregivers agrees with the plan. Shared decision making: I will have a discussion with the patient and or visitors regarding risk/benefits of further testing or admission. They will be made aware of of the risk/benefits inherent in this decision they will be given the opportunity to voice understanding. Total critical care time today provided was at least 0 minutes. This excludes separately billable procedures. Critical care time (if documented) is secondary to the patient having high probability of clinically significant/life threatening deterioration in the patient's condition which required my urgent intervention. Impression: 1. Acute left-sided weakness 2. Altered mental status Dispo: Admit to PCU This note was generated with [employer] dictation software. It may contain incorrect words, spelling, and punctuation that were not noted in review of the chart prior to signing. Lab Data Labs: Laboratory Results - last 24 hr 11/23/24 11/23/24 19:53 21:00 WBC 5.0 RBC 3.56 L Hgb 11.5 L Hct 33.8 L MCV 94.9 H MCH 32.3 H MCHC 34.0 RDW Std Deviation 42.9 RDW Coeff of Deshawn 12.3 Plt Count 251 MPV 9.5 Immature Gran % (Auto) 0.600 Neut % (Auto) 52.5 Lymph % (Auto) 27.2 [place] % (Auto) 15.1 H Eos % (Auto) 3.8 Baso % (Auto) 0.8 Absolute Neuts (auto) 2.7 Absolute Lymphs (auto) 1.37 Nucleated RBC % 0 PT 13.6 INR 1.0 APTT 28.9 Sodium 137 Potassium 4.2 Chloride 106 Carbon Dioxide 15.2 L Anion Gap 16 H BUN 12 Creatinine 1.06 Estim Creat Clear Calc 75.94 Est GFR (MDRD) Non-Af 79 BUN/Creatinine Ratio 11.4 Glucose 76 Calcium 7.7 Troponin T High Sens 9 Urine Color Yellow Urine Clarity Clear Urine pH 6.5 Ur Specific [place] 1.010 Urine Protein Negative Urine Glucose (UA) Normal Urine Ketones Negative Urine Occult Blood Negative Urine Nitrite Negative Urine Bilirubin Negative Urine Urobilinogen Normal Ur Leukocyte Esterase Negative Urine RBC 0 SEEN Urine WBC 0 SEEN Ur Squamous Epith Cells 0-5 SEEN Urine Bacteria 0 SEEN Urine Mucus 0 SEEN Urine Opiates Screen NEGATIVE U Buprenorphine Qual NEGATIVE Ur Oxycodone Screen NEGATIVE Urine Methadone Screen NEGATIVE Urine Fentanyl Screen NEGATIVE Ur Barbiturates Screen NEGATIVE Ur Phencyclidine Scrn NEGATIVE Ur Amphetamines Screen NEGATIVE U Benzodiazepines Scrn NEGATIVE Urine Cocaine Screen NEGATIVE U Cannabinoids Screen NEGATIVE Ethyl Alcohol < 10.1 ABG Data ABG results: ABG 11/23/24 20:24 Specimen Type JACKIE Sample Site Not entered VBG pH 7.40 VBG pO2 53 H VBG HCO3 25 VBG Total CO2 26 VBG O2 Sat (Calc) 87 H VBG Base Excess 0 POC Mix VBG pCO2 Pt Tmp 39.9 L O2 Delivery Device Room Air Radiography Diagnostic Testing: Clinical Impression(s) from Imaging Studies Brain CT 11/23/24 19:34 IMPRESSION: The head is tilted to the left. No intracranial hemorrhage, mass effect or CT evidence of large vascular territory acute infarct. Results communicated verbally by phone by myself to Dr. Campos at 7:58 p.m. 11/23/2024 Reading Location: [facility] Head/Neck CTA 11/23/24 19:35 IMPRESSION: 1. No large vessel occlusion, AVM or aneurysm. 2. 50% stenosis of the right ICA by NASCET criteria. Reading Location: [facility] Discharge Plan Triage Chief Complaint: Stroke Alert Other Complaint: Dizziness ED Provider: Jackson Campos Dx/Rx/DC Orders Prescriptions: No Action bupropion HCl 150 mg tablet extended release 24 hr 150 mg PO DAILY rosuvastatin 20 mg tablet 20 mg PO QHS oxycodone 15 mg tablet 15 mg PO TID bupropion HCl 300 mg tablet extended release 24 hr 300 mg PO DAILY Patient Comments: takes in addition to the 150mg tablet levothyroxine 150 mcg tablet 150 mcg PO DAILY meloxicam 15 mg tablet 15 mg PO DAILY fluoxetine 40 mg capsule 40 mg PO DAILY hydroxyzine pamoate 50 mg capsule 50 mg PO BID PRN citalopram 40 mg tablet 40 mg PO QHS fluticasone propion-salmeterol [Advair HFA] 115-21 mcg/actuation HFA aerosol inhaler 1 puff INHALATION Q12H nitroglycerin 0.4 mg tablet, sublingual 0.4 mg sublingual PRN (Reason: chest pain) prednisone 20 mg Tablet 40 mg PO BREAKFAST Qty: 10 0RF acetaminophen 500 mg Tablet 1,000 mg PO Q8 Qty: 0 0RF aspirin 81 mg Tablet,Chewable 81 mg PO BREAKFAST Qty: 0 0RF cyclobenzaprine 5 mg Tablet 5 mg PO Q8H PRN PRN (Reason: spasms/musculoskeletal pain) Qty: 20 0RF albuterol sulfate 90 mcg/actuation HFA aerosol inhaler 1 inh inhalation Q6H PRN (Reason: shortness of breath or wheezing) Qty: 6.7 0RF carvedilol 3.125 mg tablet 3.125 mg PO BID Qty: 180 1RF lisinopril 20 mg tablet 20 mg PO QDAY Qty: 90 3RF Primary Care Provider: Dariel Lopez Referrals: Dariel Lopez DO [Primary Care Provider] - Print Language: Romansh
[2024-11-23 20:06] LABS: Absolute Lymphocyte Count 1.37 X10^3/uL (0.83-4.51); Absolute Neutrophil Count 2.7 X10^3/uL (2.0-7.7); Basophil# 0.04 X10^3/uL; Basophil% 0.8 % (0-1); Eosinophil# 0.19 X10^3/uL; Eosinophils% 3.8 % (0-5); Hematocrit 33.8 % (40-54); Hemoglobin 11.5 g/dL (13.0-16.5); Lymphocyte # 1.37 X10^3/ul (0.83-4.51); Lymphocyte % 27.2 % (19-41); Mean Corpuscular Hgb 32.3 pg (27.0-32.0); Mean Corpuscular Volume 94.9 fL (80-94); Mean Platelet Vol. 9.5 fl (6.2-12.0); Monocyte# 0.76 X10^3/uL; Monocyte% 15.1 % (0-10); NRBC Flagged by Analyzer 0 % (0-5); Neutrophil # 2.65 X10^3/uL (2.7-7.7); Neutrophil % 52.5 % (47-70); Platelet Count 251 K/mm3 (150-450); RBC Distribution Width CV 12.3 % (11.6-14.6); RBC Distribution Width SD 42.9 fl (35.1-43.9); Red Blood Count 3.56 M/mm3 (4.6-6.2)
[2024-11-23 20:15] LABS: Prothrombin Time (Protime)PT. 13.6 SECONDS (11.7-14.9)
[2024-11-23 20:16] LABS: Partial Thromboplast Time 28.9 Seconds (24.1-36.2)
[2024-11-23] MEDS: Ketorolac 15 MG/ML Vial IV (20:23)
[2024-11-23] MEDS: Metoclopramide 10 MG/2 ML Vial 5 MG IV (20:24)
[2024-11-23 20:27] LABS: Blood Gas Specimen Type VEN; O2 Delivery Device Room Air; SITE Not entered; VBG BASE EXCESS 0 mmol/L (-1.0-3.5); VBG Bicarbonate 25 mmol/L (22-26); VBG PO2 53 mmHg (25-40); VBG SO2 87 % (50-70); VBG TCO2 26 mmol/L (23-33); VBG pCO2 39.9 mmHg (41-51)
[2024-11-23 20:40] LABS: Anion Gap 16 (5-15); BUN 12 mg/dL (4-19); BUN/Creat Ratio 11.4 RATIO (10-20); Calcium,Total 7.7 mg/dL (7.6-11.0); Carbon Dioxide 15.2 mmol/L (21.0-32.0); Chloride 106 mmol/L (98-108); Creatinine, Serum 1.06 mg/dL (0.70-1.20); EST Glomerular Filtration Rate 79 (>60); Estimated Creatinine Clearance 75.94 ml/min (50-250); Glucose 76 mg/dL (70-99); Potassium 4.2 mmol/L (3.3-5.1); Sodium Level 137 mmol/L (133-145); Troponin T High Sensitivity 9 ng/L (<=22)
[2024-11-23 20:53] LABS: Alcohol, Blood (Medical)-Serum < 10.1 mg/dL (<=10.0)
[2024-11-23 21:18] LABS: Bacteria 0 SEEN /hpf (None Seen); Mucous, Urine 0 SEEN /hpf (<or=2+); White Blood Cells 0 SEEN /hpf (0-5)
[2024-11-23 21:19] LABS: Color, Urine Yellow (Yellow); Glucose, Dipstick Normal (Normal); Ketone-Dipstick Negative (Negative); Leukocyte Esterase-Dipstick Negative /ul (Negative); Nitrite-Dipstick Negative (Negative); Occult Blood-Urine Negative /ul (Negative); Protein-Dipstick Negative (Negative); Urine Bilirubin Dipstick Negative (Negative); Urine Clarity Clear (Clear); Urine Urobilinogen Normal (Normal); Urine pH 6.5 (5.0 - 8.0)
[2024-11-23 21:26] LABS: Red Blood Cells-Urine 0 SEEN /hpf (0-5); Squamous Epithelial Cells - UA 0-5 SEEN /hpf (0-5)
[2024-11-23 21:50] LABS: Amphetamine Urine NEGATIVE (<1000 ng/mL); Barbiturate Urine NEGATIVE (< 200 ng/mL); Benzodiazepine Urine NEGATIVE (< 200 ng/mL); Buprenorphine Urine NEGATIVE (< 200 ng/mL); Cocaine Urine NEGATIVE (< 300 ng/mL); Fentanyl, Urine NEGATIVE; Methadone Urine NEGATIVE (< 300 ng/mL); Opiates Urine NEGATIVE (< 300 ng/mL); Oxycodone, Urine NEGATIVE (< 100 ng/mL); PCP Urine NEGATIVE (< 25 ng/mL); THC Urine NEGATIVE (< 50 ng/mL)
[2024-11-23] MEDS: Haloperidol Lactate 5 MG/ML Vial 2 MG IV (22:41)
--- NOTE | 2024-11-23 22:52 | HP.PCM.HOS_ITS ---
[facility] - General General Date of Admission: 11/23/24 Date of Service: 11/23/24 Chief Complaint: Found Down at [facility] with Suspected Seizure with Stoke Alert Called in ER. HPI Narrative HELEN RUDD, is a 64 M with a past medical history of essential hypertension; on carvedilol and lisinopril, hyperlipidemia; on rosuvastatin, hypothyroidism; on levothyroxine, overweight; with BMI of 29.9 this admission, history of prediabetes, former tobacco abuse, CAD; s/p ME with subsequent mid- LCx stent (2012) on BASA daily, history of CHF; with preserved LVEF, history of PFO, history of asthma; on fluticasone, prn albuterol and prednisone taper, history of depression with anxiety; on fluoxetine, max-dose citalopram and max- dose bupropion, history of maxillary sinusitis, history of diverticulosis, history of normal colonoscopy (~2014), history of psoriasis, history of muscle spasms; on prn cyclobenzaprine q. 8 hours, history of umbilical hernia; s/p repair, history of gout and OA; with DDD and chronic back pain with history of RFA on scheduled oxycodone TID who presents to [facility] ER after patient was noted to be confused in senior care with concern for possible seizure. Mr. Rudd was 'found down' at senior care with obvious confusion and senior care personnel concerned for possible seizure so they had him brought in for further evaluation and treatment. There was no clear precipitating cause with patient having no history of seizure noted. There was no report of fever, chills, nausea, vomiting, diarrhea, constipation, abdominal pain, chest pain, palpitations, heart racing, headache, tongue lacerations or bowel/bladder incontinence. Upon arrival he was noted to have decreased sensation and strength on the Left side with an NIH of 5 so the ER physician called a 'stroke alert' with his last known well time unknown so he was not deemed a suitable candidate for TNK. When the patient returned from the CT scanner he complained of persistent neck pain and dizziness for the past several days. A review of his records shows he underwent a recent echocardiogram in August 2024 with LVEF ~65% and a brain MRI from August 2024 showed no acute pathologic changes. In the ER his UDS was negative and his laboratory studies and CT brain revealed no acute pathologic findings followed by CTA of the head and neck that revealed no LVO, AVM or aneurysm with ~50 stenosis of the Right ICA by NASCET criteria. He was then admitted to the PCU under observation status for ongoing care for a stay that is expected to be less than 2 midnights. [facility] Medical History (Updated 11/24/24 @ 07:[address] Dixon Adair, DO) PFO (patent foramen ovale) Anxiety Congestive heart failure (CHF) Myocardial infarct Hypertension Acute maxillary sinusitis, unspecified Diverticulitis Closed fracture of metatarsal bone Psoriasis CAD (coronary artery disease) Bee sting-induced anaphylaxis Dermatophytosis of nail Diverticular disease Macrocytosis Depression Seasonal allergies Acute bronchitis Asthma Psoriasis Colitis Prediabetes Tendinitis of right foot Essential (primary) hypertension URI (upper respiratory infection) Umbilical hernia without mention of obstruction or gangrene Atherosclerotic heart disease of [place] coronary artery without angina pectoris Old myocardial infarction HLD (hyperlipidemia) Hypertriglyceridemia Hypothyroidism Tobacco abuse Bloody ejaculation Spontaneous ecchymosis Heel spur Gout Arthritis Chronic back pain Degenerative disc disease Obesity Home Medications ?Medication ?Instructions ?Recorded ?Last Taken ?Type carvedilol 3.125 mg tablet 3.125 mg PO BID heart #180 tabs 07/08/20 09/17/24 Rx lisinopril 20 mg tablet 20 mg PO QDAY blood pressure #90 12/17/20 Unknown Rx tabs bupropion HCl 150 mg 24 hr tablet, 150 mg PO DAILY dep ression 01/07/23 09/17/24 History extended release bupropion HCl 300 mg 24 hr tablet, 300 mg PO DAILY dep ression 09/18/24 09/17/24 History extended release fluoxetine 40 mg capsule 40 mg PO DAILY ask pcp 09/18 Unknown History hydroxyzine pamoate 50 mg capsule 50 mg PO BID PRN ask pcp 09/18/24 Unknown History levothyroxine 150 mcg tablet 150 mcg PO DAILY thyroid 09/18/24 09/17/24 History meloxicam 15 mg tablet 15 mg PO DAILY pain 09/18/24 09/17/24 History oxycodone 15 mg tablet 15 mg PO TID pain 09/18/24 U nknown History rosuvastatin 20 mg tablet 20 mg PO QHS cholesterol Unknown History citalopram 40 mg tablet 40 mg PO QHS anxiety 5 Unknown History fluticasone propionate 115 1 puff inhalation Q12H asth ma 09/19/24 Unknown History mcg-salmeterol 21 mcg/actuation HFA inhaler (Advair HFA) acetaminophen 500 mg tablet 1,000 mg (2 x 500 mg) PO Q 8 #0 tabs 09/20/24 Unknown Rx albuterol sulfate 90 mcg/actuation 1 inh inhalation Q6 H PRN shortness 09/20/24 Unknown Rx aerosol inhaler of breath or wheezing #6.7 g jonathan aspirin 81 mg chewable tablet 81 mg PO BREAKFAST #0 ta bs 09/20/24 Unknown Rx cyclobenzaprine 5 mg tablet 5 mg PO Q8H PRN PRN Unknown Rx spasms/musculoskeletal pain #20 tabs prednisone 20 mg tablet 40 mg (2 x 20 mg) PO BREAKFA ST #10 09/20/24 Unknown Rx tabs Allergy/AdvReac Type Severity Reaction Status Date / Time venom-honey bee (bee venom Allergy Severe Anaphylaxis Verified 11/24/24 00:36 (honey bee)) fenofibrate (From Tricor) Allergy Swelling Verified 11/24/24 00:36 Family History Father Hypertension Hyperlipidemia Mother Lung cancer Surgical History H/O prior ablation treatment (~02/2014) History of umbilical hernia repair History of left heart catheterization (06/02/13) History of coronary artery stent placement (~11/06/12)
--- NOTE | 2024-11-23 22:52 | PCM.HP.STD ---
[facility] - General General Date of Admission: 11/23/24 Date of Service: 11/23/24 Chief Complaint: Found Down at Long Term with Suspected Seizure with Stoke Alert Called in ER. HPI Narrative HELEN RUDD, is a 64 M with a past medical history of essential hypertension; on carvedilol and lisinopril, hyperlipidemia; on rosuvastatin, hypothyroidism; on levothyroxine, overweight; with BMI of 29.9 this admission, history of prediabetes, former tobacco abuse, CAD; s/p MS with subsequent mid-LCx stent (2012) on BASA daily, history of CHF; with preserved LVEF, history of PFO, history of asthma; on fluticasone, prn albuterol and prednisone taper, history of depression with anxiety; on fluoxetine, max-dose citalopram and max-dose bupropion, history of maxillary sinusitis, history of diverticulosis, history of normal colonoscopy (~2014), history of psoriasis, history of muscle spasms; on prn cyclobenzaprine q. 8 hours, history of umbilical hernia; s/p repair, history of gout and OA; with DDD and chronic back pain with history of RFA on scheduled oxycodone TID who presents to [facility] ER after patient was noted to be confused in alf with concern for possible seizure. Mr. Rudd was 'found down' at alf with obvious confusion and alf personnel concerned for possible seizure so they had him brought in for further evaluation and treatment. There was no clear precipitating cause with patient having no history of seizure noted. There was no report of fever, chills, nausea, vomiting, diarrhea, constipation, abdominal pain, chest pain, palpitations, heart racing, headache, tongue lacerations or bowel/bladder incontinence. Upon arrival he was noted to have decreased sensation and strength on the Left side with an NIH of 5 so the ER physician called a 'stroke alert' with his last known well time unknown so he was not deemed a suitable candidate for TNK. When the patient returned from the CT scanner he complained of persistent neck pain and dizziness for the past several days. A review of his records shows he underwent a recent echocardiogram in August 2024 with LVEF ~65% and a brain MRI from August 2024 showed no acute pathologic changes. In the ER his UDS was negative and his laboratory studies and CT brain revealed no acute pathologic findings followed by CTA of the head and neck that revealed no LVO, AVM or aneurysm with ~50 stenosis of the Right ICA by NASCET criteria. He was then admitted to the PCU under observation status for ongoing care for a stay that is expected to be less than 2 midnights. [facility] Medical History (Updated 11/24/24 @ 07:[address] Dixon Adair, DO) PFO (patent foramen ovale) Anxiety Congestive heart failure (CHF) Myocardial infarct Hypertension Acute maxillary sinusitis, unspecified Diverticulitis Closed fracture of metatarsal bone Psoriasis CAD (coronary artery disease) Bee sting-induced anaphylaxis Dermatophytosis of nail Diverticular disease Macrocytosis Depression Seasonal allergies Acute bronchitis Asthma Psoriasis Colitis Prediabetes Tendinitis of right foot Essential (primary) hypertension URI (upper respiratory infection) Umbilical hernia without mention of obstruction or gangrene Atherosclerotic heart disease of [place] coronary artery without angina pectoris Old myocardial infarction HLD (hyperlipidemia) Hypertriglyceridemia Hypothyroidism Tobacco abuse Bloody ejaculation Spontaneous ecchymosis Heel spur Gout Arthritis Chronic back pain Degenerative disc disease Obesity Home Medications ?Medication ?Instructions ?Recorded ?Last Taken ?Type carvedilol 3.125 mg tablet 3.125 mg PO BID heart #180 tabs 07/08/20 09/17/24 Rx lisinopril 20 mg tablet 20 mg PO QDAY blood pressure #90 12/17/20 Unknown Rx tabs bupropion HCl 150 mg 24 hr tablet, 150 mg PO DAILY depression 01/07/23 09/17/24 History extended release bupropion HCl 300 mg 24 hr tablet, 300 mg PO DAILY depression 09/18/24 09/17/24 History extended release fluoxetine 40 mg capsule 40 mg PO DAILY ask pcp 09/18/24 Unknown History hydroxyzine pamoate 50 mg capsule 50 mg PO BID PRN ask pcp 09/18/24 Unknown History levothyroxine 150 mcg tablet 150 mcg PO DAILY thyroid 09/18/24 09/17/24 History meloxicam 15 mg tablet 15 mg PO DAILY pain 09/18/24 09/17/24 History oxycodone 15 mg tablet 15 mg PO TID pain 09/18/24 Unknown History rosuvastatin 20 mg tablet 20 mg PO QHS cholesterol 09/18/24 Unknown History citalopram 40 mg tablet 40 mg PO QHS anxiety 09/19/24 Unknown History fluticasone propionate 115 1 puff inhalation Q12H asthma 09/19/24 Unknown History mcg-salmeterol 21 mcg/actuation HFA inhaler (Advair HFA) acetaminophen 500 mg tablet 1,000 mg (2 x 500 mg) PO Q8 #0 tabs 09/20/24 Unknown Rx albuterol sulfate 90 mcg/actuation 1 inh inhalation Q6H PRN shortness 09/20/24 Unknown Rx aerosol inhaler of breath or wheezing #6.7 grams aspirin 81 mg chewable tablet 81 mg PO BREAKFAST #0 tabs 09/20/24 Unknown Rx cyclobenzaprine 5 mg tablet 5 mg PO Q8H PRN PRN 09/20/24 Unknown Rx spasms/musculoskeletal pain #20 tabs prednisone 20 mg tablet 40 mg (2 x 20 mg) PO BREAKFAST #10 09/20/24 Unknown Rx tabs Allergy/AdvReac Type Severity Reaction Status Date / Time venom-honey bee (bee venom Allergy Severe Anaphylaxis Verified 11/24/24 00:36 (honey bee)) fenofibrate (From Tricor) Allergy Swelling Verified 11/24/24 00:36 Family History Father Hypertension Hyperlipidemia Mother Lung cancer Surgical History H/O prior ablation treatment (~02/2014) History of umbilical hernia repair History of left heart catheterization (06/02/13) History of coronary artery stent placement (~11/06/12) Normal colonoscopy (~2014) Social History (Updated 11/23/24 @ 19:34 by Kylah Randall) housing: other Smoking Status: Former smoker Tobacco: How many years used: 42 Electronic Cigarette Use: not used second hand exposure: Yes (both parents smoked in the home) quit status: has quit before alcohol intake: never substance use type: does not use caffeine: No what type of physical activity do you participate in: weight training frequency: 3-4 times per week seatbelt use: always do you feel safe at home: Yes ROS ROS Narrative Review of Systems: Constitutional: Patient denies fever or chills. Eyes: Patient denies changes in vision or discharge from eyes. ENT: Patient denies runny nose, sore throat or ear pain. Resp: Patient denies SOB or cough. CV: Patient denies chest pain, palpitations, heart racing or LE edema. GI: Patient denies abdominal pain, nausea, vomiting, diarrhea or constipation. : Patient denies dysuria or hematuria. MSK: Patient admits to neck pain and Left-sided weakness. Skin: Patient denies rash, abscess, wounds or jaundice. Psych: Patient admits to confusion on multiple high-dose antidepressants as per HPI. Neuro: Patient admits to dizziness with Left-sided paresthesias as per HPI. Allergy: Patient denies lip swelling, tongue swelling or urticaria. Hematology: Patient denies easy bleeding or easy bruisability. Endocrinology: Patient denies polyuria, polydipsia or polyphagia. 14 point ROS otherwise negative except for positives noted above in HPI. Vital Signs Vital Signs Vital Signs: 11/23/24 19:24 11/23/24 19:34 11/23/24 19:44 Temperature 98 F Temperature Source Oral Pulse Rate 89 78 78 Respiratory Rate 14 18 20 H Blood Pressure 146/81 H 143/89 H 146/81 H Blood Pressure Mean 102 107 102 Pulse Ox 99 98 98 Oxygen Delivery Method 11/23/24 19:45 11/23/24 20:04 11/23/24 20:31 Temperature Temperature Source Pulse Rate 85 92 Respiratory Rate 19 H 23 H Blood Pressure 137/100 H 145/107 H Blood Pressure Mean 112 119 Pulse Ox 96 98 98 Oxygen Delivery Method Room Air 11/23/24 22:31 Temperature Temperature Source Pulse Rate 76 Respiratory Rate 16 Blood Pressure 135/80 H Blood Pressure Mean 98 Pulse Ox 96 Oxygen Delivery Method Weight Weight: 190 lb 14.725 oz Body Mass Index (BMI) 29.9 Physical Exam Const alert, oriented x3 and no apparent distress Constitutional Narrative: Overweight with mild confusion. General Appearance: cooperative Orientation / Consciousness: confused HEENT normocephalic, head/scalp atraumatic, hearing grossly normal bilaterally and moist oral mucous membranes Eyes PERRL, EOMs intact bilaterally and conjunctivae normal Neck no lymphadenopathy, supple and no JVD Resp normal respiratory effort, no retractions, no use of accessory muscles and clear to auscultation bilaterally Cardio regular rate and regular rhythm GI normal to inspection, nondistended, normoactive bowel sounds, soft to palpation, non-tender and non-distended Extremity normal to inspection, full ROM and no clubbing, cyanosis or edema Skin Skin Narrative: Patient has no evidence of rash, abscess, wounds or jaundice. Neuro CN's II-XII intact bilaterally, moves all extremities and no focal motor deficits Sensorium / Orientation: awake, alert, oriented to person and oriented to place Speech: speech normal Psych affect normal Results Medical Records Data Attestation: I reviewed the patient's medical records Lab / Micro Data Attestation: I reviewed the patient's lab results. 11/23/24 19:53 11/23/24 19:53 Labs: Laboratory Results - last 24 hr 11/23/24 19:53: WBC 5.0, RBC 3.56 L, Hgb 11.5 L, Hct 33.8 L, MCV 94.9 H, MCH 32.3 H, MCHC 34.0, RDW Std Deviation 42.9, RDW Coeff of [place]hawn 12.3, Plt Count 251, MPV 9.5, Immature Gran % (Auto) 0.600, Neut % (Auto) 52.5, Lymph % (Auto) 27.2, [place] % (Auto) 15.1 H, Eos % (Auto) 3.8, Baso % (Auto) 0.8, Absolute Neuts (auto) 2.7, Absolute Lymphs (auto) 1.37, Nucleated RBC % 0, PT 13.6, INR 1.0, APTT 28.9, Sodium 137, Potassium 4.2, Chloride 106, Carbon Dioxide 15.2 L, Anion Gap 16 H, BUN 12, Creatinine 1.06, Estim Creat Clear Calc 75.94, Est GFR (MDRD) Non-Af 79, BUN/Creatinine Ratio 11.4, Glucose 76, Calcium 7.7, Troponin T High Sens 9, Ethyl Alcohol < 10.1 11/23/24 21:00: Urine Color Yellow, Urine Clarity Clear, Urine pH 6.5, Ur Specific [place] 1.010, Urine Protein Negative, Urine Glucose (UA) Normal, Urine Ketones Negative, Urine Occult Blood Negative, Urine Nitrite Negative, Urine Bilirubin Negative, Urine Urobilinogen Normal, Ur Leukocyte Esterase Negative, Urine RBC 0 SEEN, Urine WBC 0 SEEN, Ur Squamous Epith Cells 0-5 SEEN, Urine Bacteria 0 SEEN, Urine Mucus 0 SEEN, Urine Opiates Screen NEGATIVE, U Buprenorphine Qual NEGATIVE, Ur Oxycodone Screen NEGATIVE, Urine Methadone Screen NEGATIVE, Urine Fentanyl Screen NEGATIVE, Ur Barbiturates Screen NEGATIVE, Ur Phencyclidine Scrn NEGATIVE, Ur Amphetamines Screen NEGATIVE, U Benzodiazepines Scrn NEGATIVE, Urine Cocaine Screen NEGATIVE, U Cannabinoids Screen NEGATIVE ABG Data ABG results: ABG 11/23/24 20:24 Specimen Type JACKIE Sample Site Not entered VBG pH 7.40 VBG pO2 53 H VBG HCO3 25 VBG Total CO2 26 VBG O2 Sat (Calc) 87 H VBG Base Excess 0 POC Mix VBG pCO2 Pt Tmp 39.9 L O2 Delivery Device Room Air Imaging Radiology Impression Brain CT 11/23/24 19:34 IMPRESSION: The head is tilted to the left. No intracranial hemorrhage, mass effect or CT evidence of large vascular territory acute infarct. Results communicated verbally by phone by myself to Dr. Campos at 7:58 p.m. 11/23/2024 Reading Location: [facility] Head/Neck CTA 11/23/24 19:35 IMPRESSION: 1. No large vessel occlusion, AVM or aneurysm. 2. 50% stenosis of the right ICA by NASCET criteria. Reading Location: [facility] Assessment & Plan Assessment/Plan (1) Altered mental status: QUALIFIERS: Altered mental status type: unspecified Qualified Code(s): R41.82 - Altered mental status, unspecified (2) Seizure: (3) TIA (transient ischemic attack): (4) Depression with anxiety: (5) Overweight (BMI 25.0-29.9): (6) PFO (patent foramen ovale): PLAN: Plan 1. AMS with possible Seizure - Admit to PCU under observation status. Start empiric levetiracetam 1g IV BID plus prn IV lorazepam for breakthrough seizure activity. Check prolactin level as this can be elevated after seizure activity. Check EEG to objectively evaluate for epileptiform discharged. Finally, [facility] teleneurology consult is appreciated. Check B12, Folate, TSH, HgbA1c and Lipid Profile. Negative UDS and DHARMESH noted on admission. 2. TIA vs CVA; with Left-sided weakness complicating #1 in the setting of a reported history of PFO - Continue BASA and statin. Check MRI brain to objectively evaluate for evidence of acute neurologic insult. Recent echocardiogram done August 2024 revealed LVEF ~65% with no evidence of diastolic dysfunction. Check carotid Doppler to evaluate for stenosis with abnormal appearance of Right ICA on CTA. 3. History of depression with anxiety; on fluoxetine, max-dose citalopram and max-dose bupropion complicating #1 & #2 - Maintain regimen for now to prevent flare. 4. Overweight; with BMI of 29.9 this admission adding to the burden of disease outlined from #1 - #3 - Weight loss will be recommended. 5. CAD; s/p MS with subsequent mid-LCx stent (2012) on BASA daily - Resume BASA as before. 6. Essential Hypertension; on carvedilol and lisinopril - Hold scheduled antihypertensives until CVA definitively ruled out on MRI. 7. Hyperlipidemia; on rosuvastatin - Continue statin and check Lipid Profile. 8. Hypothyroidism; on levothyroxine - Maintain levothyroxine and check TSH. 9. History of prediabetes - Check HgbA1c to confirm status. 10. Former tobacco abuse - Noted. 11. History of asthma; on fluticasone, prn albuterol and prednisone taper - Continue home regimen to prevent flare. 12. History of maxillary sinusitis - Noted. 13. History of diverticulosis - Noted. 14. History of normal colonoscopy (~2014) - Noted. 15. History of psoriasis - Stable. 16. History of muscle spasms; on prn cyclobenzaprine q. 8 hours - Maintain current treatment. 17. History of umbilical hernia; s/p repair - Noted for the sake of completeness. 18. History of gout - Stable with no evidence of acute flare. 19. OA; with DDD and chronic back pain with history of RFA on scheduled oxycodone TID - Hold oxycodone to allow sensorium to clear. Give acetaminophen prn pain or fever. 20. DVT prophylaxis - Lovenox 30 mg sq daily plus SCD's. Total time: Approximately (but not less than) 70 minutes. Charges/Coding Visit Charges OBSV E&M: 42317 Observ/hosp same date L2
[2024-11-23 23:21] LABS: Troponin T High Sens 2 HR 13 ng/L (<=22)
[2024-11-24] VITALS (7 sets, daily range): BP systolic 111–127; BP diastolic 62–94; PULSE 60–86; RESP 16–18; TEMP 36.3–36.4; O2SAT 95–100; BMI 29.4
--- NOTE | 2024-11-24 | MRI_ITS ---
PROCEDURE: BRAIN WITHOUT CONTRAST 11/24/2024 REASON FOR EXAM: SEIZURE WITH AMS. EVAL FOR CVA. TECHNIQUE: Brain MRI without intravenous contrast. COMPARISON: 11/23/2024 FINDINGS: No evidence of acute ischemia or mass lesion.No intracranial hemorrhage. The ventricles and sulci are normal in appearance.No extra-axial collection or midline shift. The posterior fossa structures are within normal limits. The orbits and paranasal sinuses are unremarkable.The calvarium and soft tissues are unremarkable. MRI/Brain without Contrast IMPRESSION: 1. Normal MRI of the brain. Reading Location: [facility]
[2024-11-24 00:55] LABS: Hemoglobin A1c 5.9 % (<=5.6)
[2024-11-24] MEDS: levETIRAcetam IV 1,000 MG/100 ML BAG 400 MG IV ×2 (00:59→08:32)
[2024-11-24] MEDS: 0.9% Normal Saline (1000mL) 1,000 ML 70 ML IV (00:59)
[2024-11-24 01:02] LABS: Thyroid Stim Hormone (TSH) 0.118 uIU/mL (0.300-4.200); Vitamin B12 218 pg/mL (180-914)
[2024-11-24 01:33] LABS: Troponin T High Sens 4 HR 13 ng/L (<=22)
[2024-11-24] MEDS: Acetaminophen 325 MG Tablet 650 MG PO ×2 (01:35→09:29)
[2024-11-24] MEDS: cycloBENZAPRine HCl 5 MG TABLET PO ×2 (01:38→14:29)
[2024-11-24 03:17] LABS: Alcohol, Blood (Medical)-Serum < 10.1 mg/dL (<=10.0)
[2024-11-24] MEDS: Levothyroxine 150 MCG Tablet PO (06:09)
[2024-11-24] MEDS: Budesonide Respules 0.5 MG/2 ML AMPUL.NEB. INHALATION (07:38)
[2024-11-24] MEDS: Albuterol 2.5 MG/3 ML VIAL.NEB. INHALATION (07:38)
--- NOTE | 2024-11-24 07:42 | PCM.PN.HOSP ---
Reason for Visit Reason for Visit: Diagnoses Overweight (11/23/24) Other specified anxiety disorders (11/23/24) Transient cerebral ischemic attack, unspecified (11/23/24) Patent foramen ovale (11/23/24) Altered mental status, unspecified (11/23/24) Unspecified convulsions (11/23/24) Subjective Subjective Still dizzy. States that he felt dizzy and then passed out. Complains of pain with shocks in his neck. States that has been going on before his fall. States that he was to see spine surgery on 29 November but senior living canceled it for unclear reasons. Objective Data Objective Data Vital Signs: Vital Signs Temp Pulse Resp BP Pulse Ox O2 Del Method 36.4 C L 60 16 111/73 95 Room Air 11/24/24 04:41 11/24/24 04:41 11/24/24 04:41 11/24/24 04:41 11/24/24 04:50 11/24/24 04:50 Oxygen Delivery Method Room Air Weight: 85.3 kg Body Mass Index (BMI) 29.4 Intake & Output: Intake and Output for Last 24 Hours 11/22/24 11/23/24 11/24/24 23:59 23:59 23:59 Intake Total 100 / 100 Output Total 350 / 350 Balance -250 / -250 Lab / Micro Data 11/23/24 19:53 11/23/24 19:53 Labs: Laboratory Results - last 24 hr 11/23/24 19:53: WBC 5.0, RBC 3.56 L, Hgb 11.5 L, Hct 33.8 L, MCV 94.9 H, MCH 32.3 H, MCHC 34.0, RDW Std Deviation 42.9, RDW Coeff of [place]hawn 12.3, Plt Count 251, MPV 9.5, Immature Gran % (Auto) 0.600, Neut % (Auto) 52.5, Lymph % (Auto) 27.2, [place] % (Auto) 15.1 H, Eos % (Auto) 3.8, Baso % (Auto) 0.8, Absolute Neuts (auto) 2.7, Absolute Lymphs (auto) 1.37, Nucleated RBC % 0, PT 13.6, INR 1.0, APTT 28.9, Sodium 137, Potassium 4.2, Chloride 106, Carbon Dioxide 15.2 L, Anion Gap 16 H, BUN 12, Creatinine 1.06, Estim Creat Clear Calc 75.94, Est GFR (MDRD) Non-Af 79, BUN/Creatinine Ratio 11.4, Glucose 76, Calcium 7.7, Troponin T High Sens 9, Ethyl Alcohol < 10.1 11/23/24 19:55: Hemoglobin A1c 5.9 11/23/24 21:00: Urine Color Yellow, Urine Clarity Clear, Urine pH 6.5, Ur Specific [place] 1.010, Urine Protein Negative, Urine Glucose (UA) Normal, Urine Ketones Negative, Urine Occult Blood Negative, Urine Nitrite Negative, Urine Bilirubin Negative, Urine Urobilinogen Normal, Ur Leukocyte Esterase Negative, Urine RBC 0 SEEN, Urine WBC 0 SEEN, Ur Squamous Epith Cells 0-5 SEEN, Urine Bacteria 0 SEEN, Urine Mucus 0 SEEN, Urine Opiates Screen NEGATIVE, U Buprenorphine Qual NEGATIVE, Ur Oxycodone Screen NEGATIVE, Urine Methadone Screen NEGATIVE, Urine Fentanyl Screen NEGATIVE, Ur Barbiturates Screen NEGATIVE, Ur Phencyclidine Scrn NEGATIVE, Ur Amphetamines Screen NEGATIVE, U Benzodiazepines Scrn NEGATIVE, Urine Cocaine Screen NEGATIVE, U Cannabinoids Screen NEGATIVE 11/23/24 22:17: Troponin T Hi Sens 2 Hr 13, Vitamin B12 218, TSH 0.118 L 11/24/24 01:03: Troponin T Hi Sens 4Hr 13, Serum Folate 17.10, Ethyl Alcohol < 10.1 11/24/24 02:11: Serum Folate 13.30 ABG Data ABG results: ABG 11/23/24 20:24 Specimen Type JACKIE Sample Site Not entered VBG pH 7.40 VBG pO2 53 H VBG HCO3 25 VBG Total CO2 26 VBG O2 Sat (Calc) 87 H VBG Base Excess 0 POC Mix VBG pCO2 Pt Tmp 39.9 L O2 Delivery Device Room Air Radiography Diagnostic Testing: Radiology Impression Brain CT 11/23/24 19:34 IMPRESSION: The head is tilted to the left. No intracranial hemorrhage, mass effect or CT evidence of large vascular territory acute infarct. Results communicated verbally by phone by myself to Dr. Campos at 7:58 p.m. 11/23/2024 Reading Location: [id number] Head/Neck CTA 11/23/24 19:35 IMPRESSION: 1. No large vessel occlusion, AVM or aneurysm. 2. 50% stenosis of the right ICA by NASCET criteria. Reading Location: [facility] Physical Exam Const alert and no apparent distress Constitutional Narrative: Flat affect. Turning his neck spontaneously. Afebrile. Assessment & Plan Assessment/Plan (1) Altered mental status: QUALIFIERS: Altered mental status type: unspecified Qualified Code(s): R41.82 - Altered mental status, unspecified PLAN: Found down in senior living and was noted to be confused. Workup here is been negative. head CT negative, CTA head and neck 50% stenosis of the right ICA MRI brain negative. EEG negative. May have been a vasovagal episode that caused him to fall and then may have led him to have a concussion may have caused him to be confused. No evidence of any seizures. Seen by neurology who does not have any additional recommendations. (2) Vertigo: PLAN: Likely secondary to benign proximal positional vertigo. As needed meclizine. Vestibular rehab as outpatient. Complicated by the fact that the patient is currently residing in senior living. (3) Neck pain: PLAN: Patient states that it was ongoing present to arrival and present to his injury that he sustained. Patient did have an MRI of his brain that showed spondylosis and spinal stenosis of his cervical spine. Patient had been referred to spine surgery which he states that he had an appointment on November 29 but that was canceled. Recommend patient reschedule spine surgery evaluation. PLAN: Plan Chronic conditions: hypothyroidism: levothyroxine HTN: meds currently held given possibility of CVA.
[2024-11-24] MEDS: Fluoxetine HCl 40 MG CAPSULE PO (08:30)
[2024-11-24] MEDS: buPROPion (XL) 300 MG TABLET.XL PO (08:30)
[2024-11-24] MEDS: Aspirin 81 MG TAB.CHEW PO (08:30)
[2024-11-24] MEDS: predniSONE 20 MG Tablet 40 MG PO (08:30)
[2024-11-24] MEDS: buPROPion (XL) 150 MG TABLET.XL PO (08:30)
[2024-11-24 09:15] LABS: Cholesterol 110 mg/dL (<=200); High Density Lipoprotein 31 mg/dL; Low Density Lipoprotein Calc. 49 mg/dL; Triglycerides 151 mg/dL; Very Low Density Lipoprotein 30 mg/dL (5-40); cholesterol:hdl ratio screen 3.55
--- NOTE | 2024-11-24 12:04 | NEURO.CONS ---
Assessment and Plan: Neuro Assessment/Plan HELEN RUDD Jr. is a 64 M with a past medical history of , being evaluated by Teleneurology for Diagnosis: Plan: Transfer to [facility] for the following reasons: I personally attended this patient and spent a total time of minutes evaluating this patient including clinical assessment, review of chart, medical history imaging, and determining appropriate treatment and workup. HPI Consult Data Date of Consult: 11/24/24 HPI Narrative HPI Narrative: HELEN RUDD, is a 64 M with a past medical history of essential hypertension, HLD, Hypothyroidism, who presents to [facility] ER after patient was noted to be confused in fdc with concern for possible seizure. Mr. Rudd was 'found down' at fdc with obvious confusion and fdc personnel concerned for possible seizure so they had him brought in for further evaluation and treatment. There was no clear precipitating cause with patient having no history of seizure noted. There was no report of fever, chills, nausea, vomiting, diarrhea, constipation, abdominal pain, chest pain, palpitations, heart racing, headache, tongue lacerations or bowel/bladder incontinence. Upon arrival he was noted to have decreased sensation and strength on the Left side with an NIH of 5 so the ER physician called a 'stroke alert' with his last known well time unknown so he was not deemed a suitable candidate for TNK. When the patient returned from the CT scanner he complained of persistent neck pain and dizziness for the past several days. A review of his records shows he underwent a recent echocardiogram in August 2024 with LVEF ~65% and a brain MRI from August 2024 showed no acute pathologic changes. In the ER his UDS was negative and his laboratory studies and CT brain revealed no acute pathologic findings followed by CTA of the head and neck that revealed no LVO, AVM or aneurysm with ~50 stenosis of the Right ICA by NASCET criteria. He was then admitted to the PCU under observation status for ongoing care for a stay that is expected to be less than 2 midnights. [facility] Medical History (Updated 11/24/24 @ 07:[address] Soto Tavera, DO) PFO (patent foramen ovale) Anxiety Congestive heart failure (CHF) Myocardial infarct Hypertension Acute maxillary sinusitis, unspecified Diverticulitis Closed fracture of metatarsal bone Psoriasis CAD (coronary artery disease) Bee sting-induced anaphylaxis Dermatophytosis of nail Diverticular disease Macrocytosis Depression Seasonal allergies Acute bronchitis Asthma Psoriasis Colitis Prediabetes Tendinitis of right foot Essential (primary) hypertension URI (upper respiratory infection) Umbilical hernia without mention of obstruction or gangrene Atherosclerotic heart disease of [place] coronary artery without angina pectoris Old myocardial infarction HLD (hyperlipidemia) Hypertriglyceridemia Hypothyroidism Tobacco abuse Bloody ejaculation Spontaneous ecchymosis Heel spur Gout Arthritis Chronic back pain Degenerative disc disease Obesity Home Medications ?Medication ?Instructions ?Recorded ?Last Taken ?Type carvedilol 3.125 mg tablet 3.125 mg PO BID heart #180 tabs 07/08/20 11/23/24 Rx lisinopril 20 mg tablet 20 mg PO QDAY blood pressure #90 12/17/20 11/23/24 Rx tabs bupropion HCl 150 mg 24 hr tablet, 150 mg PO DAILY depression 01/07/23 11/23/24 History extended release bupropion HCl 300 mg 24 hr tablet, 300 mg PO DAILY depression 09/18/24 11/23/24 History extended release fluoxetine 40 mg capsule 40 mg PO DAILY ask pcp 09/18/24 Unknown History hydroxyzine pamoate 50 mg capsule 50 mg PO BID PRN ask pcp 09/18/24 11/23/24 History levothyroxine 150 mcg tablet 150 mcg PO DAILY thyroid 09/18/24 11/23/24 History meloxicam 15 mg tablet 15 mg PO DAILY pain 09/18/24 11/23/24 History oxycodone 15 mg tablet 15 mg PO TID pain 09/18/24 Unknown History rosuvastatin 20 mg tablet 20 mg PO QHS cholesterol 09/18/24 Unknown History citalopram 40 mg tablet 40 mg PO QHS anxiety 09/19/24 Unknown History fluticasone propionate 115 1 puff inhalation Q12H asthma 09/19/24 11/21/24 History mcg-salmeterol 21 mcg/actuation HFA inhaler (Advair HFA) acetaminophen 500 mg tablet 1,000 mg (2 x 500 mg) PO Q8 #0 tabs 09/20/24 Unknown Rx albuterol sulfate 90 mcg/actuation 1 inh inhalation Q6H PRN shortness 09/20/24 11/21/24 Rx aerosol inhaler of breath or wheezing #6.7 grams aspirin 81 mg chewable tablet 81 mg PO BREAKFAST #0 tabs 09/20/24 Unknown Rx cyclobenzaprine 5 mg tablet 5 mg PO Q8H PRN PRN 09/20/24 Unknown Rx spasms/musculoskeletal pain #20 tabs prednisone 20 mg tablet 40 mg (2 x 20 mg) PO BREAKFAST #10 09/20/24 Unknown Rx tabs Allergy/AdvReac Type Severity Reaction Status Date / Time venom-honey bee (bee venom Allergy Severe Anaphylaxis Verified 11/24/24 00:36 (honey bee)) fenofibrate (From Tricor) Allergy Swelling Verified 11/24/24 00:36 Family History Father Hypertension Hyperlipidemia Mother Lung cancer Surgical History H/O prior ablation treatment (~02/2014) History of umbilical hernia repair History of left heart catheterization (06/02/13) History of coronary artery stent placement (~11/06/12) Normal colonoscopy (~2014) Social History (Updated 11/23/24 @ 19:34 by Kylah Randall) housing: other Smoking Status: Former smoker Tobacco: How many years used: 42 Electronic Cigarette Use: not used second hand exposure: Yes (both parents smoked in the home) quit status: has quit before alcohol intake: never substance use type: does not use caffeine: No what type of physical activity do you participate in: weight training frequency: 3-4 times per week seatbelt use: always do you feel safe at home: Yes Vital Signs Vital Signs Vital Signs: 11/23/24 19:24 11/23/24 19:34 11/23/24 19:44 Temperature 98 F Temperature Source Oral Pulse Rate 89 78 78 Respiratory Rate 14 18 20 H Respiratory Effort Respiratory Depth Respiratory Pattern Blood Pressure 146/81 H 143/89 H 146/81 H Blood Pressure Mean 102 107 102 Blood Pressure Source Blood Pressure Position Blood Pressure Location Pulse Ox 99 98 98 Oxygen Delivery Method 11/23/24 19:45 11/23/24 20:04 11/23/24 20:31 Temperature Temperature Source Pulse Rate 85 92 Respiratory Rate 19 H 23 H Respiratory Effort Respiratory Depth Respiratory Pattern Blood Pressure 137/100 H 145/107 H Blood Pressure Mean 112 119 Blood Pressure Source Blood Pressure Position Blood Pressure Location Pulse Ox 96 98 98 Oxygen Delivery Method Room Air 11/23/24 22:31 11/23/24 23:05 11/24/24 00:22 Temperature 98.3 F Temperature Source Pulse Rate 76 76 Respiratory Rate 16 16 Respiratory Effort Normal Non-Labored Respiratory Depth Normal Respiratory Pattern Normal Blood Pressure 135/80 H 135/80 H Blood Pressure Mean 98 98 Blood Pressure Source Blood Pressure Position Blood Pressure Location Pulse Ox 96 96 95 Oxygen Delivery Method Room Air 11/24/24 00:22 11/24/24 01:23 11/24/24 04:41 Temperature 97.3 F L 97.6 F L Temperature Source Oral Temporal Pulse Rate 69 60 Respiratory Rate 16 16 Respiratory Effort Respiratory Depth Respiratory Pattern Blood Pressure 123/94 H 111/73 Blood Pressure Mean 103 85 Blood Pressure Source Monitor Monitor Blood Pressure Position Semi-Fowlers Supine Blood Pressure Location Right Arm Left Arm Pulse Ox 100 95 97 Oxygen Delivery Method Room Air Room Air Room Air 11/24/24 04:50 11/24/24 07:30 11/24/24 07:30 Temperature Temperature Source Pulse Rate 79 Respiratory Rate 18 Respiratory Effort Normal Non-Labored Respiratory Depth Normal Respiratory Pattern Normal Blood Pressure Blood Pressure Mean Blood Pressure Source Blood Pressure Position Blood Pressure Location Pulse Ox 95 95 Oxygen Delivery Method Room Air Room Air 11/24/24 08:15 11/24/24 08:20 Temperature 97.6 F L Temperature Source Temporal Pulse Rate 65 Respiratory Rate 16 Respiratory Effort Normal Non-Labored Respiratory Depth Normal Respiratory Pattern Normal Blood Pressure 118/78 Blood Pressure Mean 91 Blood Pressure Source Blood Pressure Position Blood Pressure Location Pulse Ox 100 Oxygen Delivery Method Room Air Room Air Weight Weight: 85.3 kg Body Mass Index (BMI) 29.4 EEG Results Procedure Details EEG Procedure Details: HELEN ROCA BLAIRE Avery is a 64 year old M with a past medical history of , who presents for evaluation of Electroencephalogram on DATE at TIME NIHSS NIHSS Nursing Documentation NIHSS Nursing Documentation: NIH Stroke Scale Start: 11/23/24 19:41 Freq: Status: Discharge Protocol: Activity Type Activity Date Activity User E-sign Co-sign Detail Recorded Client Recorded Date Recorded By Document 11/23/24 19:41 ES [id number] 11/23/24 19:42 ES 11/23/24 19:41 NIH Stroke Scale [NIHSS] A score of 0 is normal or asymptomatic . Total possible score is 42. Inpatient: RN or Physician to activate a stroke alert for onset of new stroke symptoms or with NIHSS increase >/= 3 points. Following change in neurological status, NIHSS will be performed per physician order or more frequently PRN. -1a. Level of Consciousness Alert; keenly responsive -1b. LOC Questions Answers BOTH questions correctly. -1c. LOC Commands Performs both tasks correctly . -2. Best Gaze Normal -3. Visual No visual loss -4. Facial Palsy Normal symmetrical movements -5a. Left Arm No drift; arm holds 90 (or 45 ) degrees for full 10 seconds -5b. Right Arm No drift; arm holds 90 (or 45 ) degrees for full 10 seconds -6a. Left Leg Drift; leg falls by the end of 5- seconds, but does not hit bed -6b. Right Leg No drift; leg holds 30-degree position for full 5 seconds -7. Limb Ataxia Absent -8. Sensory Mild-to- moderate sensory loss; -9. Best Language No aphasia; normal -10. Dysarthria Mild-to- moderate dysarthria; -11. Extinction and Inattention No abnormality -Total 3 Query Text:A score of 0 is normal or asymptomatic. Total possible score is 42 . ED: Notify Physician for NIHSS increase by > / = 3 points. Inpatient: RN or Physician to activate a stroke alert for NIHSS increase of > / = 3 points. NIHSS: Ischemic Stroke/TIA Start: 11/24/24 00:22 Text: For PCU Patients: NIH and Neuro Check every 4 Status: Complete hours, PRN and with change in RN caregiver. Freq: [id number] Protocol: Activity Type Activity Date Activity User E-sign Co-sign Detail Recorded Client Recorded Date Recorded By Document 11/24/24 08:15 MM pcu 11/24/24 08:19 MM 11/24/24 08:15 -1a. Level of Consciousness Alert; keenly responsive -1b. LOC Questions Answers BOTH questions correctly. -1c. LOC Commands Performs both tasks correctly . -2. Best Gaze Normal -3. Visual No visual loss -4. Facial Palsy Normal symmetrical movements -5a. Left Arm No drift; arm holds 90 (or 45 ) degrees for full 10 seconds -5b. Right Arm No drift; arm holds 90 (or 45 ) degrees for full 10 seconds -6a. Left Leg Drift; leg falls by the end of 5- seconds, but does not hit bed -6b. Right Leg No drift; leg holds 30-degree position for full 5 seconds -7. Limb Ataxia Present in 1 limb -8. Sensory Normal; no sensory loss -9. Best Language No aphasia; normal -10. Dysarthria Normal -11. Extinction and Inattention No abnormality -Total 2 Query Text:A score of 0 is normal or asymptomatic. Total possible score is 42 . ED: Notify Physician for NIHSS increase by > / = 3 points. Inpatient: RN or Physician to activate a stroke alert for NIHSS increase of > / = 3 points. Coma Scale [Assess] -Eye Opening Spontaneous -Motor Obeys Commands -Verbal Oriented [Total] -Coma Scale Total 15 Lab / Micro Data 11/23/24 19:53 11/23/24 19:53 Labs: Laboratory Results - last 24 hr 11/23/24 19:53: WBC 5.0, RBC 3.56 L, Hgb 11.5 L, Hct 33.8 L, MCV 94.9 H, MCH 32.3 H, MCHC 34.0, RDW Std Deviation 42.9, RDW Coeff of [place] 12.3, Plt Count 251, MPV 9.5, Immature Gran % (Auto) 0.600, Neut % (Auto) 52.5, Lymph % (Auto) 27.2, [place] % (Auto) 15.1 H, Eos % (Auto) 3.8, Baso % (Auto) 0.8, Absolute Neuts (auto) 2.7, Absolute Lymphs (auto) 1.37, Nucleated RBC % 0, PT 13.6, INR 1.0, APTT 28.9, Sodium 137, Potassium 4.2, Chloride 106, Carbon Dioxide 15.2 L, Anion Gap 16 H, BUN 12, Creatinine 1.06, Estim Creat Clear Calc 75.94, Est GFR (MDRD) Non-Af 79, BUN/Creatinine Ratio 11.4, Glucose 76, Calcium 7.7, Troponin T High Sens 9, Ethyl Alcohol < 10.1 11/23/24 19:55: Hemoglobin A1c 5.9 11/23/24 21:00: Urine Color Yellow, Urine Clarity Clear, Urine pH 6.5, Ur Specific [place] 1.010, Urine Protein Negative, Urine Glucose (UA) Normal, Urine Ketones Negative, Urine Occult Blood Negative, Urine Nitrite Negative, Urine Bilirubin Negative, Urine Urobilinogen Normal, Ur Leukocyte Esterase Negative, Urine RBC 0 SEEN, Urine WBC 0 SEEN, Ur Squamous Epith Cells 0-5 SEEN, Urine Bacteria 0 SEEN, Urine Mucus 0 SEEN, Urine Opiates Screen NEGATIVE, U Buprenorphine Qual NEGATIVE, Ur Oxycodone Screen NEGATIVE, Urine Methadone Screen NEGATIVE, Urine Fentanyl Screen NEGATIVE, Ur Barbiturates Screen NEGATIVE, Ur Phencyclidine Scrn NEGATIVE, Ur Amphetamines Screen NEGATIVE, U Benzodiazepines Scrn NEGATIVE, Urine Cocaine Screen NEGATIVE, U Cannabinoids Screen NEGATIVE 11/23/24 22:17: Troponin T Hi Sens 2 Hr 13, Vitamin B12 218, TSH 0.118 L 11/24/24 01:03: Troponin T Hi Sens 4Hr 13, Serum Folate 17.10, Ethyl Alcohol < 10.1 11/24/24 02:11: Serum Folate 13.30 11/24/24 07:40: Triglycerides 151, Cholesterol 110, LDL Cholesterol, Calc 49, VLDL Cholesterol 30, HDL Cholesterol 31 L, Cholesterol/HDL Ratio 3.55 ABG Data ABG results: ABG 11/23/24 20:24 Specimen Type JACKIE Sample Site Not entered VBG pH 7.40 VBG pO2 53 H VBG HCO3 25 VBG Total CO2 26 VBG O2 Sat (Calc) 87 H VBG Base Excess 0 POC Mix VBG pCO2 Pt Tmp 39.9 L O2 Delivery Device Room Air Imaging Radiology Impression Brain CT 11/23/24 19:34 IMPRESSION: The head is tilted to the left. No intracranial hemorrhage, mass effect or CT evidence of large vascular territory acute infarct. Results communicated verbally by phone by myself to Dr. Campos at 7:58 p.m. 11/23/2024 Reading Location: [id number] Head/Neck CTA 11/23/24 19:35 IMPRESSION: 1. No large vessel occlusion, AVM or aneurysm. 2. 50% stenosis of the right ICA by NASCET criteria. Reading Location: [facility] Brain MRI 11/24/24 00:00 IMPRESSION: 1. Normal MRI of the brain. Reading [facility] Active Medications Active Medications Active Medications: Current Medications Generic Name Dose Route Start Last Admin Trade Name Freq PRN Reason Stop Dose Admin Acetaminophen 650 mg 11/24/24 01:00 11/24/24 09:29 Acetaminophen 325 Mg Tablet PO 650 mg Q8 PRN Administration Pain 1-10 or Fever Albuterol Sulfate 2.5 mg 11/24/24 01:00 Albuterol 2.5 Mg/3 Ml Vial.Neb. INHALATION Q6H PRN shortness of breath or wheezing Albuterol Sulfate 2.5 mg 11/24/24 07:00 11/24/24 07:38 Albuterol 2.5 Mg/3 Ml Vial.Neb. INHALATION 2.5 mg Q6HWA.RT CHAITANYA Administration Aspirin 81 mg 11/24/24 08:00 11/24/24 08:30 Aspirin 81 Mg Tab.Chew PO 81 mg BREAKFAST CHAITANYA Administration Atorvastatin Calcium 40 mg 11/24/24 22:00 Atorvastatin Calcium 40 Mg Tablet PO QHS CHAITANYA Budesonide 0.5 mg 11/24/24 07:00 11/24/24 07:38 Budesonide Respules 0.5 Mg/2 Ml Ampul.Neb. INHALATION 0.5 mg Q12H.RT CHAITANYA Administration Bupropion HCl 150 mg 11/24/24 10:00 11/24/24 08:30 Bupropion (Xl) 150 Mg Tablet.Xl PO 150 mg DAILY CHAITANYA Administration Bupropion HCl 300 mg 11/24/24 10:00 11/24/24 08:30 Bupropion (Xl) 300 Mg Tablet.Xl PO 300 mg DAILY CHAITANYA Administration Citalopram Hydrobromide 40 mg 11/24/24 22:00 Citalopram 40 Mg Tablet PO QHS CHAITANYA Cyclobenzaprine HCl 5 mg 11/24/24 01:00 11/24/24 01:38 Cyclobenzaprine Hcl 5 Mg Tablet PO 5 mg Q8H PRN PRN Administration spasms/musculoskeletal pain Fluoxetine HCl 40 mg 11/24/24 10:00 11/24/24 08:30 Fluoxetine Hcl 40 Mg Capsule PO 40 mg DAILY CHAITANYA Administration Hydroxyzine Pamoate 50 mg 11/24/24 01:00 Hydroxyzine Vielka 25 Mg Capsule PO BID PRN PRN ANXIETY Levetiracetam 1,000 mg in 100 mls @ 400 mls/hr 11/24/24 00:30 11/24/24 09:52 IV Infused Q12 CHAITANYA Infusion Sodium Chloride 1,000 mls @ 70 mls/hr 11/24/24 00:30 11/24/24 09:52 IV Infused .[id number] CHAITANYA Infusion Sodium Chloride 100 mls @ 15 mls/hr 11/24/24 00:34 IV .Q6H40M PRN Saline Flush Sodium Chloride 100 mls @ 15 mls/hr 11/24/24 00:34 IV .Q6H40M PRN Additional IVPB Infusion Levothyroxine Sodium 150 mcg 11/24/24 06:00 11/24/24 06:09 Levothyroxine 150 Mcg Tablet PO 150 mcg DAILY@0600 CHAITANYA Administration Lorazepam 2 mg 11/24/24 01:00 Lorazepam 2 Mg/Ml Wch Syringe IV Q4H PRN PRN SEIZURES Prednisone 40 mg 11/24/24 08:00 11/24/24 08:30 Prednisone 20 Mg Tablet PO 40 mg BREAKFAST CHAITANYA Administration Sodium Chloride 10 - 40 ml 11/24/24 00:34 0.9% Saline Lock 10 Ml Syringe IV UD PRN SALINE FLUSH
--- NOTE | 2024-11-24 12:21 | CASEMGMT ---
Social Work- SW met with pt to complete SDOH. SW introduced self and role; pt agreeable to meet. Pt reports that he has degenerative disc disease and is on disability due to the severe nature of the disease limiting pt ability to walk and perform tasks. Pt shared that he takes narcotic medication for the disc disease and recently received an DORIAN due to driving while using his medication. Pt reports that he is now in longterm where he will remain until January. Pt has his license suspended for three years and has been removed from [facility]. Pt has concerns regarding housing, as he reports his income is $940/month, but has $61 taken out by the courts for old child support. Pt reports that he receives $70 for EBT card each month. Pt reports he tried meals on wheels, but could no longer afford the cost. Pt does utilize the [facility]. Pt reports that he is concerned about transportation, as he assists with care for his 86 year old father in assisted living several times per week and also assists in care for his grandkids, as his [id number] is undergoing chemo treatments and his son works long hours when he is not attending appointments with his . Pt reports hat he has a truck and intends to keep it in case he needs to live out of it. Pt was open to discussing assisted living waiver, fixed-income housing, and community resources. SW provided printables for [employer] transportation, [employer], [employer], [facility] transportation, [employer], food resources, [employer], [employer], fixed-income housing, and [employer] card. Pt reports no other needs at this time. DAYA Desouza
--- NOTE | 2024-11-24 13:02 | NEURO.PNOTE ---
Assessment and Plan: Neuro Assessment/Plan Seen on 11/24/2024 over telestroke (Audio/Video Interface) 64 y/o man with h/o HTN, DLD, hypothyroid, CAD s/p ME and PFO p/w p/w confusion in longterm with questionable seizure like activity. In the ER, he improved significantly. CT head- no acute intracranial process. CTA_ URBANO-50% stenosis. LDL-49. A1c-5.9. MRI brain- no aucte stroke. Today, he reports feeling better but still subjectively c/o spinning on sitting up. NIHSS-0 Diagnosis: Metabolic/infectious encephalopathy. Rule out seizure Plan: Follow up EEG otherwise no further workup. OT/PT/ARTIFICIAL INSEMINATOR. Please call us for any questions. I personally attended this patient and spent a total time of 30 minutes evaluating this patient including clinical assessment, review of chart, medical history imaging, and determining appropriate treatment and workup. Subject: Neurology Subjective 64 y/o man with h/o HTN, DLD, hypothyroid, CAD s/p ME and PFO p/w p/w confusion in longterm with questionable seizure like activity. In the ER, he improved significantly. CT head- no acute intracranial process. CTA_ URBANO-50% stenosis. LDL-49. A1c-5.9. Today, he reports feeling better but still subjectively c/o spinning on sitting up. NIHSS-0 NIHSS NIHSS Nursing Documentation NIHSS Nursing Documentation: NIH Stroke Scale Start: 11/23/24 19:41 Freq: Status: Discharge Protocol: Activity Type Activity Date Activity User E-sign Co-sign Detail Recorded Client Recorded Date Recorded By Document 11/23/24 19:41 [id number] 11/23/24 19:42 11/23/24 19:41 NIH Stroke Scale [NIHSS] A score of 0 is normal or asymptomatic . Total possible score is 42. Inpatient: RN or Physician to activate a stroke alert for onset of new stroke symptoms or with NIHSS increase >/= 3 points. Following change in neurological status, NIHSS will be performed per physician order or more frequently PRN. -1a. Level of Consciousness Alert; keenly responsive -1b. LOC Questions Answers BOTH questions correctly. -1c. LOC Commands Performs both tasks correctly . -2. Best Gaze Normal -3. Visual No visual loss -4. Facial Palsy Normal symmetrical movements -5a. Left Arm No drift; arm holds 90 (or 45 ) degrees for full 10 seconds -5b. Right Arm No drift; arm holds 90 (or 45 ) degrees for full 10 seconds -6a. Left Leg Drift; leg falls by the end of 5- seconds, but does not hit bed -6b. Right Leg No drift; leg holds 30-degree position for full 5 seconds -7. Limb Ataxia Absent -8. Sensory Mild-to- moderate sensory loss; -9. Best Language No aphasia; normal -10. Dysarthria Mild-to- moderate dysarthria; -11. Extinction and Inattention No abnormality -Total 3 Query Text:A score of 0 is normal or asymptomatic. Total possible score is 42 . ED: Notify Physician for NIHSS increase by > / = 3 points. Inpatient: RN or Physician to activate a stroke alert for NIHSS increase of > / = 3 points. NIHSS: Ischemic Stroke/TIA Start: 11/24/24 00:22 Text: For PCU Patients: NIH and Neuro Check every 4 Status: Complete hours, PRN and with change in RN caregiver. Freq: [id number] Protocol: Activity Type Activity Date Activity User E-sign Co-sign Detail Recorded Client Recorded Date Recorded By Document 11/24/24 08:15 MM pcu 11/24/24 08:19 MM 11/24/24 08:15 -1a. Level of Consciousness Alert; keenly responsive -1b. LOC Questions Answers BOTH questions correctly. -1c. LOC Commands Performs both tasks correctly . -2. Best Gaze Normal -3. Visual No visual loss -4. Facial Palsy Normal symmetrical movements -5a. Left Arm No drift; arm holds 90 (or 45 ) degrees for full 10 seconds -5b. Right Arm No drift; arm holds 90 (or 45 ) degrees for full 10 seconds -6a. Left Leg Drift; leg falls by the end of 5- seconds, but does not hit bed -6b. Right Leg No drift; leg holds 30-degree position for full 5 seconds -7. Limb Ataxia Present in 1 limb -8. Sensory Normal; no sensory loss -9. Best Language No aphasia; normal -10. Dysarthria Normal -11. Extinction and Inattention No abnormality -Total 2 Query Text:A score of 0 is normal or asymptomatic. Total possible score is 42 . ED: Notify Physician for NIHSS increase by > / = 3 points. Inpatient: RN or Physician to activate a stroke alert for NIHSS increase of > / = 3 points. Coma Scale [Assess] -Eye Opening Spontaneous -Motor Obeys Commands -Verbal Oriented [Total] -Coma Scale Total 15 NIHSS 1a. Level of Consciousness: Alert; keenly responsive 1b. LOC Questions: Answers BOTH questions correctly. 1c. LOC Commands: Performs both tasks correctly. 2. Best Gaze: Normal 3. Visual: No visual loss 4. Facial Palsy: Normal symmetrical movements 5a. Left Arm: No drift; arm holds 90 (or 45) degrees for full 10 seconds 5b. Right Arm: No drift; arm holds 90 (or 45) degrees for full 10 seconds 6a. Left Leg: No drift; leg holds 30-degree position for full 5 seconds 6b. Right Leg: No drift; leg holds 30-degree position for full 5 seconds 7. Limb Ataxia: Absent 8. Sensory: Normal; no sensory loss 9. Best Language: No aphasia; normal 10. Dysarthria: Normal 11. Extinction and Inattention: No abnormality Total: 0 EEG Results Procedure Details EEG Procedure Details: HELEN ROCA BLAIRE Avery is a 64 year old M with a past medical history of , who presents for evaluation of Electroencephalogram on DATE at TIME Objective Data Objective Data Vital Signs: Vital Signs Temp Pulse Resp BP Pulse Ox O2 Del Method 97.6 F L 65 16 118/78 100 Room Air 11/24/24 08:15 11/24/24 08:15 11/24/24 08:15 11/24/24 08:15 11/24/24 08:15 11/24/24 08:20 Oxygen Delivery Method Room Air Weight: 85.3 kg Body Mass Index (BMI) 29.4 Intake & Output: Intake and Output for Last 24 Hours 11/22/24 11/23/24 11/24/24 23:59 23:59 23:59 Intake Total 1121.83 / 1121.83 Output Total 850 / 850 Balance 271.83 / 271.83 Lab / Micro Data 11/23/24 19:53 11/23/24 19:53 Labs: Laboratory Results - last 24 hr 11/23/24 19:53: WBC 5.0, RBC 3.56 L, Hgb 11.5 L, Hct 33.8 L, MCV 94.9 H, MCH 32.3 H, MCHC 34.0, RDW Std Deviation 42.9, RDW Coeff of Deshawn 12.3, Plt Count 251, MPV 9.5, Immature Gran % (Auto) 0.600, Neut % (Auto) 52.5, Lymph % (Auto) 27.2, [place] % (Auto) 15.1 H, Eos % (Auto) 3.8, Baso % (Auto) 0.8, Absolute Neuts (auto) 2.7, Absolute Lymphs (auto) 1.37, Nucleated RBC % 0, PT 13.6, INR 1.0, APTT 28.9, Sodium 137, Potassium 4.2, Chloride 106, Carbon Dioxide 15.2 L, Anion Gap 16 H, BUN 12, Creatinine 1.06, Estim Creat Clear Calc 75.94, Est GFR (MDRD) Non-Af 79, BUN/Creatinine Ratio 11.4, Glucose 76, Calcium 7.7, Troponin T High Sens 9, Ethyl Alcohol < 10.1 11/23/24 19:55: Hemoglobin A1c 5.9 11/23/24 21:00: Urine Color Yellow, Urine Clarity Clear, Urine pH 6.5, Ur Specific [place] 1.010, Urine Protein Negative, Urine Glucose (UA) Normal, Urine Ketones Negative, Urine Occult Blood Negative, Urine Nitrite Negative, Urine Bilirubin Negative, Urine Urobilinogen Normal, Ur Leukocyte Esterase Negative, Urine RBC 0 SEEN, Urine WBC 0 SEEN, Ur Squamous Epith Cells 0-5 SEEN, Urine Bacteria 0 SEEN, Urine Mucus 0 SEEN, Urine Opiates Screen NEGATIVE, U Buprenorphine Qual NEGATIVE, Ur Oxycodone Screen NEGATIVE, Urine Methadone Screen NEGATIVE, Urine Fentanyl Screen NEGATIVE, Ur Barbiturates Screen NEGATIVE, Ur Phencyclidine Scrn NEGATIVE, Ur Amphetamines Screen NEGATIVE, U Benzodiazepines Scrn NEGATIVE, Urine Cocaine Screen NEGATIVE, U Cannabinoids Screen NEGATIVE 11/23/24 22:17: Troponin T Hi Sens 2 Hr 13, Vitamin B12 218, TSH 0.118 L 11/24/24 01:03: Troponin T Hi Sens 4Hr 13, Serum Folate 17.10, Ethyl Alcohol < 10.1 11/24/24 02:11: Serum Folate 13.30 11/24/24 07:40: Triglycerides 151, Cholesterol 110, LDL Cholesterol, Calc 49, VLDL Cholesterol 30, HDL Cholesterol 31 L, Cholesterol/HDL Ratio 3.55 ABG Data ABG results: ABG 11/23/24 20:24 Specimen Type JACKIE Sample Site Not entered VBG pH 7.40 VBG pO2 53 H VBG HCO3 25 VBG Total CO2 26 VBG O2 Sat (Calc) 87 H VBG Base Excess 0 POC Mix VBG pCO2 Pt Tmp 39.9 L O2 Delivery Device Room Air Radiography Diagnostic Testing: Radiology Impression Brain CT 11/23/24 19:34 IMPRESSION: The head is tilted to the left. No intracranial hemorrhage, mass effect or CT evidence of large vascular territory acute infarct. Results communicated verbally by phone by myself to Dr. Campos at 7:58 p.m. 11/23/2024 Reading Location: [facility] Head/Neck CTA 11/23/24 19:35 IMPRESSION: 1. No large vessel occlusion, AVM or aneurysm. 2. 50% stenosis of the right ICA by NASCET criteria. Reading Location: [facility] Brain MRI 11/24/24 00:00 IMPRESSION: 1. Normal MRI of the brain. Reading Location: [facility] Physical Exam Narrative General: The patient appears nutritionally appropriate, well-groomed, and appears comfortable in no acute distress. Mental Status:? The patient?s mental status was normal including orientation.? Language was intact.? Cranial nerves:? Visual lara full, and extra-ocular motion was intact. Symmetric face. Motor: Normal strength in all extremities. Sensation: Intact to touch in all extremities.? Coordination:? Bilateral finger to nose was normal.? There was no dysmetria. Gait:? deferred.
--- NOTE | 2024-11-24 14:07 | DS.PCM_ITS ---
Providers Date of Admission: 11/23/24 Primary Care Physician: Dr. Dariel Lopze, DO Consultations 11/24/24 00:22 Consult: Tele-Neurology Routine Consulting Provider: [facility] Reason for Consult: Acute Ischemic Stroke/TIA EMERGENT Consult: No MD Notified: Yes Date Notified: 11/23/24 Time Notified: 23:57 Method of Notification: ED Physician Initiated Nursing Unit Staff Notify [facility] of Tele-Neurology Consult: Yes Reason For Visit: SEIZURE & POSSIBLE CVA WITH AMS Diagnosis Discharge Diagnosis (1) Altered mental status: Status: Acute Code(s): R41.82 - Altered mental status, unspecified Qualifiers: Altered mental status type: unspecified Qualified Code(s): R41.82 - Altered mental status, unspecified Plan: Found down in [facility] and was noted to be confused. Workup here is been negative. head CT negative, CTA head and neck 50% stenosis of the right ICA MRI brain negative. EEG negative. May have been a vasovagal episode that caused him to fall and then may have led him to have a concussion may have caused him to be confused. No evidence of any seizures. Seen by neurology who does not have any additional recommendations. (2) Vertigo: Status: Acute Code(s): R42 - Dizziness and giddiness Plan: Likely secondary to benign proximal positional vertigo. As needed meclizine. Vestibular rehab as outpatient. Complicated by the fact that the patient is currently residing in [facility]. (3) Neck pain: Status: Acute Code(s): M54.2 - Cervicalgia Plan: Patient states that it was ongoing present to arrival and present to his injury that he sustained. Patient did have an MRI of his brain that showed spondylosis and spinal stenosis of his cervical spine. Patient had been referred to spine surgery which he states that he had an appointment on November 29 but that was canceled. Recommend patient reschedule spine surgery evaluation. Plan Chronic conditions: * hypothyroidism: levothyroxine * HTN: meds currently held given possibility of CVA. Medications at Discharge Home Medications carvedilol 3.125 mg tablet 3.125 mg PO BID heart #180 tabs 07/08/20 lisinopril 20 mg tablet 20 mg PO QDAY blood pressure #90 tabs 12/17/20 bupropion HCl 150 mg 24 hr tablet, extended release 150 mg PO DAILY depression 01/07/23 bupropion HCl 300 mg 24 hr tablet, extended release 300 mg PO DAILY depression 09/18/24 fluoxetine 40 mg capsule 40 mg PO DAILY ask pcp 09/18/24 hydroxyzine pamoate 50 mg capsule 50 mg PO BID PRN ask pcp 09/18/24 levothyroxine 150 mcg tablet 150 mcg PO DAILY thyroid 09/18/24 meloxicam 15 mg tablet 15 mg PO DAILY pain 09/18/24 rosuvastatin 20 mg tablet 20 mg PO QHS cholesterol 09/18/24 citalopram 40 mg tablet 40 mg PO QHS anxiety 09/19/24 fluticasone propionate 115 mcg-salmeterol 21 mcg/actuation HFA inhaler (Advair HFA) 1 puff inhalation Q12H asthma 09/19/24 acetaminophen 500 mg tablet 1,000 mg (2 x 500 mg) PO Q8 #0 tabs 09/20/24 albuterol sulfate 90 mcg/actuation aerosol inhaler 1 inh inhalation Q6H PRN shortness of breath or wheezing #6.7 grams 09/20/24 aspirin 81 mg chewable tablet 81 mg PO BREAKFAST #0 tabs 09/20/24 cyclobenzaprine 5 mg tablet 5 mg PO Q8H PRN PRN spasms/musculoskeletal pain #20 tabs 09/20/24 meclizine 12.5 mg tablet 12.5 mg PO TID PRN dizziness or vertigo #10 tabs 11/24/24 prednisone 20 mg tablet 40 mg (2 x 20 mg) PO BREAKFAST #10 tabs 11/24/24 Hospital Course Operations None Procedures 2-D Echocardiogram Summary of Care Provided Minutes Spent on Discharge: 32 Hospital Course: Patient had a fall in [facility]. Patient states that he felt dizzy and then blacked out. Reports that I got secondhand was that the patient was walking and slipped and was found. At the time is unclear what the circumstances 1 so he underwent MRI and EEG which were negative. I did undergo a CTA of the head and neck that showed no acute process. Patient's main complaint right now is dizziness as well as neck pain. Patient states that the neck pain has been ongoing since before the fall. He was asking about pain medications. I told him I would give him something this nonnarcotic but he just coughed at that. Patient demanded to see the CT of his neck which I was going to show him on the bedside monitor but then stated that he could not turn his head nor did he have his glasses. Weight / BMI Weight Weight: 85.3 kg Body Mass Index (BMI) 29.4 ABG / Lab / Microbiology Data 11/23/24 19:53 11/23/24 19:53 Laboratory: Laboratory Results - last 24 hr 11/23/24 19:53: WBC 5.0, RBC 3.56 L, Hgb 11.5 L, Hct 33.8 L, MCV 94.9 H, MCH 32.3 H, MCHC 34.0, RDW Std Deviation 42.9, RDW Coeff of Deshawn 12.3, Plt Count 251, MPV 9.5, Immature Gran % (Auto) 0.600, Neut % (Auto) 52.5, Lymph % (Auto) 27.2, [place] % (Auto) 15.1 H, Eos % (Auto) 3.8, Baso % (Auto) 0.8, Absolute Neuts (auto) 2.7, Absolute Lymphs (auto) 1.37, Nucleated RBC % 0, PT 13.6, INR 1.0, APTT 28.9, Sodium 137, Potassium 4.2, Chloride 106, Carbon Dioxide 15.2 L, Anion Gap 16 H, BUN 12, Creatinine 1.06, Estim Creat Clear Calc 75.94, Est GFR (MDRD) Non- Af 79, BUN/Creatinine Ratio 11.4, Glucose 76, Calcium 7.7, Troponin T High Sens 9, Ethyl Alcohol < 10.1 11/23/24 19:55: Hemoglobin A1c 5.9 11/23/24 21:00: Urine Color Yellow, Urine Clarity Clear, Urine pH 6.5, Ur Specific [place] 1.010, Urine Protein Negative, Urine Glucose (UA) Normal, Urine Ketones Negative, Urine Occult Blood Negative, Urine Nitrite Negative, Urine Bilirubin Negative, Urine Urobilinogen Normal, Ur Leukocyte Esterase Negative, Urine RBC 0 SEEN, Urine WBC 0 SEEN, Ur Squamous Epith Cells 0-5 SEEN, Urine Bacteria 0 SEEN, Urine Mucus 0 SEEN, Urine Opiates Screen NEGATIVE, U Buprenorphine Qual NEGATIVE, Ur Oxycodone Screen NEGATIVE, Urine Methadone Screen NEGATIVE, Urine Fentanyl Screen NEGATIVE, Ur Barbiturates Screen NEGATIVE, Ur Phencyclidine Scrn NEGATIVE, Ur Amphetamines Screen NEGATIVE, U Benzodiazepines Scrn NEGATIVE, Urine Cocaine Screen NEGATIVE, U Cannabinoids Screen NEGATIVE 11/23/24 22:17: Troponin T Hi Sens 2 Hr 13, Vitamin B12 218, TSH 0.118 L 11/24/24 01:03: Troponin T Hi Sens 4Hr 13, Serum Folate 17.10, Ethyl Alcohol < 10.1 11/24/24 02:11: Serum Folate 13.30 11/24/24 07:40: Triglycerides 151, Cholesterol 110, LDL Cholesterol, Calc 49, VLDL Cholesterol 30, HDL Cholesterol 31 L, Cholesterol/HDL Ratio 3.55 ABG: ABG 11/23/24 20:24 Specimen Type JACKIE Sample Site Not entered VBG pH 7.40 VBG pO2 53 H VBG HCO3 25 VBG Total CO2 26 VBG O2 Sat (Calc) 87 H VBG Base Excess 0 POC Mix VBG pCO2 Pt Tmp 39.9 L O2 Delivery Device Room Air Radiography Diagnostic Testing: Radiology Impression Brain CT 11/23/24 19:34 IMPRESSION: The head is tilted to the left. No intracranial hemorrhage, mass effect or CT evidence of large vascular territory acute infarct. Results communicated verbally by phone by myself to Dr. Campos at 7:58 p.m. 11/23/2024 Reading Location: [facility] Head/Neck CTA 11/23/24 19:35 IMPRESSION: 1. No large vessel occlusion, AVM or aneurysm. 2. 50% stenosis of the right ICA by NASCET criteria. Reading [facility] Brain MRI 11/24/24 00:00 IMPRESSION: 1. Normal MRI of the brain. Reading Location: [facility] Instructions Discharge Diet: No restrictions DC O2, CPAP, BIPAP Needs Home O2 Discharge instructions: No Meaningful Use Info Meaningful Use Meaningful Use Diagnoses (Choose all that apply): None applicable Ischemic Stroke Statin Dosing Therapy Reference: STATIN DOSE THERAPY REFERENCE: * Patients > 75 years receive moderate or high dose statin therapy. * Patients 75 years or YOUNGER should receive HIGH intensity statin dose unless contraindicated. You will be required to document reason for non-treatment if statin daily dose does not meet guidelines. HIGH DOSE STATIN THERAPY DAILY Atorvastatin > than or = to 40 mg Rosuvastatin > than or = to 20 mg Amlodipine + Atorvastatin > than or = to 2.5/40 mg Ezetimibe + Simvastatin 10/80 mg Simvastatin 80mg Discharge Plan Admission Admit Date/Time: 11/23/24 23:50 Primary Reason for Your Visit: Vertigo Attending Provider: Soto Tavera Primary Care Provider: Dariel Lopez Consulting Providers: Prasad Cole; Pedro Prado; Rachael Gil; Yenifer Garcia; Emily Delgado; Jordan Mustafa; Alpa Fernandez; Chago Holm; Carlos Hess; Geremias Hays; Madhavi Cho; Connor Evans; Parisa Arenas; Raza Garcia; Vidhya Cartagena; Kole Retana; Delia Tapia; Hima Eid; Juliet Marshall; Kalina Saldivar; Eliza Gong; Narciso Plata; Luis Eduardo Quigley; ILANA FELIZ; Marcel Guerra; Gisele Shell; Dixon Adair Instructions Additional Instructions / Restrictions: You have a prescription for meclizine which is meant to help with vertigo symptoms. I will have you on prednisone to help out with your neck. Once again recommend that you follow-up with spine surgery to have them evaluate your neck. Cording to what you told me is that your appointment had been canceled. Recommend rescheduling as you are able. Discharge Orders/Prescriptions Prescriptions: New meclizine 12.5 mg tablet 12.5 mg PO TID PRN (Reason: dizziness or vertigo) Qty: 10 0RF Continued bupropion HCl 150 mg tablet extended release 24 hr 150 mg PO DAILY rosuvastatin 20 mg tablet 20 mg PO QHS bupropion HCl 300 mg tablet extended release 24 hr 300 mg PO DAILY Patient Comments: takes in addition to the 150mg tablet levothyroxine 150 mcg tablet 150 mcg PO DAILY meloxicam 15 mg tablet 15 mg PO DAILY fluoxetine 40 mg capsule 40 mg PO DAILY hydroxyzine pamoate 50 mg capsule 50 mg PO BID PRN citalopram 40 mg tablet 40 mg PO QHS fluticasone propion-salmeterol [Advair HFA] 115-21 mcg/actuation HFA aerosol inhaler 1 puff INHALATION Q12H acetaminophen 500 mg Tablet 1,000 mg PO Q8 Qty: 0 0RF aspirin 81 mg Tablet,Chewable 81 mg PO BREAKFAST Qty: 0 0RF cyclobenzaprine 5 mg Tablet 5 mg PO Q8H PRN PRN (Reason: spasms/musculoskeletal pain) Qty: 20 0RF albuterol sulfate 90 mcg/actuation HFA aerosol inhaler 1 inh inhalation Q6H PRN (Reason: shortness of breath or wheezing) Qty: 6.7 0RF prednisone 20 mg Tablet 40 mg PO BREAKFAST Qty: 10 0RF carvedilol 3.125 mg tablet 3.125 mg PO BID Qty: 180 1RF lisinopril 20 mg tablet 20 mg PO QDAY Qty: 90 3RF Discontinued oxycodone 15 mg tablet 15 mg PO TID Patient Comments: per [facility] medical personnel Moira, patient not taking for weeks Referrals / Follow Up: Dariel Lopez DO [Primary Care Provider] - Within 2 Weeks Disposition Disposition (needs filled in before D/C Order can be placed): Home, Self Care Charges/Coding Visit Charges Inpatient E&M: 56303 Disch Hosp >30min
--- NOTE | 2024-11-24 14:40 | CASEMGMT ---
CARIE AUSTIN NOTE: Discharge order is in. CAIRE CM to room. Nurse and COMMUNITY SERVICE PATROL OFFICER @ bedside. Pt states he wants his GF to pick him up and he just provided her phone # to RN. He would like her to be present when discharge instructions are reviewed. RN aware. Pt made aware Rx's have been sent to [facility]. CARIE AUSTIN inquired if Rx's can be picked up today at the pharmacy. Pt states, I imagine so. CARIE AUSTIN did let pt know meds could be obtained from [facility] retail pharmacy, if desired or if that would easier for him, but he states they will get them @ [facility]. Pt voicing frustration over cx'd spine surgeon appt and on-going pain. He states the appt that was scheduled on 11/29 was cancelled by the medical dep't @ the [facility] and states, That was illegal and I'm going to call a optician apprentice dispensing about it. Pt states he is going to call to have appt re-scheduled. Script for OP PT/vestibular therapy obtained from Dr Tavera and provided to pt. Made aware he can take to any location of choice. He states he has went to [place] in the past. Pt requesting to talk with Dr Tavera. nanoscience technician, Lorie, made aware and will notify Dr Tavera. Hope OMER RN, CM
--- NOTE | 2024-11-24 15:37 | CHAPLAIN ---
Type of Pastoral Visit _x__ Initial Visit ___ Follow-up Visit ___ On-call Visit ___ General Patient Visit ___ Spiritual Assessment ___ Family Conference ___ Bereavement ___ Rapid Response ___ Code Blue ___ Other (describe below) Pastoral Care Referral From ___ Patient ___ Family _x__ Nurse ___ Physician ___ Lay Health Advocate ___ Kerrick Kleaner Operator ___ Other (describe below) Sacrament/Intervention _x__ Active listening ___ Anointing ___ Anabaptist ___ Bereavement ___ Communion ___ Justine exploration ___ _x__ Life review _x__ Prayer ___ Reconciliation ___ Sacrament of Sick _x__ Supportive presence ___ Wedding ___ Other (describe below) Pastoral Comments charge nurse and floor nurse requested this distance learning administrator to sit with this patient who is agitated; patient needs someone to pick him up from the hospital; at first the patient states sharply I don't need you or want you; however, this distance learning administrator just remained in the room and gave him some space and then time to give his side of the story; pt states his medical conditions which cause lots of pain; pt was recently in longterm and states that he was not given medical treatment there; pt says that medical people are not hearing him or helping him; pt had a step daughter that appeared twice during this visit and she stayed only one minute each time; pt had asked step daughter for help with his phone; pt is unable to unlock his phone and make calls that he wants; pt through the visit does communicate and remain calm with this distance learning administrator; listening to patient appears to calm him down; offer of prayer is welcomed and pt states that he goes to [place] every week with his father and that is important to him; prayer given; pt states that was the nicest thing that happened to me today; notified charge nurse that the visit has ended with patient being calmer than at the beginning
--- NOTE | 2024-11-24 16:16 | NURSING ---
Patient discharge order in, patient refusing to leave stating he still has pain. MD aware, discharge paperwork instructs outpatient follow up. Patient still refusing to leave and requested to see another doctor, patient escorted to ED per patient request.
[2024-11-25 04:07] LABS: PROLACTIN 50.8 ng/mL (3.6-25.2)
[2024-11-25 19:42] LABS: Bedside Glucose 94 mg/dL (74-106)
== END 2024-11-24 14:13 | disposition home or self-care (01) ==
LOC: ED 21:53 → PCU 11-24 00:03
PROVIDERS: Admitting Provider Internal Medicine; Emergency Provider Emergency Medicine; PCP Family Medicine
DX: R55 Syncope and collapse (principal); I11.0 Hypertensive heart disease with heart failure; I50.32 Chronic diastolic (congestive) heart failure; M54.2 Cervicalgia; E78.5 Hyperlipidemia, unspecified; R53.1 Weakness; Q21.12 Patent foramen ovale; E66.3 Overweight; Z68.29 Body mass index [BMI] 29.0-29.9, adult; I25.10 Atherosclerotic heart disease of native coronary artery without angina pectoris; I65.21 Occlusion and stenosis of right carotid artery; G89.29 Other chronic pain; R41.82 Altered mental status, unspecified; M47.812 Spondylosis without myelopathy or radiculopathy, cervical region; M48.02 Spinal stenosis, cervical region; J45.909 Unspecified asthma, uncomplicated; E03.9 Hypothyroidism, unspecified; R73.03 Prediabetes; F32.A Depression, unspecified; F41.9 Anxiety disorder, unspecified; I25.2 Old myocardial infarction; Z79.1 Long term (current) use of non-steroidal anti-inflammatories (NSAID); Z79.82 Long term (current) use of aspirin; Z79.890 Hormone replacement therapy; Z79.891 Long term (current) use of opiate analgesic; Z87.891 Personal history of nicotine dependence; Z95.5 Presence of coronary angioplasty implant and graft
CPT/HCPCS: 36415; 70450; 70496; 70498; 70551; 80048; 80061; 80307; 81001; 82077; 82607; 82746; 82803; 82962; 83036; 84146; 84443; 84484; 85025; 85610; 85730; 93005; 94640; 94762; 95819; 96365; 96366; 96375; 97162; 97166; 99221; 99285; P9612; Q9967; A4216; G0378

== ENCOUNTER 2024-11-24 16:18 | Emergency (ER) | payer MEDICAID, SELFPAY ==
[2024-11-24 16:20] VITALS: BP 132/78; PULSE 96; RESP 18; TEMP 36.2; O2SAT 98
--- NOTE | 2024-11-24 16:46 | ED.RN ---
Dr Seymour and myself had a conversation with pt. Pt is trying everything he can to get readmitted so that he does not have to go to detention. Pt wanted narcotics of oxy 15mg TID. Dr Seymour told the patient that we would not be doing that. Pt was given multiple types of medications to help with his neck pain. Pt made the comment that I am a fall risk, oops I fell on the ice and chuckled. Werner SANCHEZ had pt go to the waiting room and [facility]
== END 2024-11-24 16:50 | disposition left against medical advice (07) ==
LOC: ED 16:51
PROVIDERS: PCP Family Medicine
DX: Z53.21 Procedure and treatment not carried out due to patient leaving prior to being seen by health care provider (principal)

== ENCOUNTER → 2025-03-26 | Outpatient (CLI) | payer MEDICAID, SELFPAY | END | disposition home or self-care (01) | LOC: BIMLAB 11:15 | PROVIDERS: PCP Family Medicine; Referring Provider Family Medicine; Visit Provider Family Medicine | DX: Z51.81 Encounter for therapeutic drug level monitoring (principal); Z79.899 Other long term (current) drug therapy | CPT/HCPCS: 36415 ==

== ENCOUNTER → 2025-03-30 | Outpatient (CLI) | payer MEDICAID, SELFPAY | END | disposition home or self-care (01) | LOC: BFHLAB 14:45 | PROVIDERS: PCP Family Medicine; Visit Provider Family Medicine | DX: Z79.899 Other long term (current) drug therapy (principal) | CPT/HCPCS: 36415 ==

== ENCOUNTER → 2025-04-04 | Outpatient (CLI) | payer MEDICAID, SELFPAY ==
--- NOTE | 2025-04-04 14:15 | RAD_ITS ---
PROCEDURE: CHEST PA AND LATERAL 04/04/2025 REASON FOR EXAM: COUGH TECHNIQUE: CHEST PA AND LATERAL COMPARISON: None RAD/Chest PA and Lateral IMPRESSION: Lungs are somewhat hypoinflated, with minimal discoid atelectasis seen in the l eft lung base. No evidence of pulmonary edema. No pleural effusion or pneumothorax is seen. The cardiomediastinal silhouette is within normal range. Mild degenerative changes of the lower thoracic spine are seen. No acute osseo us change is evident. Reading Location: [place] [id number]
== END | disposition home or self-care (01) ==
LOC: MTRAD 14:14
PROVIDERS: PCP Family Medicine; Referring Provider Physician Assistant; Visit Provider Physician Assistant
DX: R05.9 Cough, unspecified (principal)
CPT/HCPCS: 71046

== ENCOUNTER → 2025-04-20 | Outpatient (CLI) | payer MEDICAID, SELFPAY ==
[2025-04-20 18:39] LABS: Barbiturate Urine NEGATIVE (< 200 ng/mL); Benzodiazepine Urine NEGATIVE (< 200 ng/mL); PCP Urine NEGATIVE (< 25 ng/mL); THC Urine NEGATIVE (< 50 ng/mL)
== END | disposition home or self-care (01) ==
LOC: LABSPEC 16:58
PROVIDERS: PCP Family Medicine; Visit Provider Family Medicine
DX: Z79.899 Other long term (current) drug therapy (principal)
CPT/HCPCS: 80307

== ENCOUNTER → 2025-05-18 | Outpatient (CLI) | payer MEDICAID, SELFPAY ==
[2025-05-18 20:17] LABS: Barbiturate Urine NEGATIVE (< 200 ng/mL); Benzodiazepine Urine PRESUMPTIVE POSITIVE (< 200 ng/mL); PCP Urine NEGATIVE (< 25 ng/mL); THC Urine NEGATIVE (< 50 ng/mL)
== END | disposition home or self-care (01) ==
LOC: LABSPEC 14:34
PROVIDERS: PCP Family Medicine; Visit Provider Family Medicine
DX: Z79.899 Other long term (current) drug therapy (principal)
CPT/HCPCS: 80307

== ENCOUNTER → 2025-07-30 | Outpatient (CLI) | payer MEDICAID, SELFPAY ==
[2025-07-30 15:37] LABS: Barbiturate Urine NEGATIVE (< 200 ng/mL); Benzodiazepine Urine NEGATIVE (< 200 ng/mL); PCP Urine NEGATIVE (< 25 ng/mL); THC Urine NEGATIVE (< 50 ng/mL)
== END | disposition home or self-care (01) ==
LOC: LABSPEC 11:17
PROVIDERS: PCP Family Medicine; Visit Provider Family Medicine
DX: Z51.81 Encounter for therapeutic drug level monitoring (principal); Z79.899 Other long term (current) drug therapy
CPT/HCPCS: 80307